=== PATIENT | male | born 1940 | race Caucasian/White ===

== ENCOUNTER 2017-06-08 11:00 | Outpatient (RCR) | payer MEDICARE, OTHER, SELFPAY ==
[2017-05-18 10:34] VITALS: BP 122/70; PULSE 74; RESP 18; TEMP 36.6; BMI 23.7
--- NOTE | 2017-05-18 13:22 | PCM.WC.HP ---
(1) Non-pressure chronic ulcer of right lower leg with fat layer exposed Status: Acute Current Visit: Yes Code(s): L97.912 - Non-pressure chronic ulcer of unspecified part of right lower leg with fat layer exposed (2) Neuropathy of right lower extremity Status: Acute Current Visit: Yes Code(s): G57.91 - Unspecified mononeuropathy of right lower limb (3) Right foot drop Status: Acute Current Visit: Yes Code(s): M21.371 - Foot drop, right foot (4) Malnutrition Status: Acute Current Visit: Yes Code(s): E46 - Unspecified protein-calorie malnutrition (5) Delayed wound healing Status: Acute Current Visit: Yes Code(s): T14.8XXD - Other injury of unspecified body region, subsequent encounter (6) PVD (peripheral vascular disease) Status: Suspected Current Visit: Yes Code(s): I73.9 - Peripheral vascular disease, unspecified History of Present Illness Date of Service: 05/18/17 Chief Complaint: Ulcer to distal medial right 1st metatarsophalangeal joint and dorsal 1st metatarsophalangeal joint/hallux History of Wound: This patient presents to the wound center with his with history of approximately 4 years of 2 ulcers surrounding the right first metatarsophalangeal joint, one being slightly more dorsal and distal, and one being more proximal and medial. Patient and patient's are not sure what started the ulcers 4 years ago. They both state that it could have started 4 years ago because the patient had undergone previous hip surgeries, and during a right hip surgery, his sciatic nerve was injured that caused the patient to develop neuropathy and drop foot on the right side. Since the onset, the ulcers have gone through waves of improving and getting worse again. They have not seen a school counsellor for this issue, only the primary care doctor. They state that the areas had been looking good until approximately 3-4 weeks ago when they noticed some clear drainage to the areas. Since they have been dressing the area with Neosporin and a bandage. They both feel like the area is slowly improving and looks better than it did 3 weeks ago. Patient is on chronic amoxicillin therapy for other comorbidities accoring to patient and his . Patient denies any nausea, vomiting, fever, chills, or shortness of breath. Patient and his deny any purulent drainage or malodor. Past Medical History Past Medical History: Chronic Problems History of DVT (deep vein thrombosis) (Chronic) With massive PE in 2005; since then Coumadin therapy Status post IVC filter 04/2013 History of prostate cancer (Chronic) Status post radiation therapy in 2005 complicated by avascular necrosis of the right hip Paroxysmal a-fib (Chronic) Post op, on satolol, following with Dr. 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) Prostate cancer (Chronic) Atrial fibrillation (Chronic) Chronic anemia (Chronic) Sleep apnea (Chronic) Pulmonary embolism (Chronic) Recurrent deep vein thrombosis (DVT) (Chronic) Right foot drop (Chronic) Surgical History: cataract, total hip arthroplasty - Bilateral., - - IVC filter Allergies/Adverse Reactions: Allergies No Known Allergies Allergy (Verified 05/04/13 17:29) Home Medications: Ambulatory Orders Medication Instructions Recorded Furosemide [Lasix] 40 mg PO BID 05/04/13 Amoxicillin [Amoxil] 500 mg PO BID@1000,2200 capsule 05/25/16 Bisacodyl [Dulcolax] 10 mg RECTAL DAILY PRN #30 suppos. 05/25/16 Calcium Carbonate [Tums] 500 mg PO BIDCM tablet 05/25/16 Ergocalciferol [Vitamin D] 50,000 unit PO Q7D capsule 05/25/16 Gabapentin [Neurontin] 300 mg PO BIDCM #60 capsule 05/25/16 Lisinopril [Zestril] 10 mg PO BID@0800,1700 #60 tablet 05/25/16 Menthol/Lanolin/Calamine/Znox 1 applic TOPICAL TID #1 tube 05/25/16 [Calmoseptine Ointment] Polyethylene Glycol 3350 [Miralax] 17 gm PO DAILY #30 packet 05/25/16 Senna/Docusate Sodium [Senokot-S] 1 tablet PO BID@0800,1700 #30 05/25/16 tablet Acetaminophen [Tylenol] 1,000 mg PO BID PRN PRN 05/18/17 Augmentin 875-125 Tablet 875 mg PO BID 05/18/17 Diltiazem HCl [Diltiazem 24Hr Cd] 180 mg PO DAILY 05/18/17 Duloxetine HCl 60 mg PO DAILY 05/18/17 Enalapril Maleate 10 mg PO BID 05/18/17 Ferrous Sulfate [Iron] 325 mg PO BID 05/18/17 Gabapentin [Neurontin] 300 mg PO BID 05/18/17 Iron Polysaccharide Complex 150 mg PO BIDAC 05/18/17 [Ferrex 150] Levothyroxine [Synthroid] 125 mcg PO DAILY@0600 05/18/17 Oxycodone HCl/Acetaminophen 1 tablet PO Q6H PRN PRN 05/18/17 [Percocet 5/325] Rosuvastatin Calcium [Crestor] 5 mg PO QHS 05/18/17 Warfarin [Coumadin ([facility])] 2.5 mg PO DAILY 05/18/17 - Family History Maternal No pertinent history Paternal No pertinent history Lives: Spouse/ Significant Other Smoking Status: Never smoker Tobacco Use: Non-smoker Review of Systems Constitutional: Denies: Chills, Fever Cardiovascular: Denies: Chest Pain, Claudication Respiratory: Denies: Cough, Shortness of Breath, Shortness of breath at rest Gastrointestinal: Denies: Diarrhea, Vomiting Musculoskeletal: Reports: - - weakness to right lower extremity Skin: Reports: Wounds - two ulcers to right first mpj Neurological: Reports: Incoordination - right foot drop, - - neuropathy and absent protective sensation to right foot to all 5 pedal sites tested at random using a 5.07 semmes-alex monofilament. Hematologic/ Lymphatic: Reports: Hx of blood clot Subjective: This patient presents to the wound center with his with history of approximately 4 years of 2 ulcers surrounding the right first metatarsophalangeal joint, one being slightly more dorsal and distal, and one being more proximal and medial. Patient and patient's are not sure what started the ulcers 4 years ago. They both state that it could have started 4 years ago because the patient had undergone previous hip surgeries, and during a right hip surgery, his sciatic nerve was injured that caused the patient to develop neuropathy and drop foot on the right side. Since the onset, the ulcers have gone through waves of improving and getting worse again. They have not seen a school counsellor for this issue, only the primary care doctor. They state that the areas had been looking good until approximately 3-4 weeks ago when they noticed some clear drainage to the areas. Since they have been dressing the area with Neosporin and a bandage. They both feel like the area is slowly improving and looks better than it did 3 weeks ago. Patient is on chronic amoxicillin therapy for other comorbidities according to patient and his . Patient denies any nausea, vomiting, fever, chills, or shortness of breath. Patient and his deny any purulent drainage or malodor. - Physical Exam Vital Signs Temp Pulse Resp BP 97.8 F 74 18 122/70 H 05/18/17 10:34 05/18/17 10:34 05/18/17 10:34 05/18/17 10:34 General: Alert, Oriented x3, Cooperative, No apparent distress Extremities: Capillary Refill Less than 3 Seconds, No Calf Tenderness - negative sahra and carlos signs bilateral, Edema - pitting edema noted to bilateral lower extremity, Peripheral Pulses Normal - DP pulses palpable bilateral, but PT pulses non palpable bilateral due toe edema. Skin: Ulcer/ Wound - Ulcer to proximal medial right 1st MPJ noted to have slight serous drainage with no purulence and no malodor. Base is composed of fibrous tissue and slough. No probing to bone, no undermining, no tracking. No extending cellulitis. No fluctuance. Ulcer to dorsal and slightly more distal aspect of right 1st MPJ noted to have slight serous drainage with no purulence and no malodor. Base is composed of fibrous tissue and slough. No probing to bone, no undermining, no tracking. No extending cellulitis. No fluctuance. Measurements of ulcers are noted in chart Wound Measurements and Assessment - Nurse 1 - General Ulcer Measurement Start: 05/18/17 10:08 Freq: Status: Active Protocol: Activity Type Activity Date Activity User E-Sign Co-Sign Detail Recorded Client Recorded Date Recorded By Document 05/18/17 10:34 [id number] 05/18/17 10:53 TM 05/18/17 10:34 Wound Center Nurse 1 [Ulcer Assessment Protocol: JOHN.WD.LOC] #2 Superior right medial 1st metatarsal head -Combined with other wound No -Current Size (cm) - Length 0.5 -Current Size (cm) - Width 1.0 -Current Size (cm) - Depth 0.2 -Total Square Cm 0.50 -Date of Last Picture (Recall this 05/18/17 field) -Photo Taken Yes -Epithelialization None Present -Tunneling No -Undermining/Tunneling No -Circular Undermining No -Classification - Thickness Full Thickness without Exposed Support Structure -Exudate Amt None Present (0 %) -Wound Margin Distinct, Outline Attached -Granulation Amt None Present (0 %) -Granulation Quality N/A -Slough/Fibrin Yes -Necrosis Amt Large (67-100%) -Necrotic Tissue Type Adherent Slough -Structure Exposed Fascia Fat Layer Exposed -Texture (Vidya-wound Skin Appearance) Scarring Rash -Moisture (Vidya-wound Skin Appearance Dry/Scaly ) -Color (Vidya-wound Skin Appearance) Erythema Hemosiderin Staining -Temperature (Vidya-wound Skin No Abnormality Appearance) (Pt Warm) -Tenderness on Palpation (Vidya-wound No Skin Appearance) -Ulcer Cleansing Rinsed/ Irrigated with Saline -Foul Odor after Cleansing No -Anesthetic Used 5% Lidocaine Gel #1 Inferior right medial 1st metatarsal head -Combined with other wound No -Current Size (cm) - Length 0.8 -Current Size (cm) - Width 0.6 -Current Size (cm) - Depth 0.2 -Total Square Cm 0.48 -Date of Last Picture (Recall this 05/18/17 field) -Photo Taken Yes -Epithelialization None Present -Tunneling No -Undermining/Tunneling No -Circular Undermining No -Classification - Thickness Full Thickness without Exposed Support Structure -Exudate Amt Small (1-33%) -Exudate Type Serosanguineous -Wound Margin Distinct, Outline Attached -Granulation Amt None Present (0 %) -Granulation Quality N/A -Slough/Fibrin Yes -Necrosis Amt Large (67-100%) -Necrotic Tissue Type Adherent Slough -Structure Exposed Fascia Fat Layer Exposed -Texture (Vidya-wound Skin Appearance) Localized Edema Scarring -Moisture (Vidya-wound Skin Appearance Dry/Scaly ) -Color (Vidya-wound Skin Appearance) Erythema Hemosiderin Staining -Temperature (Vidya-wound Skin No Abnormality Appearance) (Pt Warm) -Tenderness on Palpation (Vidya-wound No Skin Appearance) -Ulcer Cleansing Rinsed/ Irrigated with Saline -Foul Odor after Cleansing No -Anesthetic Used 5% Lidocaine Gel [Edema Assessment] -Lower Limb Edema Present Yes -Right Calf (cm) 37.0 -Right Ankle (cm) 22.5 -Left Calf (cm) 35.0 -Left Ankle (cm) 21.5 WC - Nurse 2 - General Ulcer CM Notes Start: 05/18/17 10:08 Freq: Status: Active Protocol: Activity Type Activity Date Activity User E-Sign Co-Sign Detail Recorded Client Recorded Date Recorded By Document 05/18/17 11:18 MW [id number] 05/18/17 11:31 MW 05/18/17 11:18 Wound Center Nurse 2 [Procedure/Treatment] #2 Superior right medial 1st metatarsal head -Time 11:19 -Correct Patient Yes -Correct Side, Site, Position Yes -Correct Procedure Yes -Procedure Performed Yes -Type of Procedure Debridement -Clinical Debridement Selective -Post Debridement Size (cm) - Length 0.7 -Post Debridement Size (cm) - Width 0.9 -Post Debridement Size (cm) - Depth 0.1 -Total Square Cm 0.63 -Wound/Ulcer Outcome Not Healed -Ulcer Cleansing Rinsed/ Irrigated with Saline -Foul Odor after Cleansing No -Bioengineered Tissue No -Cetacaine [place] No -Bleeding Controlled with Pressure -Treatment Response Procedure Tolerated Well #1 Inferior right medial 1st metatarsal head -Time 11:21 -Correct Patient Yes -Correct Side, Site, Position Yes -Correct Procedure Yes -Procedure Performed Yes -Type of Procedure Debridement -Clinical Debridement Selective -Post Debridement Size (cm) - Length 1.0 -Post Debridement Size (cm) - Width 0.9 -Post Debridement Size (cm) - Depth 0.1 -Total Square Cm 0.90 -Wound/Ulcer Outcome Not Healed -Ulcer Cleansing Rinsed/ Irrigated with Saline -Foul Odor after Cleansing No -Bioengineered Tissue No -Cetacaine [place] No -Bleeding Controlled with Pressure -Treatment Response Procedure Tolerated Well [See Physician Procedure note for Specifics] Pain Scale: 0-10 Numeric [Pain] -Is Patient Pain Free? Yes Musculoskeletal: - - no pain on palpation of ulcers due to neuropathy. decreased muscle strenght to right lower extremity. Neurological: - - Protective sensation absent to all 5 pedal sites tested at random using a 5.07 semmes-alex monofilament. Psych/Mental Status: Normal Affect, Appropriate Debridement Note Post-Debridement Measurements/Treatment WC - Nurse 2 - General Ulcer CM Notes Start: 05/18/17 10:08 Freq: Status: Active Protocol: Activity Type Activity Date Activity User E-Sign Co-Sign Detail Recorded Client Recorded Date Recorded By Document 05/18/17 11:18 MW [id number] 05/18/17 11:31 MW 05/18/17 11:18 Wound Center Nurse 2 #2 Superior right medial 1st metatarsal head -Time 11:19 -Correct Patient Yes -Correct Side, Site, Position Yes -Correct Procedure Yes -Procedure Performed Yes -Type of Procedure Debridement -Clinical Debridement Selective -Post Debridement Size (cm) - Length 0.7 -Post Debridement Size (cm) - Width 0.9 -Post Debridement Size (cm) - Depth 0.1 -Total Square Cm 0.63 -Wound/Ulcer Outcome Not Healed -Ulcer Cleansing Rinsed/ Irrigated with Saline -Foul Odor after Cleansing No -Bioengineered Tissue No -Cetacaine [place] No -Bleeding Controlled with Pressure -Treatment Response Procedure Tolerated Well #1 Inferior right medial 1st metatarsal head -Time 11:21 -Correct Patient Yes -Correct Side, Site, Position Yes -Correct Procedure Yes -Procedure Performed Yes -Type of Procedure Debridement -Clinical Debridement Selective -Post Debridement Size (cm) - Length 1.0 -Post Debridement Size (cm) - Width 0.9 -Post Debridement Size (cm) - Depth 0.1 -Total Square Cm 0.90 -Wound/Ulcer Outcome Not Healed -Ulcer Cleansing Rinsed/ Irrigated with Saline -Foul Odor after Cleansing No -Bioengineered Tissue No -Cetacaine [place] No -Bleeding Controlled with Pressure -Treatment Response Procedure Tolerated Well Pain Scale: 0-10 Numeric Is Patient Pain Free? Yes Wound debrided: superior medial right first metatarsal head Laterality: Right Type of Debridement: Selective debridement Anesthesia Used: 5% Lidocaine Gel Depth: in the subcutaneous layer, - Percentage of wound debrided: 100 Instrument Used: 3mm curette Tissue Removed: fibrotic tissue and adherent slough Severity: Fat Layer Exposed Amount of bleeding with debridement: Mild Bleeding Controlled with: Pressure Patient tolerated procedure well - Additional Wound Wound debrided: inferior medial right 1st metatarsal head Laterality: Right Type of Debridement: Selective debridement Anesthesia Used: 5% Lidocaine Gel Depth: in the subcutaneous layer Percentage of wound debrided: 100 Instrument Used: 3mm curette Tissue Removed: fibrotic tissue and adherent slough Severity: Fat Layer Exposed Amount of bleeding with debridement: Mild Bleeding Controlled with: Pressure Patient tolerated procedure: Patient tolerated procedure well Assessment/Plan Active Problems Non-pressure chronic ulcer of right lower leg with fat layer exposed (Acute) Neuropathy of right lower extremity (Acute) Right foot drop (Acute) Malnutrition (Acute) Delayed wound healing (Acute) Assessment: Two ulcers to the medial and dorsal aspect of the right first metatarsophalangeal joint with fat layer exposed. Foot drop. 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 Malnutrition. Plan: Patient was examined and evaluated in great detail and I discussed the patient's case and his care. Subcutaneous selective debridement of both ulcer sites noted above was performed. Once complete, harrison was applied to the sites followed by a dry sterile dressing and a light Tubigrip. Patient had been previously wearing TIMO hose and was instructed to continue this on his left side. Patient is to have dressing changed in this manner every other day and to keep the dressing clean, dry, and intact while on. Patient's shoes as well as AFO brace were inspected to see if there were any areas of pressure. Patient and his were also notified to keep an eye on the feet and to evaluate for any areas of suspected pressure. 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 Previous imaging studies were reviewed that patient had completed Viky back in February. Three-view x-ray of the right foot was read as the patient having degenerative changes at the first metatarsal phalangeal joint and within the midfoot. An addendum was also added to this stating that there is relative lucency in the first metatarsal head. A total body 3 phase bone scan was also completed, with the impressions stating that there was increased soft tissue phase activity and increased osseous phase activity at the head of the right first metatarsal, and that this could indicate osteomyelitis. For this reason, follow-up 3 view x-rays were ordered today. Clinically, the ulcer sites did not appear to be acutely infected today. Baseline lab work was also ordered today including CBC with differential, CMP, pre-albumin, ESR. LEAS with toe pressure as well as venous doppler bilateral studies were ordered. These results will be reviewed at follow-up appointment. The patient and his were educated on signs and symptoms of local and systemic infection and were notified to go to the ER immediately should they notice any. All other questions were answered to the patient and the patient's 's satisfaction. Patient will follow up in clinic in 1 week or sooner if any problems arise.
[2017-05-18 15:38] LABS: ALB/GLOB Ratio 0.6 RATIO (0.9-2.4); AST(SGOT) 27 U/L (15-37); Alanine Aminotransfer ALT/SGPT 22 U/L (12-78); Albumin, Serum 2.4 g/dL (3.4-5.0); Alkaline Phosphatase 101 U/L (45-117); Anion Gap 6 (5-15); BUN 13 mg/dL (7-18); BUN/Creat Ratio 21.1 RATIO (10-20); Calcium,Total 7.8 mg/dL (8.5-10.1); Chloride 104 mmol/L (98-107); Creatinine, Serum 0.62 mg/dL (0.70-1.30); EST Glomerular Filtration Rate 135 mL/min (>60); Est Glom Filt Rate - Afr Amer 163 mL/min (>60); Estimated Creatinine Clearance 65.89 ml/min; Globulin 3.9 g/dL (2.2-4.2); Glucose 77 mg/dL (70-110); Potassium 4.2 mmol/L (3.5-5.1); Prealbumin 15.7 mg/dL (20.0-40.0); Protein, Total 6.3 g/dL (6.4-8.2); Sodium Level 138 mmol/L (136-145)
[2017-05-18 16:06] LABS: Absolute Lymphocyte Count 0.45 X10^3/ul (0.83-4.51); Absolute Neutrophil Count 7.6 X10^3/uL (2.0-7.7); Basophil# 0.05 X10^3/uL; Basophil% 0.5 % (0-1); Eosinophils% 2.2 % (0-5); Hematocrit 37.5 % (40-54); Lymphocyte # 0.45 X10^3/ul (4.0); Lymphocyte % 4.9 % (19-41); Mean Corp Hgb Conc 29.3 g/gl (32-36); Mean Corpuscular Hgb 25.9 pg (27.0-32.0); Mean Corpuscular Volume 88.4 fL (80-94); Monocyte# 0.87 X10^3/uL; Monocyte% 9.4 % (0-10); Neutrophil # 7.55 X10^3/uL (2.7-7.7); Platelet Count 588 K/mm3 (150-450); RBC Distribution Width SD 54.9 fl (35.1-43.9); Red Blood Count 4.24 M/mm3 (4.6-6.2); White Blood Count 9.2 K/mm3 (4.4-11.0)
[2017-05-18 16:09] LABS: Differential Indicated SCAN CRITERIA MET; POSITIVE COUNT NO; POSITIVE DIFFERENTIAL YES; POSITIVE MORPHOLOGY NO
[2017-05-18 16:27] LABS: Differential Comment SCANNED; Erythrocyte Sedimentation Rate 32 mm/hr (0-20)
--- NOTE | 2017-05-22 07:38 | VDLE_ITS ---
Reason For Study: EDEMA RIGHT LEFT CFV is compressible, spontaneous, phasic, CFV is compressible, spontaneous, phasic, competent and demonstrates normal competent, and demonstrates normal augmentation. augmentation. Rt SFV is compressible, patent, phasic and FV is compressible, spontaneous, phasic, demonstrates INCOMPETENCY greater than .5 competent and demonstrates normal sec. augmentation. RT POP V is compressible, patent, phasic and POP V is compressible, spontaneous, phasic, demonstrates INCOMPETENCY greater than .5 competent and demonstrates normal sec. augmentation. RT GSV at SFJ is compressible and T/P Trunk is compressible. INCOMPETENT for greater than .5 sec. PTV is compressible. RT GSV above the knee is compressible and LT PerV is compressible. INCOMPETENT and measures .3 X .3 cm LEFT GSV is compressible and competent. RT GSV below the knee is compressible and LEFT SSV is compressible and INCOMPETENT for INCOMPETENT and measures .3 X .3 cm greater than .5 sec. and measures .32 X .4 RT SSV is compressible and INCOMPETENT for cm. greater than .5 sec. and measures .27 X .35 cm. T/P Trunk is compressible. PTV is compressible. RT PerV is compressible. Procedure Exam performed in department. A preliminary report was called and/or faxed to [facility]. Interpretation Summary Deep veins of the lower extremities are bilaterally patent and compressible segmentally. There is no evidence of deep vein thrombosis on either side. Valvular incompetence is noted in the right femoral vein and popliteal vein. Valvular competence appears intact within the proximal deep venous system on the left . The greater saphenous veins appear bilaterally patent and compressible segmentally. The right sapheno-femoral junction is incompetent . The right greater saphenous vein appears segmentally incompetent. The left greater saphenous vein appears segmentally competent. Small saphenous veins are patent and incompetent bilaterally. Ordering Physician: Hang Nelson Referring Physician: ELIDIA JESUS Performed By: Richa Jordan, NADIA, RVT
--- NOTE | 2017-05-22 07:42 | RAD_ITS ---
STUDY: X-RAY - RIGHT FOOT CLINICAL: Male, 76 years old. Also great toe. TECHNIQUE: 3 view(s) of the foot. COMPARISON: None. FINDINGS: There is mild generalized osteopenia. Normal talus, calcaneus, and tarsal bones. Normal visualized subtalar, talonavicular, calcaneocuboid, tarsal and tarsometatarsal articulations. Normal metatarsi. There is degenerative arthrosis of the metatarsophalangeal joint of the hallux . Normal tibial and fibular sesamoid bones. Normal interphalangeal joint of the great toe. Normal phalanges of the great toe. Normal second through fifth metatarsophalangeal joints. Normal interphalangeal joints and phalanges of the lesser toes. There is mild soft tissue prominence of the great toe. RAD/Foot min 3 Views IMPRESSION: 1. Soft tissue prominence of the great toe without underlying osseous abnormality. 2. Arthrosis of the first metatarsophalangeal joint. Electronically Signed: Lazaro Yi DO at 8:55 EST Tel [phone], Service support ,
--- NOTE | 2017-05-22 07:43 | RAD_ITS ---
STUDY: X-RAY RIGHT FOOT, FIRST TOE REASON FOR EXAM: Male, 76 years old. Ulceration. TECHNIQUE: 3 view(s) of the toe were obtained. COMPARISON: Right foot, May 22, 2017. FINDINGS: Normal visualized metatarsus. There is arthrosis of the metatarsophalangeal (M.T.P.) joint. Normal interphalangeal joint. Normal phalanges. There is no evidence of cortical disruption to suggest osteomyelitis. There is mild soft tissue prominence over the distal great toe. RAD/Toe(s) Min 2 Views IMPRESSION: No evidence of fracture or osteomyelitis. Electronically Signed: Lazaro Yi DO at 8:56 EST Tel [phone], Service support ,
--- NOTE | 2017-05-23 19:48 | LEAS ---
Arterial Study - Arterial Study Arterial Study: This is a 76-year-old male with suspected peripheral arterial occlusive disease. The patient is brought to the noninvasive vascular laboratory at this time for the purpose of bilateral noninvasive lower extremity arterial assessment. Doppler signal assessment was used to evaluate the pulses at ankle level bilaterally. The posterior tibial and dorsalis pedis pulses were triphasic bilaterally. Segmental limb pressures were obtained bilaterally. The right ankle pressure, as determined the posterior tibial pulse, was measured at 148 mmHg. The right ankle pressure, as determined by dorsalis pedis pulse, was measured at 145 mmHg. The right digital pressure was measured at 124 mmHg. The left ankle pressure, as determined the posterior tibial pulse, was measured at 150 mmHg. The left ankle pressure, as determined by dorsalis pedis pulse, was measured at 151 mmHg. The left digital pressure was measured at 118 mmHg. Pulse-volume recordings were obtained bilaterally and segmentally. Waveform amplitudes appeared to be satisfactory at all levels bilaterally, including low thigh, calf, ankle, and digital levels. The digital waveform on the left, however, was slightly diminished as compared to the right. Resting ankle-brachial indices were calculated bilaterally. The resting right ankle-brachial index was calculated to be 1.25. The resting left ankle-brachial index was calculated to be 1.28. Digital-brachial indices were calculated bilaterally. The right digital-brachial index was calculated to be 1.05. The left digital-brachial index was calculated to be 1.00. Impression: Based upon the findings of this resting noninvasive lower extremity arterial study, there is no evidence of significant atherosclerotic peripheral arterial occlusive disease in the lower extremities bilaterally. Triphasic waveforms are noted at ankle level bilaterally. Resting ankle-brachial indices were bilaterally normal. Digital-brachial indices were also normal bilaterally. In summary, this represents a normal resting noninvasive lower extremity arterial study bilaterally.
--- NOTE | 2017-05-23 19:51 | LEAS_ITS ---
Arterial Study - Arterial Study Arterial Study: This is a 76-year-old male with suspected peripheral arterial occlusive disease. The patient is brought to the noninvasive vascular laboratory at this time for the purpose of bilateral noninvasive lower extremity arterial assessment. Doppler signal assessment was used to evaluate the pulses at ankle level bilaterally. The posterior tibial and dorsalis pedis pulses were triphasic bilaterally. Segmental limb pressures were obtained bilaterally. The right ankle pressure, as determined the posterior tibial pulse, was measured at 148 mmHg. The right ankle pressure, as determined by dorsalis pedis pulse, was measured at 145 mmHg. The right digital pressure was measured at 124 mmHg. The left ankle pressure, as determined the posterior tibial pulse, was measured at 150 mmHg. The left ankle pressure, as determined by dorsalis pedis pulse, was measured at 151 mmHg. The left digital pressure was measured at 118 mmHg. Pulse-volume recordings were obtained bilaterally and segmentally. Waveform amplitudes appeared to be satisfactory at all levels bilaterally, including low thigh, calf, ankle, and digital levels. The digital waveform on the left, however, was slightly diminished as compared to the right. Resting ankle-brachial indices were calculated bilaterally. The resting right ankle-brachial index was calculated to be 1.25. The resting left ankle- brachial index was calculated to be 1.28. Digital-brachial indices were calculated bilaterally. The right digital- brachial index was calculated to be 1.05. The left digital-brachial index was calculated to be 1.00. Impression: Based upon the findings of this resting noninvasive lower extremity arterial study, there is no evidence of significant atherosclerotic peripheral arterial occlusive disease in the lower extremities bilaterally. Triphasic waveforms are noted at ankle level bilaterally. Resting ankle-brachial indices were bilaterally normal. Digital-brachial indices were also normal bilaterally. In summary, this represents a normal resting noninvasive lower extremity arterial study bilaterally.
[2017-05-25 10:06] VITALS: BP 118/73; PULSE 79; RESP 18; TEMP 37; BMI 23.7
--- NOTE | 2017-05-25 11:47 | WC ---
pt given surgical shoe for R fooot . pt uses own brace on RLE for drop foot . pt ambulated with new usage of surgical shoe pt tolerated well. dr Nelson aware
--- NOTE | 2017-05-25 12:15 | PCM.WC.PN ---
(1) Non-pressure chronic ulcer of right lower leg with fat layer exposed Status: Acute Current Visit: Yes Code(s): L97.912 - Non-pressure chronic ulcer of unspecified part of right lower leg with fat layer exposed (2) Neuropathy of right lower extremity Status: Acute Current Visit: Yes Code(s): G57.91 - Unspecified mononeuropathy of right lower limb (3) Right foot drop Status: Acute Current Visit: Yes Code(s): M21.371 - Foot drop, right foot (4) Malnutrition Status: Acute Current Visit: Yes Code(s): E46 - Unspecified protein-calorie malnutrition (5) Delayed wound healing Status: Acute Current Visit: Yes Code(s): T14.8XXD - Other injury of unspecified body region, subsequent encounter (6) Venous insufficiency Status: Acute Current Visit: Yes Code(s): I87.2 - Venous insufficiency (chronic) (peripheral) Type of Wound Date of Service: 05/25/17 Chief Complaint: Ulcer to dorsomedial aspect of the right hallux and dorsomedial 1st metatarsophalangeal joint History of Wound: This patient presents to the wound center with his for follow up today for long standing history of wound areas to the right hallux and 1st MPJ that have gotten better and then worse again over the course of 4 years. 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 Since the onset, the ulcers have gone through waves of improving and getting worse again. Patient is on chronic amoxicillin therapy for other comorbidities accoring to patient and his . They feel the ulcer sites have not changed much since last visit, and the areas may seem a little dry. Patient denies any nausea, vomiting, fever, chills, or shortness of breath today. Patient and his deny any purulent drainage or malodor. Progress of Wound: stable from last visit - Physical Exam Vital Signs Temp Pulse Resp BP 98.6 F 79 18 118/73 05/25/17 10:06 05/25/17 10:06 05/25/17 10:06 05/25/17 10:06 General: Alert, Oriented x3, Cooperative, No apparent distress Extremities: Capillary Refill Less than 3 Seconds, No Calf Tenderness - Negative Elaine and Dumont sign lateral, Edema - Bilateral pitting lower extremity edema appreciated with right side being slightly worse than left, Peripheral Pulses Normal - DP pulses palpable bilateral. PT pulses nonpalpable due to edema. Skin: Ulcer/ Wound - Ulcer to proximal medial right 1st MPJ noted to have slight serous drainage with no purulence and no malodor. Base is composed of fibrous tissue and adherent slough. No probing to bone, no undermining, no tracking. No extending cellulitis. No fluctuance. Ulcer to dorsomedial hallux noted to have slight serous drainage with no purulence and no malodor. Base is composed of fibrous tissue and adherent slough. No probing to bone, no undermining, no tracking. No extending cellulitis. No fluctuance. Measurements of ulcers are noted in chart Wound Measurements and Assessment - Nurse 1 - General Ulcer Measurement Start: 05/18/17 10:08 Freq: Status: Active Protocol: Activity Type Activity Date Activity User E-Sign Co-Sign Detail Recorded Client Recorded Date Recorded By Document 05/25/17 10:06 NURIA [id number] 05/25/17 10:23 NURIA 05/25/17 10:06 Wound Center Nurse 1 [Ulcer Assessment Protocol: JOHN.WD.LOC] #2 Superior right medial 1st metatarsal head -Combined with other wound No -Current Size (cm) - Length 0.5 -Current Size (cm) - Width 0.7 -Current Size (cm) - Depth 0.2 -Total Square Cm 0.35 -Photo Taken No -Tunneling No -Undermining/Tunneling No -Circular Undermining No -Classification - Thickness Full Thickness without Exposed Support Structure -Exudate Amt Small (1-33%) -Exudate Type Serosanguineous -Wound Margin Fibrotic Scar, Thickened Scar -Granulation Amt Small (1-33%) -Granulation Quality Canon -Slough/Fibrin Yes -Necrosis Amt Large (67-100%) -Necrotic Tissue Type Adherent Slough -Structure Exposed N/A -Texture (Vidya-wound Skin Appearance) Assessed -Moisture (Vidya-wound Skin Appearance Assessed ) -Color (Vidya-wound Skin Appearance) Assessed -Temperature (Vidya-wound Skin No Abnormality Appearance) (Pt Warm) -Tenderness on Palpation (Vidya-wound No Skin Appearance) -Ulcer Cleansing Rinsed/ Irrigated with Saline -Foul Odor after Cleansing No -Anesthetic Used 5% Lidocaine Gel #1 Inferior right medial 1st metatarsal head -Combined with other wound No -Current Size (cm) - Length 1.2 -Current Size (cm) - Width 1.2 -Current Size (cm) - Depth 0.2 -Total Square Cm 1.44 -Photo Taken No -Epithelialization None Present -Tunneling No -Undermining/Tunneling No -Circular Undermining No -Classification - Thickness Full Thickness without Exposed Support Structure -Exudate Amt Small (1-33%) -Exudate Type Serosanguineous -Wound Margin Fibrotic Scar, Thickened Scar -Granulation Amt Small (1-33%) -Granulation Quality Canon -Slough/Fibrin Yes -Necrosis Amt Medium (34-66%) -Necrotic Tissue Type Adherent Slough -Structure Exposed N/A -Texture (Vidya-wound Skin Appearance) Assessed Friable -Moisture (Vidya-wound Skin Appearance Assessed ) Maceration -Color (Vidya-wound Skin Appearance) Assessed -Temperature (Vidya-wound Skin No Abnormality Appearance) (Pt Warm) -Tenderness on Palpation (Vidya-wound No Skin Appearance) -Ulcer Cleansing Rinsed/ Irrigated with Saline -Foul Odor after Cleansing No -Anesthetic Used 5% Lidocaine Gel WC - Nurse 2 - General Ulcer CM Notes Start: 05/18/17 10:08 Freq: Status: Active Protocol: Activity Type Activity Date Activity User E-Sign Co-Sign Detail Recorded Client Recorded Date Recorded By Document 05/25/17 10:43 MW [id number] 05/25/17 11:09 MW 05/25/17 10:43 Wound Center Nurse 2 [Procedure/Treatment] #2 Superior right medial 1st metatarsal head -Time 10:44 -Correct Patient Yes -Correct Side, Site, Position Yes -Correct Procedure Yes -Procedure Performed Yes -Type of Procedure Debridement -Clinical Debridement Subcutaneous -Post Debridement Size (cm) - Length 0.9 -Post Debridement Size (cm) - Width 1.1 -Post Debridement Size (cm) - Depth 0.2 -Total Square Cm 0.99 -Wound/Ulcer Outcome Not Healed -Ulcer Cleansing Rinsed/ Irrigated with Saline -Foul Odor after Cleansing No -Bioengineered Tissue No -Cetacaine [place] No -Bleeding Controlled with Pressure -Treatment Response Procedure Tolerated Well #1 Inferior right medial 1st metatarsal head -Time 10:45 -Correct Patient Yes -Correct Side, Site, Position Yes -Correct Procedure Yes -Procedure Performed Yes -Type of Procedure Debridement -Clinical Debridement Subcutaneous -Post Debridement Size (cm) - Length 1.7 -Post Debridement Size (cm) - Width 1.4 -Post Debridement Size (cm) - Depth 0.2 -Total Square Cm 2.38 -Wound/Ulcer Outcome Not Healed -Ulcer Cleansing Rinsed/ Irrigated with Saline -Foul Odor after Cleansing No -Bioengineered Tissue No -Cetacaine [place] No -Bleeding Controlled with Pressure -Treatment Response Procedure Tolerated Well [See Physician Procedure note for Specifics] Pain Scale: 0-10 Numeric [Pain] -Is Patient Pain Free? Yes Musculoskeletal: - - Foot drop deformity to the right side Neurological: - - Protective sensation absent to the right lower extremity as tested with a 5.07 [place] Richard monofilament Psych/Mental Status: Normal Affect, Appropriate Debridement Note Post-Debridement Measurements/Treatment WC - Nurse 2 - General Ulcer CM Notes Start: 05/18/17 10:08 Freq: Status: Active Protocol: Activity Type Activity Date Activity User E-Sign Co-Sign Detail Recorded Client Recorded Date Recorded By Document 05/18/17 11:18 MW [id number] 05/18/17 11:31 MW Document 05/25/17 10:43 MW [id number] 05/25/17 11:09 MW 05/18/17 05/25/17 11:18 10:43 Wound Center Nurse 2 #2 Superior right medial 1st metatarsal head -Time 11:19 10:44 -Correct Patient Yes Yes -Correct Side, Site, Position Yes Yes -Correct Procedure Yes Yes -Procedure Performed Yes Yes -Type of Procedure Debridement Debridement -Clinical Debridement Selective Subcutaneous -Post Debridement Size (cm) - Length 0.7 0.9 -Post Debridement Size (cm) - Width 0.9 1.1 -Post Debridement Size (cm) - Depth 0.1 0.2 -Total Square Cm 0.63 0.99 -Wound/Ulcer Outcome Not Healed Not Healed -Ulcer Cleansing Rinsed/ Rinsed/ Irrigated with Irrigated with Saline Saline -Foul Odor after Cleansing No No -Bioengineered Tissue No No -Cetacaine [place] No No -Bleeding Controlled with Pressure Pressure -Treatment Response Procedure Procedure Tolerated Well Tolerated Well #1 Inferior right medial 1st metatarsal head -Time 11:21 10:45 -Correct Patient Yes Yes -Correct Side, Site, Position Yes Yes -Correct Procedure Yes Yes -Procedure Performed Yes Yes -Type of Procedure Debridement Debridement -Clinical Debridement Selective Subcutaneous -Post Debridement Size (cm) - Length 1.0 1.7 -Post Debridement Size (cm) - Width 0.9 1.4 -Post Debridement Size (cm) - Depth 0.1 0.2 -Total Square Cm 0.90 2.38 -Wound/Ulcer Outcome Not Healed Not Healed -Ulcer Cleansing Rinsed/ Rinsed/ Irrigated with Irrigated with Saline Saline -Foul Odor after Cleansing No No -Bioengineered Tissue No No -Cetacaine [place] No No -Bleeding Controlled with Pressure Pressure -Treatment Response Procedure Procedure Tolerated Well Tolerated Well Pain Scale: 0-10 Numeric Is Patient Pain Free? Yes Yes Wound debrided: Dorsomedial right hallux Laterality: Right Type of Debridement: Excisional debridement Anesthesia Used: 4% Lidocaine Solution Depth: in the subcutaneous layer Percentage of wound debrided: 100 Instrument Used: #15 blade Tissue Removed: adherent slough/fibrin Severity: Fat Layer Exposed Amount of bleeding with debridement: Mild Bleeding Controlled with: Pressure Patient tolerated procedure well - Additional Wound Wound debrided: medial 1st metatarsophalangeal joint Laterality: Right Type of Debridement: Excisional debridement Anesthesia Used: 4% Lidocaine Solution Depth: in the subcutaneous layer Percentage of wound debrided: 100 Instrument Used: #15 blade Tissue Removed: adherent slough/fibrin Severity: Fat Layer Exposed Amount of bleeding with debridement: Mild Bleeding Controlled with: Pressure Patient tolerated procedure: Patient tolerated procedure well Assessment/Plan Clinical Impression(s) from Imaging Studies Foot X-Ray 05/22/17 07:42 IMPRESSION: 1. Soft tissue prominence of the great toe without underlying osseous abnormality. 2. Arthrosis of the first metatarsophalangeal joint. Electronically Signed: Lazaro Yi DO at 8:55 EST Tel [phone], Service support , Toe X-Ray 05/22/17 07:43 IMPRESSION: No evidence of fracture or osteomyelitis. Electronically Signed: Lazaro Yi DO at 8:56 EST Tel [phone], Service support , Active Problems Non-pressure chronic ulcer of right lower leg with fat layer exposed (Acute) Neuropathy of right lower extremity (Acute) Right foot drop (Acute) Malnutrition (Acute) Delayed wound healing (Acute) Venous insufficiency (Acute) Assessment: Ulcers to the dorsal aspect of the right hallux and medial right first metatarsophalangeal joint with fat layer exposed. Foot drop. 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 Malnutrition. Plan: Patient was examined and evaluated in great detail and I discussed the patient's case and his care. Subcutaneous excisional debridement of both ulcer sites as noted above was performed. There was slight increase in size today. Since there area seemed dry today, the patient will be swithced for the next week to daily dressing changes of harrison to the sites followed hydrogel, then adaptic, then gauze dressing and a spandigrip. Patient had been previously wearing TIMO hose and was instructed to continue this on his left side. Patient is to have dressing changed in this manner every other day and to keep the dressing clean, dry, and intact while on. Since I am concerned of pressure over the ulcer sites in the patient's shoes, we decided of offload the areas with a surgical shoe to his right side. His afo was placed in the surgical shoe and the patient walked around to wound center to make sure there was no slipping or stability issues. Patient did well. He was instructed if he feels unsteady while walking when he gets home, to stop with the surgical shoe, and we can cut a hole in his regular shoes at his next visit to offload the areas. As noted previously, patient is on usp amoxicillin therapy per infectious disease for other issues, according to the patient and his . Results from 3 view x-rays ordered at last visit were reviewed with the patient and the impression of the xrays was read as soft tissue prominence of the great toe without underlying osseous abnormality and arthrosis of the first MPJ. Clinically, the ulcer sites did not appear to be acutely infected today. Other lab work results were also discussed with the patient. He had an ESR of 32. His prealbumin was also 15.7, and we discussed the importance of a high protein diet and discussed options of good food as well as different protein drinks to help with healing. Patients arterial studies came back with results of KIERSTEN of 1.23 on the right and 1.28 on the left as well as triphasic DP and PT doppler bilateral. 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 These results were discussed with the patient, and he will be referred to Dr. Kearns for further work up of this issue. The patient and his were educated on signs and symptoms of local and systemic infection and were notified to go to the ER immediately should they notice any. All other questions were answered to the patient and the patient's 's satisfaction. Patient will follow up in clinic in 1 week or sooner if any problems arise.
--- NOTE | 2017-05-25 12:30 | PN.PCM_ITS ---
(1) Non-pressure chronic ulcer of right lower leg with fat layer exposed Status: Acute Current Visit: Yes Code(s): L97.912 - Non-pressure chronic ulcer of unspecified part of right lower leg with fat layer exposed (2) Neuropathy of right lower extremity Status: Acute Current Visit: Yes Code(s): G57.91 - Unspecified mononeuropathy of right lower limb (3) Right foot drop Status: Acute Current Visit: Yes Code(s): M21.371 - Foot drop, right foot (4) Malnutrition Status: Acute Current Visit: Yes Code(s): E46 - Unspecified protein-calorie malnutrition (5) Delayed wound healing Status: Acute Current Visit: Yes Code(s): T14.8XXD - Other injury of unspecified body region, subsequent encounter (6) Venous insufficiency Status: Acute Current Visit: Yes Code(s): I87.2 - Venous insufficiency ( chronic) (peripheral) Type of Wound Date of Service: 05/25/17 Chief Complaint: Ulcer to dorsomedial aspect of the right hallux and dorsomedial 1st metatarsophalangeal joint History of Wound: This patient presents to the wound center with his for follow up today for long standing history of wound areas to the right hallux and 1st MPJ that have gotten better and then worse again over the course of 4 years. 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 Since the onset, the ulcers have gone through waves of improving and getting worse again. Patient is on chronic amoxicillin therapy for other comorbidities accoring to patient and his . They feel the ulcer sites have not changed much since last visit, and the areas may seem a little dry. Patient denies any nausea, vomiting, fever, chills, or shortness of breath today. Patient and his deny any purulent drainage or malodor. Progress of Wound: stable from last visit - Physical Exam Vital Signs Temp Pulse Resp BP 98.6 F 79 18 118/73 05/25/17 10:06 05/25/17 10:06 05/25/17 10:06 05/25/17 10:06 General: Alert, Oriented x3, Cooperative, No apparent distress Extremities: Capillary Refill Less than 3 Seconds, No Calf Tenderness - Negative Elaine and Dumont sign lateral, Edema - Bilateral pitting lower extremity edema appreciated with right side being slightly worse than left, Peripheral Pulses Normal - DP pulses palpable bilateral. PT pulses nonpalpable due to edema. Skin: Ulcer/ Wound - Ulcer to proximal medial right 1st MPJ noted to have slight serous drainage with no purulence and no malodor. Base is composed of fibrous tissue and adherent slough. No probing to bone, no undermining, no tracking. No extending cellulitis. No fluctuance. Ulcer to dorsomedial hallux noted to have slight serous drainage with no purulence and no malodor. Base is composed of fibrous tissue and adherent slough. No probing to bone, no undermining, no tracking. No extending cellulitis. No fluctuance. Measurements of ulcers are noted in chart Wound Measurements and Assessment - Nurse 1 - General Ulcer Measurement Start: 05/18/17 10:08 Freq: Status: Active Protocol: Activity Type Activity Date Activity User E-Sign Co-Sign Detail Recorded Client Recorded Date Recorded By Document 05/25/17 10:06 NURIA [id number] 05/25/17 10:23 NURIA 05/25/17 10:06 Wound Center Nurse 1 [Ulcer Assessment Protocol: JOHN.WD.LOC] #2 Superior right medial 1st metatarsal head -Combined with other wound No -Current Size (cm) - Length 0.5 -Current Size (cm) - Width 0.7 -Current Size (cm) - Depth 0.2 -Total Square Cm 0.35 -Photo Taken No -Tunneling No -Undermining/Tunneling No -Circular Undermining No -Classification - Thickness Full Thickness without Exposed Support Structure -Exudate Amt Small (1-33%) -Exudate Type Serosanguineous -Wound Margin Fibrotic Scar, Thickened Scar -Granulation Amt Small (1-33%) -Granulation Quality [place] -Slough/Fibrin Yes -Necrosis Amt Large (67-100%) -Necrotic Tissue Type Adherent Slough -Structure Exposed N/A -Texture (Vidya-wound Skin Appearance) Assessed -Moisture (Vidya-wound Skin Appearance Assessed ) -Color (Vidya-wound Skin Appearance) Assessed -Temperature (Vidya-wound Skin No Abnormality Appearance) (Pt Warm) -Tenderness on Palpation (Vidya-wound No Skin Appearance) -Ulcer Cleansing Rinsed/ Irrigated with Saline -Foul Odor after Cleansing No -Anesthetic Used 5% Lidocaine Gel #1 Inferior right medial 1st metatarsal head -Combined with other wound No -Current Size (cm) - Length 1.2 -Current Size (cm) - Width 1.2 -Current Size (cm) - Depth 0.2 -Total Square Cm 1.44 -Photo Taken No -Epithelialization None Present -Tunneling No -Undermining/Tunneling No -Circular Undermining No -Classification - Thickness Full Thickness without Exposed Support Structure -Exudate Amt Small (1-33%) -Exudate Type Serosanguineous -Wound Margin Fibrotic Scar, Thickened Scar -Granulation Amt Small (1-33%) -Granulation Quality [place] -Slough/Fibrin Yes -Necrosis Amt Medium (34-66%) -Necrotic Tissue Type Adherent Slough -Structure Exposed N/A -Texture (Vidya-wound Skin Appearance) Assessed Friable -Moisture (Vidya-wound Skin Appearance Assessed ) Maceration -Color (Vidya-wound Skin Appearance) Assessed -Temperature (Vidya-wound Skin No Abnormality Appearance) (Pt Warm) -Tenderness on Palpation (Vidya-wound No Skin Appearance) -Ulcer Cleansing Rinsed/ Irrigated with Saline -Foul Odor after Cleansing No -Anesthetic Used 5% Lidocaine Gel WC - Nurse 2 - General Ulcer CM Notes Start: 05/18/17 10:08 Freq: Status: Active Protocol: Activity Type Activity Date Activity User E-Sign Co-Sign Detail Recorded Client Recorded Date Recorded By Document 05/25/17 10:43 MW [id number] 05/25/17 11:09 MW 05/25/17 10:43 Wound Center Nurse 2 [Procedure/Treatment] #2 Superior right medial 1st metatarsal head -Time 10:44 -Correct Patient Yes -Correct Side, Site, Position Yes -Correct Procedure Yes -Procedure Performed Yes -Type of Procedure Debridement -Clinical Debridement Subcutaneous -Post Debridement Size (cm) - Length 0.9 -Post Debridement Size (cm) - Width 1.1 -Post Debridement Size (cm) - Depth 0.2 -Total Square Cm 0.99 -Wound/Ulcer Outcome Not Healed -Ulcer Cleansing Rinsed/ Irrigated with Saline -Foul Odor after Cleansing No -Bioengineered Tissue No -Cetacaine [place] No -Bleeding Controlled with Pressure -Treatment Response Procedure Tolerated Well #1 Inferior right medial 1st metatarsal head -Time 10:45 -Correct Patient Yes -Correct Side, Site, Position Yes -Correct Procedure Yes -Procedure Performed Yes -Type of Procedure Debridement -Clinical Debridement Subcutaneous -Post Debridement Size (cm) - Length 1.7 -Post Debridement Size (cm) - Width 1.4 -Post Debridement Size (cm) - Depth 0.2 -Total Square Cm 2.38 -Wound/Ulcer Outcome Not Healed -Ulcer Cleansing Rinsed/ Irrigated with Saline -Foul Odor after Cleansing No -Bioengineered Tissue No -Cetacaine [place] No -Bleeding Controlled with Pressure -Treatment Response Procedure Tolerated Well [See Physician Procedure note for Specifics] Pain Scale: 0-10 Numeric [Pain] -Is Patient Pain Free? Yes Musculoskeletal: - - Foot drop deformity to the right side Neurological: - - Protective sensation absent to the right lower extremity as tested with a 5.07 [place] monofilament Psych/Mental Status: Normal Affect, Appropriate Debridement Note Post-Debridement Measurements/Treatment WC - Nurse 2 - General Ulcer CM Notes Start: 05/18/17 10:08 Freq: Status: Active Protocol: Activity Type Activity Date Activity User E-Sign Co-Sign Detail Recorded Client Recorded Date Recorded By Document 05/18/17 11:18 MW [id number] 05/18/17 11:31 MW Document 05/25/17 10:43 MW [id number] 05/25/17 11:09 MW 05/18/17 05/25/17 11:18 10:43 Wound Center Nurse 2 #2 Superior right medial 1st metatarsal head -Time 11:19 10:44 -Correct Patient Yes Yes -Correct Side, Site, Position Yes Yes -Correct Procedure Yes Yes -Procedure Performed Yes Yes -Type of Procedure Debridement Debridement -Clinical Debridement Selective Subcutaneous -Post Debridement Size (cm) - Length 0.7 0.9 -Post Debridement Size (cm) - Width 0.9 1.1 -Post Debridement Size (cm) - Depth 0.1 0.2 -Total Square Cm 0.63 0.99 -Wound/Ulcer Outcome Not Healed Not Healed -Ulcer Cleansing Rinsed/ Rinsed/ Irrigated with Irrigated with Saline Saline -Foul Odor after Cleansing No No -Bioengineered Tissue No No -Cetacaine [place] No No -Bleeding Controlled with Pressure Pressure -Treatment Response Procedure Procedure Tolerated Well Tolerated Well #1 Inferior right medial 1st metatarsal head -Time 11:21 10:45 -Correct Patient Yes Yes -Correct Side, Site, Position Yes Yes -Correct Procedure Yes Yes -Procedure Performed Yes Yes -Type of Procedure Debridement Debridement -Clinical Debridement Selective Subcutaneous -Post Debridement Size (cm) - Length 1.0 1.7 -Post Debridement Size (cm) - Width 0.9 1.4 -Post Debridement Size (cm) - Depth 0.1 0.2 -Total Square Cm 0.90 2.38 -Wound/Ulcer Outcome Not Healed Not Healed -Ulcer Cleansing Rinsed/ Rinsed/ Irrigated with Irrigated with Saline Saline -Foul Odor after Cleansing No No -Bioengineered Tissue No No -Cetacaine [place] No No -Bleeding Controlled with Pressure Pressure -Treatment Response Procedure Procedure Tolerated Well Tolerated Well Pain Scale: 0-10 Numeric Is Patient Pain Free? Yes Yes Wound debrided: Dorsomedial right hallux Laterality: Right Type of Debridement: Excisional debridement Anesthesia Used: 4% Lidocaine Solution Depth: in the subcutaneous layer Percentage of wound debrided: 100 Instrument Used: #15 blade Tissue Removed: adherent slough/fibrin Severity: Fat Layer Exposed Amount of bleeding with debridement: Mild Bleeding Controlled with: Pressure Patient tolerated procedure well - Additional Wound Wound debrided: medial 1st metatarsophalangeal joint Laterality: Right Type of Debridement: Excisional debridement Anesthesia Used: 4% Lidocaine Solution Depth: in the subcutaneous layer Percentage of wound debrided: 100 Instrument Used: #15 blade Tissue Removed: adherent slough/fibrin Severity: Fat Layer Exposed Amount of bleeding with debridement: Mild Bleeding Controlled with: Pressure Patient tolerated procedure: Patient tolerated procedure well Assessment/Plan Clinical Impression(s) from Imaging Studies Foot X-Ray 05/22/17 07:42 IMPRESSION: 1. Soft tissue prominence of the great toe without underlying osseous abnormality. 2. Arthrosis of the first metatarsophalangeal joint. Electronically Signed: Lazaro Yi DO at 8:55 EST Tel [phone], Service support , Toe X-Ray 05/22/17 07:43 IMPRESSION: No evidence of fracture or osteomyelitis. Electronically Signed: Lazaro Yi DO at 8:56 EST Tel [phone], Service support , Active Problems Non-pressure chronic ulcer of right lower leg with fat layer exposed (Acute) Neuropathy of right lower extremity (Acute) Right foot drop (Acute) Malnutrition (Acute) Delayed wound healing (Acute) Venous insufficiency (Acute) Assessment: Ulcers to the dorsal aspect of the right hallux and medial right first metatarsophalangeal joint with fat layer exposed. Foot drop. 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 Malnutrition. Plan: Patient was examined and evaluated in great detail and I discussed the patient's case and his care. Subcutaneous excisional debridement of both ulcer sites as noted above was performed. There was slight increase in size today. Since there area seemed dry today, the patient will be swithced for the next week to daily dressing changes of harrison to the sites followed hydrogel, then adaptic, then gauze dressing and a spandigrip. Patient had been previously wearing TIMO hose and was instructed to continue this on his left side. Patient is to have dressing changed in this manner every other day and to keep the dressing clean, dry, and intact while on. Since I am concerned of pressure over the ulcer sites in the patient's shoes, we decided of offload the areas with a surgical shoe to his right side. His afo was placed in the surgical shoe and the patient walked around to wound center to make sure there was no slipping or stability issues. Patient did well. He was instructed if he feels unsteady while walking when he gets home, to stop with the surgical shoe, and we can cut a hole in his regular shoes at his next visit to offload the areas. 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 Results from 3 view x- rays ordered at last visit were reviewed with the patient and the impression of the xrays was read as soft tissue prominence of the great toe without underlying osseous abnormality and arthrosis of the first MPJ. Clinically, the ulcer sites did not appear to be acutely infected today. Other lab work results were also discussed with the patient. He had an ESR of 32. His prealbumin was also 15.7, and we discussed the importance of a high protein diet and discussed options of good food as well as different protein drinks to help with healing. Patients arterial studies came back with results of KIERSTEN of 1.23 on the right and 1.28 on the left as well as triphasic DP and PT doppler bilateral. 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 These results were discussed with the patient, and he will be referred to Dr. Kearns for further work up of this issue. The patient and his were educated on signs and symptoms of local and systemic infection and were notified to go to the ER immediately should they notice any. All other questions were answered to the patient and the patient's 's satisfaction. Patient will follow up in clinic in 1 week or sooner if any problems arise.
[2017-06-01 11:07] VITALS: BP 119/70; PULSE 81; RESP 16; TEMP 36.6; BMI 23.7
--- NOTE | 2017-06-01 20:38 | PCM.WC.PN ---
(1) Non-pressure chronic ulcer of right lower leg with fat layer exposed Status: Acute Current Visit: Yes Code(s): L97.912 - Non-pressure chronic ulcer of unspecified part of right lower leg with fat layer exposed (2) Neuropathy of right lower extremity Status: Acute Current Visit: Yes Code(s): G57.91 - Unspecified mononeuropathy of right lower limb (3) Right foot drop Status: Acute Current Visit: Yes Code(s): M21.371 - Foot drop, right foot (4) Malnutrition Status: Acute Current Visit: Yes Code(s): E46 - Unspecified protein-calorie malnutrition (5) Delayed wound healing Status: Acute Current Visit: Yes Code(s): T14.8XXD - Other injury of unspecified body region, subsequent encounter (6) Venous insufficiency Status: Acute Current Visit: Yes Code(s): I87.2 - Venous insufficiency (chronic) (peripheral) Type of Wound Date of Service: 06/01/17 Chief Complaint: Ulcer to dorsomedial aspect of the right hallux and dorsomedial 1st metatarsophalangeal joint History of Wound: This patient presents to the wound center with his for follow up today for ulcer areas to the right hallux and 1st MPJ. 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 Since the onset, the ulcers have gone through waves of improving and getting worse again. Patient is on chronic amoxicillin therapy for other comorbidities accoring to patient and his . Not much change in appearance to the ulcer over the last week. Patient states he is doing well with the surgical shoe and his AFO and feels that the shoe is helping to offload pressure to the areas. Patient denies any nausea, vomiting, fever, chills, or shortness of breath today. Patient and his deny any purulent drainage or malodor. Progress of Wound: stable from last visit - Physical Exam Vital Signs Temp Pulse Resp BP 98 F 81 16 119/70 06/01/17 11:07 06/01/17 11:07 06/01/17 11:07 06/01/17 11:07 General: Alert, Oriented x3, Cooperative, No apparent distress Extremities: Capillary Refill Less than 3 Seconds, No Calf Tenderness, Edema - Bilateral lower extremity edema appreciated with the right side being slightly worse than left and pitting., - - DP pulses are palpable bilateral. PT pulses are nonpalpable. Skin: Ulcer/ Wound - Ulcer to proximal medial right 1st MPJ noted to have slight serous drainage with no purulence and no malodor. Base is composed of fibrous tissue and adherent slough, no granular tissue. No probing to bone, no undermining, no tracking. No extending cellulitis. No fluctuance. Ulcer to dorsomedial hallux noted to have slight serous drainage with no purulence and no malodor. Base is composed of fibrous tissue and adherent slough, with no granular tissue. No probing to bone, no undermining, no tracking. No extending cellulitis. No fluctuance. Measurements of ulcers are noted in chart Wound Measurements and Assessment - Nurse 1 - General Ulcer Measurement Start: 05/18/17 10:08 Freq: Status: Active Protocol: Activity Type Activity Date Activity User E-Sign Co-Sign Detail Recorded Client Recorded Date Recorded By Document 06/01/17 11:07 [facility] [id number] 06/01/17 11:20 [facility] 06/01/17 11:07 Wound Center Nurse 1 [Ulcer Assessment Protocol: JOHN.WD.LOC] #2 Superior right medial 1st metatarsal head -Combined with other wound No -Current Size (cm) - Length 0.5 -Current Size (cm) - Width 0.7 -Current Size (cm) - Depth 0.1 -Total Square Cm 0.35 -Photo Taken No -Epithelialization None Present -Tunneling No -Undermining/Tunneling No -Exudate Amt Medium (34-66%) -Exudate Type Serosanguineous -Wound Margin Distinct, Outline Attached -Granulation Amt None Present (0 %) -Slough/Fibrin Yes -Necrosis Amt Large (67-100%) -Necrotic Tissue Type Adherent Slough -Structure Exposed N/A -Texture (Vidya-wound Skin Appearance) Localized Edema Scarring -Moisture (Vidya-wound Skin Appearance Dry/Scaly ) -Color (Vidya-wound Skin Appearance) Erythema -Temperature (Vidya-wound Skin No Abnormality Appearance) (Pt Warm) -Tenderness on Palpation (Vidya-wound Yes Skin Appearance) -Ulcer Cleansing Rinsed/ Irrigated with Saline -Foul Odor after Cleansing No -Anesthetic Used 5% Lidocaine Gel #1 Inferior right medial 1st metatarsal head -Combined with other wound No -Current Size (cm) - Length 1.2 -Current Size (cm) - Width 1.1 -Current Size (cm) - Depth 0.1 -Total Square Cm 1.32 -Photo Taken No -Epithelialization None Present -Tunneling No -Undermining/Tunneling No -Exudate Amt Small (1-33%) -Exudate Type Serosanguineous -Wound Margin Distinct, Outline Attached -Granulation Amt None Present (0 %) -Slough/Fibrin Yes -Necrosis Amt Large (67-100%) -Necrotic Tissue Type Adherent Slough -Structure Exposed N/A -Texture (Vidya-wound Skin Appearance) Localized Edema Scarring -Moisture (Vidya-wound Skin Appearance Dry/Scaly ) -Color (Vidya-wound Skin Appearance) Erythema -Temperature (Vidya-wound Skin No Abnormality Appearance) (Pt Warm) -Tenderness on Palpation (Vidya-wound No Skin Appearance) -Ulcer Cleansing Rinsed/ Irrigated with Saline -Foul Odor after Cleansing No -Anesthetic Used 5% Lidocaine Gel [Edema Assessment] -Lower Limb Edema Present No -Right Calf (cm) 36.8 -Right Ankle (cm) 22.7 WC - Nurse 2 - General Ulcer CM Notes Start: 05/18/17 10:08 Freq: Status: Active Protocol: Activity Type Activity Date Activity User E-Sign Co-Sign Detail Recorded Client Recorded Date Recorded By Document 06/01/17 12:07 MW [id number] 06/01/17 12:17 MW 06/01/17 12:07 Wound Center Nurse 2 [Procedure/Treatment] #2 Superior right medial 1st metatarsal head -Time 12:09 -Correct Patient Yes -Correct Side, Site, Position Yes -Correct Procedure Yes -Procedure Performed Yes -Type of Procedure Debridement -Clinical Debridement Subcutaneous -Post Debridement Size (cm) - Length 0.3 -Post Debridement Size (cm) - Width 0.8 -Post Debridement Size (cm) - Depth 0.2 -Total Square Cm 0.24 -Wound/Ulcer Outcome Not Healed -Ulcer Cleansing Rinsed/ Irrigated with Saline -Foul Odor after Cleansing No -Bioengineered Tissue No -Cetacaine [place] No -Bleeding Controlled with NA -Treatment Response Procedure Tolerated Well #1 Inferior right medial 1st metatarsal head -Time 12:09 -Correct Patient Yes -Correct Side, Site, Position Yes -Correct Procedure Yes -Procedure Performed Yes -Type of Procedure Debridement -Clinical Debridement Subcutaneous -Post Debridement Size (cm) - Length 1.3 -Post Debridement Size (cm) - Width 1.0 -Post Debridement Size (cm) - Depth 0.2 -Total Square Cm 1.30 -Wound/Ulcer Outcome Not Healed -Ulcer Cleansing Rinsed/ Irrigated with Saline -Foul Odor after Cleansing No -Bioengineered Tissue No -Cetacaine [place] No -Bleeding Controlled with Pressure -Treatment Response Procedure Tolerated Well [See Physician Procedure note for Specifics] Pain Scale: 0-10 Numeric [Pain] -Is Patient Pain Free? Yes Musculoskeletal: - - Foot drop deformity noted to the right Neurological: - - Protective sensation absent to all sites tested to the right foot as using a 5.07 Logan Richard monofilament. Psych/Mental Status: Normal Affect, Appropriate Debridement Note Post-Debridement Measurements/Treatment WC - Nurse 2 - General Ulcer CM Notes Start: 05/18/17 10:08 Freq: Status: Active Protocol: Activity Type Activity Date Activity User E-Sign Co-Sign Detail Recorded Client Recorded Date Recorded By Document 05/18/17 11:18 MW [id number] 05/18/17 11:31 MW Document 05/25/17 10:43 MW [id number] 05/25/17 11:09 MW Document 06/01/17 12:07 MW [id number] 06/01/17 12:17 MW 05/18/17 05/25/17 06/01/17 11:18 10:43 12:07 Wound Center Nurse 2 #2 Superior right medial 1st metatarsal head -Time 11:19 10:44 12:09 -Correct Patient Yes Yes Yes -Correct Side, Site, Position Yes Yes Yes -Correct Procedure Yes Yes Yes -Procedure Performed Yes Yes Yes -Type of Procedure Debridement Debridement Debridement -Clinical Debridement Selective Subcutaneous Subcutaneous -Post Debridement Size (cm) - Length 0.7 0.9 0.3 -Post Debridement Size (cm) - Width 0.9 1.1 0.8 -Post Debridement Size (cm) - Depth 0.1 0.2 0.2 -Total Square Cm 0.63 0.99 0.24 -Wound/Ulcer Outcome Not Healed Not Healed Not Healed -Ulcer Cleansing Rinsed/ Rinsed/ Rinsed/ Irrigated with Irrigated with Irrigated with Saline Saline Saline -Foul Odor after Cleansing No No No -Bioengineered Tissue No No No -Cetacaine [place] No No No -Bleeding Controlled with Pressure Pressure NA -Treatment Response Procedure Procedure Procedure Tolerated Well Tolerated Well Tolerated Well #1 Inferior right medial 1st metatarsal head -Time 11:21 10:45 12:09 -Correct Patient Yes Yes Yes -Correct Side, Site, Position Yes Yes Yes -Correct Procedure Yes Yes Yes -Procedure Performed Yes Yes Yes -Type of Procedure Debridement Debridement Debridement -Clinical Debridement Selective Subcutaneous Subcutaneous -Post Debridement Size (cm) - Length 1.0 1.7 1.3 -Post Debridement Size (cm) - Width 0.9 1.4 1.0 -Post Debridement Size (cm) - Depth 0.1 0.2 0.2 -Total Square Cm 0.90 2.38 1.30 -Wound/Ulcer Outcome Not Healed Not Healed Not Healed -Ulcer Cleansing Rinsed/ Rinsed/ Rinsed/ Irrigated with Irrigated with Irrigated with Saline Saline Saline -Foul Odor after Cleansing No No No -Bioengineered Tissue No No No -Cetacaine [place] No No No -Bleeding Controlled with Pressure Pressure Pressure -Treatment Response Procedure Procedure Procedure Tolerated Well Tolerated Well Tolerated Well Pain Scale: 0-10 Numeric Is Patient Pain Free? Yes Yes Yes Wound debrided: Dorsomedial right hallux Laterality: Right Type of Debridement: Excisional debridement Anesthesia Used: 4% Lidocaine Solution Depth: in the subcutaneous layer Percentage of wound debrided: 100 Instrument Used: 3mm curette Tissue Removed: Adherent slough/fibrin Severity: Fat Layer Exposed Amount of bleeding with debridement: Mild Bleeding Controlled with: Pressure Patient tolerated procedure well - Additional Wound Wound debrided: Medial first metatarsophalangeal joint Laterality: Right Type of Debridement: Excisional debridement Anesthesia Used: 4% Lidocaine Solution Depth: in the subcutaneous layer Percentage of wound debrided: 100 Instrument Used: 3mm curette Tissue Removed: Adherent slough/fibrin Severity: Fat Layer Exposed Amount of bleeding with debridement: Mild Bleeding Controlled with: Pressure Patient tolerated procedure: Patient tolerated procedure well Assessment/Plan Clinical Impression(s) from Imaging Studies Foot X-Ray 05/22/17 07:42 IMPRESSION: 1. Soft tissue prominence of the great toe without underlying osseous abnormality. 2. Arthrosis of the first metatarsophalangeal joint. Electronically Signed: Lazaro Yi DO at 8:55 EST Tel [phone], Service support , Toe X-Ray 05/22/17 07:43 IMPRESSION: No evidence of fracture or osteomyelitis. Electronically Signed: Lazaro Yi, at 8:56 EST Tel [phone], Service support , Active Problems Non-pressure chronic ulcer of right lower leg with fat layer exposed (Acute) Neuropathy of right lower extremity (Acute) Right foot drop (Acute) Malnutrition (Acute) Delayed wound healing (Acute) Venous insufficiency (Acute) Assessment: Ulcers to the dorsal aspect of the right hallux and medial right first metatarsophalangeal joint with fat layer exposed. Foot drop. 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 Malnutrition. Plan: Patient was examined and evaluated and I discussed the patient's case and his care. Subcutaneous excisional debridement of both ulcer sites as noted above was performed. There was again no improvement since last week in clinical appearance. A prescription was then given to the patient for santyl. Following debridement, the ulcer sites were dressed with santyl, slightly moistened gauze, dry gauze dressing, and a spandigrip. Patient is to continue dressing changes in this manner daily. If the patient's insurance will not cover santyl, he will be switched to dressing changes with [employer]. Patient to continue using surgical shoe to right foot with AFO as long as he is still doing well and feeling stable. As noted previously, patient is on buttermaker helper amoxicillin therapy per infectious disease for other comorbidities. patient. 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 These results were discussed with the patient, and he will be referred to Dr. Kearns for further work up of this issue. His appointment with Dr. Kearns is June 14. The patient and his were educated on signs and symptoms of local and systemic infection and were notified to go to the ER immediately should they notice any. All other questions were answered to the patient and the patient's 's satisfaction. Patient will follow up in clinic in 1 week or sooner if any problems arise.
--- NOTE | 2017-06-01 20:48 | PN.PCM_ITS ---
(1) Non-pressure chronic ulcer of right lower leg with fat layer exposed Status: Acute Current Visit: Yes Code(s): L97.912 - Non-pressure chronic ulcer of unspecified part of right lower leg with fat layer exposed (2) Neuropathy of right lower extremity Status: Acute Current Visit: Yes Code(s): G57.91 - Unspecified mononeuropathy of right lower limb (3) Right foot drop Status: Acute Current Visit: Yes Code(s): M21.371 - Foot drop, right foot (4) Malnutrition Status: Acute Current Visit: Yes Code(s): E46 - Unspecified protein-calorie malnutrition (5) Delayed wound healing Status: Acute Current Visit: Yes Code(s): T14.8XXD - Other injury of unspecified body region, subsequent encounter (6) Venous insufficiency Status: Acute Current Visit: Yes Code(s): I87.2 - Venous insufficiency ( chronic) (peripheral) Type of Wound Date of Service: 06/01/17 Chief Complaint: Ulcer to dorsomedial aspect of the right hallux and dorsomedial 1st metatarsophalangeal joint History of Wound: This patient presents to the wound center with his for follow up today for ulcer areas to the right hallux and 1st MPJ. 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 Since the onset, the ulcers have gone through waves of improving and getting worse again. Patient is on chronic amoxicillin therapy for other comorbidities accoring to patient and his . Not much change in appearance to the ulcer over the last week. Patient states he is doing well with the surgical shoe and his AFO and feels that the shoe is helping to offload pressure to the areas. Patient denies any nausea, vomiting, fever, chills, or shortness of breath today. Patient and his deny any purulent drainage or malodor. Progress of Wound: stable from last visit - Physical Exam Vital Signs Temp Pulse Resp BP 98 F 81 16 119/70 06/01/17 11:07 06/01/17 11:07 06/01/17 11:07 06/01/17 11:07 General: Alert, Oriented x3, Cooperative, No apparent distress Extremities: Capillary Refill Less than 3 Seconds, No Calf Tenderness, Edema - Bilateral lower extremity edema appreciated with the right side being slightly worse than left and pitting., - - DP pulses are palpable bilateral. PT pulses are nonpalpable. Skin: Ulcer/ Wound - Ulcer to proximal medial right 1st MPJ noted to have slight serous drainage with no purulence and no malodor. Base is composed of fibrous tissue and adherent slough, no granular tissue. No probing to bone, no undermining, no tracking. No extending cellulitis. No fluctuance. Ulcer to dorsomedial hallux noted to have slight serous drainage with no purulence and no malodor. Base is composed of fibrous tissue and adherent slough, with no granular tissue. No probing to bone, no undermining, no tracking. No extending cellulitis. No fluctuance. Measurements of ulcers are noted in chart Wound Measurements and Assessment - Nurse 1 - General Ulcer Measurement Start: 05/18/17 10:08 Freq: Status: Active Protocol: Activity Type Activity Date Activity User E-Sign Co-Sign Detail Recorded Client Recorded Date Recorded By Document 06/01/17 11:07 [facility] [id number] 06/01/17 11:20 [facility] 06/01/17 11:07 Wound Center Nurse 1 [Ulcer Assessment Protocol: JOHN.WD.LOC] #2 Superior right medial 1st metatarsal head -Combined with other wound No -Current Size (cm) - Length 0.5 -Current Size (cm) - Width 0.7 -Current Size (cm) - Depth 0.1 -Total Square Cm 0.35 -Photo Taken No -Epithelialization None Present -Tunneling No -Undermining/Tunneling No -Exudate Amt Medium (34-66%) -Exudate Type Serosanguineous -Wound Margin Distinct, Outline Attached -Granulation Amt None Present (0 %) -Slough/Fibrin Yes -Necrosis Amt Large (67-100%) -Necrotic Tissue Type Adherent Slough -Structure Exposed N/A -Texture (Vidya-wound Skin Appearance) Localized Edema Scarring -Moisture (Vidya-wound Skin Appearance Dry/Scaly ) -Color (Vidya-wound Skin Appearance) Erythema -Temperature (Vidya-wound Skin No Abnormality Appearance) (Pt Warm) -Tenderness on Palpation (Vidya-wound Yes Skin Appearance) -Ulcer Cleansing Rinsed/ Irrigated with Saline -Foul Odor after Cleansing No -Anesthetic Used 5% Lidocaine Gel #1 Inferior right medial 1st metatarsal head -Combined with other wound No -Current Size (cm) - Length 1.2 -Current Size (cm) - Width 1.1 -Current Size (cm) - Depth 0.1 -Total Square Cm 1.32 -Photo Taken No -Epithelialization None Present -Tunneling No -Undermining/Tunneling No -Exudate Amt Small (1-33%) -Exudate Type Serosanguineous -Wound Margin Distinct, Outline Attached -Granulation Amt None Present (0 %) -Slough/Fibrin Yes -Necrosis Amt Large (67-100%) -Necrotic Tissue Type Adherent Slough -Structure Exposed N/A -Texture (Vidya-wound Skin Appearance) Localized Edema Scarring -Moisture (Vidya-wound Skin Appearance Dry/Scaly ) -Color (Vidya-wound Skin Appearance) Erythema -Temperature (Vidya-wound Skin No Abnormality Appearance) (Pt Warm) -Tenderness on Palpation (Vidya-wound No Skin Appearance) -Ulcer Cleansing Rinsed/ Irrigated with Saline -Foul Odor after Cleansing No -Anesthetic Used 5% Lidocaine Gel [Edema Assessment] -Lower Limb Edema Present No -Right Calf (cm) 36.8 -Right Ankle (cm) 22.7 WC - Nurse 2 - General Ulcer CM Notes Start: 05/18/17 10:08 Freq: Status: Active Protocol: Activity Type Activity Date Activity User E-Sign Co-Sign Detail Recorded Client Recorded Date Recorded By Document 06/01/17 12:07 MW [id number] 06/01/17 12:17 MW 06/01/17 12:07 Wound Center Nurse 2 [Procedure/Treatment] #2 Superior right medial 1st metatarsal head -Time 12:09 -Correct Patient Yes -Correct Side, Site, Position Yes -Correct Procedure Yes -Procedure Performed Yes -Type of Procedure Debridement -Clinical Debridement Subcutaneous -Post Debridement Size (cm) - Length 0.3 -Post Debridement Size (cm) - Width 0.8 -Post Debridement Size (cm) - Depth 0.2 -Total Square Cm 0.24 -Wound/Ulcer Outcome Not Healed -Ulcer Cleansing Rinsed/ Irrigated with Saline -Foul Odor after Cleansing No -Bioengineered Tissue No -Cetacaine [place] No -Bleeding Controlled with NA -Treatment Response Procedure Tolerated Well #1 Inferior right medial 1st metatarsal head -Time 12:09 -Correct Patient Yes -Correct Side, Site, Position Yes -Correct Procedure Yes -Procedure Performed Yes -Type of Procedure Debridement -Clinical Debridement Subcutaneous -Post Debridement Size (cm) - Length 1.3 -Post Debridement Size (cm) - Width 1.0 -Post Debridement Size (cm) - Depth 0.2 -Total Square Cm 1.30 -Wound/Ulcer Outcome Not Healed -Ulcer Cleansing Rinsed/ Irrigated with Saline -Foul Odor after Cleansing No -Bioengineered Tissue No -Cetacaine [place] No -Bleeding Controlled with Pressure -Treatment Response Procedure Tolerated Well [See Physician Procedure note for Specifics] Pain Scale: 0-10 Numeric [Pain] -Is Patient Pain Free? Yes Musculoskeletal: - - Foot drop deformity noted to the right Neurological: - - Protective sensation absent to all sites tested to the right foot as using a 5.07 [employer] monofilament. Psych/Mental Status: Normal Affect, Appropriate Debridement Note Post-Debridement Measurements/Treatment WC - Nurse 2 - General Ulcer CM Notes Start: 05/18/17 10:08 Freq: Status: Active Protocol: Activity Type Activity Date Activity User E-Sign Co-Sign Detail Recorded Client Recorded Date Recorded By Document 05/18/17 11:18 MW [id number] 05/18/17 11:31 MW Document 05/25/17 10:43 MW [id number] 05/25/17 11:09 MW Document 06/01/17 12:07 MW [id number] 06/01/17 12:17 MW 05/18/17 05/25/17 06/01/17 11:18 10:43 12:07 Wound Center Nurse 2 #2 Superior right medial 1st metatarsal head -Time 11:19 10:44 12:09 -Correct Patient Yes Yes Yes -Correct Side, Site, Position Yes Yes Yes -Correct Procedure Yes Yes Yes -Procedure Performed Yes Yes Yes -Type of Procedure Debridement Debridement Debridement -Clinical Debridement Selective Subcutaneous Subcutaneous -Post Debridement Size (cm) - Length 0.7 0.9 0.3 -Post Debridement Size (cm) - Width 0.9 1.1 0.8 -Post Debridement Size (cm) - Depth 0.1 0.2 0.2 -Total Square Cm 0.63 0.99 0.24 -Wound/Ulcer Outcome Not Healed Not Healed Not Healed -Ulcer Cleansing Rinsed/ Rinsed/ Rinsed/ Irrigated with Irrigated with Irrigated with Saline Saline Saline -Foul Odor after Cleansing No No No -Bioengineered Tissue No No No -Cetacaine [place] No No No -Bleeding Controlled with Pressure Pressure NA -Treatment Response Procedure Procedure Procedure Tolerated Well Tolerated Well Tolerated Well #1 Inferior right medial 1st metatarsal head -Time 11:21 10:45 12:09 -Correct Patient Yes Yes Yes -Correct Side, Site, Position Yes Yes Yes -Correct Procedure Yes Yes Yes -Procedure Performed Yes Yes Yes -Type of Procedure Debridement Debridement Debridement -Clinical Debridement Selective Subcutaneous Subcutaneous -Post Debridement Size (cm) - Length 1.0 1.7 1.3 -Post Debridement Size (cm) - Width 0.9 1.4 1.0 -Post Debridement Size (cm) - Depth 0.1 0.2 0.2 -Total Square Cm 0.90 2.38 1.30 -Wound/Ulcer Outcome Not Healed Not Healed Not Healed -Ulcer Cleansing Rinsed/ Rinsed/ Rinsed/ Irrigated with Irrigated with Irrigated with Saline Saline Saline -Foul Odor after Cleansing No No No -Bioengineered Tissue No No No -Cetacaine [place] No No No -Bleeding Controlled with Pressure Pressure Pressure -Treatment Response Procedure Procedure Procedure Tolerated Well Tolerated Well Tolerated Well Pain Scale: 0-10 Numeric Is Patient Pain Free? Yes Yes Yes Wound debrided: Dorsomedial right hallux Laterality: Right Type of Debridement: Excisional debridement Anesthesia Used: 4% Lidocaine Solution Depth: in the subcutaneous layer Percentage of wound debrided: 100 Instrument Used: 3mm curette Tissue Removed: Adherent slough/fibrin Severity: Fat Layer Exposed Amount of bleeding with debridement: Mild Bleeding Controlled with: Pressure Patient tolerated procedure well - Additional Wound Wound debrided: Medial first metatarsophalangeal joint Laterality: Right Type of Debridement: Excisional debridement Anesthesia Used: 4% Lidocaine Solution Depth: in the subcutaneous layer Percentage of wound debrided: 100 Instrument Used: 3mm curette Tissue Removed: Adherent slough/fibrin Severity: Fat Layer Exposed Amount of bleeding with debridement: Mild Bleeding Controlled with: Pressure Patient tolerated procedure: Patient tolerated procedure well Assessment/Plan Clinical Impression(s) from Imaging Studies Foot X-Ray 05/22/17 07:42 IMPRESSION: 1. Soft tissue prominence of the great toe without underlying osseous abnormality. 2. Arthrosis of the first metatarsophalangeal joint. Electronically Signed: Lazaro Yi DO at 8:55 EST Tel [phone], Service support , Toe X-Ray 05/22/17 07:43 IMPRESSION: No evidence of fracture or osteomyelitis. Electronically Signed: Lazaro Yi, at 8:56 EST Tel [phone], Service support , Active Problems Non-pressure chronic ulcer of right lower leg with fat layer exposed (Acute) Neuropathy of right lower extremity (Acute) Right foot drop (Acute) Malnutrition (Acute) Delayed wound healing (Acute) Venous insufficiency (Acute) Assessment: Ulcers to the dorsal aspect of the right hallux and medial right first metatarsophalangeal joint with fat layer exposed. Foot drop. 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 Malnutrition. Plan: Patient was examined and evaluated and I discussed the patient's case and his care. Subcutaneous excisional debridement of both ulcer sites as noted above was performed. There was again no improvement since last week in clinical appearance. A prescription was then given to the patient for santyl. Following debridement, the ulcer sites were dressed with santyl, slightly moistened gauze , dry gauze dressing, and a spandigrip. Patient is to continue dressing changes in this manner daily. If the patient's insurance will not cover santyl, he will be switched to dressing changes with [employer]. Patient to continue using surgical shoe to right foot with AFO as long as he is still doing well and feeling stable. As noted previously, patient is on vermin exterminator amoxicillin therapy per infectious disease for other comorbidities. patient. 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 These results were discussed with the patient, and he will be referred to Dr. Kearns for further work up of this issue. His appointment with Dr. Kearns is June 14. The patient and his were educated on signs and symptoms of local and systemic infection and were notified to go to the ER immediately should they notice any. All other questions were answered to the patient and the patient's 's satisfaction. Patient will follow up in clinic in 1 week or sooner if any problems arise.
[2017-06-08 11:04] VITALS: BP 114/53; PULSE 82; RESP 18; TEMP 36.3; BMI 23.7
--- NOTE | 2017-06-08 12:35 | PCM.WC.PN ---
(1) Non-pressure chronic ulcer of right lower leg with fat layer exposed Status: Chronic Current Visit: Yes Code(s): L97.912 - Non-pressure chronic ulcer of unspecified part of right lower leg with fat layer exposed (2) 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 Current Visit: Yes Code(s): G57.91 - Unspecified mononeuropathy of right lower limb (3) Right foot drop Status: Chronic Current Visit: Yes Code(s): M21.371 - Foot drop, right foot (4) Malnutrition Status: Acute Current Visit: Yes Code(s): E46 - Unspecified protein-calorie malnutrition (5) Delayed wound healing Status: Acute Current Visit: Yes Code(s): T14.8XXD - Other injury of unspecified body region, subsequent encounter (6) Venous insufficiency Status: Acute Current Visit: Yes Code(s): I87.2 - Venous insufficiency (chronic) (peripheral) Type of Wound Date of Service: 06/08/17 Chief Complaint: Ulcer to dorsomedial aspect of the right hallux and dorsomedial 1st metatarsophalangeal joint History of Wound: This patient presents to the wound center with his for follow up today for ulcer areas to the right hallux and 1st MPJ. 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 Since the onset, the ulcers have gone through waves of improving and getting worse again. Patient is on chronic amoxicillin therapy for other comorbidities accoring to patient and his . Patient was able to get santyl last week and has been having daily dressing changes of santyl and sterile dressing. Slight improvement to bases appreciated. Patient states he is still doing well with the surgical shoe and his AFO and feels that the shoe is helping to offload pressure to the areas. Patient denies any nausea, vomiting, fever, chills, or shortness of breath today. Patient and his deny any purulent drainage or malodor. They will see Dr. Kearns on the . Progress of Wound: very slight improvement since last visit - Physical Exam Vital Signs Temp Pulse Resp BP 97.3 F L 82 18 114/53 L 06/08/17 11:04 06/08/17 11:04 06/08/17 11:04 06/08/17 11:04 General: Alert, Oriented x3, Cooperative, No apparent distress Extremities: Capillary Refill Less than 3 Seconds, No Calf Tenderness, Edema - Bilateral lower extremity pitting edema appreciated with the right side being slightly worse than left, Peripheral Pulses Normal - DP pulses palpable bilatera. PT pulses non palpable bilateral Skin: Ulcer/ Wound - Ulcer to proximal medial right 1st MPJ noted to have slight serous drainage with no purulence and no malodor. Base is composed of fibrous tissue and adherent slough, and a small amount of bleeding granular tissue. No probing to bone, no undermining, no tracking. No extending cellulitis. No fluctuance. Ulcer to dorsomedial hallux noted to have slight serous drainage with no purulence and no malodor. Base is composed of fibrous tissue and adherent slough, with no granular tissue. No probing to bone, no undermining, no tracking. No extending cellulitis. No fluctuance. Measurements of ulcers are noted in chart Wound Measurements and Assessment - Nurse 1 - General Ulcer Measurement Start: 05/18/17 10:08 Freq: Status: Active Protocol: Activity Type Activity Date Activity User E-Sign Co-Sign Detail Recorded Client Recorded Date Recorded By Document 06/08/17 11:04 [id number] 06/08/17 11:14 06/08/17 11:04 Wound Center Nurse 1 [Ulcer Assessment Protocol: JOHN.WD.LOC] #2 Right dorsal Great Toe -Combined with other wound No -Current Size (cm) - Length 0.8 -Current Size (cm) - Width 0.8 -Current Size (cm) - Depth 0.3 -Total Square Cm 0.64 -Photo Taken No -Epithelialization Small 1-33% -Tunneling No -Undermining/Tunneling No -Circular Undermining No -Classification - Thickness Full Thickness without Exposed Support Structure -Exudate Amt Small (1-33%) -Exudate Type Serosanguineous -Wound Margin Distinct, Outline Attached -Granulation Amt None Present (0 %) -Granulation Quality N/A -Slough/Fibrin Yes -Necrosis Amt Large (67-100%) -Necrotic Tissue Type Adherent Slough -Structure Exposed Fascia Fat Layer Exposed -Texture (Vidya-wound Skin Appearance) No Abnormality -Moisture (Vidya-wound Skin Appearance No Abnormality ) Maceration -Color (Vidya-wound Skin Appearance) Erythema -Temperature (Vidya-wound Skin No Abnormality Appearance) (Pt Warm) -Tenderness on Palpation (Vidya-wound No Skin Appearance) -Ulcer Cleansing Rinsed/ Irrigated with Saline -Foul Odor after Cleansing No -Anesthetic Used 5% Lidocaine Gel #1 Right dorsal medial 1st Metatarsophalangeal Joint -Combined with other wound No -Current Size (cm) - Length 1.3 -Current Size (cm) - Width 1.0 -Current Size (cm) - Depth 0.3 -Total Square Cm 1.30 -Photo Taken No -Epithelialization Small 1-33% -Tunneling No -Undermining/Tunneling No -Circular Undermining No -Classification - Thickness Full Thickness without Exposed Support Structure -Exudate Amt Small (1-33%) -Exudate Type Serosanguineous -Wound Margin Distinct, Outline Attached -Granulation Amt None Present (0 %) -Granulation Quality N/A -Slough/Fibrin Yes -Necrosis Amt Large (67-100%) -Necrotic Tissue Type Adherent Slough -Structure Exposed Fascia Fat Layer Exposed -Texture (Vidya-wound Skin Appearance) No Abnormality -Moisture (Vidya-wound Skin Appearance Maceration ) -Color (Vidya-wound Skin Appearance) Erythema -Temperature (Vidya-wound Skin No Abnormality Appearance) (Pt Warm) -Tenderness on Palpation (Vidya-wound No Skin Appearance) -Ulcer Cleansing Rinsed/ Irrigated with Saline -Foul Odor after Cleansing No -Anesthetic Used 5% Lidocaine Gel [Edema Assessment] -Lower Limb Edema Present Yes -Right Calf (cm) 35.5 -Right Ankle (cm) 22.5 WC - Nurse 2 - General Ulcer CM Notes Start: 05/18/17 10:08 Freq: Status: Active Protocol: Activity Type Activity Date Activity User E-Sign Co-Sign Detail Recorded Client Recorded Date Recorded By Document 06/08/17 12:08 MW [id number] 06/08/17 12:24 MW 06/08/17 12:08 Wound Center Nurse 2 [Procedure/Treatment] #2 Right dorsal Great Toe -Time 12:11 -Correct Patient Yes -Correct Side, Site, Position Yes -Correct Procedure Yes -Procedure Performed Yes -Type of Procedure Debridement -Clinical Debridement Selective -Post Debridement Size (cm) - Length 0.6 -Post Debridement Size (cm) - Width 1.0 -Post Debridement Size (cm) - Depth 0.3 -Total Square Cm 0.60 -Wound/Ulcer Outcome Not Healed -Ulcer Cleansing Rinsed/ Irrigated with Saline -Foul Odor after Cleansing No -Bioengineered Tissue No -Cetacaine Lookout No -Bleeding Controlled with Pressure -Treatment Response Procedure Tolerated Well #1 Right dorsal medial 1st Metatarsophalangeal Joint -Time 12:11 -Correct Patient Yes -Correct Side, Site, Position Yes -Correct Procedure Yes -Procedure Performed Yes -Type of Procedure Debridement -Clinical Debridement Selective -Post Debridement Size (cm) - Length 1.2 -Post Debridement Size (cm) - Width 1.1 -Post Debridement Size (cm) - Depth 0.2 -Total Square Cm 1.32 -Wound/Ulcer Outcome Not Healed -Ulcer Cleansing Rinsed/ Irrigated with Saline -Foul Odor after Cleansing No -Bioengineered Tissue No -Cetacaine Lookout No -Bleeding Controlled with Pressure -Treatment Response Procedure Tolerated Well [See Physician Procedure note for Specifics] Pain Scale: 0-10 Numeric [Pain] -Is Patient Pain Free? Yes Musculoskeletal: - - foot drop deformity appreciated to the left Neurological: - - Protective sensation absent to greater than 2 of 5 pedal sites tested at random using a 5.07 semmes alex monofilament. Psych/Mental Status: Normal Affect, Appropriate Debridement Note Post-Debridement Measurements/Treatment WC - Nurse 2 - General Ulcer CM Notes Start: 05/18/17 10:08 Freq: Status: Active Protocol: Activity Type Activity Date Activity User E-Sign Co-Sign Detail Recorded Client Recorded Date Recorded By Document 05/18/17 11:18 MW [id number] 05/18/17 11:31 MW Document 05/25/17 10:43 MW [id number] 05/25/17 11:09 MW Document 06/01/17 12:07 MW [id number] 06/01/17 12:17 MW Document 06/08/17 12:08 MW [id number] 06/08/17 12:24 MW 05/18/17 05/25/17 06/01/17 11:18 10:43 12:07 Wound Center Nurse 2 #2 Right dorsal Great Toe -Time 11:19 10:44 12:09 -Correct Patient Yes Yes Yes -Correct Side, Site, Position Yes Yes Yes -Correct Procedure Yes Yes Yes -Procedure Performed Yes Yes Yes -Type of Procedure Debridement Debridement Debridement -Clinical Debridement Selective Subcutaneous Subcutaneous -Post Debridement Size (cm) - Length 0.7 0.9 0.3 -Post Debridement Size (cm) - Width 0.9 1.1 0.8 -Post Debridement Size (cm) - Depth 0.1 0.2 0.2 -Total Square Cm 0.63 0.99 0.24 -Wound/Ulcer Outcome Not Healed Not Healed Not Healed -Ulcer Cleansing Rinsed/ Rinsed/ Rinsed/ Irrigated with Irrigated with Irrigated with Saline Saline Saline -Foul Odor after Cleansing No No No -Bioengineered Tissue No No No -Cetacaine Lookout No No No -Bleeding Controlled with Pressure Pressure NA -Treatment Response Procedure Procedure Procedure Tolerated Well Tolerated Well Tolerated Well #1 Right dorsal medial 1st Metatarsophalangeal Joint -Time 11:21 10:45 12:09 -Correct Patient Yes Yes Yes -Correct Side, Site, Position Yes Yes Yes -Correct Procedure Yes Yes Yes -Procedure Performed Yes Yes Yes -Type of Procedure Debridement Debridement Debridement -Clinical Debridement Selective Subcutaneous Subcutaneous -Post Debridement Size (cm) - Length 1.0 1.7 1.3 -Post Debridement Size (cm) - Width 0.9 1.4 1.0 -Post Debridement Size (cm) - Depth 0.1 0.2 0.2 -Total Square Cm 0.90 2.38 1.30 -Wound/Ulcer Outcome Not Healed Not Healed Not Healed -Ulcer Cleansing Rinsed/ Rinsed/ Rinsed/ Irrigated with Irrigated with Irrigated with Saline Saline Saline -Foul Odor after Cleansing No No No -Bioengineered Tissue No No No -Cetacaine Lookout No No No -Bleeding Controlled with Pressure Pressure Pressure -Treatment Response Procedure Procedure Procedure Tolerated Well Tolerated Well Tolerated Well Pain Scale: 0-10 Numeric Is Patient Pain Free? Yes Yes Yes 06/08/17 12:08 Wound Center Nurse 2 #2 Right dorsal Great Toe -Time 12:11 -Correct Patient Yes -Correct Side, Site, Position Yes -Correct Procedure Yes -Procedure Performed Yes -Type of Procedure Debridement -Clinical Debridement Selective -Post Debridement Size (cm) - Length 0.6 -Post Debridement Size (cm) - Width 1.0 -Post Debridement Size (cm) - Depth 0.3 -Total Square Cm 0.60 -Wound/Ulcer Outcome Not Healed -Ulcer Cleansing Rinsed/ Irrigated with Saline -Foul Odor after Cleansing No -Bioengineered Tissue No -Cetacaine Lookout No -Bleeding Controlled with Pressure -Treatment Response Procedure Tolerated Well #1 Right dorsal medial 1st Metatarsophalangeal Joint -Time 12:11 -Correct Patient Yes -Correct Side, Site, Position Yes -Correct Procedure Yes -Procedure Performed Yes -Type of Procedure Debridement -Clinical Debridement Selective -Post Debridement Size (cm) - Length 1.2 -Post Debridement Size (cm) - Width 1.1 -Post Debridement Size (cm) - Depth 0.2 -Total Square Cm 1.32 -Wound/Ulcer Outcome Not Healed -Ulcer Cleansing Rinsed/ Irrigated with Saline -Foul Odor after Cleansing No -Bioengineered Tissue No -Cetacaine Lookout No -Bleeding Controlled with Pressure -Treatment Response Procedure Tolerated Well Pain Scale: 0-10 Numeric Is Patient Pain Free? Yes Wound debrided: Dorsomedial right 1st MPJ Laterality: Right Type of Debridement: Selective debridement Anesthesia Used: 4% Lidocaine Solution Depth: in the subcutaneous layer Percentage of wound debrided: 100 Instrument Used: 3mm curette Tissue Removed: Adherent slough and fibrin Severity: Fat Layer Exposed Amount of bleeding with debridement: Mild Bleeding Controlled with: Pressure Patient tolerated procedure well - Additional Wound Wound debrided: Dorsomedial right hallux Laterality: Right Type of Debridement: Selective debridement Anesthesia Used: 4% Lidocaine Solution Depth: in the subcutaneous layer Percentage of wound debrided: 100 Instrument Used: 3mm curette Tissue Removed: Adherent slough, fibrin Severity: Fat Layer Exposed Amount of bleeding with debridement: Mild Bleeding Controlled with: Pressure Patient tolerated procedure: Patient tolerated procedure well Assessment/Plan Clinical Impression(s) from Imaging Studies Foot X-Ray 05/22/17 07:42 IMPRESSION: 1. Soft tissue prominence of the great toe without underlying osseous abnormality. 2. Arthrosis of the first metatarsophalangeal joint. Electronically Signed: Lazaro Yi DO at 8:55 EST Tel [phone], Service support , Toe X-Ray 05/22/17 07:43 IMPRESSION: No evidence of fracture or osteomyelitis. Electronically Signed: Lazaro Yi DO at 8:56 EST Tel [phone], Service support , Active Problems Non-pressure chronic ulcer of right lower leg with fat layer exposed (Chronic) Neuropathy of right lower extremity (Chronic) Right foot drop (Chronic) Malnutrition (Acute) Delayed wound healing (Acute) Venous insufficiency (Acute) Assessment: Ulcers to the dorsal aspect of the right hallux and medial right first metatarsophalangeal joint with fat layer exposed. Foot drop. 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 Malnutrition. Plan: Patient was examined and evaluated again today. I discussed the patient's case and his care. Selective debridement of both ulcer sites as noted above was performed. There was very slight improvement in appearance of the ulcer sites since last week when santyl started being applied. Following debridement, the ulcer sites were dressed with santyl, slightly moistened gauze, dry gauze dressing, and a spandigrip. Patient is to continue dressing changes in this manner daily for the next week. At that time, depending on appearance of ulcers, we may switch to an advanced product that would work best for current ulcer state. Patient to continue using surgical shoe to right foot with AFO as long as he is still doing well and feeling stable. As noted previously, patient is on systems analysis manager amoxicillin therapy per infectious disease for other comorbidities. 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 He will follow up with Dr. Kearns for this June 14. The patient and his were educated on signs and symptoms of local and systemic infection and were notified to go to the ER immediately should they notice any. All other questions were answered to the patient and the patient's 's satisfaction. Patient will follow up in clinic in 1 week or sooner if any problems arise.
--- NOTE | 2017-06-08 12:46 | PN.PCM_ITS ---
(1) Non-pressure chronic ulcer of right lower leg with fat layer exposed Status: Chronic Current Visit: Yes Code(s): L97.912 - Non-pressure chronic ulcer of unspecified part of right lower leg with fat layer exposed (2) 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 Current Visit: Yes Code(s): G57.91 - Unspecified mononeuropathy of right lower limb (3) Right foot drop Status: Chronic Current Visit: Yes Code(s): M21.371 - Foot drop, right foot (4) Malnutrition Status: Acute Current Visit: Yes Code(s): E46 - Unspecified protein-calorie malnutrition (5) Delayed wound healing Status: Acute Current Visit: Yes Code(s): T14.8XXD - Other injury of unspecified body region, subsequent encounter (6) Venous insufficiency Status: Acute Current Visit: Yes Code(s): I87.2 - Venous insufficiency ( chronic) (peripheral) Type of Wound Date of Service: 06/08/17 Chief Complaint: Ulcer to dorsomedial aspect of the right hallux and dorsomedial 1st metatarsophalangeal joint History of Wound: This patient presents to the wound center with his for follow up today for ulcer areas to the right hallux and 1st MPJ. 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 Since the onset, the ulcers have gone through waves of improving and getting worse again. Patient is on chronic amoxicillin therapy for other comorbidities accoring to patient and his . Patient was able to get santyl last week and has been having daily dressing changes of santyl and sterile dressing. Slight improvement to bases appreciated. Patient states he is still doing well with the surgical shoe and his AFO and feels that the shoe is helping to offload pressure to the areas. Patient denies any nausea, vomiting, fever, chills, or shortness of breath today. Patient and his deny any purulent drainage or malodor. They will see Dr. Kearns on the . Progress of Wound: very slight improvement since last visit - Physical Exam Vital Signs Temp Pulse Resp BP 97.3 F L 82 18 114/53 L 06/08/17 11:04 06/08/17 11:04 06/08/17 11:04 06/08/17 11:04 General: Alert, Oriented x3, Cooperative, No apparent distress Extremities: Capillary Refill Less than 3 Seconds, No Calf Tenderness, Edema - Bilateral lower extremity pitting edema appreciated with the right side being slightly worse than left, Peripheral Pulses Normal - DP pulses palpable bilatera. PT pulses non palpable bilateral Skin: Ulcer/ Wound - Ulcer to proximal medial right 1st MPJ noted to have slight serous drainage with no purulence and no malodor. Base is composed of fibrous tissue and adherent slough, and a small amount of bleeding granular tissue. No probing to bone, no undermining, no tracking. No extending cellulitis. No fluctuance. Ulcer to dorsomedial hallux noted to have slight serous drainage with no purulence and no malodor. Base is composed of fibrous tissue and adherent slough, with no granular tissue. No probing to bone, no undermining, no tracking. No extending cellulitis. No fluctuance. Measurements of ulcers are noted in chart Wound Measurements and Assessment - Nurse 1 - General Ulcer Measurement Start: 05/18/17 10:08 Freq: Status: Active Protocol: Activity Type Activity Date Activity User E-Sign Co-Sign Detail Recorded Client Recorded Date Recorded By Document 06/08/17 11:04 [id number] 06/08/17 11:14 06/08/17 11:04 Wound Center Nurse 1 [Ulcer Assessment Protocol: JOHN.WD.LOC] #2 Right dorsal Great Toe -Combined with other wound No -Current Size (cm) - Length 0.8 -Current Size (cm) - Width 0.8 -Current Size (cm) - Depth 0.3 -Total Square Cm 0.64 -Photo Taken No -Epithelialization Small 1-33% -Tunneling No -Undermining/Tunneling No -Circular Undermining No -Classification - Thickness Full Thickness without Exposed Support Structure -Exudate Amt Small (1-33%) -Exudate Type Serosanguineous -Wound Margin Distinct, Outline Attached -Granulation Amt None Present (0 %) -Granulation Quality N/A -Slough/Fibrin Yes -Necrosis Amt Large (67-100%) -Necrotic Tissue Type Adherent Slough -Structure Exposed Fascia Fat Layer Exposed -Texture (Vidya-wound Skin Appearance) No Abnormality -Moisture (Vidya-wound Skin Appearance No Abnormality ) Maceration -Color (Vidya-wound Skin Appearance) Erythema -Temperature (Vidya-wound Skin No Abnormality Appearance) (Pt Warm) -Tenderness on Palpation (Vidya-wound No Skin Appearance) -Ulcer Cleansing Rinsed/ Irrigated with Saline -Foul Odor after Cleansing No -Anesthetic Used 5% Lidocaine Gel #1 Right dorsal medial 1st Metatarsophalangeal Joint -Combined with other wound No -Current Size (cm) - Length 1.3 -Current Size (cm) - Width 1.0 -Current Size (cm) - Depth 0.3 -Total Square Cm 1.30 -Photo Taken No -Epithelialization Small 1-33% -Tunneling No -Undermining/Tunneling No -Circular Undermining No -Classification - Thickness Full Thickness without Exposed Support Structure -Exudate Amt Small (1-33%) -Exudate Type Serosanguineous -Wound Margin Distinct, Outline Attached -Granulation Amt None Present (0 %) -Granulation Quality N/A -Slough/Fibrin Yes -Necrosis Amt Large (67-100%) -Necrotic Tissue Type Adherent Slough -Structure Exposed Fascia Fat Layer Exposed -Texture (Vidya-wound Skin Appearance) No Abnormality -Moisture (Vidya-wound Skin Appearance Maceration ) -Color (Vidya-wound Skin Appearance) Erythema -Temperature (Vidya-wound Skin No Abnormality Appearance) (Pt Warm) -Tenderness on Palpation (Vidya-wound No Skin Appearance) -Ulcer Cleansing Rinsed/ Irrigated with Saline -Foul Odor after Cleansing No -Anesthetic Used 5% Lidocaine Gel [Edema Assessment] -Lower Limb Edema Present Yes -Right Calf (cm) 35.5 -Right Ankle (cm) 22.5 WC - Nurse 2 - General Ulcer CM Notes Start: 05/18/17 10:08 Freq: Status: Active Protocol: Activity Type Activity Date Activity User E-Sign Co-Sign Detail Recorded Client Recorded Date Recorded By Document 06/08/17 12:08 MW [id number] 06/08/17 12:24 MW 06/08/17 12:08 Wound Center Nurse 2 [Procedure/Treatment] #2 Right dorsal Great Toe -Time 12:11 -Correct Patient Yes -Correct Side, Site, Position Yes -Correct Procedure Yes -Procedure Performed Yes -Type of Procedure Debridement -Clinical Debridement Selective -Post Debridement Size (cm) - Length 0.6 -Post Debridement Size (cm) - Width 1.0 -Post Debridement Size (cm) - Depth 0.3 -Total Square Cm 0.60 -Wound/Ulcer Outcome Not Healed -Ulcer Cleansing Rinsed/ Irrigated with Saline -Foul Odor after Cleansing No -Bioengineered Tissue No -Cetacaine Star No -Bleeding Controlled with Pressure -Treatment Response Procedure Tolerated Well #1 Right dorsal medial 1st Metatarsophalangeal Joint -Time 12:11 -Correct Patient Yes -Correct Side, Site, Position Yes -Correct Procedure Yes -Procedure Performed Yes -Type of Procedure Debridement -Clinical Debridement Selective -Post Debridement Size (cm) - Length 1.2 -Post Debridement Size (cm) - Width 1.1 -Post Debridement Size (cm) - Depth 0.2 -Total Square Cm 1.32 -Wound/Ulcer Outcome Not Healed -Ulcer Cleansing Rinsed/ Irrigated with Saline -Foul Odor after Cleansing No -Bioengineered Tissue No -Cetacaine Star No -Bleeding Controlled with Pressure -Treatment Response Procedure Tolerated Well [See Physician Procedure note for Specifics] Pain Scale: 0-10 Numeric [Pain] -Is Patient Pain Free? Yes Musculoskeletal: - - foot drop deformity appreciated to the left Neurological: - - Protective sensation absent to greater than 2 of 5 pedal sites tested at random using a 5.07 semmes alex monofilament. Psych/Mental Status: Normal Affect, Appropriate Debridement Note Post-Debridement Measurements/Treatment WC - Nurse 2 - General Ulcer CM Notes Start: 05/18/17 10:08 Freq: Status: Active Protocol: Activity Type Activity Date Activity User E-Sign Co-Sign Detail Recorded Client Recorded Date Recorded By Document 05/18/17 11:18 MW [id number] 05/18/17 11:31 MW Document 05/25/17 10:43 MW [id number] 05/25/17 11:09 MW Document 06/01/17 12:07 MW [id number] 06/01/17 12:17 MW Document 06/08/17 12:08 MW [id number] 06/08/17 12:24 MW 05/18/17 05/25/17 06/01/17 11:18 10:43 12:07 Wound Center Nurse 2 #2 Right dorsal Great Toe -Time 11:19 10:44 12:09 -Correct Patient Yes Yes Yes -Correct Side, Site, Position Yes Yes Yes -Correct Procedure Yes Yes Yes -Procedure Performed Yes Yes Yes -Type of Procedure Debridement Debridement Debridement -Clinical Debridement Selective Subcutaneous Subcutaneous -Post Debridement Size (cm) - Length 0.7 0.9 0.3 -Post Debridement Size (cm) - Width 0.9 1.1 0.8 -Post Debridement Size (cm) - Depth 0.1 0.2 0.2 -Total Square Cm 0.63 0.99 0.24 -Wound/Ulcer Outcome Not Healed Not Healed Not Healed -Ulcer Cleansing Rinsed/ Rinsed/ Rinsed/ Irrigated with Irrigated with Irrigated with Saline Saline Saline -Foul Odor after Cleansing No No No -Bioengineered Tissue No No No -Cetacaine Star No No No -Bleeding Controlled with Pressure Pressure NA -Treatment Response Procedure Procedure Procedure Tolerated Well Tolerated Well Tolerated Well #1 Right dorsal medial 1st Metatarsophalangeal Joint -Time 11:21 10:45 12:09 -Correct Patient Yes Yes Yes -Correct Side, Site, Position Yes Yes Yes -Correct Procedure Yes Yes Yes -Procedure Performed Yes Yes Yes -Type of Procedure Debridement Debridement Debridement -Clinical Debridement Selective Subcutaneous Subcutaneous -Post Debridement Size (cm) - Length 1.0 1.7 1.3 -Post Debridement Size (cm) - Width 0.9 1.4 1.0 -Post Debridement Size (cm) - Depth 0.1 0.2 0.2 -Total Square Cm 0.90 2.38 1.30 -Wound/Ulcer Outcome Not Healed Not Healed Not Healed -Ulcer Cleansing Rinsed/ Rinsed/ Rinsed/ Irrigated with Irrigated with Irrigated with Saline Saline Saline -Foul Odor after Cleansing No No No -Bioengineered Tissue No No No -Cetacaine Star No No No -Bleeding Controlled with Pressure Pressure Pressure -Treatment Response Procedure Procedure Procedure Tolerated Well Tolerated Well Tolerated Well Pain Scale: 0-10 Numeric Is Patient Pain Free? Yes Yes Yes 06/08/17 12:08 Wound Center Nurse 2 #2 Right dorsal Great Toe -Time 12:11 -Correct Patient Yes -Correct Side, Site, Position Yes -Correct Procedure Yes -Procedure Performed Yes -Type of Procedure Debridement -Clinical Debridement Selective -Post Debridement Size (cm) - Length 0.6 -Post Debridement Size (cm) - Width 1.0 -Post Debridement Size (cm) - Depth 0.3 -Total Square Cm 0.60 -Wound/Ulcer Outcome Not Healed -Ulcer Cleansing Rinsed/ Irrigated with Saline -Foul Odor after Cleansing No -Bioengineered Tissue No -Cetacaine Star No -Bleeding Controlled with Pressure -Treatment Response Procedure Tolerated Well #1 Right dorsal medial 1st Metatarsophalangeal Joint -Time 12:11 -Correct Patient Yes -Correct Side, Site, Position Yes -Correct Procedure Yes -Procedure Performed Yes -Type of Procedure Debridement -Clinical Debridement Selective -Post Debridement Size (cm) - Length 1.2 -Post Debridement Size (cm) - Width 1.1 -Post Debridement Size (cm) - Depth 0.2 -Total Square Cm 1.32 -Wound/Ulcer Outcome Not Healed -Ulcer Cleansing Rinsed/ Irrigated with Saline -Foul Odor after Cleansing No -Bioengineered Tissue No -Cetacaine Star No -Bleeding Controlled with Pressure -Treatment Response Procedure Tolerated Well Pain Scale: 0-10 Numeric Is Patient Pain Free? Yes Wound debrided: Dorsomedial right 1st MPJ Laterality: Right Type of Debridement: Selective debridement Anesthesia Used: 4% Lidocaine Solution Depth: in the subcutaneous layer Percentage of wound debrided: 100 Instrument Used: 3mm curette Tissue Removed: Adherent slough and fibrin Severity: Fat Layer Exposed Amount of bleeding with debridement: Mild Bleeding Controlled with: Pressure Patient tolerated procedure well - Additional Wound Wound debrided: Dorsomedial right hallux Laterality: Right Type of Debridement: Selective debridement Anesthesia Used: 4% Lidocaine Solution Depth: in the subcutaneous layer Percentage of wound debrided: 100 Instrument Used: 3mm curette Tissue Removed: Adherent slough, fibrin Severity: Fat Layer Exposed Amount of bleeding with debridement: Mild Bleeding Controlled with: Pressure Patient tolerated procedure: Patient tolerated procedure well Assessment/Plan Clinical Impression(s) from Imaging Studies Foot X-Ray 05/22/17 07:42 IMPRESSION: 1. Soft tissue prominence of the great toe without underlying osseous abnormality. 2. Arthrosis of the first metatarsophalangeal joint. Electronically Signed: Lazaro Yi DO at 8:55 EST Tel [phone], Service support , Toe X-Ray 05/22/17 07:43 IMPRESSION: No evidence of fracture or osteomyelitis. Electronically Signed: Lazaro Yi DO at 8:56 EST Tel [phone], Service support , Active Problems Non-pressure chronic ulcer of right lower leg with fat layer exposed (Chronic) Neuropathy of right lower extremity (Chronic) Right foot drop (Chronic) Malnutrition (Acute) Delayed wound healing (Acute) Venous insufficiency (Acute) Assessment: Ulcers to the dorsal aspect of the right hallux and medial right first metatarsophalangeal joint with fat layer exposed. Foot drop. 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 Malnutrition. Plan: Patient was examined and evaluated again today. I discussed the patient's case and his care. Selective debridement of both ulcer sites as noted above was performed. There was very slight improvement in appearance of the ulcer sites since last week when santyl started being applied. Following debridement, the ulcer sites were dressed with santyl, slightly moistened gauze, dry gauze dressing, and a spandigrip. Patient is to continue dressing changes in this manner daily for the next week. At that time, depending on appearance of ulcers , we may switch to an advanced product that would work best for current ulcer state. Patient to continue using surgical shoe to right foot with AFO as long as he is still doing well and feeling stable. As noted previously, patient is on [facility] amoxicillin therapy per infectious disease for other comorbidities. 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 He will follow up with Dr. Kearns for this June 14. The patient and his were educated on signs and symptoms of local and systemic infection and were notified to go to the ER immediately should they notice any. All other questions were answered to the patient and the patient's 's satisfaction. Patient will follow up in clinic in 1 week or sooner if any problems arise.
== END 2017-06-14 23:59 ==
LOC: WC 11:00
PROVIDERS: Family Provider Family Medicine; PCP Family Medicine; Visit Provider Podiatrist
DX: I87.2 Venous insufficiency (chronic) (peripheral) (principal); L97.812 Non-pressure chronic ulcer of other part of right lower leg with fat layer exposed; G57.91 Unspecified mononeuropathy of right lower limb; M21.371 Foot drop, right foot; G62.9 Polyneuropathy, unspecified; R60.0 Localized edema; I73.9 Peripheral vascular disease, unspecified; Z92.3 Personal history of irradiation; E78.5 Hyperlipidemia, unspecified; Z86.718 Personal history of other venous thrombosis and embolism; Z86.711 Personal history of pulmonary embolism; I48.2 Chronic atrial fibrillation; G47.30 Sleep apnea, unspecified; Z85.46 Personal history of malignant neoplasm of prostate; I48.0 Paroxysmal atrial fibrillation; I11.0 Hypertensive heart disease with heart failure; Z79.899 Other long term (current) drug therapy; Z79.01 Long term (current) use of anticoagulants
CPT/HCPCS: 11042; 73630; 73660; 80053; 84134; 85025; 85652; 93923; 93970; 97597; 97602; 99203; G0463

== ENCOUNTER 2017-07-06 11:00 | Outpatient (RCR) | payer MEDICARE, OTHER, SELFPAY ==
[2017-06-08 11:04] VITALS: BP 114/53
[2017-06-15 01:02] VITALS: PULSE 82; RESP 18; TEMP 36.3
[2017-06-15 10:25] VITALS: BP 116/63; PULSE 83; RESP 18; TEMP 36.9; BMI 23.7
--- NOTE | 2017-06-15 17:13 | PCM.WC.PN ---
(1) Chronic ulcer of right great toe Status: Acute Code(s): L97.519 - Non-pressure chronic ulcer of other part of right foot with unspecified severity (2) Delayed wound healing Status: Acute Code(s): T14.8XXD - Other injury of unspecified body region, subsequent encounter (3) Venous insufficiency Status: Acute Code(s): I87.2 - Venous insufficiency (chronic) (peripheral) (4) 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 Code(s): G57.91 - Unspecified mononeuropathy of right lower limb Type of Wound Date of Service: 06/15/17 Chief Complaint: Ulcer to dorsomedial aspect of the right hallux and dorsomedial 1st metatarsophalangeal joint History of Wound: This patient presents to the wound center with his for follow up today for ulcer areas to the right hallux and 1st MPJ. 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 Since the onset, the ulcers have gone through waves of improving and getting worse again. Patient is on chronic amoxicillin therapy for other comorbidities accoring to patient and his . Patient was able to get santyl last week and has been having daily dressing changes of santyl and sterile dressing. Slight improvement to bases appreciated. Patient states he is still doing well with the surgical shoe and his AFO and feels that the shoe is helping to offload pressure to the areas. Patient denies any nausea, vomiting, fever, chills, or shortness of breath today. Patient and his deny any purulent drainage or malodor. They will see Dr. Kearns on the . Progress of Wound: Slow improvement. No new complaints. - Physical Exam Vital Signs Temp Pulse Resp BP 98.4 F 83 18 116/63 06/15/17 10:25 06/15/17 10:25 06/15/17 10:25 06/15/17 10:25 General: Alert, Oriented x3, Cooperative, No apparent distress HEENT: Atraumatic, Normocephalic Oral: Moist Mucosa Neck: Supple Lungs: Normal air movement Cardiovascular: Regular rate Extremities: No cyanosis Skin: Ulcer/ Wound Wound Measurements and Assessment WC - Nurse 1 - General Ulcer Measurement Start: 06/15/17 10:24 Freq: Status: Active Protocol: Activity Type Activity Date Activity User E-Sign Co-Sign Detail Recorded Client Recorded Date Recorded By Document 06/15/17 10:25 [id number] 06/15/17 10:33 06/15/17 10:25 Wound Center Nurse 1 [Ulcer Assessment Protocol: WC.WD.LOC] #2 Right dorsal Great Toe -Combined with other wound No -Current Size (cm) - Length 0.5 -Current Size (cm) - Width 0.8 -Current Size (cm) - Depth 0.2 -Total Square Cm 0.40 -Photo Taken No -Epithelialization None Present -Tunneling No -Undermining/Tunneling No -Circular Undermining No -Classification - Thickness Full Thickness without Exposed Support Structure -Exudate Amt Small (1-33%) -Exudate Type Yellow/Green -Wound Margin Distinct, Outline Attached -Granulation Amt None Present (0 %) -Granulation Quality N/A -Slough/Fibrin Yes -Necrosis Amt Large (67-100%) -Necrotic Tissue Type Adherent Slough -Structure Exposed Fascia Fat Layer Exposed -Texture (Vidya-wound Skin Appearance) No Abnormality -Moisture (Vidya-wound Skin Appearance No Abnormality ) -Color (Vidya-wound Skin Appearance) Erythema -Temperature (Vidya-wound Skin No Abnormality Appearance) (Pt Warm) -Tenderness on Palpation (Vidya-wound No Skin Appearance) -Ulcer Cleansing Rinsed/ Irrigated with Saline -Foul Odor after Cleansing No -Anesthetic Used 5% Lidocaine Gel #1 Right dorsal medial 1st Metatarsophalangeal Joint -Combined with other wound No -Current Size (cm) - Length 1.3 -Current Size (cm) - Width 0.9 -Current Size (cm) - Depth 0.2 -Total Square Cm 1.17 -Photo Taken No -Epithelialization None Present -Tunneling No -Undermining/Tunneling No -Circular Undermining No -Classification - Thickness Full Thickness without Exposed Support Structure -Exudate Amt Small (1-33%) -Exudate Type Yellow/Green -Wound Margin Distinct, Outline Attached -Granulation Amt None Present (0 %) -Granulation Quality N/A -Slough/Fibrin Yes -Necrosis Amt Large (67-100%) -Necrotic Tissue Type Adherent Slough -Structure Exposed Fascia Fat Layer Exposed -Texture (Vidya-wound Skin Appearance) No Abnormality -Moisture (Vidya-wound Skin Appearance No Abnormality ) -Color (Vidya-wound Skin Appearance) No Abnormality -Temperature (Vidya-wound Skin No Abnormality Appearance) (Pt Warm) -Tenderness on Palpation (Vidya-wound No Skin Appearance) -Ulcer Cleansing Rinsed/ Irrigated with Saline -Foul Odor after Cleansing No -Anesthetic Used 5% Lidocaine Gel [Edema Assessment] -Lower Limb Edema Present No -Right Calf (cm) 34.5 -Right Ankle (cm) 23.5 WC - Nurse 2 - General Ulcer CM Notes Start: 06/15/17 10:24 Freq: Status: Active Protocol: Activity Type Activity Date Activity User E-Sign Co-Sign Detail Recorded Client Recorded Date Recorded By Document 06/15/17 11:43 DV [id number] 06/15/17 11:49 DV 06/15/17 11:43 Wound Center Nurse 2 [Procedure/Treatment] #2 Right dorsal Great Toe -Time 11:44 -Correct Patient Yes -Correct Side, Site, Position Yes -Correct Procedure Yes -Procedure Performed Yes -Type of Procedure Debridement -Clinical Debridement Subcutaneous -Post Debridement Size (cm) - Length 0.6 -Post Debridement Size (cm) - Width 0.8 -Post Debridement Size (cm) - Depth 0.2 -Total Square Cm 0.48 -Wound/Ulcer Outcome Not Healed -Ulcer Cleansing Rinsed/ Irrigated with Saline -Foul Odor after Cleansing No -Bioengineered Tissue No -Cetacaine [place] No -Bleeding Controlled with Pressure -Treatment Response Procedure Tolerated Well #1 Right dorsal medial 1st Metatarsophalangeal Joint -Time 11:45 -Correct Patient Yes -Correct Side, Site, Position Yes -Correct Procedure Yes -Procedure Performed Yes -Type of Procedure Debridement -Clinical Debridement Subcutaneous -Post Debridement Size (cm) - Length 1.0 -Post Debridement Size (cm) - Width 0.8 -Post Debridement Size (cm) - Depth 0.2 -Total Square Cm 0.80 -Wound/Ulcer Outcome Not Healed -Ulcer Cleansing Rinsed/ Irrigated with Saline -Foul Odor after Cleansing No -Bioengineered Tissue No -Cetacaine [place] No -Bleeding Controlled with Pressure Silver Nitrate -Treatment Response Procedure Tolerated Well [See Physician Procedure note for Specifics] Pain Scale: 0-10 Numeric [Pain] -Is Patient Pain Free? Yes Musculoskeletal: No Muscle Wasting Neurological: Cranial nerves II-XII grossly intact Psych/Mental Status: Normal Affect Debridement Note Post-Debridement Measurements/Treatment WC - Nurse 2 - General Ulcer CM Notes Start: 06/15/17 10:24 Freq: Status: Active Protocol: Activity Type Activity Date Activity User E-Sign Co-Sign Detail Recorded Client Recorded Date Recorded By Document 06/15/17 11:43 DV [id number] 06/15/17 11:49 DV 06/15/17 11:43 Wound Center Nurse 2 #2 Right dorsal Great Toe -Time 11:44 -Correct Patient Yes -Correct Side, Site, Position Yes -Correct Procedure Yes -Procedure Performed Yes -Type of Procedure Debridement -Clinical Debridement Subcutaneous -Post Debridement Size (cm) - Length 0.6 -Post Debridement Size (cm) - Width 0.8 -Post Debridement Size (cm) - Depth 0.2 -Total Square Cm 0.48 -Wound/Ulcer Outcome Not Healed -Ulcer Cleansing Rinsed/ Irrigated with Saline -Foul Odor after Cleansing No -Bioengineered Tissue No -Cetacaine [place] No -Bleeding Controlled with Pressure -Treatment Response Procedure Tolerated Well #1 Right dorsal medial 1st Metatarsophalangeal Joint -Time 11:45 -Correct Patient Yes -Correct Side, Site, Position Yes -Correct Procedure Yes -Procedure Performed Yes -Type of Procedure Debridement -Clinical Debridement Subcutaneous -Post Debridement Size (cm) - Length 1.0 -Post Debridement Size (cm) - Width 0.8 -Post Debridement Size (cm) - Depth 0.2 -Total Square Cm 0.80 -Wound/Ulcer Outcome Not Healed -Ulcer Cleansing Rinsed/ Irrigated with Saline -Foul Odor after Cleansing No -Bioengineered Tissue No -Cetacaine [place] No -Bleeding Controlled with Pressure Silver Nitrate -Treatment Response Procedure Tolerated Well Pain Scale: 0-10 Numeric Is Patient Pain Free? Yes Wound debrided: Right dorsalmedial hallux Wound Grade/Stage: Stage II Anesthesia Used: 5% Lidocaine Gel Depth: Down to and including healthy tissue, in the subcutaneous layer Percentage of wound debrided: 100 Instrument Used: 3mm curette Tissue Removed: Slough and devitalized tissue Severity: Fat Layer Exposed Amount of bleeding with debridement: Mild Bleeding Controlled with: Pressure Patient tolerated procedure well - Additional Wound Wound debrided: Dorsomedial right first MPJ Wound Grade/Stage: Stage II Type of Debridement: Excisional debridement Anesthesia Used: 4% Lidocaine Solution Depth: Down to and including healthy tissue, in the subcutaneous layer Percentage of wound debrided: 100 Instrument Used: 3mm curette Tissue Removed: Slough and devitalized tissue Severity: Fat Layer Exposed Amount of bleeding with debridement: Mild Bleeding Controlled with: Pressure Patient tolerated procedure: Patient tolerated procedure well Assessment/Plan Assessment: Ulcers to the dorsal aspect of the right hallux and medial right first metatarsophalangeal joint with fat layer exposed. Foot drop. 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 Malnutrition. Plan: No new complaints today. Still slow improvement of the wounds. Applying Santyl daily as instructed. Wound debridement done as documented above. Continue Santyl to both wounds. Continue increased protein in diet/supplements. Offloading recommended. Follow-up in 1 week. This note was generated with [employer] dictation software. It may contain incorrect words, spelling, and punctuation that were not noted in checking the note before signing.
[2017-06-22 11:57] VITALS: BP 116/70; PULSE 82; RESP 20; BMI 23.7
[2017-06-29 11:05] VITALS: BP 117/72; PULSE 83; RESP 18; TEMP 36.6; BMI 23.7
--- NOTE | 2017-06-29 12:51 | PCM.WC.PN ---
(1) Non-pressure chronic ulcer of right lower leg with fat layer exposed Status: Chronic Current Visit: No Code(s): L97.912 - Non-pressure chronic ulcer of unspecified part of right lower leg with fat layer exposed (2) Venous insufficiency Status: Acute Current Visit: No Code(s): I87.2 - Venous insufficiency (chronic) (peripheral) (3) Delayed wound healing Status: Acute Current Visit: No Code(s): T14.8XXD - Other injury of unspecified body region, subsequent encounter (4) Malnutrition Status: Acute Current Visit: No Code(s): E46 - Unspecified protein-calorie malnutrition (5) 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 Current Visit: No Code(s): G57.91 - Unspecified mononeuropathy of right lower limb (6) Right foot drop Status: Chronic Current Visit: No Code(s): M21.371 - Foot drop, right foot Type of Wound Date of Service: 06/29/17 Chief Complaint: Ulcer to dorsomedial aspect of the right hallux and dorsomedial 1st metatarsophalangeal joint History of Wound: This patient presents to the wound center with his for follow up today for ulcer areas to the right hallux and 1st MPJ. 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 Since the onset, the ulcers have gone through waves of improving and getting worse again. Patient is on chronic amoxicillin therapy for other comorbidities accoring to patient and his . Patient states he is still doing well with the surgical shoe and his AFO and feels that the shoe is helping to offload pressure to the areas. Patient denies any nausea, vomiting, fever, chills, or shortness of breath today. Patient and his deny any purulent drainage or malodor. Progress of Wound: Slow improvement. Slightly more granular tissue appreciated today. No new complaints. - Physical Exam Vital Signs Temp Pulse Resp BP 97.8 F 83 18 117/72 06/29/17 11:05 06/29/17 11:05 06/29/17 11:05 06/29/17 11:05 General: Alert, Oriented x3, Cooperative, No apparent distress Extremities: Capillary Refill Less than 3 Seconds, No Calf Tenderness - Negative Elaine and Dumont sign, Edema - Bilateral pitting lower extremity edema with right being slightly worse than left., Peripheral Pulses Normal - DP pulses palpable bilateral and PT pulses nonpalpable bilateral Skin: Ulcer/ Wound - Ulcer to proximal medial right first metatarsophalangeal joint noted to have slight serous drainage with no purulence and no malodor. Patient is composed of adherent slough, fibrin and a small amount of bleeding granular tissue. There is slightly more granular tissue appreciated this week. There is no probing to bone, no undermining, no tracking, no extending cellulitis, no fluctuance. The ulcer to the dorsal medial hallux noted to have slight serous drainage with no purulence and no malodor. Base is composed of adherent slough and fibrin. No granular tissue appreciated prior to debridement. No probing to bone, no undermining, no tracking, no extending cellulitis, no fluctuance. Both ulcer measurements are noted below. Wound Measurements and Assessment - Nurse 1 - General Ulcer Measurement Start: 06/15/17 10:24 Freq: Status: Active Protocol: Activity Type Activity Date Activity User E-Sign Co-Sign Detail Recorded Client Recorded Date Recorded By Document 06/29/17 11:05 [id number] 06/29/17 11:08 06/29/17 11:05 Wound Center Nurse 1 [Ulcer Assessment Protocol: WC.WD.LOC] #2 Right dorsal Great Toe -Combined with other wound No -Current Size (cm) - Length 0.5 -Current Size (cm) - Width 0.8 -Current Size (cm) - Depth 0.2 -Total Square Cm 0.40 -Photo Taken No -Epithelialization None Present -Tunneling No -Undermining/Tunneling No -Circular Undermining No -Classification - Thickness Full Thickness without Exposed Support Structure -Exudate Amt Small (1-33%) -Exudate Type Serosanguineous -Wound Margin Distinct, Outline Attached -Granulation Amt None Present (0 %) -Slough/Fibrin Yes -Necrosis Amt Large (67-100%) -Necrotic Tissue Type Adherent Slough -Structure Exposed Fascia Fat Layer Exposed -Texture (Vidya-wound Skin Appearance) Localized Edema Scarring -Moisture (Vidya-wound Skin Appearance No Abnormality ) -Color (Vidya-wound Skin Appearance) Erythema -Temperature (Vidya-wound Skin No Abnormality Appearance) (Pt Warm) -Tenderness on Palpation (Vidya-wound No Skin Appearance) -Ulcer Cleansing Rinsed/ Irrigated with Saline -Foul Odor after Cleansing No -Anesthetic Used 4% Lidocaine Solution #1 Right dorsal medial 1st Metatarsophalangeal Joint -Combined with other wound No -Current Size (cm) - Length 1.0 -Current Size (cm) - Width 0.7 -Current Size (cm) - Depth 0.2 -Total Square Cm 0.70 -Photo Taken No -Epithelialization Small 1-33% -Tunneling No -Undermining/Tunneling No -Circular Undermining No -Classification - Thickness Full Thickness without Exposed Support Structure -Exudate Amt Small (1-33%) -Exudate Type Serosanguineous -Wound Margin Distinct, Outline Attached -Granulation Amt Small (1-33%) -Granulation Quality [place] -Slough/Fibrin Yes -Necrosis Amt Large (67-100%) -Necrotic Tissue Type Adherent Slough -Structure Exposed Fascia Fat Layer Exposed -Texture (Vidya-wound Skin Appearance) Localized Edema Scarring -Moisture (Vidya-wound Skin Appearance No Abnormality ) -Color (Vidya-wound Skin Appearance) Erythema -Temperature (Vidya-wound Skin No Abnormality Appearance) (Pt Warm) -Tenderness on Palpation (Vidya-wound No Skin Appearance) -Ulcer Cleansing Rinsed/ Irrigated with Saline -Foul Odor after Cleansing No -Anesthetic Used 4% Lidocaine Solution [Edema Assessment] -Lower Limb Edema Present Yes -Right Calf (cm) 34.5 -Right Ankle (cm) 22.0 WC - Nurse 2 - General Ulcer CM Notes Start: 06/15/17 10:24 Freq: Status: Active Protocol: Activity Type Activity Date Activity User E-Sign Co-Sign Detail Recorded Client Recorded Date Recorded By Document 06/29/17 11:31 MW [id number] 06/29/17 11:40 MW 06/29/17 11:31 Wound Center Nurse 2 [Procedure/Treatment] #2 Right dorsal Great Toe -Time 11:32 -Correct Patient Yes -Correct Side, Site, Position Yes -Correct Procedure Yes -Procedure Performed Yes -Type of Procedure Debridement -Clinical Debridement Subcutaneous -Post Debridement Size (cm) - Length 0.5 -Post Debridement Size (cm) - Width 0.8 -Post Debridement Size (cm) - Depth 0.2 -Total Square Cm 0.40 -Wound/Ulcer Outcome Not Healed -Ulcer Cleansing Rinsed/ Irrigated with Saline -Foul Odor after Cleansing No -Bioengineered Tissue No -Bleeding Controlled with Pressure -Treatment Response Procedure Tolerated Well #1 Right dorsal medial 1st Metatarsophalangeal Joint -Time 11:32 -Correct Patient Yes -Correct Side, Site, Position Yes -Correct Procedure Yes -Procedure Performed Yes -Type of Procedure Debridement -Clinical Debridement Subcutaneous -Post Debridement Size (cm) - Length 1.1 -Post Debridement Size (cm) - Width 1.0 -Post Debridement Size (cm) - Depth 0.2 -Total Square Cm 1.10 -Wound/Ulcer Outcome Not Healed -Ulcer Cleansing Rinsed/ Irrigated with Saline -Foul Odor after Cleansing No -Bioengineered Tissue No -Bleeding Controlled with Pressure -Treatment Response Procedure Tolerated Well [See Physician Procedure note for Specifics] Pain Scale: 0-10 Numeric [Pain] -Is Patient Pain Free? Yes Musculoskeletal: - - Right foot drop deformity appreciated Neurological: - - Protective sensation absent to greater than 2 of 5 pedal sites tested at random using a 5.07 [place] Richard monofilament to the right. Psych/Mental Status: Normal Affect, Appropriate Debridement Note Post-Debridement Measurements/Treatment WC - Nurse 2 - General Ulcer CM Notes Start: 06/15/17 10:24 Freq: Status: Active Protocol: Activity Type Activity Date Activity User E-Sign Co-Sign Detail Recorded Client Recorded Date Recorded By Document 06/15/17 11:43 DV [id number] 06/15/17 11:49 DV Document 06/29/17 11:31 MW [id number] 06/29/17 11:40 MW 06/15/17 06/29/17 11:43 11:31 Wound Center Nurse 2 #2 Right dorsal Great Toe -Time 11:44 11:32 -Correct Patient Yes Yes -Correct Side, Site, Position Yes Yes -Correct Procedure Yes Yes -Procedure Performed Yes Yes -Type of Procedure Debridement Debridement -Clinical Debridement Subcutaneous Subcutaneous -Post Debridement Size (cm) - Length 0.6 0.5 -Post Debridement Size (cm) - Width 0.8 0.8 -Post Debridement Size (cm) - Depth 0.2 0.2 -Total Square Cm 0.48 0.40 -Wound/Ulcer Outcome Not Healed Not Healed -Ulcer Cleansing Rinsed/ Rinsed/ Irrigated with Irrigated with Saline Saline -Foul Odor after Cleansing No No -Bioengineered Tissue No No -Cetacaine [place] No -Bleeding Controlled with Pressure Pressure -Treatment Response Procedure Procedure Tolerated Well Tolerated Well #1 Right dorsal medial 1st Metatarsophalangeal Joint -Time 11:45 11:32 -Correct Patient Yes Yes -Correct Side, Site, Position Yes Yes -Correct Procedure Yes Yes -Procedure Performed Yes Yes -Type of Procedure Debridement Debridement -Clinical Debridement Subcutaneous Subcutaneous -Post Debridement Size (cm) - Length 1.0 1.1 -Post Debridement Size (cm) - Width 0.8 1.0 -Post Debridement Size (cm) - Depth 0.2 0.2 -Total Square Cm 0.80 1.10 -Wound/Ulcer Outcome Not Healed Not Healed -Ulcer Cleansing Rinsed/ Rinsed/ Irrigated with Irrigated with Saline Saline -Foul Odor after Cleansing No No -Bioengineered Tissue No No -Cetacaine [place] No -Bleeding Controlled with Pressure Pressure Silver Nitrate -Treatment Response Procedure Procedure Tolerated Well Tolerated Well Pain Scale: 0-10 Numeric Is Patient Pain Free? Yes Yes Wound debrided: Dorsomedial right first metatarsophalangeal joint Laterality: Right Type of Debridement: Excisional debridement Anesthesia Used: 4% Lidocaine Solution Depth: in the subcutaneous layer Percentage of wound debrided: 100 Instrument Used: 3mm curette Tissue Removed: Adherent slough and fibrin Severity: Fat Layer Exposed Amount of bleeding with debridement: Mild Bleeding Controlled with: Pressure Patient tolerated procedure well - Additional Wound Wound debrided: Dorsomedial right hallux Laterality: Right Type of Debridement: Excisional debridement Anesthesia Used: 4% Lidocaine Solution Depth: in the subcutaneous layer Percentage of wound debrided: 100 Instrument Used: 3mm curette Tissue Removed: Adherent slough and fibrin Severity: Fat Layer Exposed Amount of bleeding with debridement: Mild Bleeding Controlled with: Pressure Patient tolerated procedure: Patient tolerated procedure well Assessment/Plan Assessment: Ulcers to the dorsal aspect of the right hallux and medial right first metatarsophalangeal joint with fat layer exposed. Foot drop. 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 Malnutrition. Plan: Patient was examined and evaluated again today. Patient is almost out of santyl. Slightly improved ulcer bases appreciated today, especially the more proximal ulcer. Debridement of each ulcer was completed today as described in the clinical panel. At this time, we will apply to see if epicord will be approved for next weeks visit. Since the santyl is gone, for the next week, the patient will undergo every other day dressing changes consisting of saline moistened harrison to the base, followed by a dry sterile dressing. Patient to continue with compression to lower extremity as well as his offloading surgical shoe. Patient to continue with high protein diet. Patient and his were again educated on all signs and symptoms of local and systemic infection, and were instructed to go to the ER immediately should they notice any. All questions were answered to their satisfaction. They will follow up in one week for further evaluation, or sooner if needed. This note was generated with [employer] dictation software. It may contain incorrect words, spelling, and punctuation that were not noted in checking the note before signing.
--- NOTE | 2017-06-29 13:06 | PN.PCM_ITS ---
(1) Non-pressure chronic ulcer of right lower leg with fat layer exposed Status: Chronic Current Visit: No Code(s): L97.912 - Non-pressure chronic ulcer of unspecified part of right lower leg with fat layer exposed (2) Venous insufficiency Status: Acute Current Visit: No Code(s): I87.2 - Venous insufficiency ( chronic) (peripheral) (3) Delayed wound healing Status: Acute Current Visit: No Code(s): T14.8XXD - Other injury of unspecified body region, subsequent encounter (4) Malnutrition Status: Acute Current Visit: No Code(s): E46 - Unspecified protein-calorie malnutrition (5) 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 Current Visit: No Code(s): G57.91 - Unspecified mononeuropathy of right lower limb (6) Right foot drop Status: Chronic Current Visit: No Code(s): M21.371 - Foot drop, right foot Type of Wound Date of Service: 06/29/17 Chief Complaint: Ulcer to dorsomedial aspect of the right hallux and dorsomedial 1st metatarsophalangeal joint History of Wound: This patient presents to the wound center with his for follow up today for ulcer areas to the right hallux and 1st MPJ. 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 Since the onset, the ulcers have gone through waves of improving and getting worse again. Patient is on chronic amoxicillin therapy for other comorbidities accoring to patient and his . Patient states he is still doing well with the surgical shoe and his AFO and feels that the shoe is helping to offload pressure to the areas. Patient denies any nausea, vomiting, fever, chills, or shortness of breath today. Patient and his deny any purulent drainage or malodor. Progress of Wound: Slow improvement. Slightly more granular tissue appreciated today. No new complaints. - Physical Exam Vital Signs Temp Pulse Resp BP 97.8 F 83 18 117/72 06/29/17 11:05 06/29/17 11:05 06/29/17 11:05 06/29/17 11:05 General: Alert, Oriented x3, Cooperative, No apparent distress Extremities: Capillary Refill Less than 3 Seconds, No Calf Tenderness - Negative Elaine and Dumont sign, Edema - Bilateral pitting lower extremity edema with right being slightly worse than left., Peripheral Pulses Normal - DP pulses palpable bilateral and PT pulses nonpalpable bilateral Skin: Ulcer/ Wound - Ulcer to proximal medial right first metatarsophalangeal joint noted to have slight serous drainage with no purulence and no malodor. Patient is composed of adherent slough, fibrin and a small amount of bleeding granular tissue. There is slightly more granular tissue appreciated this week. There is no probing to bone, no undermining, no tracking, no extending cellulitis, no fluctuance. The ulcer to the dorsal medial hallux noted to have slight serous drainage with no purulence and no malodor. Base is composed of adherent slough and fibrin. No granular tissue appreciated prior to debridement. No probing to bone, no undermining, no tracking, no extending cellulitis, no fluctuance. Both ulcer measurements are noted below. Wound Measurements and Assessment - Nurse 1 - General Ulcer Measurement Start: 06/15/17 10:24 Freq: Status: Active Protocol: Activity Type Activity Date Activity User E-Sign Co-Sign Detail Recorded Client Recorded Date Recorded By Document 06/29/17 11:05 [id number] 06/29/17 11:08 06/29/17 11:05 Wound Center Nurse 1 [Ulcer Assessment Protocol: WC.WD.LOC] #2 Right dorsal Great Toe -Combined with other wound No -Current Size (cm) - Length 0.5 -Current Size (cm) - Width 0.8 -Current Size (cm) - Depth 0.2 -Total Square Cm 0.40 -Photo Taken No -Epithelialization None Present -Tunneling No -Undermining/Tunneling No -Circular Undermining No -Classification - Thickness Full Thickness without Exposed Support Structure -Exudate Amt Small (1-33%) -Exudate Type Serosanguineous -Wound Margin Distinct, Outline Attached -Granulation Amt None Present (0 %) -Slough/Fibrin Yes -Necrosis Amt Large (67-100%) -Necrotic Tissue Type Adherent Slough -Structure Exposed Fascia Fat Layer Exposed -Texture (Vidya-wound Skin Appearance) Localized Edema Scarring -Moisture (Vidya-wound Skin Appearance No Abnormality ) -Color (Vidya-wound Skin Appearance) Erythema -Temperature (Vidya-wound Skin No Abnormality Appearance) (Pt Warm) -Tenderness on Palpation (Vidya-wound No Skin Appearance) -Ulcer Cleansing Rinsed/ Irrigated with Saline -Foul Odor after Cleansing No -Anesthetic Used 4% Lidocaine Solution #1 Right dorsal medial 1st Metatarsophalangeal Joint -Combined with other wound No -Current Size (cm) - Length 1.0 -Current Size (cm) - Width 0.7 -Current Size (cm) - Depth 0.2 -Total Square Cm 0.70 -Photo Taken No -Epithelialization Small 1-33% -Tunneling No -Undermining/Tunneling No -Circular Undermining No -Classification - Thickness Full Thickness without Exposed Support Structure -Exudate Amt Small (1-33%) -Exudate Type Serosanguineous -Wound Margin Distinct, Outline Attached -Granulation Amt Small (1-33%) -Granulation Quality [place] -Slough/Fibrin Yes -Necrosis Amt Large (67-100%) -Necrotic Tissue Type Adherent Slough -Structure Exposed Fascia Fat Layer Exposed -Texture (Vidya-wound Skin Appearance) Localized Edema Scarring -Moisture (Vidya-wound Skin Appearance No Abnormality ) -Color (Vidya-wound Skin Appearance) Erythema -Temperature (Vidya-wound Skin No Abnormality Appearance) (Pt Warm) -Tenderness on Palpation (Vidya-wound No Skin Appearance) -Ulcer Cleansing Rinsed/ Irrigated with Saline -Foul Odor after Cleansing No -Anesthetic Used 4% Lidocaine Solution [Edema Assessment] -Lower Limb Edema Present Yes -Right Calf (cm) 34.5 -Right Ankle (cm) 22.0 WC - Nurse 2 - General Ulcer CM Notes Start: 06/15/17 10:24 Freq: Status: Active Protocol: Activity Type Activity Date Activity User E-Sign Co-Sign Detail Recorded Client Recorded Date Recorded By Document 06/29/17 11:31 MW [id number] 06/29/17 11:40 MW 06/29/17 11:31 Wound Center Nurse 2 [Procedure/Treatment] #2 Right dorsal Great Toe -Time 11:32 -Correct Patient Yes -Correct Side, Site, Position Yes -Correct Procedure Yes -Procedure Performed Yes -Type of Procedure Debridement -Clinical Debridement Subcutaneous -Post Debridement Size (cm) - Length 0.5 -Post Debridement Size (cm) - Width 0.8 -Post Debridement Size (cm) - Depth 0.2 -Total Square Cm 0.40 -Wound/Ulcer Outcome Not Healed -Ulcer Cleansing Rinsed/ Irrigated with Saline -Foul Odor after Cleansing No -Bioengineered Tissue No -Bleeding Controlled with Pressure -Treatment Response Procedure Tolerated Well #1 Right dorsal medial 1st Metatarsophalangeal Joint -Time 11:32 -Correct Patient Yes -Correct Side, Site, Position Yes -Correct Procedure Yes -Procedure Performed Yes -Type of Procedure Debridement -Clinical Debridement Subcutaneous -Post Debridement Size (cm) - Length 1.1 -Post Debridement Size (cm) - Width 1.0 -Post Debridement Size (cm) - Depth 0.2 -Total Square Cm 1.10 -Wound/Ulcer Outcome Not Healed -Ulcer Cleansing Rinsed/ Irrigated with Saline -Foul Odor after Cleansing No -Bioengineered Tissue No -Bleeding Controlled with Pressure -Treatment Response Procedure Tolerated Well [See Physician Procedure note for Specifics] Pain Scale: 0-10 Numeric [Pain] -Is Patient Pain Free? Yes Musculoskeletal: - - Right foot drop deformity appreciated Neurological: - - Protective sensation absent to greater than 2 of 5 pedal sites tested at random using a 5.07 [place] monofilament to the right. Psych/Mental Status: Normal Affect, Appropriate Debridement Note Post-Debridement Measurements/Treatment WC - Nurse 2 - General Ulcer CM Notes Start: 06/15/17 10:24 Freq: Status: Active Protocol: Activity Type Activity Date Activity User E-Sign Co-Sign Detail Recorded Client Recorded Date Recorded By Document 06/15/17 11:43 DV [id number] 06/15/17 11:49 DV Document 06/29/17 11:31 MW [id number] 06/29/17 11:40 MW 06/15/17 06/29/17 11:43 11:31 Wound Center Nurse 2 #2 Right dorsal Great Toe -Time 11:44 11:32 -Correct Patient Yes Yes -Correct Side, Site, Position Yes Yes -Correct Procedure Yes Yes -Procedure Performed Yes Yes -Type of Procedure Debridement Debridement -Clinical Debridement Subcutaneous Subcutaneous -Post Debridement Size (cm) - Length 0.6 0.5 -Post Debridement Size (cm) - Width 0.8 0.8 -Post Debridement Size (cm) - Depth 0.2 0.2 -Total Square Cm 0.48 0.40 -Wound/Ulcer Outcome Not Healed Not Healed -Ulcer Cleansing Rinsed/ Rinsed/ Irrigated with Irrigated with Saline Saline -Foul Odor after Cleansing No No -Bioengineered Tissue No No -Cetacaine [place] No -Bleeding Controlled with Pressure Pressure -Treatment Response Procedure Procedure Tolerated Well Tolerated Well #1 Right dorsal medial 1st Metatarsophalangeal Joint -Time 11:45 11:32 -Correct Patient Yes Yes -Correct Side, Site, Position Yes Yes -Correct Procedure Yes Yes -Procedure Performed Yes Yes -Type of Procedure Debridement Debridement -Clinical Debridement Subcutaneous Subcutaneous -Post Debridement Size (cm) - Length 1.0 1.1 -Post Debridement Size (cm) - Width 0.8 1.0 -Post Debridement Size (cm) - Depth 0.2 0.2 -Total Square Cm 0.80 1.10 -Wound/Ulcer Outcome Not Healed Not Healed -Ulcer Cleansing Rinsed/ Rinsed/ Irrigated with Irrigated with Saline Saline -Foul Odor after Cleansing No No -Bioengineered Tissue No No -Cetacaine [place] No -Bleeding Controlled with Pressure Pressure Silver Nitrate -Treatment Response Procedure Procedure Tolerated Well Tolerated Well Pain Scale: 0-10 Numeric Is Patient Pain Free? Yes Yes Wound debrided: Dorsomedial right first metatarsophalangeal joint Laterality: Right Type of Debridement: Excisional debridement Anesthesia Used: 4% Lidocaine Solution Depth: in the subcutaneous layer Percentage of wound debrided: 100 Instrument Used: 3mm curette Tissue Removed: Adherent slough and fibrin Severity: Fat Layer Exposed Amount of bleeding with debridement: Mild Bleeding Controlled with: Pressure Patient tolerated procedure well - Additional Wound Wound debrided: Dorsomedial right hallux Laterality: Right Type of Debridement: Excisional debridement Anesthesia Used: 4% Lidocaine Solution Depth: in the subcutaneous layer Percentage of wound debrided: 100 Instrument Used: 3mm curette Tissue Removed: Adherent slough and fibrin Severity: Fat Layer Exposed Amount of bleeding with debridement: Mild Bleeding Controlled with: Pressure Patient tolerated procedure: Patient tolerated procedure well Assessment/Plan Assessment: Ulcers to the dorsal aspect of the right hallux and medial right first metatarsophalangeal joint with fat layer exposed. Foot drop. 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 Malnutrition. Plan: Patient was examined and evaluated again today. Patient is almost out of santyl. Slightly improved ulcer bases appreciated today, especially the more proximal ulcer. Debridement of each ulcer was completed today as described in the clinical panel. At this time, we will apply to see if epicord will be approved for next weeks visit. Since the santyl is gone, for the next week, the patient will undergo every other day dressing changes consisting of saline moistened [place]arrison to the base, followed by a dry sterile dressing. Patient to continue with compression to lower extremity as well as his offloading surgical shoe. Patient to continue with high protein diet. Patient and his were again educated on all signs and symptoms of local and systemic infection, and were instructed to go to the ER immediately should they notice any. All questions were answered to their satisfaction. They will follow up in one week for further evaluation, or sooner if needed. This note was generated with [employer] dictation software. It may contain incorrect words, spelling, and punctuation that were not noted in checking the note before signing.
[2017-07-06 11:03] VITALS: BP 100/63; PULSE 85; RESP 16; TEMP 36.9; BMI 23.7
--- NOTE | 2017-07-06 13:29 | PCM.WC.PN ---
(1) Non-pressure chronic ulcer of right lower leg with fat layer exposed Status: Chronic Current Visit: No Code(s): L97.912 - Non-pressure chronic ulcer of unspecified part of right lower leg with fat layer exposed (2) Venous insufficiency Status: Acute Current Visit: No Code(s): I87.2 - Venous insufficiency (chronic) (peripheral) (3) Delayed wound healing Status: Acute Current Visit: No Code(s): T14.8XXD - Other injury of unspecified body region, subsequent encounter (4) Malnutrition Status: Acute Current Visit: No Code(s): E46 - Unspecified protein-calorie malnutrition (5) 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 Current Visit: No Code(s): G57.91 - Unspecified mononeuropathy of right lower limb (6) Right foot drop Status: Chronic Current Visit: No Code(s): M21.371 - Foot drop, right foot Type of Wound Date of Service: 07/06/17 Chief Complaint: Ulcer to dorsomedial aspect of the right hallux and dorsomedial 1st metatarsophalangeal joint History of Wound: This patient presents to the wound center with his for follow up today for ulcer areas to the right hallux and 1st MPJ. 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 Since the onset, the ulcers have gone through waves of improving and getting worse again. Patient is on chronic amoxicillin therapy for other comorbidities accoring to patient and his . Patient states he is still doing well with the surgical shoe and his AFO and feels that the shoe is helping to offload pressure to the areas. Patient denies any nausea, vomiting, fever, chills, or shortness of breath today. Patient and his deny any purulent drainage or malodor. Progress of Wound: Slow improvement. Even more granular tissue appreciated today especially to the more proximal ulcer. - Physical Exam Vital Signs Temp Pulse Resp BP 98.4 F 85 16 100/63 07/06/17 11:03 07/06/17 11:03 07/06/17 11:03 07/06/17 11:03 General: Alert, Oriented x3, Cooperative, No apparent distress Extremities: Capillary Refill Less than 3 Seconds, No Calf Tenderness - Negative Elaine and Dumont sign, Edema - Bilateral pitting lower extremity edema with right being slightly worse than left, Peripheral Pulses Normal - DP pulses palpable bilateral and PT pulses nonpalpable due to edema Skin: Ulcer/ Wound - Ulcer to proximal medial right first metatarsophalangeal joint noted to have slight serous drainage with no purulence and no malodor. Patient is composed of adherent slough, fibrin and granular tissue. There is majority granular tissue appreciated this week. There is no probing to bone, no undermining, no tracking, no extending cellulitis, no fluctuance. The ulcer to the dorsal medial hallux noted to have slight serous drainage with no purulence and no malodor. Base is composed of adherent slough and fibrin. No granular tissue appreciated prior to debridement. No probing to bone, no undermining, no tracking, no extending cellulitis, no fluctuance. Both ulcer measurements are noted below. Wound Measurements and Assessment WC - Nurse 1 - General Ulcer Measurement Start: 06/15/17 10:24 Freq: Status: Active Protocol: Activity Type Activity Date Activity User E-Sign Co-Sign Detail Recorded Client Recorded Date Recorded By Document 07/06/17 11:03 [facility] [id number] 07/06/17 11:16 [facility] 07/06/17 11:03 Wound Center Nurse 1 [Ulcer Assessment] #2 Right dorsal Great Toe -Combined with other wound No -Current Size (cm) - Length 0.5 -Current Size (cm) - Width 0.6 -Current Size (cm) - Depth 0.2 -Total Square Cm 0.30 -Photo Taken No -Epithelialization None Present -Tunneling No -Undermining/Tunneling No -Exudate Amt Small (1-33%) -Exudate Type Serous -Wound Margin Distinct, Outline Attached -Granulation Amt None Present (0 %) -Slough/Fibrin Yes -Necrosis Amt Large (67-100%) -Necrotic Tissue Type Adherent Slough -Structure Exposed N/A -Texture (Vidya-wound Skin Appearance) Scarring -Moisture (Vidya-wound Skin Appearance Dry/Scaly ) -Color (Vidya-wound Skin Appearance) Erythema -Temperature (Vidya-wound Skin No Abnormality Appearance) (Pt Warm) -Tenderness on Palpation (Vidya-wound No Skin Appearance) -Ulcer Cleansing Rinsed/ Irrigated with Saline -Foul Odor after Cleansing No -Anesthetic Used 5% Lidocaine Gel #1 Right dorsal medial 1st Metatarsophalangeal Joint -Combined with other wound No -Current Size (cm) - Length 0.9 -Current Size (cm) - Width 0.7 -Current Size (cm) - Depth 0.2 -Total Square Cm 0.63 -Photo Taken No -Epithelialization None Present -Tunneling No -Undermining/Tunneling No -Exudate Amt Small (1-33%) -Exudate Type Serous -Wound Margin Distinct, Outline Attached -Granulation Amt None Present (0 %) -Slough/Fibrin Yes -Necrosis Amt Large (67-100%) -Necrotic Tissue Type Adherent Slough -Structure Exposed N/A -Texture (Vidya-wound Skin Appearance) Scarring -Moisture (Vidya-wound Skin Appearance Dry/Scaly ) -Color (Vidya-wound Skin Appearance) Erythema -Temperature (Vidya-wound Skin No Abnormality Appearance) (Pt Warm) -Tenderness on Palpation (Vidya-wound No Skin Appearance) -Ulcer Cleansing Rinsed/ Irrigated with Saline -Foul Odor after Cleansing No -Anesthetic Used 5% Lidocaine Gel [Edema Assessment] -Right Calf (cm) 36.5 -Right Ankle (cm) 22.6 WC - Nurse 2 - General Ulcer CM Notes Start: 06/15/17 10:24 Freq: Status: Active Protocol: Activity Type Activity Date Activity User E-Sign Co-Sign Detail Recorded Client Recorded Date Recorded By Document 07/06/17 11:48 MW [id number] 07/06/17 11:57 MW 07/06/17 11:48 Wound Center Nurse 2 [Procedure/Treatment] #2 Right dorsal Great Toe -Time 11:49 -Correct Patient Yes -Correct Side, Site, Position Yes -Correct Procedure Yes -Procedure Performed Yes -Type of Procedure Debridement -Clinical Debridement Subcutaneous -Post Debridement Size (cm) - Length 0.6 -Post Debridement Size (cm) - Width 0.8 -Post Debridement Size (cm) - Depth 0.2 -Total Square Cm 0.48 -Wound/Ulcer Outcome Not Healed -Ulcer Cleansing Rinsed/ Irrigated with Saline -Foul Odor after Cleansing No -Type of bioengineered Tissue EPICORD -Expiration Date 03/15/22 -Product Lot Number [id number] -Saline Lot Number [id number] -Bleeding Controlled with Pressure -Treatment Response Procedure Tolerated Well #1 Right dorsal medial 1st Metatarsophalangeal Joint -Time 11:52 -Correct Patient Yes -Correct Side, Site, Position Yes -Correct Procedure Yes -Procedure Performed Yes -Type of Procedure Debridement -Clinical Debridement Subcutaneous -Post Debridement Size (cm) - Length 1.2 -Post Debridement Size (cm) - Width 0.9 -Post Debridement Size (cm) - Depth 0.2 -Total Square Cm 1.08 -Wound/Ulcer Outcome Not Healed -Ulcer Cleansing Rinsed/ Irrigated with Saline -Foul Odor after Cleansing No -Type of bioengineered Tissue EPICORD -Expiration Date 03/15/22 -Product Lot Number [id number] -Bleeding Controlled with Pressure -Treatment Response Procedure Tolerated Well [See Physician Procedure note for Specifics] Pain Scale: 0-10 Numeric [Pain] -Is Patient Pain Free? Yes Musculoskeletal: - - right drop foot deformity Neurological: - - Protective sensation absent to greater than 2 of 5 pedal sites tested at random using a 5.07 [place] Richard monofilament to the right Psych/Mental Status: Normal Affect, Appropriate Debridement Note Post-Debridement Measurements/Treatment WC - Nurse 2 - General Ulcer CM Notes Start: 06/15/17 10:24 Freq: Status: Active Protocol: Activity Type Activity Date Activity User E-Sign Co-Sign Detail Recorded Client Recorded Date Recorded By Document 06/15/17 11:43 DV [id number] 06/15/17 11:49 DV Document 06/29/17 11:31 MW [id number] 06/29/17 11:40 MW Document 07/06/17 11:48 MW [id number] 07/06/17 11:57 MW 06/15/17 06/29/17 07/06/17 11:43 11:31 11:48 Wound Center Nurse 2 #2 Right dorsal Great Toe -Time 11:44 11:32 11:49 -Correct Patient Yes Yes Yes -Correct Side, Site, Position Yes Yes Yes -Correct Procedure Yes Yes Yes -Procedure Performed Yes Yes Yes -Type of Procedure Debridement Debridement Debridement -Clinical Debridement Subcutaneous Subcutaneous Subcutaneous -Post Debridement Size (cm) - Length 0.6 0.5 0.6 -Post Debridement Size (cm) - Width 0.8 0.8 0.8 -Post Debridement Size (cm) - Depth 0.2 0.2 0.2 -Total Square Cm 0.48 0.40 0.48 -Wound/Ulcer Outcome Not Healed Not Healed Not Healed -Ulcer Cleansing Rinsed/ Rinsed/ Rinsed/ Irrigated with Irrigated with Irrigated with Saline Saline Saline -Foul Odor after Cleansing No No No -Bioengineered Tissue No No -Type of bioengineered Tissue EPICORD -Expiration Date 03/15/22 -Product Lot Number [id number] -Saline Lot Number [id number] -Cetacaine [place] No -Bleeding Controlled with Pressure Pressure Pressure -Treatment Response Procedure Procedure Procedure Tolerated Well Tolerated Well Tolerated Well #1 Right dorsal medial 1st Metatarsophalangeal Joint -Time 11:45 11:32 11:52 -Correct Patient Yes Yes Yes -Correct Side, Site, Position Yes Yes Yes -Correct Procedure Yes Yes Yes -Procedure Performed Yes Yes Yes -Type of Procedure Debridement Debridement Debridement -Clinical Debridement Subcutaneous Subcutaneous Subcutaneous -Post Debridement Size (cm) - Length 1.0 1.1 1.2 -Post Debridement Size (cm) - Width 0.8 1.0 0.9 -Post Debridement Size (cm) - Depth 0.2 0.2 0.2 -Total Square Cm 0.80 1.10 1.08 -Wound/Ulcer Outcome Not Healed Not Healed Not Healed -Ulcer Cleansing Rinsed/ Rinsed/ Rinsed/ Irrigated with Irrigated with Irrigated with Saline Saline Saline -Foul Odor after Cleansing No No No -Bioengineered Tissue No No -Type of bioengineered Tissue EPICORD -Expiration Date 03/15/22 -Product Lot Number [id number] -Cetacaine [place] No -Bleeding Controlled with Pressure Pressure Pressure Silver Nitrate -Treatment Response Procedure Procedure Procedure Tolerated Well Tolerated Well Tolerated Well Pain Scale: 0-10 Numeric Is Patient Pain Free? Yes Yes Yes Wound debrided: Dorsomedial right first metatarsophalangeal joint Laterality: Right Type of Debridement: Excisional debridement Anesthesia Used: 4% Lidocaine Solution Depth: in the subcutaneous layer Percentage of wound debrided: 100 Instrument Used: 3mm curette Tissue Removed: adherent slough, fibrin Severity: Fat Layer Exposed Amount of bleeding with debridement: Mild Bleeding Controlled with: Pressure Patient tolerated procedure well - Additional Wound Wound debrided: Dorsomedial right hallux Laterality: Right Type of Debridement: Excisional debridement Anesthesia Used: 4% Lidocaine Solution Depth: in the subcutaneous layer Percentage of wound debrided: 100 Instrument Used: 3mm curette Tissue Removed: adherent slough, fibrin Severity: Fat Layer Exposed Amount of bleeding with debridement: Mild Bleeding Controlled with: Pressure Patient tolerated procedure: Patient tolerated procedure well Assessment/Plan Assessment: Ulcers to the dorsal aspect of the right hallux and medial right first metatarsophalangeal joint with fat layer exposed. Foot drop. 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 Malnutrition. Plan: Patient was examined and evaluated again today. Patient has been applying dressings of harrison for the last week. Slightly improved ulcer bases appreciated today, especially the more proximal ulcer. Debridement of each ulcer was completed today as described in the clinical panel. Following debridment, epicord was applied to both ulcer bases per company protocol. This was epicord application #1. This was followed by wound veil, steristrips, and a dry sterile dressing. Patient is to leave the wound veil and everything under, clean dry and intact for the next week. Patient to continue with compression to lower extremity as well as his offloading surgical shoe. Patient to continue with high protein diet. Patient and his were again educated on all signs and symptoms of local and systemic infection, and were instructed to go to the ER immediately should they notice any. All questions were answered to their satisfaction. They will follow up in one week for further evaluation, or sooner if needed. This note was generated with [employer] software. It may contain incorrect words, spelling, and punctuation that were not noted in checking the note before signing.
--- NOTE | 2017-07-06 13:40 | PN.PCM_ITS ---
(1) Non-pressure chronic ulcer of right lower leg with fat layer exposed Status: Chronic Current Visit: No Code(s): L97.912 - Non-pressure chronic ulcer of unspecified part of right lower leg with fat layer exposed (2) Venous insufficiency Status: Acute Current Visit: No Code(s): I87.2 - Venous insufficiency ( chronic) (peripheral) (3) Delayed wound healing Status: Acute Current Visit: No Code(s): T14.8XXD - Other injury of unspecified body region, subsequent encounter (4) Malnutrition Status: Acute Current Visit: No Code(s): E46 - Unspecified protein-calorie malnutrition (5) 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 Current Visit: No Code(s): G57.91 - Unspecified mononeuropathy of right lower limb (6) Right foot drop Status: Chronic Current Visit: No Code(s): M21.371 - Foot drop, right foot Type of Wound Date of Service: 07/06/17 Chief Complaint: Ulcer to dorsomedial aspect of the right hallux and dorsomedial 1st metatarsophalangeal joint History of Wound: This patient presents to the wound center with his for follow up today for ulcer areas to the right hallux and 1st MPJ. 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 Since the onset, the ulcers have gone through waves of improving and getting worse again. Patient is on chronic amoxicillin therapy for other comorbidities accoring to patient and his . Patient states he is still doing well with the surgical shoe and his AFO and feels that the shoe is helping to offload pressure to the areas. Patient denies any nausea, vomiting, fever, chills, or shortness of breath today. Patient and his deny any purulent drainage or malodor. Progress of Wound: Slow improvement. Even more granular tissue appreciated today especially to the more proximal ulcer. - Physical Exam Vital Signs Temp Pulse Resp BP 98.4 F 85 16 100/63 07/06/17 11:03 07/06/17 11:03 07/06/17 11:03 07/06/17 11:03 General: Alert, Oriented x3, Cooperative, No apparent distress Extremities: Capillary Refill Less than 3 Seconds, No Calf Tenderness - Negative Elaine and Dumont sign, Edema - Bilateral pitting lower extremity edema with right being slightly worse than left, Peripheral Pulses Normal - DP pulses palpable bilateral and PT pulses nonpalpable due to edema Skin: Ulcer/ Wound - Ulcer to proximal medial right first metatarsophalangeal joint noted to have slight serous drainage with no purulence and no malodor. Patient is composed of adherent slough, fibrin and granular tissue. There is majority granular tissue appreciated this week. There is no probing to bone, no undermining, no tracking, no extending cellulitis, no fluctuance. The ulcer to the dorsal medial hallux noted to have slight serous drainage with no purulence and no malodor. Base is composed of adherent slough and fibrin. No granular tissue appreciated prior to debridement. No probing to bone, no undermining, no tracking, no extending cellulitis, no fluctuance. Both ulcer measurements are noted below. Wound Measurements and Assessment WC - Nurse 1 - General Ulcer Measurement Start: 06/15/17 10:24 Freq: Status: Active Protocol: Activity Type Activity Date Activity User E-Sign Co-Sign Detail Recorded Client Recorded Date Recorded By Document 07/06/17 11:03 [facility] [id number] 07/06/17 11:16 [facility] 07/06/17 11:03 Wound Center Nurse 1 [Ulcer Assessment] #2 Right dorsal Great Toe -Combined with other wound No -Current Size (cm) - Length 0.5 -Current Size (cm) - Width 0.6 -Current Size (cm) - Depth 0.2 -Total Square Cm 0.30 -Photo Taken No -Epithelialization None Present -Tunneling No -Undermining/Tunneling No -Exudate Amt Small (1-33%) -Exudate Type Serous -Wound Margin Distinct, Outline Attached -Granulation Amt None Present (0 %) -Slough/Fibrin Yes -Necrosis Amt Large (67-100%) -Necrotic Tissue Type Adherent Slough -Structure Exposed N/A -Texture (Vidya-wound Skin Appearance) Scarring -Moisture (Vidya-wound Skin Appearance Dry/Scaly ) -Color (Vidya-wound Skin Appearance) Erythema -Temperature (Vidya-wound Skin No Abnormality Appearance) (Pt Warm) -Tenderness on Palpation (Vidya-wound No Skin Appearance) -Ulcer Cleansing Rinsed/ Irrigated with Saline -Foul Odor after Cleansing No -Anesthetic Used 5% Lidocaine Gel #1 Right dorsal medial 1st Metatarsophalangeal Joint -Combined with other wound No -Current Size (cm) - Length 0.9 -Current Size (cm) - Width 0.7 -Current Size (cm) - Depth 0.2 -Total Square Cm 0.63 -Photo Taken No -Epithelialization None Present -Tunneling No -Undermining/Tunneling No -Exudate Amt Small (1-33%) -Exudate Type Serous -Wound Margin Distinct, Outline Attached -Granulation Amt None Present (0 %) -Slough/Fibrin Yes -Necrosis Amt Large (67-100%) -Necrotic Tissue Type Adherent Slough -Structure Exposed N/A -Texture (Vidya-wound Skin Appearance) Scarring -Moisture (Vidya-wound Skin Appearance Dry/Scaly ) -Color (Vidya-wound Skin Appearance) Erythema -Temperature (Vidya-wound Skin No Abnormality Appearance) (Pt Warm) -Tenderness on Palpation (Vidya-wound No Skin Appearance) -Ulcer Cleansing Rinsed/ Irrigated with Saline -Foul Odor after Cleansing No -Anesthetic Used 5% Lidocaine Gel [Edema Assessment] -Right Calf (cm) 36.5 -Right Ankle (cm) 22.6 WC - Nurse 2 - General Ulcer CM Notes Start: 06/15/17 10:24 Freq: Status: Active Protocol: Activity Type Activity Date Activity User E-Sign Co-Sign Detail Recorded Client Recorded Date Recorded By Document 07/06/17 11:48 MW [id number] 07/06/17 11:57 MW 07/06/17 11:48 Wound Center Nurse 2 [Procedure/Treatment] #2 Right dorsal Great Toe -Time 11:49 -Correct Patient Yes -Correct Side, Site, Position Yes -Correct Procedure Yes -Procedure Performed Yes -Type of Procedure Debridement -Clinical Debridement Subcutaneous -Post Debridement Size (cm) - Length 0.6 -Post Debridement Size (cm) - Width 0.8 -Post Debridement Size (cm) - Depth 0.2 -Total Square Cm 0.48 -Wound/Ulcer Outcome Not Healed -Ulcer Cleansing Rinsed/ Irrigated with Saline -Foul Odor after Cleansing No -Type of bioengineered Tissue EPICORD -Expiration Date 03/15/22 -Product Lot Number [id number] -Saline Lot Number [id number] -Bleeding Controlled with Pressure -Treatment Response Procedure Tolerated Well #1 Right dorsal medial 1st Metatarsophalangeal Joint -Time 11:52 -Correct Patient Yes -Correct Side, Site, Position Yes -Correct Procedure Yes -Procedure Performed Yes -Type of Procedure Debridement -Clinical Debridement Subcutaneous -Post Debridement Size (cm) - Length 1.2 -Post Debridement Size (cm) - Width 0.9 -Post Debridement Size (cm) - Depth 0.2 -Total Square Cm 1.08 -Wound/Ulcer Outcome Not Healed -Ulcer Cleansing Rinsed/ Irrigated with Saline -Foul Odor after Cleansing No -Type of bioengineered Tissue EPICORD -Expiration Date 03/15/22 -Product Lot Number [id number] -Bleeding Controlled with Pressure -Treatment Response Procedure Tolerated Well [See Physician Procedure note for Specifics] Pain Scale: 0-10 Numeric [Pain] -Is Patient Pain Free? Yes Musculoskeletal: - - right drop foot deformity Neurological: - - Protective sensation absent to greater than 2 of 5 pedal sites tested at random using a 5.07 [place] monofilament to the right Psych/Mental Status: Normal Affect, Appropriate Debridement Note Post-Debridement Measurements/Treatment WC - Nurse 2 - General Ulcer CM Notes Start: 06/15/17 10:24 Freq: Status: Active Protocol: Activity Type Activity Date Activity User E-Sign Co-Sign Detail Recorded Client Recorded Date Recorded By Document 06/15/17 11:43 DV [id number] 06/15/17 11:49 DV Document 06/29/17 11:31 MW [id number] 06/29/17 11:40 MW Document 07/06/17 11:48 MW [id number] 07/06/17 11:57 MW 06/15/17 06/29/17 07/06/17 11:43 11:31 11:48 Wound Center Nurse 2 #2 Right dorsal Great Toe -Time 11:44 11:32 11:49 -Correct Patient Yes Yes Yes -Correct Side, Site, Position Yes Yes Yes -Correct Procedure Yes Yes Yes -Procedure Performed Yes Yes Yes -Type of Procedure Debridement Debridement Debridement -Clinical Debridement Subcutaneous Subcutaneous Subcutaneous -Post Debridement Size (cm) - Length 0.6 0.5 0.6 -Post Debridement Size (cm) - Width 0.8 0.8 0.8 -Post Debridement Size (cm) - Depth 0.2 0.2 0.2 -Total Square Cm 0.48 0.40 0.48 -Wound/Ulcer Outcome Not Healed Not Healed Not Healed -Ulcer Cleansing Rinsed/ Rinsed/ Rinsed/ Irrigated with Irrigated with Irrigated with Saline Saline Saline -Foul Odor after Cleansing No No No -Bioengineered Tissue No No -Type of bioengineered Tissue EPICORD -Expiration Date 03/15/22 -Product Lot Number [id number] -Saline Lot Number [id number] -Cetacaine [place] No -Bleeding Controlled with Pressure Pressure Pressure -Treatment Response Procedure Procedure Procedure Tolerated Well Tolerated Well Tolerated Well #1 Right dorsal medial 1st Metatarsophalangeal Joint -Time 11:45 11:32 11:52 -Correct Patient Yes Yes Yes -Correct Side, Site, Position Yes Yes Yes -Correct Procedure Yes Yes Yes -Procedure Performed Yes Yes Yes -Type of Procedure Debridement Debridement Debridement -Clinical Debridement Subcutaneous Subcutaneous Subcutaneous -Post Debridement Size (cm) - Length 1.0 1.1 1.2 -Post Debridement Size (cm) - Width 0.8 1.0 0.9 -Post Debridement Size (cm) - Depth 0.2 0.2 0.2 -Total Square Cm 0.80 1.10 1.08 -Wound/Ulcer Outcome Not Healed Not Healed Not Healed -Ulcer Cleansing Rinsed/ Rinsed/ Rinsed/ Irrigated with Irrigated with Irrigated with Saline Saline Saline -Foul Odor after Cleansing No No No -Bioengineered Tissue No No -Type of bioengineered Tissue EPICORD -Expiration Date 03/15/22 -Product Lot Number [id number] -Cetacaine [place] No -Bleeding Controlled with Pressure Pressure Pressure Silver Nitrate -Treatment Response Procedure Procedure Procedure Tolerated Well Tolerated Well Tolerated Well Pain Scale: 0-10 Numeric Is Patient Pain Free? Yes Yes Yes Wound debrided: Dorsomedial right first metatarsophalangeal joint Laterality: Right Type of Debridement: Excisional debridement Anesthesia Used: 4% Lidocaine Solution Depth: in the subcutaneous layer Percentage of wound debrided: 100 Instrument Used: 3mm curette Tissue Removed: adherent slough, fibrin Severity: Fat Layer Exposed Amount of bleeding with debridement: Mild Bleeding Controlled with: Pressure Patient tolerated procedure well - Additional Wound Wound debrided: Dorsomedial right hallux Laterality: Right Type of Debridement: Excisional debridement Anesthesia Used: 4% Lidocaine Solution Depth: in the subcutaneous layer Percentage of wound debrided: 100 Instrument Used: 3mm curette Tissue Removed: adherent slough, fibrin Severity: Fat Layer Exposed Amount of bleeding with debridement: Mild Bleeding Controlled with: Pressure Patient tolerated procedure: Patient tolerated procedure well Assessment/Plan Assessment: Ulcers to the dorsal aspect of the right hallux and medial right first metatarsophalangeal joint with fat layer exposed. Foot drop. 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 Malnutrition. Plan: Patient was examined and evaluated again today. Patient has been applying dressings of harrison for the last week. Slightly improved ulcer bases appreciated today, especially the more proximal ulcer. Debridement of each ulcer was completed today as described in the clinical panel. Following debridment, epicord was applied to both ulcer bases per company protocol. This was epicord application #1. This was followed by wound veil, steristrips, and a dry sterile dressing. Patient is to leave the wound veil and everything under, clean dry and intact for the next week. Patient to continue with compression to lower extremity as well as his offloading surgical shoe. Patient to continue with high protein diet. Patient and his were again educated on all signs and symptoms of local and systemic infection, and were instructed to go to the ER immediately should they notice any. All questions were answered to their satisfaction. They will follow up in one week for further evaluation, or sooner if needed. This note was generated with [employer] software. It may contain incorrect words, spelling, and punctuation that were not noted in checking the note before signing.
== END 2017-07-12 23:59 ==
LOC: WC 11:00
PROVIDERS: Family Provider Family Medicine; PCP Family Medicine; Visit Provider Podiatrist
DX: I87.2 Venous insufficiency (chronic) (peripheral) (principal); G57.91 Unspecified mononeuropathy of right lower limb; L97.512 Non-pressure chronic ulcer of other part of right foot with fat layer exposed; M21.371 Foot drop, right foot; R60.0 Localized edema
CPT/HCPCS: 11042; 15275; 99211; Q4131; G0463

== ENCOUNTER 2017-08-11 11:00 | Outpatient (RCR) | payer MEDICARE, OTHER, SELFPAY ==
[2017-07-13 00:48] VITALS: BP 116/70; PULSE 85; RESP 16; TEMP 36.9; BMI 23.7
[2017-07-13 11:36] VITALS: BP 102/57; PULSE 73; RESP 20; TEMP 36; BMI 23.7
--- NOTE | 2017-07-13 14:31 | PCM.WC.PN ---
(1) Non-pressure chronic ulcer of right lower leg with fat layer exposed Status: Chronic Current Visit: No Code(s): L97.912 - Non-pressure chronic ulcer of unspecified part of right lower leg with fat layer exposed (2) Delayed wound healing Status: Acute Current Visit: No Code(s): T14.8XXD - Other injury of unspecified body region, subsequent encounter (3) Right foot drop Status: Chronic Current Visit: No Code(s): M21.371 - Foot drop, right foot (4) 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 Current Visit: No Code(s): G57.91 - Unspecified mononeuropathy of right lower limb (5) Venous insufficiency Status: Acute Current Visit: No Code(s): I87.2 - Venous insufficiency (chronic) (peripheral) (6) Malnutrition Status: Acute Current Visit: No Code(s): E46 - Unspecified protein-calorie malnutrition Type of Wound Date of Service: 07/13/17 Chief Complaint: Ulcer to dorsomedial aspect of the right hallux and dorsomedial 1st metatarsophalangeal joint History of Wound: This patient presents to the wound center with his for follow up today for ulcer areas to the right hallux and 1st MPJ. 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 Since the onset, the ulcers have gone through waves of improving and getting worse again. Patient is on chronic amoxicillin therapy for other comorbidities accoring to patient and his . Patient states he is still doing well with the surgical shoe and his AFO and feels that the shoe is helping to offload pressure to the areas. Patient denies any nausea, vomiting, fever, chills, or shortness of breath today. Patient and his deny any purulent drainage or malodor. Progress of Wound: Slow improvement. Even more granular tissue appreciated today especially to the more proximal ulcer. Some undermining also appreciated to each ulcer site today. - Physical Exam Vital Signs Temp Pulse Resp BP 96.8 F L 73 20 H 102/57 L 07/13/17 11:36 07/13/17 11:36 07/13/17 11:36 07/13/17 11:36 General: Alert, Oriented x3, Cooperative, No apparent distress Extremities: Capillary Refill Less than 3 Seconds, No Calf Tenderness - Negative Elaine and Dumont sign, Edema - Bilateral pitting lower extremity edema with the right being worse than the left, Peripheral Pulses Normal - DP pulses palpable bilateral and PT pulses nonpalpable due to aforementioned edema Skin: Ulcer/ Wound - Ulcer to proximal medial right first metatarsophalangeal joint noted to have slight serous drainage with no purulence and no malodor. The ulcer base is composed of adherent slough, fibrin, and granular tissue with some undermining appreciated. The majority of the ulcer base is granular tissue. There is no probing to bone, no tracking, no cellulitis, no fluctuance, no increase in warmth. The ulcer to the dorsal medial hallux is noted to have slight serous drainage as well. There is no purulence or malodor appreciated. Bases composed of adherent slough and fibrin and almost no granular base. There is undermining appreciated here as well. There is no probing to bone, no tracking, no extending cellulitis, no fluctuance, no increase in warmth. Wound Measurements and Assessment WC - Nurse 1 - General Ulcer Measurement Start: 07/13/17 11:36 Freq: Status: Active Protocol: Activity Type Activity Date Activity User E-Sign Co-Sign Detail Recorded Client Recorded Date Recorded By Document 07/13/17 11:36 ROMMEL [id number] 07/13/17 11:54 ROMMEL 07/13/17 11:36 Wound Center Nurse 1 [Ulcer Assessment] #2 Right dorsal Great Toe -Combined with other wound No -Current Size (cm) - Length 0.4 -Current Size (cm) - Width 0.7 -Current Size (cm) - Depth 0.1 -Total Square Cm 0.28 -Date of Last Picture (Recall this 06/22/17 field) -Photo Taken No -Tunneling No -Undermining/Tunneling No -Circular Undermining No -Classification - Thickness Full Thickness without Exposed Support Structure -Classification - Toscano Grading ( Grade 1 Diabetic Ulcer) -Change in Wound Grade/Stage No Query Text:If change please identify the Stage/Grade in the comment (ie. S2 G3) -Exudate Amt None Present (0 %) -Wound Margin Distinct, Outline Attached -Granulation Amt None Present (0 %) -Granulation Quality N/A -Slough/Fibrin Yes -Necrosis Amt None Present (0 %) -Structure Exposed N/A -Texture (Vidya-wound Skin Appearance) No Abnormality -Moisture (Vidya-wound Skin Appearance No Abnormality ) -Color (Vidya-wound Skin Appearance) No Abnormality -Temperature (Vidya-wound Skin No Abnormality Appearance) (Pt Warm) -Tenderness on Palpation (Vidya-wound Yes Skin Appearance) -Ulcer Cleansing Rinsed/ Irrigated with Saline -Foul Odor after Cleansing No -Anesthetic Used 4% Lidocaine Solution #1 Right dorsal medial 1st Metatarsophalangeal Joint -Combined with other wound No -Current Size (cm) - Length 1.1 -Current Size (cm) - Width 0.7 -Current Size (cm) - Depth 0.1 -Total Square Cm 0.77 -Date of Last Picture (Recall this 06/22/17 field) -Photo Taken No -Epithelialization None Present -Tunneling No -Undermining/Tunneling No -Circular Undermining No -Classification - Thickness Full Thickness without Exposed Support Structure -Classification - Toscano Grading ( Grade 1 Diabetic Ulcer) -Change in Wound Grade/Stage No Query Text:If change please identify the Stage/Grade in the comment (ie. S2 G3) -Exudate Amt Small (1-33%) -Exudate Type Serous -Wound Margin Distinct, Outline Attached -Granulation Amt None Present (0 %) -Granulation Quality N/A -Slough/Fibrin Yes -Necrosis Amt None Present (0 %) -Necrotic Tissue Type Eschar -Structure Exposed N/A -Texture (Vidya-wound Skin Appearance) No Abnormality -Moisture (Vidya-wound Skin Appearance No Abnormality ) -Color (Vidya-wound Skin Appearance) No Abnormality -Temperature (Vidya-wound Skin No Abnormality Appearance) (Pt Warm) -Tenderness on Palpation (Vidya-wound No Skin Appearance) -Ulcer Cleansing Rinsed/ Irrigated with Saline -Foul Odor after Cleansing No -Anesthetic Used 4% Lidocaine Solution [Edema Assessment] -Lower Limb Edema Present Yes -Right Calf (cm) 34.2 -Right Ankle (cm) 22.0 WC - Nurse 2 - General Ulcer CM Notes Start: 07/13/17 11:36 Freq: Status: Active Protocol: Activity Type Activity Date Activity User E-Sign Co-Sign Detail Recorded Client Recorded Date Recorded By Document 07/13/17 12:42 MW [id number] 07/13/17 12:53 MW 07/13/17 12:42 Wound Center Nurse 2 [Procedure/Treatment] #2 Right dorsal Great Toe -Time 12:44 -Correct Patient Yes -Correct Side, Site, Position Yes -Correct Procedure Yes -Procedure Performed Yes -Type of Procedure Debridement -Clinical Debridement Subcutaneous -Post Debridement Size (cm) - Length 0.9 -Post Debridement Size (cm) - Width 1.0 -Post Debridement Size (cm) - Depth 0.3 -Total Square Cm 0.90 -Wound/Ulcer Outcome Not Healed -Ulcer Cleansing Rinsed/ Irrigated with Saline -Foul Odor after Cleansing No -Type of bioengineered Tissue EPICORD -Expiration Date 03/15/22 -Product Lot Number [id number] -Percent Used 100 -Saline Lot Number [id number] -Bleeding Controlled with Pressure -Treatment Response Procedure Tolerated Well #1 Right dorsal medial 1st Metatarsophalangeal Joint -Time 12:45 -Correct Patient Yes -Correct Side, Site, Position Yes -Correct Procedure Yes -Procedure Performed Yes -Type of Procedure Debridement -Clinical Debridement Subcutaneous -Post Debridement Size (cm) - Length 1.2 -Post Debridement Size (cm) - Width 1.0 -Post Debridement Size (cm) - Depth 0.3 -Total Square Cm 1.20 -Wound/Ulcer Outcome Not Healed -Ulcer Cleansing Rinsed/ Irrigated with Saline -Foul Odor after Cleansing No -Type of bioengineered Tissue EPICORD -Expiration Date 03/15/22 -Product Lot Number [id number] -Percent Used 100 -Saline Lot Number [id number] -Bleeding Controlled with Pressure -Treatment Response Procedure Tolerated Well [See Physician Procedure note for Specifics] Pain Scale: 0-10 Numeric [Pain] -Is Patient Pain Free? Yes Musculoskeletal: - - Right dropfoot deformity appreciated Neurological: - - Protective sensation absent to greater than 2 of 5 pedal sites tested at random using a 5.07 [place] Richard monofilament to the right foot Psych/Mental Status: Normal Affect, Appropriate Debridement Note Post-Debridement Measurements/Treatment WC - Nurse 2 - General Ulcer CM Notes Start: 07/13/17 11:36 Freq: Status: Active Protocol: Activity Type Activity Date Activity User E-Sign Co-Sign Detail Recorded Client Recorded Date Recorded By Document 07/13/17 12:42 MW [id number] 07/13/17 12:53 MW 07/13/17 12:42 Wound Center Nurse 2 #2 Right dorsal Great Toe -Time 12:44 -Correct Patient Yes -Correct Side, Site, Position Yes -Correct Procedure Yes -Procedure Performed Yes -Type of Procedure Debridement -Clinical Debridement Subcutaneous -Post Debridement Size (cm) - Length 0.9 -Post Debridement Size (cm) - Width 1.0 -Post Debridement Size (cm) - Depth 0.3 -Total Square Cm 0.90 -Wound/Ulcer Outcome Not Healed -Ulcer Cleansing Rinsed/ Irrigated with Saline -Foul Odor after Cleansing No -Type of bioengineered Tissue EPICORD -Expiration Date 03/15/22 -Product Lot Number [id number] -Percent Used 100 -Saline Lot Number [id number] -Bleeding Controlled with Pressure -Treatment Response Procedure Tolerated Well #1 Right dorsal medial 1st Metatarsophalangeal Joint -Time 12:45 -Correct Patient Yes -Correct Side, Site, Position Yes -Correct Procedure Yes -Procedure Performed Yes -Type of Procedure Debridement -Clinical Debridement Subcutaneous -Post Debridement Size (cm) - Length 1.2 -Post Debridement Size (cm) - Width 1.0 -Post Debridement Size (cm) - Depth 0.3 -Total Square Cm 1.20 -Wound/Ulcer Outcome Not Healed -Ulcer Cleansing Rinsed/ Irrigated with Saline -Foul Odor after Cleansing No -Type of bioengineered Tissue EPICORD -Expiration Date 03/15/22 -Product Lot Number [id number] -Percent Used 100 -Saline Lot Number [id number] -Bleeding Controlled with Pressure -Treatment Response Procedure Tolerated Well Pain Scale: 0-10 Numeric Is Patient Pain Free? Yes Wound debrided: Dorsomedial right first metatarsophalangeal joint Laterality: Right Type of Debridement: Excisional debridement Anesthesia Used: 4% Lidocaine Solution Depth: in the subcutaneous layer Percentage of wound debrided: 100 Instrument Used: 3mm curette Tissue Removed: Adherent slough and fibrin and undermining tissue Severity: Fat Layer Exposed Amount of bleeding with debridement: Mild Bleeding Controlled with: Pressure Patient tolerated procedure well - Additional Wound Wound debrided: Dorsomedial right hallux Laterality: Right Type of Debridement: Excisional debridement Anesthesia Used: 4% Lidocaine Solution Depth: in the subcutaneous layer Percentage of wound debrided: 100 Instrument Used: 3mm curette Tissue Removed: Adherent slough and fibrin and undermining tissue Severity: Fat Layer Exposed Amount of bleeding with debridement: Mild Bleeding Controlled with: Pressure Patient tolerated procedure: Patient tolerated procedure well Assessment/Plan Assessment: Ulcers to the dorsal aspect of the right hallux and medial right first metatarsophalangeal joint with fat layer exposed. Foot drop. 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 Malnutrition. Plan: Patient was examined and evaluated again today. Slightly improved ulcer bases appreciated today. Debridement of each ulcer was completed today as described in the clinical panel. Undermining tissue was removed so ulcers measure slightly larger this week. Following debridment, epicord was applied to both ulcer bases per company protocol. This was epicord application #2. This was followed by wound veil, steristrips, and a dry sterile dressing. Patient is to leave the wound veil and everything under, clean dry and intact for the next week. Patient to continue with compression to lower extremity as well as his offloading surgical shoe. Patient to continue with high protein diet. Patient and his were again educated on all signs and symptoms of local and systemic infection, and were instructed to go to the ER immediately should they notice any. All questions were answered to their satisfaction. They will follow up in one week for further evaluation, or sooner if needed. This note was generated with [employer] dictation software. It may contain incorrect words, spelling, and punctuation that were not noted in checking the note before signing.
--- NOTE | 2017-07-13 14:40 | PN.PCM_ITS ---
(1) Non-pressure chronic ulcer of right lower leg with fat layer exposed Status: Chronic Current Visit: No Code(s): L97.912 - Non-pressure chronic ulcer of unspecified part of right lower leg with fat layer exposed (2) Delayed wound healing Status: Acute Current Visit: No Code(s): T14.8XXD - Other injury of unspecified body region, subsequent encounter (3) Right foot drop Status: Chronic Current Visit: No Code(s): M21.371 - Foot drop, right foot (4) 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 Current Visit: No Code(s): G57.91 - Unspecified mononeuropathy of right lower limb (5) Venous insufficiency Status: Acute Current Visit: No Code(s): I87.2 - Venous insufficiency ( chronic) (peripheral) (6) Malnutrition Status: Acute Current Visit: No Code(s): E46 - Unspecified protein-calorie malnutrition Type of Wound Date of Service: 07/13/17 Chief Complaint: Ulcer to dorsomedial aspect of the right hallux and dorsomedial 1st metatarsophalangeal joint History of Wound: This patient presents to the wound center with his for follow up today for ulcer areas to the right hallux and 1st MPJ. 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 Since the onset, the ulcers have gone through waves of improving and getting worse again. Patient is on chronic amoxicillin therapy for other comorbidities accoring to patient and his . Patient states he is still doing well with the surgical shoe and his AFO and feels that the shoe is helping to offload pressure to the areas. Patient denies any nausea, vomiting, fever, chills, or shortness of breath today. Patient and his deny any purulent drainage or malodor. Progress of Wound: Slow improvement. Even more granular tissue appreciated today especially to the more proximal ulcer. Some undermining also appreciated to each ulcer site today. - Physical Exam Vital Signs Temp Pulse Resp BP 96.8 F L 73 20 H 102/57 L 07/13/17 11:36 07/13/17 11:36 07/13/17 11:36 07/13/17 11:36 General: Alert, Oriented x3, Cooperative, No apparent distress Extremities: Capillary Refill Less than 3 Seconds, No Calf Tenderness - Negative Elaine and Dumont sign, Edema - Bilateral pitting lower extremity edema with the right being worse than the left, Peripheral Pulses Normal - DP pulses palpable bilateral and PT pulses nonpalpable due to aforementioned edema Skin: Ulcer/ Wound - Ulcer to proximal medial right first metatarsophalangeal joint noted to have slight serous drainage with no purulence and no malodor. The ulcer base is composed of adherent slough, fibrin, and granular tissue with some undermining appreciated. The majority of the ulcer base is granular tissue. There is no probing to bone, no tracking, no cellulitis, no fluctuance , no increase in warmth. The ulcer to the dorsal medial hallux is noted to have slight serous drainage as well. There is no purulence or malodor appreciated. Bases composed of adherent slough and fibrin and almost no granular base. There is undermining appreciated here as well. There is no probing to bone, no tracking, no extending cellulitis, no fluctuance, no increase in warmth. Wound Measurements and Assessment WC - Nurse 1 - General Ulcer Measurement Start: 07/13/17 11:36 Freq: Status: Active Protocol: Activity Type Activity Date Activity User E-Sign Co-Sign Detail Recorded Client Recorded Date Recorded By Document 07/13/17 11:36 ROMMEL [id number] 07/13/17 11:54 ROMMEL 07/13/17 11:36 Wound Center Nurse 1 [Ulcer Assessment] #2 Right dorsal Great Toe -Combined with other wound No -Current Size (cm) - Length 0.4 -Current Size (cm) - Width 0.7 -Current Size (cm) - Depth 0.1 -Total Square Cm 0.28 -Date of Last Picture (Recall this 06/22/17 field) -Photo Taken No -Tunneling No -Undermining/Tunneling No -Circular Undermining No -Classification - Thickness Full Thickness without Exposed Support Structure -Classification - Toscano Grading ( Grade 1 Diabetic Ulcer) -Change in Wound Grade/Stage No Query Text:If change please identify the Stage/Grade in the comment (ie. S2 G3) -Exudate Amt None Present (0 %) -Wound Margin Distinct, Outline Attached -Granulation Amt None Present (0 %) -Granulation Quality N/A -Slough/Fibrin Yes -Necrosis Amt None Present (0 %) -Structure Exposed N/A -Texture (Vidya-wound Skin Appearance) No Abnormality -Moisture (Vidya-wound Skin Appearance No Abnormality ) -Color (Vidya-wound Skin Appearance) No Abnormality -Temperature (Vidya-wound Skin No Abnormality Appearance) (Pt Warm) -Tenderness on Palpation (Vidya-wound Yes Skin Appearance) -Ulcer Cleansing Rinsed/ Irrigated with Saline -Foul Odor after Cleansing No -Anesthetic Used 4% Lidocaine Solution #1 Right dorsal medial 1st Metatarsophalangeal Joint -Combined with other wound No -Current Size (cm) - Length 1.1 -Current Size (cm) - Width 0.7 -Current Size (cm) - Depth 0.1 -Total Square Cm 0.77 -Date of Last Picture (Recall this 06/22/17 field) -Photo Taken No -Epithelialization None Present -Tunneling No -Undermining/Tunneling No -Circular Undermining No -Classification - Thickness Full Thickness without Exposed Support Structure -Classification - Toscano Grading ( Grade 1 Diabetic Ulcer) -Change in Wound Grade/Stage No Query Text:If change please identify the Stage/Grade in the comment (ie. S2 G3) -Exudate Amt Small (1-33%) -Exudate Type Serous -Wound Margin Distinct, Outline Attached -Granulation Amt None Present (0 %) -Granulation Quality N/A -Slough/Fibrin Yes -Necrosis Amt None Present (0 %) -Necrotic Tissue Type Eschar -Structure Exposed N/A -Texture (Vidya-wound Skin Appearance) No Abnormality -Moisture (Vidya-wound Skin Appearance No Abnormality ) -Color (Vidya-wound Skin Appearance) No Abnormality -Temperature (Vidya-wound Skin No Abnormality Appearance) (Pt Warm) -Tenderness on Palpation (Vidya-wound No Skin Appearance) -Ulcer Cleansing Rinsed/ Irrigated with Saline -Foul Odor after Cleansing No -Anesthetic Used 4% Lidocaine Solution [Edema Assessment] -Lower Limb Edema Present Yes -Right Calf (cm) 34.2 -Right Ankle (cm) 22.0 WC - Nurse 2 - General Ulcer CM Notes Start: 07/13/17 11:36 Freq: Status: Active Protocol: Activity Type Activity Date Activity User E-Sign Co-Sign Detail Recorded Client Recorded Date Recorded By Document 07/13/17 12:42 MW [id number] 07/13/17 12:53 MW 07/13/17 12:42 Wound Center Nurse 2 [Procedure/Treatment] #2 Right dorsal Great Toe -Time 12:44 -Correct Patient Yes -Correct Side, Site, Position Yes -Correct Procedure Yes -Procedure Performed Yes -Type of Procedure Debridement -Clinical Debridement Subcutaneous -Post Debridement Size (cm) - Length 0.9 -Post Debridement Size (cm) - Width 1.0 -Post Debridement Size (cm) - Depth 0.3 -Total Square Cm 0.90 -Wound/Ulcer Outcome Not Healed -Ulcer Cleansing Rinsed/ Irrigated with Saline -Foul Odor after Cleansing No -Type of bioengineered Tissue EPICORD -Expiration Date 03/15/22 -Product Lot Number [id number] -Percent Used 100 -Saline Lot Number [id number] -Bleeding Controlled with Pressure -Treatment Response Procedure Tolerated Well #1 Right dorsal medial 1st Metatarsophalangeal Joint -Time 12:45 -Correct Patient Yes -Correct Side, Site, Position Yes -Correct Procedure Yes -Procedure Performed Yes -Type of Procedure Debridement -Clinical Debridement Subcutaneous -Post Debridement Size (cm) - Length 1.2 -Post Debridement Size (cm) - Width 1.0 -Post Debridement Size (cm) - Depth 0.3 -Total Square Cm 1.20 -Wound/Ulcer Outcome Not Healed -Ulcer Cleansing Rinsed/ Irrigated with Saline -Foul Odor after Cleansing No -Type of bioengineered Tissue EPICORD -Expiration Date 03/15/22 -Product Lot Number [id number] -Percent Used 100 -Saline Lot Number [id number] -Bleeding Controlled with Pressure -Treatment Response Procedure Tolerated Well [See Physician Procedure note for Specifics] Pain Scale: 0-10 Numeric [Pain] -Is Patient Pain Free? Yes Musculoskeletal: - - Right dropfoot deformity appreciated Neurological: - - Protective sensation absent to greater than 2 of 5 pedal sites tested at random using a 5.07 [place] Richard monofilament to the right foot Psych/Mental Status: Normal Affect, Appropriate Debridement Note Post-Debridement Measurements/Treatment WC - Nurse 2 - General Ulcer CM Notes Start: 07/13/17 11:36 Freq: Status: Active Protocol: Activity Type Activity Date Activity User E-Sign Co-Sign Detail Recorded Client Recorded Date Recorded By Document 07/13/17 12:42 MW [id number] 07/13/17 12:53 MW 07/13/17 12:42 Wound Center Nurse 2 #2 Right dorsal Great Toe -Time 12:44 -Correct Patient Yes -Correct Side, Site, Position Yes -Correct Procedure Yes -Procedure Performed Yes -Type of Procedure Debridement -Clinical Debridement Subcutaneous -Post Debridement Size (cm) - Length 0.9 -Post Debridement Size (cm) - Width 1.0 -Post Debridement Size (cm) - Depth 0.3 -Total Square Cm 0.90 -Wound/Ulcer Outcome Not Healed -Ulcer Cleansing Rinsed/ Irrigated with Saline -Foul Odor after Cleansing No -Type of bioengineered Tissue EPICORD -Expiration Date 03/15/22 -Product Lot Number [id number] -Percent Used 100 -Saline Lot Number [id number] -Bleeding Controlled with Pressure -Treatment Response Procedure Tolerated Well #1 Right dorsal medial 1st Metatarsophalangeal Joint -Time 12:45 -Correct Patient Yes -Correct Side, Site, Position Yes -Correct Procedure Yes -Procedure Performed Yes -Type of Procedure Debridement -Clinical Debridement Subcutaneous -Post Debridement Size (cm) - Length 1.2 -Post Debridement Size (cm) - Width 1.0 -Post Debridement Size (cm) - Depth 0.3 -Total Square Cm 1.20 -Wound/Ulcer Outcome Not Healed -Ulcer Cleansing Rinsed/ Irrigated with Saline -Foul Odor after Cleansing No -Type of bioengineered Tissue EPICORD -Expiration Date 03/15/22 -Product Lot Number [id number] -Percent Used 100 -Saline Lot Number [id number] -Bleeding Controlled with Pressure -Treatment Response Procedure Tolerated Well Pain Scale: 0-10 Numeric Is Patient Pain Free? Yes Wound debrided: Dorsomedial right first metatarsophalangeal joint Laterality: Right Type of Debridement: Excisional debridement Anesthesia Used: 4% Lidocaine Solution Depth: in the subcutaneous layer Percentage of wound debrided: 100 Instrument Used: 3mm curette Tissue Removed: Adherent slough and fibrin and undermining tissue Severity: Fat Layer Exposed Amount of bleeding with debridement: Mild Bleeding Controlled with: Pressure Patient tolerated procedure well - Additional Wound Wound debrided: Dorsomedial right hallux Laterality: Right Type of Debridement: Excisional debridement Anesthesia Used: 4% Lidocaine Solution Depth: in the subcutaneous layer Percentage of wound debrided: 100 Instrument Used: 3mm curette Tissue Removed: Adherent slough and fibrin and undermining tissue Severity: Fat Layer Exposed Amount of bleeding with debridement: Mild Bleeding Controlled with: Pressure Patient tolerated procedure: Patient tolerated procedure well Assessment/Plan Assessment: Ulcers to the dorsal aspect of the right hallux and medial right first metatarsophalangeal joint with fat layer exposed. Foot drop. 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 Malnutrition. Plan: Patient was examined and evaluated again today. Slightly improved ulcer bases appreciated today. Debridement of each ulcer was completed today as described in the clinical panel. Undermining tissue was removed so ulcers measure slightly larger this week. Following debridment, epicord was applied to both ulcer bases per company protocol. This was epicord application #2. This was followed by wound veil, steristrips, and a dry sterile dressing. Patient is to leave the wound veil and everything under, clean dry and intact for the next week. Patient to continue with compression to lower extremity as well as his offloading surgical shoe. Patient to continue with high protein diet. Patient and his were again educated on all signs and symptoms of local and systemic infection, and were instructed to go to the ER immediately should they notice any. All questions were answered to their satisfaction. They will follow up in one week for further evaluation, or sooner if needed. This note was generated with [employer] dictation software. It may contain incorrect words, spelling, and punctuation that were not noted in checking the note before signing.
[2017-07-20 12:04] VITALS: BP 123/86; PULSE 78; RESP 18; TEMP 36.6; BMI 23.7
--- NOTE | 2017-07-20 14:58 | PCM.WC.PN ---
(1) Non-pressure chronic ulcer of right lower leg with fat layer exposed Status: Chronic Current Visit: No Code(s): L97.912 - Non-pressure chronic ulcer of unspecified part of right lower leg with fat layer exposed (2) Delayed wound healing Status: Acute Current Visit: No Code(s): T14.8XXD - Other injury of unspecified body region, subsequent encounter (3) Right foot drop Status: Chronic Current Visit: No Code(s): M21.371 - Foot drop, right foot (4) 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 Current Visit: No Code(s): G57.91 - Unspecified mononeuropathy of right lower limb (5) Venous insufficiency Status: Acute Current Visit: No Code(s): I87.2 - Venous insufficiency (chronic) (peripheral) (6) Malnutrition Status: Acute Current Visit: No Code(s): E46 - Unspecified protein-calorie malnutrition Type of Wound Date of Service: 07/20/17 Chief Complaint: Ulcer to dorsomedial aspect of the right hallux and dorsomedial 1st metatarsophalangeal joint History of Wound: This patient presents to the wound center with his for follow up today for ulcer areas to the right hallux and 1st MPJ. 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 Since the onset, the ulcers have gone through waves of improving and getting worse again. Patient is on chronic amoxicillin therapy for other comorbidities accoring to patient and his . Patient states he is still doing well with the surgical shoe and his AFO and feels that the shoe is helping to offload pressure to the areas. Patient denies any nausea, vomiting, fever, chills, or shortness of breath today. Patient and his deny any purulent drainage or malodor. Progress of Wound: Ulcer appears stable since last week. Slightly more undermining was appreciated today. - Physical Exam Vital Signs Temp Pulse Resp BP 97.8 F 78 18 123/86 H 07/20/17 12:04 07/20/17 12:04 07/20/17 12:04 07/20/17 12:04 General: Alert, Oriented x3, Cooperative, No apparent distress Extremities: Capillary Refill Less than 3 Seconds, No Calf Tenderness - Negative Elaine and Dumont sign, Edema - Bilateral pitting lower extremity edema with right being worse than left, Peripheral Pulses Normal - DP pulses palpable bilateral and PT pulses nonpalpable due to aforementioned edema Skin: Ulcer/ Wound - Ulcer to proximal medial right first metatarsophalangeal joint noted to have slight serous drainage with no purulence and no malodor. The ulcer base is composed of adherent slough, fibrin, and granular tissue with some undermining appreciated again today. The majority of the ulcer base is granular tissue. There is no probing to bone, no tracking, no cellulitis, no fluctuance, no increase in warmth. The ulcer to the dorsal medial hallux is noted to have slight serous drainage as well. There is no purulence or malodor appreciated. Bases composed of adherent slough and fibrin and almost no granular base. There is undermining appreciated here as well again today. There is no probing to bone, no tracking, no extending cellulitis, no fluctuance, no increase in warmth. Wound Measurements and Assessment WC - Nurse 1 - General Ulcer Measurement Start: 07/13/17 11:36 Freq: Status: Active Protocol: Activity Type Activity Date Activity User E-Sign Co-Sign Detail Recorded Client Recorded Date Recorded By Document 07/20/17 12:04 DL [id number] 07/20/17 12:14 DL 07/20/17 12:04 Wound Center Nurse 1 [Ulcer Assessment] #2 Right dorsal Great Toe -Current Size (cm) - Length 0.8 -Current Size (cm) - Width 0.9 -Current Size (cm) - Depth 0.1 -Total Square Cm 0.72 -Photo Taken Yes -Exudate Amt Small (1-33%) -Exudate Type Yellow/Green -Wound Margin Distinct, Outline Attached -Granulation Amt None Present (0 %) -Necrosis Amt Large (67-100%) -Necrotic Tissue Type Adherent Slough -Structure Exposed N/A -Texture (Vidya-wound Skin Appearance) No Abnormality -Moisture (Vidya-wound Skin Appearance Dry/Scaly ) -Color (Vidya-wound Skin Appearance) No Abnormality -Temperature (Vidya-wound Skin No Abnormality Appearance) (Pt Warm) -Ulcer Cleansing Rinsed/ Irrigated with Saline -Foul Odor after Cleansing No -Anesthetic Used 4% Lidocaine Solution #1 Right dorsal medial 1st Metatarsophalangeal Joint -Current Size (cm) - Length 1 -Current Size (cm) - Width 0.7 -Current Size (cm) - Depth 0.3 -Total Square Cm 0.7 -Photo Taken Yes -Exudate Amt Small (1-33%) -Exudate Type Yellow/Green -Wound Margin Distinct, Outline Attached -Granulation Amt Small (1-33%) -Granulation Quality Red -Necrosis Amt Small (1-33%) -Necrotic Tissue Type Adherent Slough -Structure Exposed N/A -Texture (Vidya-wound Skin Appearance) No Abnormality -Moisture (Vidya-wound Skin Appearance Dry/Scaly ) -Color (Vidya-wound Skin Appearance) No Abnormality -Ulcer Cleansing Wound Cleanser -Foul Odor after Cleansing No -Anesthetic Used 4% Lidocaine Solution [Edema Assessment] -Right Calf (cm) 33 -Right Ankle (cm) 21.7 WC - Nurse 2 - General Ulcer CM Notes Start: 07/13/17 11:36 Freq: Status: Active Protocol: Activity Type Activity Date Activity User E-Sign Co-Sign Detail Recorded Client Recorded Date Recorded By Document 07/20/17 12:38 MW [id number] 07/20/17 12:49 MW 07/20/17 12:38 Wound Center Nurse 2 [Procedure/Treatment] #2 Right dorsal Great Toe -Time 12:38 -Correct Patient Yes -Correct Side, Site, Position Yes -Correct Procedure Yes -Procedure Performed Yes -Type of Procedure Debridement -Clinical Debridement Subcutaneous -Post Debridement Size (cm) - Length 1.0 -Post Debridement Size (cm) - Width 1.0 -Post Debridement Size (cm) - Depth 0.3 -Total Square Cm 1.00 -Wound/Ulcer Outcome Not Healed -Ulcer Cleansing Rinsed/ Irrigated with Saline -Foul Odor after Cleansing No -Bioengineered Tissue Yes -Type of bioengineered Tissue EPIFIX -Expiration Date 04/14/22 -Product Lot Number [id number] -Percent Used 90 -Saline Lot Number [id number] -Bleeding Controlled with Pressure -Treatment Response Procedure Tolerated Well #1 Right dorsal medial 1st Metatarsophalangeal Joint -Time 12:39 -Correct Patient Yes -Correct Side, Site, Position Yes -Correct Procedure Yes -Procedure Performed Yes -Type of Procedure Debridement -Clinical Debridement Subcutaneous -Post Debridement Size (cm) - Length 1.2 -Post Debridement Size (cm) - Width 1.0 -Post Debridement Size (cm) - Depth 0.3 -Total Square Cm 1.20 -Wound/Ulcer Outcome Not Healed -Ulcer Cleansing Rinsed/ Irrigated with Saline -Foul Odor after Cleansing No -Bioengineered Tissue Yes -Type of bioengineered Tissue EPIFIX -Expiration Date 04/14/22 -Product Lot Number [id number] -Percent Used 90 -Bleeding Controlled with Pressure -Treatment Response Procedure Tolerated Well [See Physician Procedure note for Specifics] Pain Scale: 0-10 Numeric [Pain] -Is Patient Pain Free? Yes Musculoskeletal: - - Right foot drop Neurological: - - Protective sensation absent to all pedal sites tested at random using a 5.07 [place] Richard monofilament Psych/Mental Status: Normal Affect, Appropriate Debridement Note Post-Debridement Measurements/Treatment WC - Nurse 2 - General Ulcer CM Notes Start: 07/13/17 11:36 Freq: Status: Active Protocol: Activity Type Activity Date Activity User E-Sign Co-Sign Detail Recorded Client Recorded Date Recorded By Document 07/13/17 12:42 MW [id number] 07/13/17 12:53 MW Document 07/20/17 12:38 MW [id number] 07/20/17 12:49 MW 07/13/17 07/20/17 12:42 12:38 Wound Center Nurse 2 #2 Right dorsal Great Toe -Time 12:44 12:38 -Correct Patient Yes Yes -Correct Side, Site, Position Yes Yes -Correct Procedure Yes Yes -Procedure Performed Yes Yes -Type of Procedure Debridement Debridement -Clinical Debridement Subcutaneous Subcutaneous -Post Debridement Size (cm) - Length 0.9 1.0 -Post Debridement Size (cm) - Width 1.0 1.0 -Post Debridement Size (cm) - Depth 0.3 0.3 -Total Square Cm 0.90 1.00 -Wound/Ulcer Outcome Not Healed Not Healed -Ulcer Cleansing Rinsed/ Rinsed/ Irrigated with Irrigated with Saline Saline -Foul Odor after Cleansing No No -Bioengineered Tissue Yes -Type of bioengineered Tissue EPICORD EPIFIX -Expiration Date 03/15/22 04/14/22 -Product Lot Number [id number] -Percent Used 100 90 -Saline Lot Number [id number] -Bleeding Controlled with Pressure Pressure -Treatment Response Procedure Procedure Tolerated Well Tolerated Well #1 Right dorsal medial 1st Metatarsophalangeal Joint -Time 12:45 12:39 -Correct Patient Yes Yes -Correct Side, Site, Position Yes Yes -Correct Procedure Yes Yes -Procedure Performed Yes Yes -Type of Procedure Debridement Debridement -Clinical Debridement Subcutaneous Subcutaneous -Post Debridement Size (cm) - Length 1.2 1.2 -Post Debridement Size (cm) - Width 1.0 1.0 -Post Debridement Size (cm) - Depth 0.3 0.3 -Total Square Cm 1.20 1.20 -Wound/Ulcer Outcome Not Healed Not Healed -Ulcer Cleansing Rinsed/ Rinsed/ Irrigated with Irrigated with Saline Saline -Foul Odor after Cleansing No No -Bioengineered Tissue Yes -Type of bioengineered Tissue EPICORD EPIFIX -Expiration Date 03/15/22 04/14/22 -Product Lot Number [id number] -Percent Used 100 90 -Saline Lot Number [id number] -Bleeding Controlled with Pressure Pressure -Treatment Response Procedure Procedure Tolerated Well Tolerated Well Pain Scale: 0-10 Numeric Is Patient Pain Free? Yes Yes Wound debrided: Dorsomedial right first metatarsophalangeal joint Laterality: Right Type of Debridement: Excisional debridement Anesthesia Used: 4% Lidocaine Solution Depth: in the subcutaneous layer Percentage of wound debrided: 100 Instrument Used: 3mm curette, - - Tissue number Tissue Removed: Adherent slough, fibrin, undermining tissue, hyperkeratotic tissue Severity: Fat Layer Exposed Amount of bleeding with debridement: Mild Bleeding Controlled with: Pressure Patient tolerated procedure well - Additional Wound Wound debrided: Dorsomedial right hallux Laterality: Right Type of Debridement: Excisional debridement Anesthesia Used: 4% Lidocaine Solution Depth: in the subcutaneous layer Percentage of wound debrided: 100 Instrument Used: 3mm curette, - - Tissue nipper Tissue Removed: Adherent slough, fibrin, undermining tissue, hyperkeratotic tissue Severity: Fat Layer Exposed Amount of bleeding with debridement: Mild Bleeding Controlled with: Pressure Patient tolerated procedure: Patient tolerated procedure well - Additional Wound Wound debrided: Dorsomedial right hallux Laterality: Right Assessment/Plan Assessment: Ulcers to the dorsal aspect of the right hallux and medial right first metatarsophalangeal joint with fat layer exposed. Foot drop. 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 Malnutrition. Plan: Patient was examined and evaluated again today. Stable ulcer bases appreciated today. Debridement of each ulcer was completed today as described in the clinical panel. Undermining tissue was again removed so ulcers measure slightly larger this week. Following debridment, epifix #1 was applied to both ulcer bases per company protocol. This was after two epicord applications in the two prior weeks. This was followed by wound veil, steristrips, hydrogel, and a dry sterile dressing. Patient is to leave the wound veil and everything under, clean dry and intact for the next week. Patient to continue with compression to lower extremity as well as his offloading surgical shoe. Patient to continue with high protein diet. Patient and his sister in law were again educated on all signs and symptoms of local and systemic infection, and were instructed to go to the ER immediately should they notice any. All questions were answered to their satisfaction. They will follow up in one week for further evaluation, or sooner if needed. This note was generated with [employer] dictation software. It may contain incorrect words, spelling, and punctuation that were not noted in checking the note before signing.
--- NOTE | 2017-07-20 15:08 | PN.PCM_ITS ---
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 Since the onset, the ulcers have gone through waves of improving and getting worse again. Patient is on chronic amoxicillin therapy for other comorbidities accoring to patient and his . Patient states he is still doing well with the surgical shoe and his AFO and feels that the shoe is helping to offload pressure to the areas. Patient denies any nausea, vomiting, fever, chills, or shortness of breath today. Patient and his deny any purulent drainage or malodor. Progress of Wound: Ulcer appears stable since last week. Slightly more undermining was appreciated today. - Physical Exam Vital Signs Temp Pulse Resp BP 97.8 F 78 18 123/86 H 07/20/17 12:04 07/20/17 12:04 07/20/17 12:04 07/20/17 12:04 General: Alert, Oriented x3, Cooperative, No apparent distress Extremities: Capillary Refill Less than 3 Seconds, No Calf Tenderness - Negative Elaine and Dumont sign, Edema - Bilateral pitting lower extremity edema with right being worse than left, Peripheral Pulses Normal - DP pulses palpable bilateral and PT pulses nonpalpable due to aforementioned edema Skin: Ulcer/ Wound - Ulcer to proximal medial right first metatarsophalangeal joint noted to have slight serous drainage with no purulence and no malodor. The ulcer base is composed of adherent slough, fibrin, and granular tissue with some undermining appreciated again today. The majority of the ulcer base is granular tissue. There is no probing to bone, no tracking, no cellulitis, no fluctuance, no increase in warmth. The ulcer to the dorsal medial hallux is noted to have slight serous drainage as well. There is no purulence or malodor appreciated. Bases composed of adherent slough and fibrin and almost no granular base. There is undermining appreciated here as well again today. There is no probing to bone, no tracking, no extending cellulitis, no fluctuance , no increase in warmth. Wound Measurements and Assessment WC - Nurse 1 - General Ulcer Measurement Start: 07/13/17 11:36 Freq: Status: Active Protocol: Activity Type Activity Date Activity User E-Sign Co-Sign Detail Recorded Client Recorded Date Recorded By Document 07/20/17 12:04 DL [id number] 07/20/17 12:14 DL 07/20/17 12:04 Wound Center Nurse 1 [Ulcer Assessment] #2 Right dorsal Great Toe -Current Size (cm) - Length 0.8 -Current Size (cm) - Width 0.9 -Current Size (cm) - Depth 0.1 -Total Square Cm 0.72 -Photo Taken Yes -Exudate Amt Small (1-33%) -Exudate Type Yellow/Green -Wound Margin Distinct, Outline Attached -Granulation Amt None Present (0 %) -Necrosis Amt Large (67-100%) -Necrotic Tissue Type Adherent Slough -Structure Exposed N/A -Texture (Vidya-wound Skin Appearance) No Abnormality -Moisture (Vidya-wound Skin Appearance Dry/Scaly ) -Color (Vidya-wound Skin Appearance) No Abnormality -Temperature (Vidya-wound Skin No Abnormality Appearance) (Pt Warm) -Ulcer Cleansing Rinsed/ Irrigated with Saline -Foul Odor after Cleansing No -Anesthetic Used 4% Lidocaine Solution #1 Right dorsal medial 1st Metatarsophalangeal Joint -Current Size (cm) - Length 1 -Current Size (cm) - Width 0.7 -Current Size (cm) - Depth 0.3 -Total Square Cm 0.7 -Photo Taken Yes -Exudate Amt Small (1-33%) -Exudate Type Yellow/Green -Wound Margin Distinct, Outline Attached -Granulation Amt Small (1-33%) -Granulation Quality Red -Necrosis Amt Small (1-33%) -Necrotic Tissue Type Adherent Slough -Structure Exposed N/A -Texture (Vidya-wound Skin Appearance) No Abnormality -Moisture (Vidya-wound Skin Appearance Dry/Scaly ) -Color (Vidya-wound Skin Appearance) No Abnormality -Ulcer Cleansing Wound Cleanser -Foul Odor after Cleansing No -Anesthetic Used 4% Lidocaine Solution [Edema Assessment] -Right Calf (cm) 33 -Right Ankle (cm) 21.7 WC - Nurse 2 - General Ulcer CM Notes Start: 07/13/17 11:36 Freq: Status: Active Protocol: Activity Type Activity Date Activity User E-Sign Co-Sign Detail Recorded Client Recorded Date Recorded By Document 07/20/17 12:38 MW [id number] 07/20/17 12:49 MW 07/20/17 12:38 Wound Center Nurse 2 [Procedure/Treatment] #2 Right dorsal Great Toe -Time 12:38 -Correct Patient Yes -Correct Side, Site, Position Yes -Correct Procedure Yes -Procedure Performed Yes -Type of Procedure Debridement -Clinical Debridement Subcutaneous -Post Debridement Size (cm) - Length 1.0 -Post Debridement Size (cm) - Width 1.0 -Post Debridement Size (cm) - Depth 0.3 -Total Square Cm 1.00 -Wound/Ulcer Outcome Not Healed -Ulcer Cleansing Rinsed/ Irrigated with Saline -Foul Odor after Cleansing No -Bioengineered Tissue Yes -Type of bioengineered Tissue EPIFIX -Expiration Date 04/14/22 -Product Lot Number [id number] -Percent Used 90 -Saline Lot Number [id number] -Bleeding Controlled with Pressure -Treatment Response Procedure Tolerated Well #1 Right dorsal medial 1st Metatarsophalangeal Joint -Time 12:39 -Correct Patient Yes -Correct Side, Site, Position Yes -Correct Procedure Yes -Procedure Performed Yes -Type of Procedure Debridement -Clinical Debridement Subcutaneous -Post Debridement Size (cm) - Length 1.2 -Post Debridement Size (cm) - Width 1.0 -Post Debridement Size (cm) - Depth 0.3 -Total Square Cm 1.20 -Wound/Ulcer Outcome Not Healed -Ulcer Cleansing Rinsed/ Irrigated with Saline -Foul Odor after Cleansing No -Bioengineered Tissue Yes -Type of bioengineered Tissue EPIFIX -Expiration Date 04/14/22 -Product Lot Number [id number] -Percent Used 90 -Bleeding Controlled with Pressure -Treatment Response Procedure Tolerated Well [See Physician Procedure note for Specifics] Pain Scale: 0-10 Numeric [Pain] -Is Patient Pain Free? Yes Musculoskeletal: - - Right foot drop Neurological: - - Protective sensation absent to all pedal sites tested at random using a 5.07 [place] Richard monofilament Psych/Mental Status: Normal Affect, Appropriate Debridement Note Post-Debridement Measurements/Treatment WC - Nurse 2 - General Ulcer CM Notes Start: 07/13/17 11:36 Freq: Status: Active Protocol: Activity Type Activity Date Activity User E-Sign Co-Sign Detail Recorded Client Recorded Date Recorded By Document 07/13/17 12:42 MW [id number] 07/13/17 12:53 MW Document 07/20/17 12:38 MW [id number] 07/20/17 12:49 MW 07/13/17 07/20/17 12:42 12:38 Wound Center Nurse 2 #2 Right dorsal Great Toe -Time 12:44 12:38 -Correct Patient Yes Yes -Correct Side, Site, Position Yes Yes -Correct Procedure Yes Yes -Procedure Performed Yes Yes -Type of Procedure Debridement Debridement -Clinical Debridement Subcutaneous Subcutaneous -Post Debridement Size (cm) - Length 0.9 1.0 -Post Debridement Size (cm) - Width 1.0 1.0 -Post Debridement Size (cm) - Depth 0.3 0.3 -Total Square Cm 0.90 1.00 -Wound/Ulcer Outcome Not Healed Not Healed -Ulcer Cleansing Rinsed/ Rinsed/ Irrigated with Irrigated with Saline Saline -Foul Odor after Cleansing No No -Bioengineered Tissue Yes -Type of bioengineered Tissue EPICORD EPIFIX -Expiration Date 03/15/22 04/14/22 -Product Lot Number [id number] -Percent Used 100 90 -Saline Lot Number [id number] -Bleeding Controlled with Pressure Pressure -Treatment Response Procedure Procedure Tolerated Well Tolerated Well #1 Right dorsal medial 1st Metatarsophalangeal Joint -Time 12:45 12:39 -Correct Patient Yes Yes -Correct Side, Site, Position Yes Yes -Correct Procedure Yes Yes -Procedure Performed Yes Yes -Type of Procedure Debridement Debridement -Clinical Debridement Subcutaneous Subcutaneous -Post Debridement Size (cm) - Length 1.2 1.2 -Post Debridement Size (cm) - Width 1.0 1.0 -Post Debridement Size (cm) - Depth 0.3 0.3 -Total Square Cm 1.20 1.20 -Wound/Ulcer Outcome Not Healed Not Healed -Ulcer Cleansing Rinsed/ Rinsed/ Irrigated with Irrigated with Saline Saline -Foul Odor after Cleansing No No -Bioengineered Tissue Yes -Type of bioengineered Tissue EPICORD EPIFIX -Expiration Date 03/15/22 04/14/22 -Product Lot Number [id number] -Percent Used 100 90 -Saline Lot Number [id number] -Bleeding Controlled with Pressure Pressure -Treatment Response Procedure Procedure Tolerated Well Tolerated Well Pain Scale: 0-10 Numeric Is Patient Pain Free? Yes Yes Wound debrided: Dorsomedial right first metatarsophalangeal joint Laterality: Right Type of Debridement: Excisional debridement Anesthesia Used: 4% Lidocaine Solution Depth: in the subcutaneous layer Percentage of wound debrided: 100 Instrument Used: 3mm curette, - - Tissue number Tissue Removed: Adherent slough, fibrin, undermining tissue, hyperkeratotic tissue Severity: Fat Layer Exposed Amount of bleeding with debridement: Mild Bleeding Controlled with: Pressure Patient tolerated procedure well - Additional Wound Wound debrided: Dorsomedial right hallux Laterality: Right Type of Debridement: Excisional debridement Anesthesia Used: 4% Lidocaine Solution Depth: in the subcutaneous layer Percentage of wound debrided: 100 Instrument Used: 3mm curette, - - Tissue nipper Tissue Removed: Adherent slough, fibrin, undermining tissue, hyperkeratotic tissue Severity: Fat Layer Exposed Amount of bleeding with debridement: Mild Bleeding Controlled with: Pressure Patient tolerated procedure: Patient tolerated procedure well - Additional Wound Wound debrided: Dorsomedial right hallux Laterality: Right Assessment/Plan Assessment: Ulcers to the dorsal aspect of the right hallux and medial right first metatarsophalangeal joint with fat layer exposed. Foot drop. 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 Malnutrition. Plan: Patient was examined and evaluated again today. Stable ulcer bases appreciated today. Debridement of each ulcer was completed today as described in the clinical panel. Undermining tissue was again removed so ulcers measure slightly larger this week. Following debridment, epifix #1 was applied to both ulcer bases per company protocol. This was after two epicord applications in the two prior weeks. This was followed by wound veil, steristrips, hydrogel, and a dry sterile dressing. Patient is to leave the wound veil and everything under, clean dry and intact for the next week. Patient to continue with compression to lower extremity as well as his offloading surgical shoe. Patient to continue with high protein diet. Patient and his sister in law were again educated on all signs and symptoms of local and systemic infection, and were instructed to go to the ER immediately should they notice any. All questions were answered to their satisfaction. They will follow up in one week for further evaluation, or sooner if needed. This note was generated with [employer] dictation software. It may contain incorrect words, spelling, and punctuation that were not noted in checking the note before signing.
[2017-07-27 11:35] VITALS: BP 112/75; PULSE 86; RESP 16; TEMP 36.4; BMI 23.7
--- NOTE | 2017-07-27 13:13 | PCM.WC.PN ---
(1) Non-pressure chronic ulcer of right lower leg with fat layer exposed Status: Chronic Current Visit: No Code(s): L97.912 - Non-pressure chronic ulcer of unspecified part of right lower leg with fat layer exposed (2) Delayed wound healing Status: Acute Current Visit: No Code(s): T14.8XXD - Other injury of unspecified body region, subsequent encounter (3) Right foot drop Status: Chronic Current Visit: No Code(s): M21.371 - Foot drop, right foot (4) 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 Current Visit: No Code(s): G57.91 - Unspecified mononeuropathy of right lower limb (5) Venous insufficiency Status: Acute Current Visit: No Code(s): I87.2 - Venous insufficiency (chronic) (peripheral) (6) Malnutrition Status: Acute Current Visit: No Code(s): E46 - Unspecified protein-calorie malnutrition Type of Wound Date of Service: 07/27/17 Chief Complaint: Ulcer to dorsomedial aspect of the right hallux and dorsomedial 1st metatarsophalangeal joint History of Wound: This patient presents to the wound center with his for follow up today for ulcer areas to the right hallux and 1st MPJ. 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 Since the onset, the ulcers have gone through waves of improving and getting worse again. Patient is on chronic amoxicillin therapy for other comorbidities accoring to patient and his . Patient states he is still doing well with the surgical shoe and his AFO and feels that the shoe is helping to offload pressure to the areas. Patient denies any nausea, vomiting, fever, chills, or shortness of breath today. Patient and his deny any purulent drainage or malodor. Progress of Wound: Ulcers appear stable since last week. There appears to be a slight improvement. Has been having weekly dressing changes of epifix. Patient denies any feelings of nausea, vomiting, fever, chills, or shortness of breath today. - Physical Exam Vital Signs Temp Pulse Resp BP 97.5 F L 86 16 112/75 07/27/17 11:35 07/27/17 11:35 07/27/17 11:35 07/27/17 11:35 General: Alert, Oriented x3, Cooperative, No apparent distress Extremities: Capillary Refill Less than 3 Seconds, No Calf Tenderness - negative sahra and carlos sign, Edema - bilateral lower extremity rhiannon malleolar pitting edema with right being worse than left., Peripheral Pulses Normal - DP pulses palpable and PT pulses non palpable due to aforementioned lower extremity pitting edema. Skin: Ulcer/ Wound - Ulcer to proximal medial right first metatarsophalangeal joint noted to have slight serous drainage with no purulence and no malodor. The ulcer base is composed of adherent slough, fibrin, and granular tissue with no undermining appreciated today. The majority of the ulcer base is granular tissue. There is no probing to bone, no tracking, no cellulitis, no fluctuance, no increase in warmth. The ulcer to the dorsal medial hallux is noted to have slight serous drainage as well. There is no purulence or malodor appreciated. Bases composed of adherent slough and fibrin and almost no granular base. There is no undermining appreciated here today. There is no probing to bone, no tracking, no extending cellulitis, no fluctuance, no increase in warmth. Wound Measurements and Assessment WC - Nurse 1 - General Ulcer Measurement Start: 07/13/17 11:36 Freq: Status: Active Protocol: Activity Type Activity Date Activity User E-Sign Co-Sign Detail Recorded Client Recorded Date Recorded By Document 07/27/17 11:35 [facility] [id number] 07/27/17 11:46 [facility] 07/27/17 11:35 Wound Center Nurse 1 [Ulcer Assessment] #2 Right dorsal Great Toe -Combined with other wound No -Current Size (cm) - Length 0.8 -Current Size (cm) - Width 1.1 -Current Size (cm) - Depth 0.1 -Total Square Cm 0.88 -Photo Taken No -Epithelialization None Present -Tunneling No -Undermining/Tunneling No -Exudate Amt Small (1-33%) -Exudate Type Serous -Wound Margin Distinct, Outline Attached -Granulation Amt None Present (0 %) -Slough/Fibrin Yes -Necrosis Amt Large (67-100%) -Necrotic Tissue Type Adherent Slough -Structure Exposed N/A -Texture (Rhiannon-wound Skin Appearance) Scarring -Moisture (Rhiannon-wound Skin Appearance Dry/Scaly ) -Color (Rhiannon-wound Skin Appearance) Assessed -Temperature (Rhiannon-wound Skin No Abnormality Appearance) (Pt Warm) -Tenderness on Palpation (Rhiannon-wound No Skin Appearance) -Ulcer Cleansing Rinsed/ Irrigated with Saline -Foul Odor after Cleansing No -Anesthetic Used 4% Lidocaine Solution #1 Right dorsal medial 1st Metatarsophalangeal Joint -Combined with other wound No -Current Size (cm) - Length 1.2 -Current Size (cm) - Width 1 -Current Size (cm) - Depth 0.1 -Total Square Cm 1.2 -Photo Taken No -Epithelialization None Present -Tunneling No -Undermining/Tunneling No -Exudate Amt Small (1-33%) -Exudate Type Serous -Wound Margin Distinct, Outline Attached -Granulation Amt None Present (0 %) -Slough/Fibrin Yes -Necrosis Amt Large (67-100%) -Necrotic Tissue Type Adherent Slough -Structure Exposed N/A -Texture (Rhiannon-wound Skin Appearance) Scarring -Moisture (Rhiannon-wound Skin Appearance Dry/Scaly ) -Color (Rhiannon-wound Skin Appearance) Assessed -Temperature (Rhiannon-wound Skin No Abnormality Appearance) (Pt Warm) -Tenderness on Palpation (Rhiannon-wound No Skin Appearance) -Ulcer Cleansing Rinsed/ Irrigated with Saline -Foul Odor after Cleansing No -Anesthetic Used 4% Lidocaine Solution [Edema Assessment] -Lower Limb Edema Present No -Right Calf (cm) 32.4 -Right Ankle (cm) 21.6 WC - Nurse 2 - General Ulcer CM Notes Start: 07/13/17 11:36 Freq: Status: Active Protocol: Activity Type Activity Date Activity User E-Sign Co-Sign Detail Recorded Client Recorded Date Recorded By Document 07/27/17 12:19 MW [id number] 07/27/17 12:24 MW 07/27/17 12:19 Wound Center Nurse 2 [Procedure/Treatment] #2 Right dorsal Great Toe -Time 12:20 -Correct Patient Yes -Correct Side, Site, Position Yes -Correct Procedure Yes -Procedure Performed Yes -Type of Procedure Debridement -Clinical Debridement Subcutaneous -Post Debridement Size (cm) - Length 0.9 -Post Debridement Size (cm) - Width 0.9 -Post Debridement Size (cm) - Depth 0.3 -Total Square Cm 0.81 -Wound/Ulcer Outcome Not Healed -Ulcer Cleansing Rinsed/ Irrigated with Saline -Foul Odor after Cleansing No -Bioengineered Tissue No -Type of bioengineered Tissue EPIFIX -Expiration Date 05/15/22 -Product Lot Number [id number] -Percent Used 100 -Saline Lot Number [id number] -Bleeding Controlled with Pressure -Treatment Response Procedure Tolerated Well #1 Right dorsal medial 1st Metatarsophalangeal Joint -Time 12:21 -Correct Patient Yes -Correct Side, Site, Position Yes -Correct Procedure Yes -Procedure Performed Yes -Type of Procedure Debridement -Clinical Debridement Subcutaneous -Post Debridement Size (cm) - Length 1.2 -Post Debridement Size (cm) - Width 0.9 -Post Debridement Size (cm) - Depth 0.3 -Total Square Cm 1.08 -Wound/Ulcer Outcome Not Healed -Ulcer Cleansing Rinsed/ Irrigated with Saline -Foul Odor after Cleansing No -Bioengineered Tissue No -Expiration Date 05/15/22 -Product Lot Number [id number] -Percent Used 100 -Saline Lot Number [id number] -Bleeding Controlled with Pressure -Treatment Response Procedure Tolerated Well [See Physician Procedure note for Specifics] Pain Scale: 0-10 Numeric [Pain] -Is Patient Pain Free? Yes Musculoskeletal: - - right foot drop Neurological: - - Protective sensation absent to all pedal sites tested at random using a 5.07 Jerome Richard monofilament Psych/Mental Status: Normal Affect, Appropriate Debridement Note Post-Debridement Measurements/Treatment WC - Nurse 2 - General Ulcer CM Notes Start: 07/13/17 11:36 Freq: Status: Active Protocol: Activity Type Activity Date Activity User E-Sign Co-Sign Detail Recorded Client Recorded Date Recorded By Document 07/13/17 12:42 MW [id number] 07/13/17 12:53 MW Document 07/20/17 12:38 MW [id number] 07/20/17 12:49 MW Document 07/27/17 12:19 MW [id number] 07/27/17 12:24 MW 07/13/17 07/20/17 07/27/17 12:42 12:38 12:19 Wound Center Nurse 2 #2 Right dorsal Great Toe -Time 12:44 12:38 12:20 -Correct Patient Yes Yes Yes -Correct Side, Site, Position Yes Yes Yes -Correct Procedure Yes Yes Yes -Procedure Performed Yes Yes Yes -Type of Procedure Debridement Debridement Debridement -Clinical Debridement Subcutaneous Subcutaneous Subcutaneous -Post Debridement Size (cm) - Length 0.9 1.0 0.9 -Post Debridement Size (cm) - Width 1.0 1.0 0.9 -Post Debridement Size (cm) - Depth 0.3 0.3 0.3 -Total Square Cm 0.90 1.00 0.81 -Wound/Ulcer Outcome Not Healed Not Healed Not Healed -Ulcer Cleansing Rinsed/ Rinsed/ Rinsed/ Irrigated with Irrigated with Irrigated with Saline Saline Saline -Foul Odor after Cleansing No No No -Bioengineered Tissue Yes No -Type of bioengineered Tissue EPICORD EPIFIX EPIFIX -Expiration Date 03/15/22 04/14/22 05/15/22 -Product Lot Number [id number] -Percent Used 100 90 100 -Saline Lot Number [id number] -Bleeding Controlled with Pressure Pressure Pressure -Treatment Response Procedure Procedure Procedure Tolerated Well Tolerated Well Tolerated Well #1 Right dorsal medial 1st Metatarsophalangeal Joint -Time 12:45 12:39 12:21 -Correct Patient Yes Yes Yes -Correct Side, Site, Position Yes Yes Yes -Correct Procedure Yes Yes Yes -Procedure Performed Yes Yes Yes -Type of Procedure Debridement Debridement Debridement -Clinical Debridement Subcutaneous Subcutaneous Subcutaneous -Post Debridement Size (cm) - Length 1.2 1.2 1.2 -Post Debridement Size (cm) - Width 1.0 1.0 0.9 -Post Debridement Size (cm) - Depth 0.3 0.3 0.3 -Total Square Cm 1.20 1.20 1.08 -Wound/Ulcer Outcome Not Healed Not Healed Not Healed -Ulcer Cleansing Rinsed/ Rinsed/ Rinsed/ Irrigated with Irrigated with Irrigated with Saline Saline Saline -Foul Odor after Cleansing No No No -Bioengineered Tissue Yes No -Type of bioengineered Tissue EPICORD EPIFIX -Expiration Date 03/15/22 04/14/22 05/15/22 -Product Lot Number [id number] -Percent Used 100 90 100 -Saline Lot Number [id number] -Bleeding Controlled with Pressure Pressure Pressure -Treatment Response Procedure Procedure Procedure Tolerated Well Tolerated Well Tolerated Well Pain Scale: 0-10 Numeric Is Patient Pain Free? Yes Yes Yes Wound debrided: Dorsomedial right first metatarsophalangeal joint Laterality: Right Type of Debridement: Excisional debridement Anesthesia Used: 4% Lidocaine Solution Depth: in the subcutaneous layer Percentage of wound debrided: 100 Instrument Used: 5mm curette Tissue Removed: adherent slough, fibrin, hyperkeratotic tissue Severity: Fat Layer Exposed Amount of bleeding with debridement: Mild Bleeding Controlled with: Pressure - Additional Wound Wound debrided: Dorsomedial right hallux Laterality: Right Type of Debridement: Excisional debridement Anesthesia Used: 4% Lidocaine Solution Depth: in the subcutaneous layer Percentage of wound debrided: 100 Instrument Used: 5mm curette Tissue Removed: adherent slough, fibrin, hyperkeratotic tissue Severity: Fat Layer Exposed Amount of bleeding with debridement: Mild Bleeding Controlled with: Pressure Patient tolerated procedure: Patient tolerated procedure well Assessment/Plan Assessment: Ulcers to the dorsal aspect of the right hallux and medial right first metatarsophalangeal joint with fat layer exposed. Foot drop. 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 Malnutrition. Plan: Patient was examined and evaluated again today. Ulcers a very slightly improved since last week. Debridement of each ulcer was completed today as described in the clinical panel. Following debridment, epifix #2 was applied to both ulcer bases per company protocol. This was after two epicord applications in the two prior weeks. This was followed by wound veil, steristrips, hydrogel, and a dry sterile dressing. Patient is to leave the wound veil and everything under, clean dry and intact for the next week. Patient to continue with compression to lower extremity as well as his offloading surgical shoe. Patient to continue with high protein diet. Patient and his sister in law were again educated on all signs and symptoms of local and systemic infection, and were instructed to go to the ER immediately should they notice any. All questions were answered to their satisfaction. They will follow up in one week for further evaluation, or sooner if needed. This note was generated with [employer] software. It may contain incorrect words, spelling, and punctuation that were not noted in checking the note before signing.
--- NOTE | 2017-07-27 13:21 | PN.PCM_ITS ---
(1) Non-pressure chronic ulcer of right lower leg with fat layer exposed Status: Chronic Current Visit: No Code(s): L97.912 - Non-pressure chronic ulcer of unspecified part of right lower leg with fat layer exposed (2) Delayed wound healing Status: Acute Current Visit: No Code(s): T14.8XXD - Other injury of unspecified body region, subsequent encounter (3) Right foot drop Status: Chronic Current Visit: No Code(s): M21.371 - Foot drop, right foot (4) 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 Current Visit: No Code(s): G57.91 - Unspecified mononeuropathy of right lower limb (5) Venous insufficiency Status: Acute Current Visit: No Code(s): I87.2 - Venous insufficiency ( chronic) (peripheral) (6) Malnutrition Status: Acute Current Visit: No Code(s): E46 - Unspecified protein-calorie malnutrition Type of Wound Date of Service: 07/27/17 Chief Complaint: Ulcer to dorsomedial aspect of the right hallux and dorsomedial 1st metatarsophalangeal joint History of Wound: This patient presents to the wound center with his for follow up today for ulcer areas to the right hallux and 1st MPJ. 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 Since the onset, the ulcers have gone through waves of improving and getting worse again. Patient is on chronic amoxicillin therapy for other comorbidities accoring to patient and his . Patient states he is still doing well with the surgical shoe and his AFO and feels that the shoe is helping to offload pressure to the areas. Patient denies any nausea, vomiting, fever, chills, or shortness of breath today. Patient and his deny any purulent drainage or malodor. Progress of Wound: Ulcers appear stable since last week. There appears to be a slight improvement. Has been having weekly dressing changes of epifix. Patient denies any feelings of nausea, vomiting, fever, chills, or shortness of breath today. - Physical Exam Vital Signs Temp Pulse Resp BP 97.5 F L 86 16 112/75 07/27/17 11:35 07/27/17 11:35 07/27/17 11:35 07/27/17 11:35 General: Alert, Oriented x3, Cooperative, No apparent distress Extremities: Capillary Refill Less than 3 Seconds, No Calf Tenderness - negative sahra and carlos sign, Edema - bilateral lower extremity rhiannon malleolar pitting edema with right being worse than left., Peripheral Pulses Normal - DP pulses palpable and PT pulses non palpable due to aforementioned lower extremity pitting edema. Skin: Ulcer/ Wound - Ulcer to proximal medial right first metatarsophalangeal joint noted to have slight serous drainage with no purulence and no malodor. The ulcer base is composed of adherent slough, fibrin, and granular tissue with no undermining appreciated today. The majority of the ulcer base is granular tissue. There is no probing to bone, no tracking, no cellulitis, no fluctuance , no increase in warmth. The ulcer to the dorsal medial hallux is noted to have slight serous drainage as well. There is no purulence or malodor appreciated. Bases composed of adherent slough and fibrin and almost no granular base. There is no undermining appreciated here today. There is no probing to bone, no tracking, no extending cellulitis, no fluctuance, no increase in warmth. Wound Measurements and Assessment WC - Nurse 1 - General Ulcer Measurement Start: 07/13/17 11:36 Freq: Status: Active Protocol: Activity Type Activity Date Activity User E-Sign Co-Sign Detail Recorded Client Recorded Date Recorded By Document 07/27/17 11:35 [facility] [id number] 07/27/17 11:46 [facility] 07/27/17 11:35 Wound Center Nurse 1 [Ulcer Assessment] #2 Right dorsal Great Toe -Combined with other wound No -Current Size (cm) - Length 0.8 -Current Size (cm) - Width 1.1 -Current Size (cm) - Depth 0.1 -Total Square Cm 0.88 -Photo Taken No -Epithelialization None Present -Tunneling No -Undermining/Tunneling No -Exudate Amt Small (1-33%) -Exudate Type Serous -Wound Margin Distinct, Outline Attached -Granulation Amt None Present (0 %) -Slough/Fibrin Yes -Necrosis Amt Large (67-100%) -Necrotic Tissue Type Adherent Slough -Structure Exposed N/A -Texture (Rhiannon-wound Skin Appearance) Scarring -Moisture (Rhiannon-wound Skin Appearance Dry/Scaly ) -Color (Rhiannon-wound Skin Appearance) Assessed -Temperature (Rhiannon-wound Skin No Abnormality Appearance) (Pt Warm) -Tenderness on Palpation (Rhiannon-wound No Skin Appearance) -Ulcer Cleansing Rinsed/ Irrigated with Saline -Foul Odor after Cleansing No -Anesthetic Used 4% Lidocaine Solution #1 Right dorsal medial 1st Metatarsophalangeal Joint -Combined with other wound No -Current Size (cm) - Length 1.2 -Current Size (cm) - Width 1 -Current Size (cm) - Depth 0.1 -Total Square Cm 1.2 -Photo Taken No -Epithelialization None Present -Tunneling No -Undermining/Tunneling No -Exudate Amt Small (1-33%) -Exudate Type Serous -Wound Margin Distinct, Outline Attached -Granulation Amt None Present (0 %) -Slough/Fibrin Yes -Necrosis Amt Large (67-100%) -Necrotic Tissue Type Adherent Slough -Structure Exposed N/A -Texture (Rhiannon-wound Skin Appearance) Scarring -Moisture (Rhiannon-wound Skin Appearance Dry/Scaly ) -Color (Rhiannon-wound Skin Appearance) Assessed -Temperature (Rhiannon-wound Skin No Abnormality Appearance) (Pt Warm) -Tenderness on Palpation (Rhiannon-wound No Skin Appearance) -Ulcer Cleansing Rinsed/ Irrigated with Saline -Foul Odor after Cleansing No -Anesthetic Used 4% Lidocaine Solution [Edema Assessment] -Lower Limb Edema Present No -Right Calf (cm) 32.4 -Right Ankle (cm) 21.6 WC - Nurse 2 - General Ulcer CM Notes Start: 07/13/17 11:36 Freq: Status: Active Protocol: Activity Type Activity Date Activity User E-Sign Co-Sign Detail Recorded Client Recorded Date Recorded By Document 07/27/17 12:19 MW [id number] 07/27/17 12:24 MW 07/27/17 12:19 Wound Center Nurse 2 [Procedure/Treatment] #2 Right dorsal Great Toe -Time 12:20 -Correct Patient Yes -Correct Side, Site, Position Yes -Correct Procedure Yes -Procedure Performed Yes -Type of Procedure Debridement -Clinical Debridement Subcutaneous -Post Debridement Size (cm) - Length 0.9 -Post Debridement Size (cm) - Width 0.9 -Post Debridement Size (cm) - Depth 0.3 -Total Square Cm 0.81 -Wound/Ulcer Outcome Not Healed -Ulcer Cleansing Rinsed/ Irrigated with Saline -Foul Odor after Cleansing No -Bioengineered Tissue No -Type of bioengineered Tissue EPIFIX -Expiration Date 05/15/22 -Product Lot Number [id number] -Percent Used 100 -Saline Lot Number [id number] -Bleeding Controlled with Pressure -Treatment Response Procedure Tolerated Well #1 Right dorsal medial 1st Metatarsophalangeal Joint -Time 12:21 -Correct Patient Yes -Correct Side, Site, Position Yes -Correct Procedure Yes -Procedure Performed Yes -Type of Procedure Debridement -Clinical Debridement Subcutaneous -Post Debridement Size (cm) - Length 1.2 -Post Debridement Size (cm) - Width 0.9 -Post Debridement Size (cm) - Depth 0.3 -Total Square Cm 1.08 -Wound/Ulcer Outcome Not Healed -Ulcer Cleansing Rinsed/ Irrigated with Saline -Foul Odor after Cleansing No -Bioengineered Tissue No -Expiration Date 05/15/22 -Product Lot Number [id number] -Percent Used 100 -Saline Lot Number [id number] -Bleeding Controlled with Pressure -Treatment Response Procedure Tolerated Well [See Physician Procedure note for Specifics] Pain Scale: 0-10 Numeric [Pain] -Is Patient Pain Free? Yes Musculoskeletal: - - right foot drop Neurological: - - Protective sensation absent to all pedal sites tested at random using a 5.07 [place] monofilament Psych/Mental Status: Normal Affect, Appropriate Debridement Note Post-Debridement Measurements/Treatment WC - Nurse 2 - General Ulcer CM Notes Start: 07/13/17 11:36 Freq: Status: Active Protocol: Activity Type Activity Date Activity User E-Sign Co-Sign Detail Recorded Client Recorded Date Recorded By Document 07/13/17 12:42 MW [id number] 07/13/17 12:53 MW Document 07/20/17 12:38 MW [id number] 07/20/17 12:49 MW Document 07/27/17 12:19 MW [id number] 07/27/17 12:24 MW 07/13/17 07/20/17 07/27/17 12:42 12:38 12:19 Wound Center Nurse 2 #2 Right dorsal Great Toe -Time 12:44 12:38 12:20 -Correct Patient Yes Yes Yes -Correct Side, Site, Position Yes Yes Yes -Correct Procedure Yes Yes Yes -Procedure Performed Yes Yes Yes -Type of Procedure Debridement Debridement Debridement -Clinical Debridement Subcutaneous Subcutaneous Subcutaneous -Post Debridement Size (cm) - Length 0.9 1.0 0.9 -Post Debridement Size (cm) - Width 1.0 1.0 0.9 -Post Debridement Size (cm) - Depth 0.3 0.3 0.3 -Total Square Cm 0.90 1.00 0.81 -Wound/Ulcer Outcome Not Healed Not Healed Not Healed -Ulcer Cleansing Rinsed/ Rinsed/ Rinsed/ Irrigated with Irrigated with Irrigated with Saline Saline Saline -Foul Odor after Cleansing No No No -Bioengineered Tissue Yes No -Type of bioengineered Tissue EPICORD EPIFIX EPIFIX -Expiration Date 03/15/22 04/14/22 05/15/22 -Product Lot Number [id number] -Percent Used 100 90 100 -Saline Lot Number [id number] -Bleeding Controlled with Pressure Pressure Pressure -Treatment Response Procedure Procedure Procedure Tolerated Well Tolerated Well Tolerated Well #1 Right dorsal medial 1st Metatarsophalangeal Joint -Time 12:45 12:39 12:21 -Correct Patient Yes Yes Yes -Correct Side, Site, Position Yes Yes Yes -Correct Procedure Yes Yes Yes -Procedure Performed Yes Yes Yes -Type of Procedure Debridement Debridement Debridement -Clinical Debridement Subcutaneous Subcutaneous Subcutaneous -Post Debridement Size (cm) - Length 1.2 1.2 1.2 -Post Debridement Size (cm) - Width 1.0 1.0 0.9 -Post Debridement Size (cm) - Depth 0.3 0.3 0.3 -Total Square Cm 1.20 1.20 1.08 -Wound/Ulcer Outcome Not Healed Not Healed Not Healed -Ulcer Cleansing Rinsed/ Rinsed/ Rinsed/ Irrigated with Irrigated with Irrigated with Saline Saline Saline -Foul Odor after Cleansing No No No -Bioengineered Tissue Yes No -Type of bioengineered Tissue EPICORD EPIFIX -Expiration Date 03/15/22 04/14/22 05/15/22 -Product Lot Number [id number] -Percent Used 100 90 100 -Saline Lot Number [id number] -Bleeding Controlled with Pressure Pressure Pressure -Treatment Response Procedure Procedure Procedure Tolerated Well Tolerated Well Tolerated Well Pain Scale: 0-10 Numeric Is Patient Pain Free? Yes Yes Yes Wound debrided: Dorsomedial right first metatarsophalangeal joint Laterality: Right Type of Debridement: Excisional debridement Anesthesia Used: 4% Lidocaine Solution Depth: in the subcutaneous layer Percentage of wound debrided: 100 Instrument Used: 5mm curette Tissue Removed: adherent slough, fibrin, hyperkeratotic tissue Severity: Fat Layer Exposed Amount of bleeding with debridement: Mild Bleeding Controlled with: Pressure - Additional Wound Wound debrided: Dorsomedial right hallux Laterality: Right Type of Debridement: Excisional debridement Anesthesia Used: 4% Lidocaine Solution Depth: in the subcutaneous layer Percentage of wound debrided: 100 Instrument Used: 5mm curette Tissue Removed: adherent slough, fibrin, hyperkeratotic tissue Severity: Fat Layer Exposed Amount of bleeding with debridement: Mild Bleeding Controlled with: Pressure Patient tolerated procedure: Patient tolerated procedure well Assessment/Plan Assessment: Ulcers to the dorsal aspect of the right hallux and medial right first metatarsophalangeal joint with fat layer exposed. Foot drop. 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 Malnutrition. Plan: Patient was examined and evaluated again today. Ulcers a very slightly improved since last week. Debridement of each ulcer was completed today as described in the clinical panel. Following debridment, epifix #2 was applied to both ulcer bases per company protocol. This was after two epicord applications in the two prior weeks. This was followed by wound veil, steristrips, hydrogel, and a dry sterile dressing. Patient is to leave the wound veil and everything under, clean dry and intact for the next week. Patient to continue with compression to lower extremity as well as his offloading surgical shoe. Patient to continue with high protein diet. Patient and his sister in law were again educated on all signs and symptoms of local and systemic infection, and were instructed to go to the ER immediately should they notice any. All questions were answered to their satisfaction. They will follow up in one week for further evaluation, or sooner if needed. This note was generated with [email or web address] software. It may contain incorrect words, spelling, and punctuation that were not noted in checking the note before signing.
[2017-08-03 11:34] VITALS: BP 128/64; PULSE 90; RESP 18; TEMP 36.7; BMI 23.7
--- NOTE | 2017-08-03 14:19 | PCM.WC.PN ---
(1) Non-pressure chronic ulcer of right lower leg with fat layer exposed Status: Chronic Current Visit: No Code(s): L97.912 - Non-pressure chronic ulcer of unspecified part of right lower leg with fat layer exposed (2) Delayed wound healing Status: Acute Current Visit: No Code(s): T14.8XXD - Other injury of unspecified body region, subsequent encounter (3) Right foot drop Status: Chronic Current Visit: No Code(s): M21.371 - Foot drop, right foot (4) 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 Current Visit: No Code(s): G57.91 - Unspecified mononeuropathy of right lower limb (5) Venous insufficiency Status: Acute Current Visit: No Code(s): I87.2 - Venous insufficiency (chronic) (peripheral) (6) Malnutrition Status: Acute Current Visit: No Code(s): E46 - Unspecified protein-calorie malnutrition Type of Wound Date of Service: 08/03/17 Chief Complaint: Ulcer to dorsomedial aspect of the right hallux and dorsomedial 1st metatarsophalangeal joint History of Wound: This patient presents to the wound center with his for follow up today for ulcer areas to the right hallux and 1st MPJ. 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 Since the onset, the ulcers have gone through waves of improving and getting worse again. Patient is on chronic amoxicillin therapy for other comorbidities accoring to patient and his . Patient states he is still doing well with the surgical shoe and his AFO and feels that the shoe is helping to offload pressure to the areas. Patient denies any nausea, vomiting, fever, chills, or shortness of breath today. Patient and his deny any purulent drainage or malodor. Progress of Wound: There appears to be a slight improvement from last week. Patient has been having weekly dressing changes of epifix. Patient denies any feelings of nausea, vomiting, fever, chills, or shortness of breath today. - Physical Exam Vital Signs Temp Pulse Resp BP 98.0 F 90 18 128/64 H 08/03/17 11:34 08/03/17 11:34 08/03/17 11:34 08/03/17 11:34 General: Alert, Oriented x3, Cooperative, No apparent distress Extremities: Capillary Refill Less than 3 Seconds, No Calf Tenderness - negative sahra and carlos sign, Diminished Peripheral Pulses - DP pulses palpable and PT pulses non palpable due to the aforementioned lower extremity pitting edema, Edema - bilateral lower extremity rhiannon malleolar pitting edema with right being worse than left Skin: Ulcer/ Wound - Ulcer to proximal medial right first metatarsophalangeal joint noted to have slight serous drainage with no purulence and no malodor. The ulcer base is composed of adherent slough, fibrin, and granular tissue with no undermining appreciated today. The majority of the ulcer base is granular tissue. There is no probing to bone, no tracking, no cellulitis, no fluctuance, no increase in warmth. The ulcer to the dorsal medial hallux is noted to have slight serous drainage as well again today. There is no purulence or malodor appreciated. Bases composed of adherent slough and fibrin and almost no granular base. There is no undermining appreciated here today. There is no probing to bone, no tracking, no extending cellulitis, no fluctuance, no increase in warmth. Wound Measurements and Assessment WC - Nurse 1 - General Ulcer Measurement Start: 07/13/17 11:36 Freq: Status: Active Protocol: Activity Type Activity Date Activity User E-Sign Co-Sign Detail Recorded Client Recorded Date Recorded By Document 08/03/17 11:34 [id number] 08/03/17 11:38 08/03/17 11:34 Wound Center Nurse 1 [Ulcer Assessment] #2 Right dorsal Great Toe -Combined with other wound No -Current Size (cm) - Length 0.7 -Current Size (cm) - Width 0.7 -Current Size (cm) - Depth 0.1 -Total Square Cm 0.49 -Photo Taken No -Epithelialization None Present -Tunneling No -Undermining/Tunneling No -Circular Undermining No -Classification - Thickness Full Thickness without Exposed Support Structure -Exudate Amt Small (1-33%) -Exudate Type Serosanguineous -Wound Margin Distinct, Outline Attached -Granulation Amt None Present (0 %) -Granulation Quality N/A -Slough/Fibrin Yes -Necrosis Amt Large (67-100%) -Necrotic Tissue Type Adherent Slough -Structure Exposed Fascia Fat Layer Exposed -Texture (Rhiannon-wound Skin Appearance) Callus Scarring -Moisture (Rhiannon-wound Skin Appearance Dry/Scaly ) -Color (Rhiannon-wound Skin Appearance) Erythema -Temperature (Rhiannon-wound Skin No Abnormality Appearance) (Pt Warm) -Tenderness on Palpation (Rhiannon-wound No Skin Appearance) -Ulcer Cleansing Rinsed/ Irrigated with Saline -Foul Odor after Cleansing No -Anesthetic Used 5% Lidocaine Gel #1 Right dorsal medial 1st Metatarsophalangeal Joint -Combined with other wound No -Current Size (cm) - Length 1.0 -Current Size (cm) - Width 0.6 -Current Size (cm) - Depth 0.1 -Total Square Cm 0.60 -Photo Taken No -Epithelialization None Present -Tunneling No -Undermining/Tunneling No -Circular Undermining No -Classification - Thickness Full Thickness without Exposed Support Structure -Exudate Amt Small (1-33%) -Exudate Type Serosanguineous -Wound Margin Distinct, Outline Attached -Granulation Amt None Present (0 %) -Granulation Quality N/A -Slough/Fibrin Yes -Necrosis Amt Large (67-100%) -Necrotic Tissue Type Adherent Slough -Structure Exposed Fascia Fat Layer Exposed -Texture (Rhiannon-wound Skin Appearance) Callus Scarring -Moisture (Rhiannon-wound Skin Appearance Dry/Scaly ) -Color (Rhiannon-wound Skin Appearance) No Abnormality -Temperature (Rhiannon-wound Skin No Abnormality Appearance) (Pt Warm) -Tenderness on Palpation (Rhiannon-wound No Skin Appearance) -Ulcer Cleansing Rinsed/ Irrigated with Saline -Foul Odor after Cleansing No -Anesthetic Used 5% Lidocaine Gel [Edema Assessment] -Lower Limb Edema Present Yes -Right Calf (cm) 31.5 -Right Ankle (cm) 21.5 WC - Nurse 2 - General Ulcer CM Notes Start: 07/13/17 11:36 Freq: Status: Active Protocol: Activity Type Activity Date Activity User E-Sign Co-Sign Detail Recorded Client Recorded Date Recorded By Document 08/03/17 12:05 MW [id number] 08/03/17 12:19 MW 08/03/17 12:05 Wound Center Nurse 2 [Procedure/Treatment] #2 Right dorsal Great Toe -Time 12:07 -Correct Patient Yes -Correct Side, Site, Position Yes -Correct Procedure Yes -Procedure Performed Yes -Type of Procedure Debridement -Clinical Debridement Subcutaneous -Post Debridement Size (cm) - Length 0.7 -Post Debridement Size (cm) - Width 1.0 -Post Debridement Size (cm) - Depth 0.3 -Total Square Cm 0.70 -Wound/Ulcer Outcome Not Healed -Ulcer Cleansing Rinsed/ Irrigated with Saline -Foul Odor after Cleansing No -Bioengineered Tissue Yes -Type of bioengineered Tissue EPIFIX -Expiration Date 05/15/22 -Product Lot Number [id number] -Percent Used 80 -Saline Lot Number [id number] -Bleeding Controlled with Pressure -Treatment Response Procedure Tolerated Well #1 Right dorsal medial 1st Metatarsophalangeal Joint -Time 12:07 -Correct Patient Yes -Correct Side, Site, Position Yes -Correct Procedure Yes -Procedure Performed Yes -Type of Procedure Debridement -Clinical Debridement Subcutaneous -Post Debridement Size (cm) - Length 1.0 -Post Debridement Size (cm) - Width 0.8 -Post Debridement Size (cm) - Depth 0.3 -Total Square Cm 0.80 -Wound/Ulcer Outcome Not Healed -Ulcer Cleansing Rinsed/ Irrigated with Saline -Foul Odor after Cleansing No -Bioengineered Tissue Yes -Type of bioengineered Tissue EPIFIX -Expiration Date 05/15/22 -Product Lot Number [id number] -Percent Used 80 -Saline Lot Number [id number] -Bleeding Controlled with Pressure -Treatment Response Procedure Tolerated Well [See Physician Procedure note for Specifics] Pain Scale: 0-10 Numeric [Pain] -Is Patient Pain Free? Yes Musculoskeletal: - - right foot drop deformity Neurological: - - Protective sensation absent to all pedal sites tested at random using a 5.07 [place] Richard monofilament Psych/Mental Status: Normal Affect, Appropriate Debridement Note Post-Debridement Measurements/Treatment WC - Nurse 2 - General Ulcer CM Notes Start: 07/13/17 11:36 Freq: Status: Active Protocol: Activity Type Activity Date Activity User E-Sign Co-Sign Detail Recorded Client Recorded Date Recorded By Document 07/13/17 12:42 MW [id number] 07/13/17 12:53 MW Document 07/20/17 12:38 MW [id number] 07/20/17 12:49 MW Document 07/27/17 12:19 MW [id number] 07/27/17 12:24 MW Document 08/03/17 12:05 MW [id number] 08/03/17 12:19 MW 07/13/17 07/20/17 07/27/17 12:42 12:38 12:19 Wound Center Nurse 2 #2 Right dorsal Great Toe -Time 12:44 12:38 12:20 -Correct Patient Yes Yes Yes -Correct Side, Site, Position Yes Yes Yes -Correct Procedure Yes Yes Yes -Procedure Performed Yes Yes Yes -Type of Procedure Debridement Debridement Debridement -Clinical Debridement Subcutaneous Subcutaneous Subcutaneous -Post Debridement Size (cm) - Length 0.9 1.0 0.9 -Post Debridement Size (cm) - Width 1.0 1.0 0.9 -Post Debridement Size (cm) - Depth 0.3 0.3 0.3 -Total Square Cm 0.90 1.00 0.81 -Wound/Ulcer Outcome Not Healed Not Healed Not Healed -Ulcer Cleansing Rinsed/ Rinsed/ Rinsed/ Irrigated with Irrigated with Irrigated with Saline Saline Saline -Foul Odor after Cleansing No No No -Bioengineered Tissue Yes No -Type of bioengineered Tissue EPICORD EPIFIX EPIFIX -Expiration Date 03/15/22 04/14/22 05/15/22 -Product Lot Number [id number] -Percent Used 100 90 100 -Saline Lot Number [id number] -Bleeding Controlled with Pressure Pressure Pressure -Treatment Response Procedure Procedure Procedure Tolerated Well Tolerated Well Tolerated Well #1 Right dorsal medial 1st Metatarsophalangeal Joint -Time 12:45 12:39 12:21 -Correct Patient Yes Yes Yes -Correct Side, Site, Position Yes Yes Yes -Correct Procedure Yes Yes Yes -Procedure Performed Yes Yes Yes -Type of Procedure Debridement Debridement Debridement -Clinical Debridement Subcutaneous Subcutaneous Subcutaneous -Post Debridement Size (cm) - Length 1.2 1.2 1.2 -Post Debridement Size (cm) - Width 1.0 1.0 0.9 -Post Debridement Size (cm) - Depth 0.3 0.3 0.3 -Total Square Cm 1.20 1.20 1.08 -Wound/Ulcer Outcome Not Healed Not Healed Not Healed -Ulcer Cleansing Rinsed/ Rinsed/ Rinsed/ Irrigated with Irrigated with Irrigated with Saline Saline Saline -Foul Odor after Cleansing No No No -Bioengineered Tissue Yes No -Type of bioengineered Tissue EPICORD EPIFIX -Expiration Date 03/15/22 04/14/22 05/15/22 -Product Lot Number [id number] -Percent Used 100 90 100 -Saline Lot Number [id number] -Bleeding Controlled with Pressure Pressure Pressure -Treatment Response Procedure Procedure Procedure Tolerated Well Tolerated Well Tolerated Well Pain Scale: 0-10 Numeric Is Patient Pain Free? Yes Yes Yes 08/03/17 12:05 Wound Center Nurse 2 #2 Right dorsal Great Toe -Time 12:07 -Correct Patient Yes -Correct Side, Site, Position Yes -Correct Procedure Yes -Procedure Performed Yes -Type of Procedure Debridement -Clinical Debridement Subcutaneous -Post Debridement Size (cm) - Length 0.7 -Post Debridement Size (cm) - Width 1.0 -Post Debridement Size (cm) - Depth 0.3 -Total Square Cm 0.70 -Wound/Ulcer Outcome Not Healed -Ulcer Cleansing Rinsed/ Irrigated with Saline -Foul Odor after Cleansing No -Bioengineered Tissue Yes -Type of bioengineered Tissue EPIFIX -Expiration Date 05/15/22 -Product Lot Number [id number] -Percent Used 80 -Saline Lot Number [id number] -Bleeding Controlled with Pressure -Treatment Response Procedure Tolerated Well #1 Right dorsal medial 1st Metatarsophalangeal Joint -Time 12:07 -Correct Patient Yes -Correct Side, Site, Position Yes -Correct Procedure Yes -Procedure Performed Yes -Type of Procedure Debridement -Clinical Debridement Subcutaneous -Post Debridement Size (cm) - Length 1.0 -Post Debridement Size (cm) - Width 0.8 -Post Debridement Size (cm) - Depth 0.3 -Total Square Cm 0.80 -Wound/Ulcer Outcome Not Healed -Ulcer Cleansing Rinsed/ Irrigated with Saline -Foul Odor after Cleansing No -Bioengineered Tissue Yes -Type of bioengineered Tissue EPIFIX -Expiration Date 05/15/22 -Product Lot Number [id number] -Percent Used 80 -Saline Lot Number [id number] -Bleeding Controlled with Pressure -Treatment Response Procedure Tolerated Well Pain Scale: 0-10 Numeric Is Patient Pain Free? Yes Wound debrided: Dorsomedial right first metatarsophalangeal joint Laterality: Right Type of Debridement: Excisional debridement Anesthesia Used: 4% Lidocaine Solution Depth: in the subcutaneous layer Percentage of wound debrided: 100 Instrument Used: 5mm curette Tissue Removed: adherent slough, fibrin, hyperkeratotic tissue Severity: Fat Layer Exposed Amount of bleeding with debridement: Mild Bleeding Controlled with: Pressure Patient tolerated procedure well - Additional Wound Wound debrided: Right dorsomedial hallux Laterality: Right Type of Debridement: Excisional debridement Anesthesia Used: 4% Lidocaine Solution Depth: in the subcutaneous layer Percentage of wound debrided: 100 Instrument Used: 5mm curette Tissue Removed: adherent slough, fibrin, hyperkeratotic tissue Severity: Fat Layer Exposed Amount of bleeding with debridement: Mild Bleeding Controlled with: Pressure Patient tolerated procedure: Patient tolerated procedure well Assessment/Plan Assessment: Ulcers to the dorsal aspect of the right hallux and medial right first metatarsophalangeal joint with fat layer exposed. Foot drop. 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 Malnutrition. Plan: Patient was examined and evaluated again today. Ulcers a very slightly improved since last week in appearance of base. Debridement of each ulcer was completed today as described in the clinical panel. Following debridment, epifix #3 was applied to both ulcer bases per company protocol. This was after two epicord applications in the two prior weeks to the start of epifix. This was followed by wound veil, steristrips, hydrogel, and a dry sterile dressing. Patient is to leave the wound veil and everything under, clean dry and intact for the next week. Patient to continue with compression to lower extremity as well as his offloading surgical shoe. Patient to continue with high protein diet. Patient, his , and his sister in law were again educated on all signs and symptoms of local and systemic infection, and were instructed to go to the ER immediately should they notice any. All questions were answered to their satisfaction. 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 He will be transferred to the care of another child specialist in the facility to take over all of his ulcers starting next week. They will follow up in one week for further evaluation, or sooner if needed. This note was generated with [employer] software. It may contain incorrect words, spelling, and punctuation that were not noted in checking the note before signing.
--- NOTE | 2017-08-03 14:28 | PN.PCM_ITS ---
(1) Non-pressure chronic ulcer of right lower leg with fat layer exposed Status: Chronic Current Visit: No Code(s): L97.912 - Non-pressure chronic ulcer of unspecified part of right lower leg with fat layer exposed (2) Delayed wound healing Status: Acute Current Visit: No Code(s): T14.8XXD - Other injury of unspecified body region, subsequent encounter (3) Right foot drop Status: Chronic Current Visit: No Code(s): M21.371 - Foot drop, right foot (4) 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 Current Visit: No Code(s): G57.91 - Unspecified mononeuropathy of right lower limb (5) Venous insufficiency Status: Acute Current Visit: No Code(s): I87.2 - Venous insufficiency ( chronic) (peripheral) (6) Malnutrition Status: Acute Current Visit: No Code(s): E46 - Unspecified protein-calorie malnutrition Type of Wound Date of Service: 08/03/17 Chief Complaint: Ulcer to dorsomedial aspect of the right hallux and dorsomedial 1st metatarsophalangeal joint History of Wound: This patient presents to the wound center with his for follow up today for ulcer areas to the right hallux and 1st MPJ. 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 Since the onset, the ulcers have gone through waves of improving and getting worse again. Patient is on chronic amoxicillin therapy for other comorbidities accoring to patient and his . Patient states he is still doing well with the surgical shoe and his AFO and feels that the shoe is helping to offload pressure to the areas. Patient denies any nausea, vomiting, fever, chills, or shortness of breath today. Patient and his deny any purulent drainage or malodor. Progress of Wound: There appears to be a slight improvement from last week. Patient has been having weekly dressing changes of epifix. Patient denies any feelings of nausea, vomiting, fever, chills, or shortness of breath today. - Physical Exam Vital Signs Temp Pulse Resp BP 98.0 F 90 18 128/64 H 08/03/17 11:34 08/03/17 11:34 08/03/17 11:34 08/03/17 11:34 General: Alert, Oriented x3, Cooperative, No apparent distress Extremities: Capillary Refill Less than 3 Seconds, No Calf Tenderness - negative sahra and carlos sign, Diminished Peripheral Pulses - DP pulses palpable and PT pulses non palpable due to the aforementioned lower extremity pitting edema, Edema - bilateral lower extremity rhiannon malleolar pitting edema with right being worse than left Skin: Ulcer/ Wound - Ulcer to proximal medial right first metatarsophalangeal joint noted to have slight serous drainage with no purulence and no malodor. The ulcer base is composed of adherent slough, fibrin, and granular tissue with no undermining appreciated today. The majority of the ulcer base is granular tissue. There is no probing to bone, no tracking, no cellulitis, no fluctuance , no increase in warmth. The ulcer to the dorsal medial hallux is noted to have slight serous drainage as well again today. There is no purulence or malodor appreciated. Bases composed of adherent slough and fibrin and almost no granular base. There is no undermining appreciated here today. There is no probing to bone, no tracking, no extending cellulitis, no fluctuance, no increase in warmth. Wound Measurements and Assessment WC - Nurse 1 - General Ulcer Measurement Start: 07/13/17 11:36 Freq: Status: Active Protocol: Activity Type Activity Date Activity User E-Sign Co-Sign Detail Recorded Client Recorded Date Recorded By Document 08/03/17 11:34 [id number] 08/03/17 11:38 08/03/17 11:34 Wound Center Nurse 1 [Ulcer Assessment] #2 Right dorsal Great Toe -Combined with other wound No -Current Size (cm) - Length 0.7 -Current Size (cm) - Width 0.7 -Current Size (cm) - Depth 0.1 -Total Square Cm 0.49 -Photo Taken No -Epithelialization None Present -Tunneling No -Undermining/Tunneling No -Circular Undermining No -Classification - Thickness Full Thickness without Exposed Support Structure -Exudate Amt Small (1-33%) -Exudate Type Serosanguineous -Wound Margin Distinct, Outline Attached -Granulation Amt None Present (0 %) -Granulation Quality N/A -Slough/Fibrin Yes -Necrosis Amt Large (67-100%) -Necrotic Tissue Type Adherent Slough -Structure Exposed Fascia Fat Layer Exposed -Texture (Rhiannon-wound Skin Appearance) Callus Scarring -Moisture (Rhiannon-wound Skin Appearance Dry/Scaly ) -Color (Rhiannon-wound Skin Appearance) Erythema -Temperature (Rhiannon-wound Skin No Abnormality Appearance) (Pt Warm) -Tenderness on Palpation (Rhiannon-wound No Skin Appearance) -Ulcer Cleansing Rinsed/ Irrigated with Saline -Foul Odor after Cleansing No -Anesthetic Used 5% Lidocaine Gel #1 Right dorsal medial 1st Metatarsophalangeal Joint -Combined with other wound No -Current Size (cm) - Length 1.0 -Current Size (cm) - Width 0.6 -Current Size (cm) - Depth 0.1 -Total Square Cm 0.60 -Photo Taken No -Epithelialization None Present -Tunneling No -Undermining/Tunneling No -Circular Undermining No -Classification - Thickness Full Thickness without Exposed Support Structure -Exudate Amt Small (1-33%) -Exudate Type Serosanguineous -Wound Margin Distinct, Outline Attached -Granulation Amt None Present (0 %) -Granulation Quality N/A -Slough/Fibrin Yes -Necrosis Amt Large (67-100%) -Necrotic Tissue Type Adherent Slough -Structure Exposed Fascia Fat Layer Exposed -Texture (Rhiannon-wound Skin Appearance) Callus Scarring -Moisture (Rhiannon-wound Skin Appearance Dry/Scaly ) -Color (Rhiannon-wound Skin Appearance) No Abnormality -Temperature (Rhiannon-wound Skin No Abnormality Appearance) (Pt Warm) -Tenderness on Palpation (Rhiannon-wound No Skin Appearance) -Ulcer Cleansing Rinsed/ Irrigated with Saline -Foul Odor after Cleansing No -Anesthetic Used 5% Lidocaine Gel [Edema Assessment] -Lower Limb Edema Present Yes -Right Calf (cm) 31.5 -Right Ankle (cm) 21.5 WC - Nurse 2 - General Ulcer CM Notes Start: 07/13/17 11:36 Freq: Status: Active Protocol: Activity Type Activity Date Activity User E-Sign Co-Sign Detail Recorded Client Recorded Date Recorded By Document 08/03/17 12:05 MW [id number] 08/03/17 12:19 MW 08/03/17 12:05 Wound Center Nurse 2 [Procedure/Treatment] #2 Right dorsal Great Toe -Time 12:07 -Correct Patient Yes -Correct Side, Site, Position Yes -Correct Procedure Yes -Procedure Performed Yes -Type of Procedure Debridement -Clinical Debridement Subcutaneous -Post Debridement Size (cm) - Length 0.7 -Post Debridement Size (cm) - Width 1.0 -Post Debridement Size (cm) - Depth 0.3 -Total Square Cm 0.70 -Wound/Ulcer Outcome Not Healed -Ulcer Cleansing Rinsed/ Irrigated with Saline -Foul Odor after Cleansing No -Bioengineered Tissue Yes -Type of bioengineered Tissue EPIFIX -Expiration Date 05/15/22 -Product Lot Number [id number] -Percent Used 80 -Saline Lot Number [id number] -Bleeding Controlled with Pressure -Treatment Response Procedure Tolerated Well #1 Right dorsal medial 1st Metatarsophalangeal Joint -Time 12:07 -Correct Patient Yes -Correct Side, Site, Position Yes -Correct Procedure Yes -Procedure Performed Yes -Type of Procedure Debridement -Clinical Debridement Subcutaneous -Post Debridement Size (cm) - Length 1.0 -Post Debridement Size (cm) - Width 0.8 -Post Debridement Size (cm) - Depth 0.3 -Total Square Cm 0.80 -Wound/Ulcer Outcome Not Healed -Ulcer Cleansing Rinsed/ Irrigated with Saline -Foul Odor after Cleansing No -Bioengineered Tissue Yes -Type of bioengineered Tissue EPIFIX -Expiration Date 05/15/22 -Product Lot Number [id number] -Percent Used 80 -Saline Lot Number [id number] -Bleeding Controlled with Pressure -Treatment Response Procedure Tolerated Well [See Physician Procedure note for Specifics] Pain Scale: 0-10 Numeric [Pain] -Is Patient Pain Free? Yes Musculoskeletal: - - right foot drop deformity Neurological: - - Protective sensation absent to all pedal sites tested at random using a 5.07 [place] monofilament Psych/Mental Status: Normal Affect, Appropriate Debridement Note Post-Debridement Measurements/Treatment WC - Nurse 2 - General Ulcer CM Notes Start: 07/13/17 11:36 Freq: Status: Active Protocol: Activity Type Activity Date Activity User E-Sign Co-Sign Detail Recorded Client Recorded Date Recorded By Document 07/13/17 12:42 MW [id number] 07/13/17 12:53 MW Document 07/20/17 12:38 MW [id number] 07/20/17 12:49 MW Document 07/27/17 12:19 MW [id number] 07/27/17 12:24 MW Document 08/03/17 12:05 MW [id number] 08/03/17 12:19 MW 07/13/17 07/20/17 07/27/17 12:42 12:38 12:19 Wound Center Nurse 2 #2 Right dorsal Great Toe -Time 12:44 12:38 12:20 -Correct Patient Yes Yes Yes -Correct Side, Site, Position Yes Yes Yes -Correct Procedure Yes Yes Yes -Procedure Performed Yes Yes Yes -Type of Procedure Debridement Debridement Debridement -Clinical Debridement Subcutaneous Subcutaneous Subcutaneous -Post Debridement Size (cm) - Length 0.9 1.0 0.9 -Post Debridement Size (cm) - Width 1.0 1.0 0.9 -Post Debridement Size (cm) - Depth 0.3 0.3 0.3 -Total Square Cm 0.90 1.00 0.81 -Wound/Ulcer Outcome Not Healed Not Healed Not Healed -Ulcer Cleansing Rinsed/ Rinsed/ Rinsed/ Irrigated with Irrigated with Irrigated with Saline Saline Saline -Foul Odor after Cleansing No No No -Bioengineered Tissue Yes No -Type of bioengineered Tissue EPICORD EPIFIX EPIFIX -Expiration Date 03/15/22 04/14/22 05/15/22 -Product Lot Number [id number] -Percent Used 100 90 100 -Saline Lot Number [id number] -Bleeding Controlled with Pressure Pressure Pressure -Treatment Response Procedure Procedure Procedure Tolerated Well Tolerated Well Tolerated Well #1 Right dorsal medial 1st Metatarsophalangeal Joint -Time 12:45 12:39 12:21 -Correct Patient Yes Yes Yes -Correct Side, Site, Position Yes Yes Yes -Correct Procedure Yes Yes Yes -Procedure Performed Yes Yes Yes -Type of Procedure Debridement Debridement Debridement -Clinical Debridement Subcutaneous Subcutaneous Subcutaneous -Post Debridement Size (cm) - Length 1.2 1.2 1.2 -Post Debridement Size (cm) - Width 1.0 1.0 0.9 -Post Debridement Size (cm) - Depth 0.3 0.3 0.3 -Total Square Cm 1.20 1.20 1.08 -Wound/Ulcer Outcome Not Healed Not Healed Not Healed -Ulcer Cleansing Rinsed/ Rinsed/ Rinsed/ Irrigated with Irrigated with Irrigated with Saline Saline Saline -Foul Odor after Cleansing No No No -Bioengineered Tissue Yes No -Type of bioengineered Tissue EPICORD EPIFIX -Expiration Date 03/15/22 04/14/22 05/15/22 -Product Lot Number [id number] -Percent Used 100 90 100 -Saline Lot Number [id number] -Bleeding Controlled with Pressure Pressure Pressure -Treatment Response Procedure Procedure Procedure Tolerated Well Tolerated Well Tolerated Well Pain Scale: 0-10 Numeric Is Patient Pain Free? Yes Yes Yes 08/03/17 12:05 Wound Center Nurse 2 #2 Right dorsal Great Toe -Time 12:07 -Correct Patient Yes -Correct Side, Site, Position Yes -Correct Procedure Yes -Procedure Performed Yes -Type of Procedure Debridement -Clinical Debridement Subcutaneous -Post Debridement Size (cm) - Length 0.7 -Post Debridement Size (cm) - Width 1.0 -Post Debridement Size (cm) - Depth 0.3 -Total Square Cm 0.70 -Wound/Ulcer Outcome Not Healed -Ulcer Cleansing Rinsed/ Irrigated with Saline -Foul Odor after Cleansing No -Bioengineered Tissue Yes -Type of bioengineered Tissue EPIFIX -Expiration Date 05/15/22 -Product Lot Number [id number] -Percent Used 80 -Saline Lot Number [id number] -Bleeding Controlled with Pressure -Treatment Response Procedure Tolerated Well #1 Right dorsal medial 1st Metatarsophalangeal Joint -Time 12:07 -Correct Patient Yes -Correct Side, Site, Position Yes -Correct Procedure Yes -Procedure Performed Yes -Type of Procedure Debridement -Clinical Debridement Subcutaneous -Post Debridement Size (cm) - Length 1.0 -Post Debridement Size (cm) - Width 0.8 -Post Debridement Size (cm) - Depth 0.3 -Total Square Cm 0.80 -Wound/Ulcer Outcome Not Healed -Ulcer Cleansing Rinsed/ Irrigated with Saline -Foul Odor after Cleansing No -Bioengineered Tissue Yes -Type of bioengineered Tissue EPIFIX -Expiration Date 05/15/22 -Product Lot Number [id number] -Percent Used 80 -Saline Lot Number [id number] -Bleeding Controlled with Pressure -Treatment Response Procedure Tolerated Well Pain Scale: 0-10 Numeric Is Patient Pain Free? Yes Wound debrided: Dorsomedial right first metatarsophalangeal joint Laterality: Right Type of Debridement: Excisional debridement Anesthesia Used: 4% Lidocaine Solution Depth: in the subcutaneous layer Percentage of wound debrided: 100 Instrument Used: 5mm curette Tissue Removed: adherent slough, fibrin, hyperkeratotic tissue Severity: Fat Layer Exposed Amount of bleeding with debridement: Mild Bleeding Controlled with: Pressure Patient tolerated procedure well - Additional Wound Wound debrided: Right dorsomedial hallux Laterality: Right Type of Debridement: Excisional debridement Anesthesia Used: 4% Lidocaine Solution Depth: in the subcutaneous layer Percentage of wound debrided: 100 Instrument Used: 5mm curette Tissue Removed: adherent slough, fibrin, hyperkeratotic tissue Severity: Fat Layer Exposed Amount of bleeding with debridement: Mild Bleeding Controlled with: Pressure Patient tolerated procedure: Patient tolerated procedure well Assessment/Plan Assessment: Ulcers to the dorsal aspect of the right hallux and medial right first metatarsophalangeal joint with fat layer exposed. Foot drop. 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 Malnutrition. Plan: Patient was examined and evaluated again today. Ulcers a very slightly improved since last week in appearance of base. Debridement of each ulcer was completed today as described in the clinical panel. Following debridment, epifix #3 was applied to both ulcer bases per company protocol. This was after two epicord applications in the two prior weeks to the start of epifix. This was followed by wound veil, steristrips, hydrogel, and a dry sterile dressing. Patient is to leave the wound veil and everything under, clean dry and intact for the next week. Patient to continue with compression to lower extremity as well as his offloading surgical shoe. Patient to continue with high protein diet. Patient, his , and his sister in law were again educated on all signs and symptoms of local and systemic infection, and were instructed to go to the ER immediately should they notice any. All questions were answered to their satisfaction. 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 He will be transferred to the care of another trading specialist in the facility to take over all of his ulcers starting next week. They will follow up in one week for further evaluation, or sooner if needed. This note was generated with [employer] software. It may contain incorrect words, spelling, and punctuation that were not noted in checking the note before signing.
[2017-08-03 19:21] LABS: M R Staph aureus DNA By PCR Negative (Negative); Probe Check PASS; Specimen Processing Control PASS; Staph aureus DNA By PCR NEGATIVE (Negative)
[2017-08-11 11:02] VITALS: BP 121/70; PULSE 98; RESP 16; TEMP 36.2; BMI 23.7
--- NOTE | 2017-08-11 13:16 | PCM.WC.HP ---
(1) Open wound of left hip and thigh with complication Status: Acute Current Visit: Yes Code(s): S71.002A - Unspecified open wound, left hip, initial encounter; S71.102A - Unspecified open wound, left thigh, initial encounter (2) Chronic ulcer of right great toe Status: Acute Current Visit: No Code(s): L97.519 - Non-pressure chronic ulcer of other part of right foot with unspecified severity (3) Delayed wound healing Status: Acute Current Visit: No Code(s): T14.8XXD - Other injury of unspecified body region, subsequent encounter (4) Malnutrition Status: Acute Current Visit: No Code(s): E46 - Unspecified protein-calorie malnutrition (5) Atrial fibrillation Status: Chronic Current Visit: No Code(s): I48.91 - Unspecified atrial fibrillation (6) History of prostate cancer Status: Chronic Current Visit: No Comment: Status post radiation therapy in 2005 complicated by avascular necrosis of the right hip (7) History of total hip replacement Status: Chronic Current Visit: No Code(s): Z96.649 - Presence of unspecified artificial hip joint (8) 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 Current Visit: No Code(s): G57.91 - Unspecified mononeuropathy of right lower limb (9) Open wound of right hip Status: Chronic Current Visit: No Code(s): S71.001A - Unspecified open wound, right hip, initial encounter (10) Right foot drop Status: Chronic Current Visit: No Code(s): M21.371 - Foot drop, right foot (11) Chronic ulcer of right foot Status: Acute Current Visit: Yes Code(s): L97.519 - Non-pressure chronic ulcer of other part of right foot with unspecified severity (12) Radiation necrosis of skin and subcutaneous Status: Acute Current Visit: Yes Code(s): L59.8 - Other specified disorders of the skin and subcutaneous tissue related to radiation; Y84.2 - Radiological procedure and radiotherapy as the cause of abnormal reaction of the patient, or of later complication, without mention of misadventure at the time of the procedure History of Present Illness Date of Service: 08/11/17 Chief Complaint: Ulcer to dorsomedial aspect of the right hallux and dorsomedial 1st metatarsophalangeal joint. Right and left hips ulcers. To be cleared for HBO therapy History of Wound: 76-year-old white male had previously in 1999 for about had prostate cancer and was given radiation over and beyond what was therapeutic. After that he had both hips replacements ?2 to each one done with poor outcomes. He now has ulcers in both hips that tunnel into the bone on either side. He has had wound vacs and a currently he is just packing with gauze dressings. She has been on continuous Augmentin since April. Because of his poor outcomes for healing they have opted for HBO therapy here at the wound center. In the meantime I am to care for all of his other wounds also. 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 Patient still has drainage from bilateral hips that look yellowish some odor. We will obtain cultures from both hips and toes we will x-ray foot and hips bilaterally. We will also get chest x-ray for HBO and a complete blood count and a pre-albumin. Past Medical History Past Medical History: Chronic Problems Open wound of right hip (Chronic) History of total hip replacement (Chronic) Chronic congestive heart failure (Chronic) Depression (Chronic) Hyperlipidemia (Chronic) Hypertension (Chronic) Paroxysmal a-fib (Chronic) Post op, on satolol, following with Dr. 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 Toe ulcer dorsal right great toe and right hallux area Surgical History: cataract, total hip arthroplasty - Bilateral., - - IVC filter Allergies/Adverse Reactions: Allergies No Known Allergies Allergy (Verified 05/04/13 17:29) Home Medications: Ambulatory Orders Medication Instructions Recorded Furosemide [Lasix] 40 mg PO BID 05/04/13 Amoxicillin [Amoxil] 500 mg PO BID@1000,2200 capsule 05/25/16 Bisacodyl [Dulcolax] 10 mg RECTAL DAILY PRN #30 suppos. 05/25/16 Calcium Carbonate [Tums] 500 mg PO BIDCM tablet 05/25/16 Ergocalciferol [Vitamin D] 50,000 unit PO Q7D capsule 05/25/16 Gabapentin [Neurontin] 300 mg PO BIDCM #60 capsule 05/25/16 Lisinopril [Zestril] 10 mg PO BID@0800,1700 #60 tablet 05/25/16 Menthol/Lanolin/Calamine/Znox 1 applic TOPICAL TID #1 tube 05/25/16 [Calmoseptine Ointment] Polyethylene Glycol 3350 [Miralax] 17 gm PO DAILY #30 packet 05/25/16 Senna/Docusate Sodium [Senokot-S] 1 tablet PO BID@0800,1700 #30 05/25/16 tablet Acetaminophen [Tylenol] 1,000 mg PO BID PRN PRN 05/18/17 Augmentin 875-125 Tablet 875 mg PO BID 05/18/17 Diltiazem HCl [Diltiazem 24Hr Cd] 180 mg PO DAILY 05/18/17 Duloxetine HCl 60 mg PO DAILY 05/18/17 Enalapril Maleate 10 mg PO BID 05/18/17 Ferrous Sulfate [Iron] 325 mg PO BID 05/18/17 Gabapentin [Neurontin] 300 mg PO BID 05/18/17 Iron Polysaccharide Complex 150 mg PO BIDAC 05/18/17 [Ferrex 150] Levothyroxine [Synthroid] 125 mcg PO DAILY@0600 05/18/17 Oxycodone HCl/Acetaminophen 1 tablet PO Q6H PRN PRN 05/18/17 [Percocet 5/325] Rosuvastatin Calcium [Crestor] 5 mg PO QHS 05/18/17 Warfarin [Coumadin ([facility])] 2.5 mg PO DAILY 05/18/17 - Family History Maternal No pertinent history Paternal No pertinent history Lives: Spouse/ Significant Other Smoking Status: Never smoker Tobacco Use: Non-smoker Alcohol: None Drugs: None Review of Systems Constitutional: Denies: Chills, Fever Eyes: Denies: Blurred vision, Drainage, Pain HEENT: Denies: Difficulty Hearing, Difficulty Swallowing, Sore Throat, Visual Changes Cardiovascular: Denies: Chest Pain, Palpitations, Syncope Respiratory: Denies: Cough, Shortness of Breath Gastrointestinal: Denies: Abdominal Pain, Nausea, Vomiting Genitourinary: Denies: Dysuria, Frequency Musculoskeletal: Denies: Joint Pain, Muscle pain Skin: Reports: - - Open ulcers right great toe right hallux Right hip left hip. Denies: Jaundice, Rash Neurological: Denies: Balance problems, Change in Speech, Difficulty swallowing, Focal weakness Psychiatric: Denies: Anxiety, Depression Endocrine: Denies: Change in Body Habitus Hematologic/ Lymphatic: Denies: Adenopathy - Physical Exam Vital Signs Temp Pulse Resp BP 97.1 F L 98 16 121/70 H 08/11/17 11:02 08/11/17 11:02 08/11/17 11:02 08/11/17 11:02 General: Oriented x3, Cooperative, Well developed HEENT: Atraumatic, PERRLA Oral: Moist Mucosa Neck: Supple, No JVD Lungs: Clear to auscultation, Normal air movement Cardiovascular: Regular rate, Regular Rhythm Abdomen: Bowel Sounds Present, Soft, Non Tender, No Hepato-splenomegaly Extremities: No clubbing, No edema Wound Measurements and Assessment WC - Nurse 1 - General Ulcer Measurement Start: 07/13/17 11:36 Freq: Status: Active Protocol: Activity Type Activity Date Activity User E-Sign Co-Sign Detail Recorded Client Recorded Date Recorded By Document 08/11/17 11:02 ROMMEL [id number] 08/11/17 11:43 ROMMEL 08/11/17 11:02 Wound Center Nurse 1 [Ulcer Assessment] #4 LEFT HIP -Combined with other wound No -Current Size (cm) - Length 2.6 -Current Size (cm) - Width 1.3 -Current Size (cm) - Depth 10 -Total Square Cm 3.38 -Date of Last Picture (Recall this 08/11/17 field) -Photo Taken Yes -Epithelialization None Present -Tunneling No -Undermining/Tunneling No -Circular Undermining No -Classification - Thickness Full Thickness without Exposed Support Structure -Exudate Amt Large (67-100%) -Exudate Type Serous -Wound Margin Distinct, Outline Attached -Granulation Amt None Present (0 %) -Granulation Quality N/A -Slough/Fibrin Yes -Necrosis Amt None Present (0 %) -Necrotic Tissue Type Adherent Slough -Structure Exposed Fascia Joint -Texture (Vidya-wound Skin Appearance) No Abnormality -Moisture (Vidya-wound Skin Appearance No Abnormality ) -Color (Vidya-wound Skin Appearance) No Abnormality -Temperature (Vidya-wound Skin No Abnormality Appearance) (Pt Warm) -Tenderness on Palpation (Vidya-wound No Skin Appearance) -Ulcer Cleansing Rinsed/ Irrigated with Saline -Foul Odor after Cleansing No #3 RIGHT HIP -Combined with other wound No -Current Size (cm) - Length 1.0 -Current Size (cm) - Width 0.5 -Current Size (cm) - Depth 2.8 -Total Square Cm 0.50 -Date of Last Picture (Recall this 08/11/17 field) -Photo Taken Yes -Epithelialization None Present -Tunneling No -Undermining/Tunneling No -Circular Undermining No -Classification - Thickness Full Thickness with Exposed Support Structure -Exudate Amt Large (67-100%) -Exudate Type Serosanguineous -Wound Margin Fibrotic Scar, Thickened Scar -Granulation Amt None Present (0 %) -Granulation Quality N/A -Slough/Fibrin Yes -Necrosis Amt None Present (0 %) -Necrotic Tissue Type Adherent Slough -Structure Exposed Joint -Texture (Vidya-wound Skin Appearance) No Abnormality -Moisture (Vidya-wound Skin Appearance No Abnormality ) -Color (Vidya-wound Skin Appearance) No Abnormality -Temperature (Vidya-wound Skin No Abnormality Appearance) (Pt Warm) -Tenderness on Palpation (Vidya-wound No Skin Appearance) -Ulcer Cleansing Rinsed/ Irrigated with Saline -Foul Odor after Cleansing No #2 Right dorsal Great Toe -Combined with other wound No -Current Size (cm) - Length 0.5 -Current Size (cm) - Width 0.9 -Current Size (cm) - Depth 0 -Total Square Cm 0.45 -Date of Last Picture (Recall this 07/20/17 field) -Photo Taken No -Epithelialization None Present -Tunneling No -Undermining/Tunneling No -Circular Undermining No -Classification - Thickness Full Thickness without Exposed Support Structure -Classification - Toscano Grading ( Grade 1 Diabetic Ulcer) -Exudate Amt Small (1-33%) -Exudate Type Serosanguineous -Wound Margin Distinct, Outline Attached -Granulation Amt None Present (0 %) -Granulation Quality N/A -Slough/Fibrin Yes -Necrosis Amt None Present (0 %) -Necrotic Tissue Type Adherent Slough -Structure Exposed Fascia Fat Layer Exposed -Texture (Vidya-wound Skin Appearance) No Abnormality -Moisture (Vidya-wound Skin Appearance No Abnormality ) -Color (Vidya-wound Skin Appearance) No Abnormality -Temperature (Vidya-wound Skin Cool/Cold Appearance) -Tenderness on Palpation (Vidya-wound No Skin Appearance) -Ulcer Cleansing Rinsed/ Irrigated with Saline -Foul Odor after Cleansing No -Anesthetic Used 5% Lidocaine Gel #1 Right dorsal medial 1st Metatarsophalangeal Joint -Combined with other wound No -Current Size (cm) - Length 0.9 -Current Size (cm) - Width 0.7 -Current Size (cm) - Depth 0 -Total Square Cm 0.63 -Date of Last Picture (Recall this 07/20/17 field) -Photo Taken No -Epithelialization None Present -Tunneling No -Undermining/Tunneling No -Circular Undermining No -Classification - Thickness Full Thickness without Exposed Support Structure -Classification - Toscano Grading ( Grade 1 Diabetic Ulcer) -Change in Wound Grade/Stage No Query Text:If change please identify the Stage/Grade in the comment (ie. S2 G3) -Exudate Amt Small (1-33%) -Exudate Type Serosanguineous -Wound Margin Distinct, Outline Attached -Granulation Amt None Present (0 %) -Granulation Quality N/A -Slough/Fibrin Yes -Necrosis Amt None Present (0 %) -Necrotic Tissue Type Adherent Slough -Structure Exposed Fascia Fat Layer Exposed -Texture (Vidya-wound Skin Appearance) No Abnormality -Moisture (Vidya-wound Skin Appearance No Abnormality ) -Color (Vidya-wound Skin Appearance) No Abnormality -Temperature (Vidya-wound Skin Cool/Cold Appearance) -Tenderness on Palpation (Vidya-wound No Skin Appearance) -Ulcer Cleansing Rinsed/ Irrigated with Saline -Foul Odor after Cleansing No -Anesthetic Used 5% Lidocaine Gel WC - Nurse 2 - General Ulcer CM Notes Start: 07/13/17 11:36 Freq: Status: Active Protocol: Activity Type Activity Date Activity User E-Sign Co-Sign Detail Recorded Client Recorded Date Recorded By Document 08/11/17 12:10 MW [id number] 08/11/17 12:39 MW 08/11/17 12:10 Wound Center Nurse 2 [Procedure/Treatment] #4 LEFT HIP -Time 12:37 -Correct Patient Yes -Correct Side, Site, Position Yes -Correct Procedure Yes -Procedure Performed Yes -Type of Procedure Debridement -Clinical Debridement Bone -Post Debridement Size (cm) - Length 2.5 -Post Debridement Size (cm) - Width 1.0 -Post Debridement Size (cm) - Depth 11.0 -Total Square Cm 2.50 -Ulcer Cleansing Rinsed/ Irrigated with Saline -Foul Odor after Cleansing No -Bioengineered Tissue No -Bleeding Controlled with Pressure -Treatment Response Procedure Tolerated Well #3 RIGHT HIP -Time 12:37 -Correct Patient Yes -Correct Side, Site, Position Yes -Correct Procedure Yes -Procedure Performed Yes -Type of Procedure Debridement -Clinical Debridement Bone -Post Debridement Size (cm) - Length 0.9 -Post Debridement Size (cm) - Width 1.0 -Post Debridement Size (cm) - Depth 2.5 -Total Square Cm 0.90 -Wound/Ulcer Outcome Not Healed -Ulcer Cleansing Rinsed/ Irrigated with Saline -Foul Odor after Cleansing No -Bioengineered Tissue No -Bleeding Controlled with Pressure -Treatment Response Procedure Tolerated Well #2 Right dorsal Great Toe -Time 12:11 -Correct Patient Yes -Correct Side, Site, Position Yes -Correct Procedure Yes -Procedure Performed Yes -Type of Procedure Debridement -Clinical Debridement Bone -Post Debridement Size (cm) - Length 0.6 -Post Debridement Size (cm) - Width 0.9 -Post Debridement Size (cm) - Depth 0.2 -Total Square Cm 0.54 -Wound/Ulcer Outcome Not Healed -Ulcer Cleansing Rinsed/ Irrigated with Saline -Foul Odor after Cleansing No -Bioengineered Tissue No -Bleeding Controlled with Pressure -Treatment Response Procedure Tolerated Well #1 Right dorsal medial 1st Metatarsophalangeal Joint -Time 12:11 -Correct Patient Yes -Correct Side, Site, Position Yes -Correct Procedure Yes -Procedure Performed Yes -Type of Procedure Debridement -Clinical Debridement Subcutaneous -Post Debridement Size (cm) - Length 0.9 -Post Debridement Size (cm) - Width 0.5 -Post Debridement Size (cm) - Depth 0.3 -Total Square Cm 0.45 -Wound/Ulcer Outcome Not Healed -Ulcer Cleansing Rinsed/ Irrigated with Saline -Foul Odor after Cleansing No -Bioengineered Tissue No -Bleeding Controlled with Pressure -Treatment Response Procedure Tolerated Well [See Physician Procedure note for Specifics] Pain Scale: 0-10 Numeric [Pain] -Is Patient Pain Free? Yes Musculoskeletal: No Tenderness to Palpation of Joints or Extremities Lymphatic: No Cervical, Supraclavicular, or Inguinal Adenopathy Neurological: Cranial nerves II-XII grossly intact, Neuro grossly intact Psych/Mental Status: Normal Affect, Appropriate, Alert and oriented to time, place, person, mood and affect Debridement Note Post-Debridement Measurements/Treatment WC - Nurse 2 - General Ulcer CM Notes Start: 07/13/17 11:36 Freq: Status: Active Protocol: Activity Type Activity Date Activity User E-Sign Co-Sign Detail Recorded Client Recorded Date Recorded By Document 07/13/17 12:42 MW [id number] 07/13/17 12:53 MW Document 07/20/17 12:38 MW [id number] 07/20/17 12:49 MW Document 07/27/17 12:19 MW [id number] 07/27/17 12:24 MW Document 08/03/17 12:05 MW [id number] 08/03/17 12:19 MW Document 08/11/17 12:10 MW [id number] 08/11/17 12:39 MW 07/13/17 07/20/17 07/27/17 12:42 12:38 12:19 Wound Center Nurse 2 #4 LEFT HIP -Time -Correct Patient -Correct Side, Site, Position -Correct Procedure -Procedure Performed -Type of Procedure -Clinical Debridement -Post Debridement Size (cm) - Length -Post Debridement Size (cm) - Width -Post Debridement Size (cm) - Depth -Total Square Cm -Ulcer Cleansing -Foul Odor after Cleansing -Bioengineered Tissue -Bleeding Controlled with -Treatment Response #3 RIGHT HIP -Time -Correct Patient -Correct Side, Site, Position -Correct Procedure -Procedure Performed -Type of Procedure -Clinical Debridement -Post Debridement Size (cm) - Length -Post Debridement Size (cm) - Width -Post Debridement Size (cm) - Depth -Total Square Cm -Wound/Ulcer Outcome -Ulcer Cleansing -Foul Odor after Cleansing -Bioengineered Tissue -Bleeding Controlled with -Treatment Response #2 Right dorsal Great Toe -Time 12:44 12:38 12:20 -Correct Patient Yes Yes Yes -Correct Side, Site, Position Yes Yes Yes -Correct Procedure Yes Yes Yes -Procedure Performed Yes Yes Yes -Type of Procedure Debridement Debridement Debridement -Clinical Debridement Subcutaneous Subcutaneous Subcutaneous -Post Debridement Size (cm) - Length 0.9 1.0 0.9 -Post Debridement Size (cm) - Width 1.0 1.0 0.9 -Post Debridement Size (cm) - Depth 0.3 0.3 0.3 -Total Square Cm 0.90 1.00 0.81 -Wound/Ulcer Outcome Not Healed Not Healed Not Healed -Ulcer Cleansing Rinsed/ Rinsed/ Rinsed/ Irrigated with Irrigated with Irrigated with Saline Saline Saline -Foul Odor after Cleansing No No No -Bioengineered Tissue Yes No -Type of bioengineered Tissue EPICORD EPIFIX EPIFIX -Expiration Date 03/15/22 04/14/22 05/15/22 -Product Lot Number [id number] -Percent Used 100 90 100 -Saline Lot Number [id number] -Bleeding Controlled with Pressure Pressure Pressure -Treatment Response Procedure Procedure Procedure Tolerated Well Tolerated Well Tolerated Well #1 Right dorsal medial 1st Metatarsophalangeal Joint -Time 12:45 12:39 12:21 -Correct Patient Yes Yes Yes -Correct Side, Site, Position Yes Yes Yes -Correct Procedure Yes Yes Yes -Procedure Performed Yes Yes Yes -Type of Procedure Debridement Debridement Debridement -Clinical Debridement Subcutaneous Subcutaneous Subcutaneous -Post Debridement Size (cm) - Length 1.2 1.2 1.2 -Post Debridement Size (cm) - Width 1.0 1.0 0.9 -Post Debridement Size (cm) - Depth 0.3 0.3 0.3 -Total Square Cm 1.20 1.20 1.08 -Wound/Ulcer Outcome Not Healed Not Healed Not Healed -Ulcer Cleansing Rinsed/ Rinsed/ Rinsed/ Irrigated with Irrigated with Irrigated with Saline Saline Saline -Foul Odor after Cleansing No No No -Bioengineered Tissue Yes No -Type of bioengineered Tissue EPICORD EPIFIX -Expiration Date 03/15/22 04/14/22 05/15/22 -Product Lot Number [id number] -Percent Used 100 90 100 -Saline Lot Number [id number] -Bleeding Controlled with Pressure Pressure Pressure -Treatment Response Procedure Procedure Procedure Tolerated Well Tolerated Well Tolerated Well Pain Scale: 0-10 Numeric Is Patient Pain Free? Yes Yes Yes 08/03/17 08/11/17 12:05 12:10 Wound Center Nurse 2 #4 LEFT HIP -Time 12:37 -Correct Patient Yes -Correct Side, Site, Position Yes -Correct Procedure Yes -Procedure Performed Yes -Type of Procedure Debridement -Clinical Debridement Bone -Post Debridement Size (cm) - Length 2.5 -Post Debridement Size (cm) - Width 1.0 -Post Debridement Size (cm) - Depth 11.0 -Total Square Cm 2.50 -Ulcer Cleansing Rinsed/ Irrigated with Saline -Foul Odor after Cleansing No -Bioengineered Tissue No -Bleeding Controlled with Pressure -Treatment Response Procedure Tolerated Well #3 RIGHT HIP -Time 12:37 -Correct Patient Yes -Correct Side, Site, Position Yes -Correct Procedure Yes -Procedure Performed Yes -Type of Procedure Debridement -Clinical Debridement Bone -Post Debridement Size (cm) - Length 0.9 -Post Debridement Size (cm) - Width 1.0 -Post Debridement Size (cm) - Depth 2.5 -Total Square Cm 0.90 -Wound/Ulcer Outcome Not Healed -Ulcer Cleansing Rinsed/ Irrigated with Saline -Foul Odor after Cleansing No -Bioengineered Tissue No -Bleeding Controlled with Pressure -Treatment Response Procedure Tolerated Well #2 Right dorsal Great Toe -Time 12:07 12:11 -Correct Patient Yes Yes -Correct Side, Site, Position Yes Yes -Correct Procedure Yes Yes -Procedure Performed Yes Yes -Type of Procedure Debridement Debridement -Clinical Debridement Subcutaneous Bone -Post Debridement Size (cm) - Length 0.7 0.6 -Post Debridement Size (cm) - Width 1.0 0.9 -Post Debridement Size (cm) - Depth 0.3 0.2 -Total Square Cm 0.70 0.54 -Wound/Ulcer Outcome Not Healed Not Healed -Ulcer Cleansing Rinsed/ Rinsed/ Irrigated with Irrigated with Saline Saline -Foul Odor after Cleansing No No -Bioengineered Tissue Yes No -Type of bioengineered Tissue EPIFIX -Expiration Date 05/15/22 -Product Lot Number [id number] -Percent Used 80 -Saline Lot Number [id number] -Bleeding Controlled with Pressure Pressure -Treatment Response Procedure Procedure Tolerated Well Tolerated Well #1 Right dorsal medial 1st Metatarsophalangeal Joint -Time 12:07 12:11 -Correct Patient Yes Yes -Correct Side, Site, Position Yes Yes -Correct Procedure Yes Yes -Procedure Performed Yes Yes -Type of Procedure Debridement Debridement -Clinical Debridement Subcutaneous Subcutaneous -Post Debridement Size (cm) - Length 1.0 0.9 -Post Debridement Size (cm) - Width 0.8 0.5 -Post Debridement Size (cm) - Depth 0.3 0.3 -Total Square Cm 0.80 0.45 -Wound/Ulcer Outcome Not Healed Not Healed -Ulcer Cleansing Rinsed/ Rinsed/ Irrigated with Irrigated with Saline Saline -Foul Odor after Cleansing No No -Bioengineered Tissue Yes No -Type of bioengineered Tissue EPIFIX -Expiration Date 05/15/22 -Product Lot Number [id number] -Percent Used 80 -Saline Lot Number [id number] -Bleeding Controlled with Pressure Pressure -Treatment Response Procedure Procedure Tolerated Well Tolerated Well Pain Scale: 0-10 Numeric Is Patient Pain Free? Yes Yes Wound debrided: Right hip ulcer Type of Debridement: Excisional debridement Anesthesia Used: 5% Lidocaine Gel Depth: Down to and including healthy tissue, in the subcutaneous layer, to bone Percentage of wound debrided: 100 Instrument Used: 7mm curette Tissue Removed: Fibrin and some slough Severity: Necrosis of Bone Amount of bleeding with debridement: Mild Bleeding Controlled with: Compression and gauze Patient tolerated procedure well - Additional Wound Wound debrided: Left hip ulcer Type of Debridement: Excisional debridement Anesthesia Used: 5% Lidocaine Gel Depth: Down to and including healthy tissue, in the subcutaneous layer, to bone Percentage of wound debrided: 100 Instrument Used: 7mm curette Tissue Removed: Slough and fibrin Severity: Necrosis of Bone Amount of bleeding with debridement: Mild Bleeding Controlled with: Compression and gauze Patient tolerated procedure: Patient tolerated procedure well - Additional Wound Wound debrided: Right great toe Type of Debridement: Excisional debridement Anesthesia Used: 5% Lidocaine Gel Depth: Down to and including healthy tissue, in the subcutaneous layer Percentage of wound debrided: 100 Instrument Used: 5mm curette Tissue Removed: fibrin and devitalized tissue Severity: Necrosis of Bone Amount of bleeding with debridement: Mild Bleeding Controlled with: Compression and gauze Patient tolerated procedure: Patient tolerated procedure well - Additional Wound Wound debrided: Right hallux Type of Debridement: Excisional debridement Anesthesia Used: 5% Lidocaine Gel Depth: Down to and including healthy tissue, in the subcutaneous layer, to bone Percentage of wound debrided: 100 Instrument Used: 5mm curette Tissue Removed: Fibrin and devitalized tissue Severity: Necrosis of Muscle Amount of bleeding with debridement: Mild Bleeding Controlled with: Compression and gauze Patient tolerated procedure: Patient tolerated procedure well Assessment/Plan Cultures of all areas for bacteria and anaerobes chest x-ray right foot x-ray bilateral hip x-rays BC and pre-albumin EKG ordered Active Problems Open wound of left hip and thigh with complication (Acute) Decubitus ulcer of right foot (Acute) Chronic ulcer of right foot (Acute) Radiation necrosis of skin and subcutaneous (Acute) Assessment: Ulcers to the dorsal aspect of the right hallux and medial right first metatarsophalangeal joint with fat layer exposed. Foot drop. 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 Malnutrition. Right and left hip ulcers. 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 Obtain lab work CBC with differential and pre-albumin. Obtain cultures for aerobic and anaerobic growth in ulcers. Wash all areas with Hibiclens pack bilateral right hips with Aquacel silver roping applied gauze and tape. Right great toe and hallux apply Promogran with Adaptic and gauze and tape. Patient will be assessed for HBO treatments recommended 5 days per week at 2-1/2 srinivas with 2 air breaks of 5 minutes. [place] with family issues risk and benefits of hyperbaric therapy and patient verbalized understanding. Follow-up in 1 week. This note was generated with [employer] software. It may contain incorrect words, spelling, and punctuation that were not noted in checking the note before signing.
--- NOTE | 2017-08-11 13:26 | HP.PCM_ITS ---
(1) Open wound of left hip and thigh with complication Status: Acute Current Visit: Yes Code(s): S71.002A - Unspecified open wound , left hip, initial encounter; S71.102A - Unspecified open wound, left thigh, initial encounter (2) Chronic ulcer of right great toe Status: Acute Current Visit: No Code(s): L97.519 - Non-pressure chronic ulcer of other part of right foot with unspecified severity (3) Delayed wound healing Status: Acute Current Visit: No Code(s): T14.8XXD - Other injury of unspecified body region, subsequent encounter (4) Malnutrition Status: Acute Current Visit: No Code(s): E46 - Unspecified protein-calorie malnutrition (5) Atrial fibrillation Status: Chronic Current Visit: No Code(s): I48.91 - Unspecified atrial fibrillation (6) History of prostate cancer Status: Chronic Current Visit: No Comment: Status post radiation therapy in 2005 complicated by avascular necrosis of the right hip (7) History of total hip replacement Status: Chronic Current Visit: No Code(s): Z96.649 - Presence of unspecified artificial hip joint (8) 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 Current Visit: No Code(s): G57.91 - Unspecified mononeuropathy of right lower limb (9) Open wound of right hip Status: Chronic Current Visit: No Code(s): S71.001A - Unspecified open wound , right hip, initial encounter (10) Right foot drop Status: Chronic Current Visit: No Code(s): M21.371 - Foot drop, right foot (11) Chronic ulcer of right foot Status: Acute Current Visit: Yes Code(s): L97.519 - Non-pressure chronic ulcer of other part of right foot with unspecified severity (12) Radiation necrosis of skin and subcutaneous Status: Acute Current Visit: Yes Code(s): L59.8 - Other specified disorders of the skin and subcutaneous tissue related to radiation; Y84.2 - Radiological procedure and radiotherapy as the cause of abnormal reaction of the patient, or of later complication, without mention of misadventure at the time of the procedure History of Present Illness Date of Service: 08/11/17 Chief Complaint: Ulcer to dorsomedial aspect of the right hallux and dorsomedial 1st metatarsophalangeal joint. Right and left hips ulcers. To be cleared for HBO therapy History of Wound: 76-year-old white male had previously in 1999 for about had prostate cancer and was given radiation over and beyond what was therapeutic. After that he had both hips replacements ?2 to each one done with poor outcomes. He now has ulcers in both hips that tunnel into the bone on either side. He has had wound vacs and a currently he is just packing with gauze dressings. She has been on continuous Augmentin since April. Because of his poor outcomes for healing they have opted for HBO therapy here at the wound center. In the meantime I am to care for all of his other wounds also. 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 Patient still has drainage from bilateral hips that look yellowish some odor. We will obtain cultures from both hips and toes we will x- ray foot and hips bilaterally. We will also get chest x-ray for HBO and a complete blood count and a pre-albumin. Past Medical History Past Medical History: Chronic Problems Open wound of right hip (Chronic) History of total hip replacement (Chronic) Chronic congestive heart failure (Chronic) Depression (Chronic) Hyperlipidemia (Chronic) Hypertension (Chronic) Paroxysmal a-fib (Chronic) Post op, on satolol, following with Dr. 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 Toe ulcer dorsal right great toe and right hallux area Surgical History: cataract, total hip arthroplasty - Bilateral., - - IVC filter Allergies/Adverse Reactions: Allergies No Known Allergies Allergy (Verified 05/04/13 17:29) Home Medications: Ambulatory Orders Medication Instructions Recorded Furosemide [Lasix] 40 mg PO BID 05/04/13 Amoxicillin [Amoxil] 500 mg PO BID@1000,2200 capsule 05/25/16 Bisacodyl [Dulcolax] 10 mg RECTAL DAILY PRN #30 suppos. 05/25/16 Calcium Carbonate [Tums] 500 mg PO BIDCM tablet 05/25/16 Ergocalciferol [Vitamin D] 50,000 unit PO Q7D capsule 05/25/16 Gabapentin [Neurontin] 300 mg PO BIDCM #60 capsule 05/25/16 Lisinopril [Zestril] 10 mg PO BID@0800,1700 #60 tablet 05/25/16 Menthol/Lanolin/Calamine/Znox 1 applic TOPICAL TID #1 tube 05/25/16 [Calmoseptine Ointment] Polyethylene Glycol 3350 [Miralax] 17 gm PO DAILY #30 packet 05/25/16 Senna/Docusate Sodium [Senokot-S] 1 tablet PO BID@0800,1700 #30 05/25/16 tablet Acetaminophen [Tylenol] 1,000 mg PO BID PRN PRN 05/18/17 Augmentin 875-125 Tablet 875 mg PO BID 05/18/17 Diltiazem HCl [Diltiazem 24Hr Cd] 180 mg PO DAILY 05/18/17 Duloxetine HCl 60 mg PO DAILY 05/18/17 Enalapril Maleate 10 mg PO BID 05/18/17 Ferrous Sulfate [Iron] 325 mg PO BID 05/18/17 Gabapentin [Neurontin] 300 mg PO BID 05/18/17 Iron Polysaccharide Complex 150 mg PO BIDAC 05/18/17 [Ferrex 150] Levothyroxine [Synthroid] 125 mcg PO DAILY@0600 05/18/17 Oxycodone HCl/Acetaminophen 1 tablet PO Q6H PRN PRN 05/18/17 [Percocet 5/325] Rosuvastatin Calcium [Crestor] 5 mg PO QHS 05/18/17 Warfarin [Coumadin ([facility])] 2.5 mg PO DAILY 05/18/17 - Family History Maternal No pertinent history Paternal No pertinent history Lives: Spouse/ Significant Other Smoking Status: Never smoker Tobacco Use: Non-smoker Alcohol: None Drugs: None Review of Systems Constitutional: Denies: Chills, Fever Eyes: Denies: Blurred vision, Drainage, Pain HEENT: Denies: Difficulty Hearing, Difficulty Swallowing, Sore Throat, Visual Changes Cardiovascular: Denies: Chest Pain, Palpitations, Syncope Respiratory: Denies: Cough, Shortness of Breath Gastrointestinal: Denies: Abdominal Pain, Nausea, Vomiting Genitourinary: Denies: Dysuria, Frequency Musculoskeletal: Denies: Joint Pain, Muscle pain Skin: Reports: - - Open ulcers right great toe right hallux Right hip left hip. Denies: Jaundice, Rash Neurological: Denies: Balance problems, Change in Speech, Difficulty swallowing , Focal weakness Psychiatric: Denies: Anxiety, Depression Endocrine: Denies: Change in Body Habitus Hematologic/ Lymphatic: Denies: Adenopathy - Physical Exam Vital Signs Temp Pulse Resp BP 97.1 F L 98 16 121/70 H 08/11/17 11:02 08/11/17 11:02 08/11/17 11:02 08/11/17 11:02 General: Oriented x3, Cooperative, Well developed HEENT: Atraumatic, PERRLA Oral: Moist Mucosa Neck: Supple, No JVD Lungs: Clear to auscultation, Normal air movement Cardiovascular: Regular rate, Regular Rhythm Abdomen: Bowel Sounds Present, Soft, Non Tender, No Hepato-splenomegaly Extremities: No clubbing, No edema Wound Measurements and Assessment WC - Nurse 1 - General Ulcer Measurement Start: 07/13/17 11:36 Freq: Status: Active Protocol: Activity Type Activity Date Activity User E-Sign Co-Sign Detail Recorded Client Recorded Date Recorded By Document 08/11/17 11:02 ROMMEL [id number] 08/11/17 11:43 ROMMEL 08/11/17 11:02 Wound Center Nurse 1 [Ulcer Assessment] #4 LEFT HIP -Combined with other wound No -Current Size (cm) - Length 2.6 -Current Size (cm) - Width 1.3 -Current Size (cm) - Depth 10 -Total Square Cm 3.38 -Date of Last Picture (Recall this 08/11/17 field) -Photo Taken Yes -Epithelialization None Present -Tunneling No -Undermining/Tunneling No -Circular Undermining No -Classification - Thickness Full Thickness without Exposed Support Structure -Exudate Amt Large (67-100%) -Exudate Type Serous -Wound Margin Distinct, Outline Attached -Granulation Amt None Present (0 %) -Granulation Quality N/A -Slough/Fibrin Yes -Necrosis Amt None Present (0 %) -Necrotic Tissue Type Adherent Slough -Structure Exposed Fascia Joint -Texture (Vidya-wound Skin Appearance) No Abnormality -Moisture (Vidya-wound Skin Appearance No Abnormality ) -Color (Vidya-wound Skin Appearance) No Abnormality -Temperature (Vidya-wound Skin No Abnormality Appearance) (Pt Warm) -Tenderness on Palpation (Vidya-wound No Skin Appearance) -Ulcer Cleansing Rinsed/ Irrigated with Saline -Foul Odor after Cleansing No #3 RIGHT HIP -Combined with other wound No -Current Size (cm) - Length 1.0 -Current Size (cm) - Width 0.5 -Current Size (cm) - Depth 2.8 -Total Square Cm 0.50 -Date of Last Picture (Recall this 08/11/17 field) -Photo Taken Yes -Epithelialization None Present -Tunneling No -Undermining/Tunneling No -Circular Undermining No -Classification - Thickness Full Thickness with Exposed Support Structure -Exudate Amt Large (67-100%) -Exudate Type Serosanguineous -Wound Margin Fibrotic Scar, Thickened Scar -Granulation Amt None Present (0 %) -Granulation Quality N/A -Slough/Fibrin Yes -Necrosis Amt None Present (0 %) -Necrotic Tissue Type Adherent Slough -Structure Exposed Joint -Texture (Vidya-wound Skin Appearance) No Abnormality -Moisture (Vidya-wound Skin Appearance No Abnormality ) -Color (Vidya-wound Skin Appearance) No Abnormality -Temperature (Vidya-wound Skin No Abnormality Appearance) (Pt Warm) -Tenderness on Palpation (Vidya-wound No Skin Appearance) -Ulcer Cleansing Rinsed/ Irrigated with Saline -Foul Odor after Cleansing No #2 Right dorsal Great Toe -Combined with other wound No -Current Size (cm) - Length 0.5 -Current Size (cm) - Width 0.9 -Current Size (cm) - Depth 0 -Total Square Cm 0.45 -Date of Last Picture (Recall this 07/20/17 field) -Photo Taken No -Epithelialization None Present -Tunneling No -Undermining/Tunneling No -Circular Undermining No -Classification - Thickness Full Thickness without Exposed Support Structure -Classification - Toscano Grading ( Grade 1 Diabetic Ulcer) -Exudate Amt Small (1-33%) -Exudate Type Serosanguineous -Wound Margin Distinct, Outline Attached -Granulation Amt None Present (0 %) -Granulation Quality N/A -Slough/Fibrin Yes -Necrosis Amt None Present (0 %) -Necrotic Tissue Type Adherent Slough -Structure Exposed Fascia Fat Layer Exposed -Texture (Vidya-wound Skin Appearance) No Abnormality -Moisture (Vidya-wound Skin Appearance No Abnormality ) -Color (Vidya-wound Skin Appearance) No Abnormality -Temperature (Vidya-wound Skin Cool/Cold Appearance) -Tenderness on Palpation (Vidya-wound No Skin Appearance) -Ulcer Cleansing Rinsed/ Irrigated with Saline -Foul Odor after Cleansing No -Anesthetic Used 5% Lidocaine Gel #1 Right dorsal medial 1st Metatarsophalangeal Joint -Combined with other wound No -Current Size (cm) - Length 0.9 -Current Size (cm) - Width 0.7 -Current Size (cm) - Depth 0 -Total Square Cm 0.63 -Date of Last Picture (Recall this 07/20/17 field) -Photo Taken No -Epithelialization None Present -Tunneling No -Undermining/Tunneling No -Circular Undermining No -Classification - Thickness Full Thickness without Exposed Support Structure -Classification - Toscano Grading ( Grade 1 Diabetic Ulcer) -Change in Wound Grade/Stage No Query Text:If change please identify the Stage/Grade in the comment (ie. S2 G3) -Exudate Amt Small (1-33%) -Exudate Type Serosanguineous -Wound Margin Distinct, Outline Attached -Granulation Amt None Present (0 %) -Granulation Quality N/A -Slough/Fibrin Yes -Necrosis Amt None Present (0 %) -Necrotic Tissue Type Adherent Slough -Structure Exposed Fascia Fat Layer Exposed -Texture (Vidya-wound Skin Appearance) No Abnormality -Moisture (Vidya-wound Skin Appearance No Abnormality ) -Color (Vidya-wound Skin Appearance) No Abnormality -Temperature (Vidya-wound Skin Cool/Cold Appearance) -Tenderness on Palpation (Vidya-wound No Skin Appearance) -Ulcer Cleansing Rinsed/ Irrigated with Saline -Foul Odor after Cleansing No -Anesthetic Used 5% Lidocaine Gel WC - Nurse 2 - General Ulcer CM Notes Start: 07/13/17 11:36 Freq: Status: Active Protocol: Activity Type Activity Date Activity User E-Sign Co-Sign Detail Recorded Client Recorded Date Recorded By Document 08/11/17 12:10 MW [id number] 08/11/17 12:39 MW 08/11/17 12:10 Wound Center Nurse 2 [Procedure/Treatment] #4 LEFT HIP -Time 12:37 -Correct Patient Yes -Correct Side, Site, Position Yes -Correct Procedure Yes -Procedure Performed Yes -Type of Procedure Debridement -Clinical Debridement Bone -Post Debridement Size (cm) - Length 2.5 -Post Debridement Size (cm) - Width 1.0 -Post Debridement Size (cm) - Depth 11.0 -Total Square Cm 2.50 -Ulcer Cleansing Rinsed/ Irrigated with Saline -Foul Odor after Cleansing No -Bioengineered Tissue No -Bleeding Controlled with Pressure -Treatment Response Procedure Tolerated Well #3 RIGHT HIP -Time 12:37 -Correct Patient Yes -Correct Side, Site, Position Yes -Correct Procedure Yes -Procedure Performed Yes -Type of Procedure Debridement -Clinical Debridement Bone -Post Debridement Size (cm) - Length 0.9 -Post Debridement Size (cm) - Width 1.0 -Post Debridement Size (cm) - Depth 2.5 -Total Square Cm 0.90 -Wound/Ulcer Outcome Not Healed -Ulcer Cleansing Rinsed/ Irrigated with Saline -Foul Odor after Cleansing No -Bioengineered Tissue No -Bleeding Controlled with Pressure -Treatment Response Procedure Tolerated Well #2 Right dorsal Great Toe -Time 12:11 -Correct Patient Yes -Correct Side, Site, Position Yes -Correct Procedure Yes -Procedure Performed Yes -Type of Procedure Debridement -Clinical Debridement Bone -Post Debridement Size (cm) - Length 0.6 -Post Debridement Size (cm) - Width 0.9 -Post Debridement Size (cm) - Depth 0.2 -Total Square Cm 0.54 -Wound/Ulcer Outcome Not Healed -Ulcer Cleansing Rinsed/ Irrigated with Saline -Foul Odor after Cleansing No -Bioengineered Tissue No -Bleeding Controlled with Pressure -Treatment Response Procedure Tolerated Well #1 Right dorsal medial 1st Metatarsophalangeal Joint -Time 12:11 -Correct Patient Yes -Correct Side, Site, Position Yes -Correct Procedure Yes -Procedure Performed Yes -Type of Procedure Debridement -Clinical Debridement Subcutaneous -Post Debridement Size (cm) - Length 0.9 -Post Debridement Size (cm) - Width 0.5 -Post Debridement Size (cm) - Depth 0.3 -Total Square Cm 0.45 -Wound/Ulcer Outcome Not Healed -Ulcer Cleansing Rinsed/ Irrigated with Saline -Foul Odor after Cleansing No -Bioengineered Tissue No -Bleeding Controlled with Pressure -Treatment Response Procedure Tolerated Well [See Physician Procedure note for Specifics] Pain Scale: 0-10 Numeric [Pain] -Is Patient Pain Free? Yes Musculoskeletal: No Tenderness to Palpation of Joints or Extremities Lymphatic: No Cervical, Supraclavicular, or Inguinal Adenopathy Neurological: Cranial nerves II-XII grossly intact, Neuro grossly intact Psych/Mental Status: Normal Affect, Appropriate, Alert and oriented to time, place, person, mood and affect Debridement Note Post-Debridement Measurements/Treatment WC - Nurse 2 - General Ulcer CM Notes Start: 07/13/17 11:36 Freq: Status: Active Protocol: Activity Type Activity Date Activity User E-Sign Co-Sign Detail Recorded Client Recorded Date Recorded By Document 07/13/17 12:42 MW [id number] 07/13/17 12:53 MW Document 07/20/17 12:38 MW [id number] 07/20/17 12:49 MW Document 07/27/17 12:19 MW [id number] 07/27/17 12:24 MW Document 08/03/17 12:05 MW [id number] 08/03/17 12:19 MW Document 08/11/17 12:10 MW [id number] 08/11/17 12:39 MW 07/13/17 07/20/17 07/27/17 12:42 12:38 12:19 Wound Center Nurse 2 #4 LEFT HIP -Time -Correct Patient -Correct Side, Site, Position -Correct Procedure -Procedure Performed -Type of Procedure -Clinical Debridement -Post Debridement Size (cm) - Length -Post Debridement Size (cm) - Width -Post Debridement Size (cm) - Depth -Total Square Cm -Ulcer Cleansing -Foul Odor after Cleansing -Bioengineered Tissue -Bleeding Controlled with -Treatment Response #3 RIGHT HIP -Time -Correct Patient -Correct Side, Site, Position -Correct Procedure -Procedure Performed -Type of Procedure -Clinical Debridement -Post Debridement Size (cm) - Length -Post Debridement Size (cm) - Width -Post Debridement Size (cm) - Depth -Total Square Cm -Wound/Ulcer Outcome -Ulcer Cleansing -Foul Odor after Cleansing -Bioengineered Tissue -Bleeding Controlled with -Treatment Response #2 Right dorsal Great Toe -Time 12:44 12:38 12:20 -Correct Patient Yes Yes Yes -Correct Side, Site, Position Yes Yes Yes -Correct Procedure Yes Yes Yes -Procedure Performed Yes Yes Yes -Type of Procedure Debridement Debridement Debridement -Clinical Debridement Subcutaneous Subcutaneous Subcutaneous -Post Debridement Size (cm) - Length 0.9 1.0 0.9 -Post Debridement Size (cm) - Width 1.0 1.0 0.9 -Post Debridement Size (cm) - Depth 0.3 0.3 0.3 -Total Square Cm 0.90 1.00 0.81 -Wound/Ulcer Outcome Not Healed Not Healed Not Healed -Ulcer Cleansing Rinsed/ Rinsed/ Rinsed/ Irrigated with Irrigated with Irrigated with Saline Saline Saline -Foul Odor after Cleansing No No No -Bioengineered Tissue Yes No -Type of bioengineered Tissue EPICORD EPIFIX EPIFIX -Expiration Date 03/15/22 04/14/22 05/15/22 -Product Lot Number [id number] -Percent Used 100 90 100 -Saline Lot Number [id number] -Bleeding Controlled with Pressure Pressure Pressure -Treatment Response Procedure Procedure Procedure Tolerated Well Tolerated Well Tolerated Well #1 Right dorsal medial 1st Metatarsophalangeal Joint -Time 12:45 12:39 12:21 -Correct Patient Yes Yes Yes -Correct Side, Site, Position Yes Yes Yes -Correct Procedure Yes Yes Yes -Procedure Performed Yes Yes Yes -Type of Procedure Debridement Debridement Debridement -Clinical Debridement Subcutaneous Subcutaneous Subcutaneous -Post Debridement Size (cm) - Length 1.2 1.2 1.2 -Post Debridement Size (cm) - Width 1.0 1.0 0.9 -Post Debridement Size (cm) - Depth 0.3 0.3 0.3 -Total Square Cm 1.20 1.20 1.08 -Wound/Ulcer Outcome Not Healed Not Healed Not Healed -Ulcer Cleansing Rinsed/ Rinsed/ Rinsed/ Irrigated with Irrigated with Irrigated with Saline Saline Saline -Foul Odor after Cleansing No No No -Bioengineered Tissue Yes No -Type of bioengineered Tissue EPICORD EPIFIX -Expiration Date 03/15/22 04/14/22 05/15/22 -Product Lot Number [id number] -Percent Used 100 90 100 -Saline Lot Number [id number] -Bleeding Controlled with Pressure Pressure Pressure -Treatment Response Procedure Procedure Procedure Tolerated Well Tolerated Well Tolerated Well Pain Scale: 0-10 Numeric Is Patient Pain Free? Yes Yes Yes 08/03/17 08/11/17 12:05 12:10 Wound Center Nurse 2 #4 LEFT HIP -Time 12:37 -Correct Patient Yes -Correct Side, Site, Position Yes -Correct Procedure Yes -Procedure Performed Yes -Type of Procedure Debridement -Clinical Debridement Bone -Post Debridement Size (cm) - Length 2.5 -Post Debridement Size (cm) - Width 1.0 -Post Debridement Size (cm) - Depth 11.0 -Total Square Cm 2.50 -Ulcer Cleansing Rinsed/ Irrigated with Saline -Foul Odor after Cleansing No -Bioengineered Tissue No -Bleeding Controlled with Pressure -Treatment Response Procedure Tolerated Well #3 RIGHT HIP -Time 12:37 -Correct Patient Yes -Correct Side, Site, Position Yes -Correct Procedure Yes -Procedure Performed Yes -Type of Procedure Debridement -Clinical Debridement Bone -Post Debridement Size (cm) - Length 0.9 -Post Debridement Size (cm) - Width 1.0 -Post Debridement Size (cm) - Depth 2.5 -Total Square Cm 0.90 -Wound/Ulcer Outcome Not Healed -Ulcer Cleansing Rinsed/ Irrigated with Saline -Foul Odor after Cleansing No -Bioengineered Tissue No -Bleeding Controlled with Pressure -Treatment Response Procedure Tolerated Well #2 Right dorsal Great Toe -Time 12:07 12:11 -Correct Patient Yes Yes -Correct Side, Site, Position Yes Yes -Correct Procedure Yes Yes -Procedure Performed Yes Yes -Type of Procedure Debridement Debridement -Clinical Debridement Subcutaneous Bone -Post Debridement Size (cm) - Length 0.7 0.6 -Post Debridement Size (cm) - Width 1.0 0.9 -Post Debridement Size (cm) - Depth 0.3 0.2 -Total Square Cm 0.70 0.54 -Wound/Ulcer Outcome Not Healed Not Healed -Ulcer Cleansing Rinsed/ Rinsed/ Irrigated with Irrigated with Saline Saline -Foul Odor after Cleansing No No -Bioengineered Tissue Yes No -Type of bioengineered Tissue EPIFIX -Expiration Date 05/15/22 -Product Lot Number [id number] -Percent Used 80 -Saline Lot Number [id number] -Bleeding Controlled with Pressure Pressure -Treatment Response Procedure Procedure Tolerated Well Tolerated Well #1 Right dorsal medial 1st Metatarsophalangeal Joint -Time 12:07 12:11 -Correct Patient Yes Yes -Correct Side, Site, Position Yes Yes -Correct Procedure Yes Yes -Procedure Performed Yes Yes -Type of Procedure Debridement Debridement -Clinical Debridement Subcutaneous Subcutaneous -Post Debridement Size (cm) - Length 1.0 0.9 -Post Debridement Size (cm) - Width 0.8 0.5 -Post Debridement Size (cm) - Depth 0.3 0.3 -Total Square Cm 0.80 0.45 -Wound/Ulcer Outcome Not Healed Not Healed -Ulcer Cleansing Rinsed/ Rinsed/ Irrigated with Irrigated with Saline Saline -Foul Odor after Cleansing No No -Bioengineered Tissue Yes No -Type of bioengineered Tissue EPIFIX -Expiration Date 05/15/22 -Product Lot Number [id number] -Percent Used 80 -Saline Lot Number [id number] -Bleeding Controlled with Pressure Pressure -Treatment Response Procedure Procedure Tolerated Well Tolerated Well Pain Scale: 0-10 Numeric Is Patient Pain Free? Yes Yes Wound debrided: Right hip ulcer Type of Debridement: Excisional debridement Anesthesia Used: 5% Lidocaine Gel Depth: Down to and including healthy tissue, in the subcutaneous layer, to bone Percentage of wound debrided: 100 Instrument Used: 7mm curette Tissue Removed: Fibrin and some slough Severity: Necrosis of Bone Amount of bleeding with debridement: Mild Bleeding Controlled with: Compression and gauze Patient tolerated procedure well - Additional Wound Wound debrided: Left hip ulcer Type of Debridement: Excisional debridement Anesthesia Used: 5% Lidocaine Gel Depth: Down to and including healthy tissue, in the subcutaneous layer, to bone Percentage of wound debrided: 100 Instrument Used: 7mm curette Tissue Removed: Slough and fibrin Severity: Necrosis of Bone Amount of bleeding with debridement: Mild Bleeding Controlled with: Compression and gauze Patient tolerated procedure: Patient tolerated procedure well - Additional Wound Wound debrided: Right great toe Type of Debridement: Excisional debridement Anesthesia Used: 5% Lidocaine Gel Depth: Down to and including healthy tissue, in the subcutaneous layer Percentage of wound debrided: 100 Instrument Used: 5mm curette Tissue Removed: fibrin and devitalized tissue Severity: Necrosis of Bone Amount of bleeding with debridement: Mild Bleeding Controlled with: Compression and gauze Patient tolerated procedure: Patient tolerated procedure well - Additional Wound Wound debrided: Right hallux Type of Debridement: Excisional debridement Anesthesia Used: 5% Lidocaine Gel Depth: Down to and including healthy tissue, in the subcutaneous layer, to bone Percentage of wound debrided: 100 Instrument Used: 5mm curette Tissue Removed: Fibrin and devitalized tissue Severity: Necrosis of Muscle Amount of bleeding with debridement: Mild Bleeding Controlled with: Compression and gauze Patient tolerated procedure: Patient tolerated procedure well Assessment/Plan Cultures of all areas for bacteria and anaerobes chest x-ray right foot x-ray bilateral hip x-rays BC and pre-albumin EKG ordered Active Problems Open wound of left hip and thigh with complication (Acute) Decubitus ulcer of right foot (Acute) Chronic ulcer of right foot (Acute) Radiation necrosis of skin and subcutaneous (Acute) Assessment: Ulcers to the dorsal aspect of the right hallux and medial right first metatarsophalangeal joint with fat layer exposed. Foot drop. 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 Malnutrition. Right and left hip ulcers. 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 Obtain lab work CBC with differential and pre-albumin. Obtain cultures for aerobic and anaerobic growth in ulcers. Wash all areas with Hibiclens pack bilateral right hips with Aquacel silver roping applied gauze and tape. Right great toe and hallux apply Promogran with Adaptic and gauze and tape. Patient will be assessed for HBO treatments recommended 5 days per week at 2-1/2 srinivas with 2 air breaks of 5 minutes. [place] with family issues risk and benefits of hyperbaric therapy and patient verbalized understanding. Follow-up in 1 week. This note was generated with [employer] software. It may contain incorrect words, spelling, and punctuation that were not noted in checking the note before signing.
[2017-08-11 16:41] LABS: Prealbumin 13.8 mg/dL (20.0-40.0)
[2017-08-11 16:48] LABS: Absolute Lymphocyte Count 0.52 X10^3/ul (0.83-4.51); Absolute Neutrophil Count 5.6 X10^3/uL (2.0-7.7); Basophil# 0.03 X10^3/uL; Basophil% 0.4 % (0-1); Eosinophils% 2.8 % (0-5); Hematocrit 39.5 % (40-54); Hemoglobin 11.3 g/dl (13.0-16.5); Lymphocyte # 0.52 X10^3/ul (4.0); Lymphocyte % 7.3 % (19-41); Mean Corp Hgb Conc 28.6 g/gl (32-36); Mean Corpuscular Hgb 24.1 pg (27.0-32.0); Mean Corpuscular Volume 84.2 fL (80-94); Mean Platelet Vol. 9.2 fl (6.2-12.0); Monocyte# 0.76 X10^3/uL; Monocyte% 10.6 % (0-10); Neutrophil % 78.3 % (47-70); Platelet Count 463 K/mm3 (150-450); RBC Distribution Width SD 55.9 fl (35.1-43.9); Red Blood Count 4.69 M/mm3 (4.6-6.2); White Blood Count 7.2 K/mm3 (4.4-11.0)
[2017-08-11 16:49] LABS: Differential Indicated SCAN CRITERIA MET; POSITIVE COUNT NO; POSITIVE DIFFERENTIAL YES; POSITIVE MORPHOLOGY NO
== END 2017-08-12 23:59 ==
LOC: WC 11:00
PROVIDERS: Podiatrist; Family Provider Family Medicine; PCP Family Medicine; Visit Provider Nurse Practitioner
DX: I87.2 Venous insufficiency (chronic) (peripheral) (principal); L97.812 Non-pressure chronic ulcer of other part of right lower leg with fat layer exposed; G57.91 Unspecified mononeuropathy of right lower limb; M21.371 Foot drop, right foot; R60.0 Localized edema; L97.512 Non-pressure chronic ulcer of other part of right foot with fat layer exposed; R09.89 Other specified symptoms and signs involving the circulatory and respiratory systems
CPT/HCPCS: 11044; 15275; 84134; 85025; 87070; 87075; 87077; 87186; 87205; 87640; Q4131

== ENCOUNTER → 2017-08-14 10:37 | Outpatient (CLI) | payer MEDICARE, OTHER, SELFPAY ==
--- NOTE | 2017-08-14 10:39 | EKG12_ITS ---
Test Reason : HYPERBARIC Blood Pressure : / mmHG Vent. Rate : 092 BPM Atrial Rate : 077 BPM P-R Int : 000 ms QRS Dur : 136 ms QT Int : 398 ms P-R-T Axes : 000 -39 114 degrees QTc Int : 492 ms Atrial fibrillation with premature ventricular or aberrantly conducted complexes Left axis deviation Non-specific intra-ventricular conduction block T wave abnormality, consider lateral ischemia or digitalis effect Abnormal ECG Confirmed by DALLAS PIKE, DANIEL ([id number]), editor & co founder [address] ([id number]) on 08/15/2017 1:31:45 PM Referred By: FELY Confirmed By:DANIEL HAYNES MD
--- NOTE | 2017-08-14 10:40 | RAD_ITS ---
STUDY: X-RAY - PELVIS AND BILATERAL HIPS REASON FOR EXAM: Male, 76 years old. Bilateral hips with incision on each hip, nonhealing incision right hip, history of osteomyelitis. TECHNIQUE: Radiological exam, hip, bilateral, with pelvis when performed; minimum of 5 views COMPARISON: Right hip 12/24/2012 FINDINGS: Interval exchange of total hip arthroplasty with acetabular plating of the right hip, bone transplant with significant osseous changes involving the proximal femoral shaft, pubis, acetabulum and iliac bilaterally. There is total hip arthroplasty bilaterally which appears in anatomic alignment. Soft tissue lucency noted along the proximal femoral shaft prostheses. Normal visualized soft tissue structures. There is diffuse demineralization of the osseous structures. There are degenerative changes of the visualized lumbar spine. There is narrowing with cortical sclerosis and osteophyte formation of the sacroiliac joint consistent with degenerative osteoarthritic changes. Deformity of the right greater than left pubis. There is ossification of the inferior left ramus pubis towards the proximal femoral shaft. There is no overt osseous destructive change, osteomyelitis on plain films however is very difficult to assess or exclude 4. Remote deformities of the rami pubis without acute displaced fracture noted. Normal bilateral ischial tuberosities. Bilateral total hip arthroplasties anatomic alignment. There is plating along the left superior ramus pubis and iliac, one of the screws appears to be . RAD/Hips B/L min 2 views w/ Pelvis IMPRESSION: Severe post surgical and traumatic changes with significant bone implants, ossification, remote appearing deformities, osteoporosis with anatomic alignment of bilateral total hip arthroplasties. No destructive osseous lesion noted to suggest osteomyelitis, plain films however are extremely limited. There are soft tissue lucencies along the proximal femoral shafts and hip joints which may be due to recent surgical intervention, gas forming inflammation or decubitus ulceration cannot be . MRI or bone scan may provide additional detail. Electronically Signed: Bhavya Hammonds MD at 4:20 EDT , Service support ,
--- NOTE | 2017-08-14 10:41 | RAD_ITS ---
STUDY: X-RAY CHEST REASON FOR EXAM: Male, 76 years old. History of osteomyelitis. Patient is scheduled for hyperbaric treatment next week. TECHNIQUE: Frontal and lateral views of the chest. COMPARISON: None. FINDINGS: There is platelike atelectasis or fibrosis in the left lung base. There is no demonstrated focal pulmonary infiltrate. There is no demonstrated pleural abnormality. Normal size heart. Normal mediastinum and olivia. Normal visualized pulmonary arteries. Normal visualized aortic arch and descending thoracic aorta. There is a compression fracture of a lower thoracic or upper lumbar vertebral body, which is probably chronic. There are several old right rib fractures. There is no demonstrated abnormality of the visualized soft tissue structures of the upper abdomen. RAD/Chest PA and Lateral IMPRESSION: Mild fibrosis or atelectasis left lung base. No evidence for acute cardiopulmonary pathology. Electronically Signed: Domo Perry MD at 3:35 EDT , Service support ,
--- NOTE | 2017-08-14 10:42 | RAD_ITS ---
STUDY: X-RAY RIGHT FOOT, TOEs REASON FOR EXAM: Male, 76 years old. Osteomyelitis TECHNIQUE: 3 view(s) of the toe were obtained. COMPARISON: None. FINDINGS: There is generalized osteoporosis. Normal visualized metatarsus. There is arthrosis of the metatarsophalangeal (M.T.P.) joint. Normal interphalangeal joints. Normal phalanges and interphalangeal joints. The soft tissue structures are unremarkable. RAD/Toe(s) Min 2 Views IMPRESSION: No destructive osseous lesions to suggest osteomyelitis. Degenerative changes. Osteoporosis. Electronically Signed: Bhavya Hammonds MD at 3:54 EDT , Service support ,
== END ==
PROVIDERS: Family Provider Family Medicine; PCP Family Medicine; Visit Provider Nurse Practitioner
DX: M86.9 Osteomyelitis, unspecified (principal)
CPT/HCPCS: 71046; 73521; 73660; 93005

== ENCOUNTER → 2017-08-28 07:43 | Outpatient (CLI) | payer MEDICARE, OTHER, SELFPAY ==
--- NOTE | 2017-08-28 07:49 | CT_ITS ---
STUDY: CT ABDOMEN AND PELVIS WITH CONTRAST REASON FOR EXAM: Male, 77 years old. Infection involving the bilateral hips. Decubitus ulcers. History of a gastric cancer with radiation treatment. RADIATION DOSAGE (If Supplied By Facility): CTDIvol = ( 20.14 ) mGy, DLP = ( 1257.83 ) mGycm TECHNIQUE: Transaxial images were obtained from the dome of the diaphragm to the symphysis pubis without oral contrast. 100 ml of Isovue 300 contrast was administered. Sagittal and coronal images were reconstructed. Individualized dose optimization techniques were used for this CT. COMPARISON: None. FINDINGS: Mild degree of increased markings at the lung bases with areas of confluence suggestive of mild bibasilar scarring. Coronary artery calcification. Calcification of the mitral valve annulus. Mild degree of central intrahepatic biliary ductal dilatation. There is a 2.8 cm x 1.6 cm indentation along the posterior aspect of the right lobe of the liver superiorly. This may be secondary to indentation of the diaphragmatic crux. Normal gallbladder and extrahepatic biliary system. Normal spleen. Normal pancreas. Normal bilateral adrenal glands. Normal right kidney. Normal left kidney. Normal visualized stomach. Normal small intestine. Moderate amount of fecal material is seen in the colon. The appendix is visualized and appears normal. There is diffuse atherosclerotic calcification of the abdominal aorta, without a demonstrated aneurysm. There is an IVC filter in place. Normal retroperitoneum. Normal urinary bladder. There is a small umbilical hernia containing fat. The patient is status post bilateral total hip replacement. There is evidence of a lytic destruction along the medial aspect of the supra-acetabular region of the right iliac bone. This may be inflammatory in nature although an neoplastic process cannot be ruled out. There is also evidence of a lytic changes of the inferior pubic rami bilaterally. Soft tissue ulceration is seen overlying the right hip joint. Gauze is seen within the open wound. There is also evidence of open wound overlying the lateral aspect of the left hip joint. There is osteopenia of the lumbar vertebrae with loss of height of the T12-L1 and L2 vertebrae. CT/Abdomen/Pelvis WITH Contrast IMPRESSION: Status post bilateral hip replacement with findings suggestive of early lytic destruction of the medial aspect of the right supra-acetabular region of the right iliac bone. Irregular appearance of the inferior pubic rami bilaterally. Soft tissue ulcerations overlying both hip joints. Osteomyelitis should be ruled out. Electronically Signed: Shaun Tam MD at 13:41 EDT Tel [phone], Service support ,
== END ==
PROVIDERS: Family Provider Family Medicine; PCP Family Medicine; Visit Provider Nurse Practitioner
DX: M86.9 Osteomyelitis, unspecified (principal); L89.229 Pressure ulcer of left hip, unspecified stage; L89.219 Pressure ulcer of right hip, unspecified stage
CPT/HCPCS: 74177; Q9967

== ENCOUNTER → 2017-08-29 11:55 | Outpatient (CLI) | payer MEDICARE, OTHER, SELFPAY ==
[2017-08-29 12:50] LABS: PSA,Total- Diagnostic 0.31 ng/mL (0.0-4.0)
== END ==
PROVIDERS: Family Provider Family Medicine; PCP Family Medicine; Visit Provider Urology
DX: C61 Malignant neoplasm of prostate (principal)
CPT/HCPCS: 36415; 84153

== ENCOUNTER 2017-09-01 11:15 | Outpatient (RCR) | payer MEDICARE, OTHER, SELFPAY ==
[2017-08-13 00:41] VITALS: BP 116/70; PULSE 98; RESP 16; TEMP 36.2; BMI 23.7
[2017-08-18 10:53] VITALS: BP 110/59; PULSE 82; RESP 16; TEMP 36.6; BMI 23.7
--- NOTE | 2017-08-18 12:52 | PCM.WC.PN ---
(1) Chronic ulcer of right foot Status: Acute Current Visit: No Qualifiers: Non-pressure ulcer stage: with necrosis of bone Qualified Code(s): L97.514 - Non-pressure chronic ulcer of other part of right foot with necrosis of bone Code(s): L97.519 - Non-pressure chronic ulcer of other part of right foot with unspecified severity (2) Chronic ulcer of right great toe Status: Acute Current Visit: Yes Qualifiers: Non-pressure ulcer stage: unspecified non-pressure ulcer stage Qualified Code(s): L97.519 - Non-pressure chronic ulcer of other part of right foot with unspecified severity Code(s): L97.519 - Non-pressure chronic ulcer of other part of right foot with unspecified severity (3) Delayed wound healing Status: Chronic Current Visit: Yes Code(s): T14.8XXD - Other injury of unspecified body region, subsequent encounter (4) Malnutrition Status: Chronic Current Visit: Yes Qualifiers: Malnutrition type: protein-calorie malnutrition Protein-calorie malnutrition severity: moderate Qualified Code(s): E44.0 - Moderate protein-calorie malnutrition Code(s): E46 - Unspecified protein-calorie malnutrition (5) Open wound of left hip and thigh with complication Status: Chronic Current Visit: Yes Qualifiers: Encounter type: subsequent encounter Qualified Code(s): S71.002D - Unspecified open wound, left hip, subsequent encounter; S71.102D - Unspecified open wound, left thigh, subsequent encounter Code(s): S71.002A - Unspecified open wound, left hip, initial encounter; S71.102A - Unspecified open wound, left thigh, initial encounter (6) 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 Current Visit: No Code(s): L59.8 - Other specified disorders of the skin and subcutaneous tissue related to radiation; Y84.2 - Radiological procedure and radiotherapy as the cause of abnormal reaction of the patient, or of later complication, without mention of misadventure at the time of the procedure (7) Status post total hip replacement, left Status: Chronic Current Visit: Yes Code(s): Z96.642 - Presence of left artificial hip joint (8) Open wound of right hip Status: Chronic Current Visit: Yes Qualifiers: Encounter type: subsequent encounter Qualified Code(s): S71.001D - Unspecified open wound, right hip, subsequent encounter Code(s): S71.001A - Unspecified open wound, right hip, initial encounter (9) Right foot drop Status: Chronic Current Visit: Yes Code(s): M21.371 - Foot drop, right foot Type of Wound Date of Service: 08/18/17 Chief Complaint: Ulcer to dorsomedial aspect of the right hallux and dorsomedial 1st metatarsophalangeal joint. Right and left hips ulcers. To be cleared for HBO therapy History of Wound: 76-year-old white male had previously in 1999 for about had prostate cancer and was given radiation over and beyond what was therapeutic. After that he had both hips replacements ?2 to each one done with poor outcomes. He now has ulcers in both hips that tunnel into the bone on either side. He has had wound vacs and a currently he is just packing with gauze dressings. She has been on continuous Augmentin since April. Because of his poor outcomes for healing they have opted for HBO therapy here at the wound center. In the meantime I am to care for all of his other wounds also. 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 Patient still has drainage from bilateral hips that look yellowish some odor. We will obtain cultures from both hips and toes we will x-ray foot and hips bilaterally. We will also get chest x-ray for HBO and a complete blood count and a pre-albumin. Progress of Wound: There appears to be a slight improvement from last week bilateral hips. Great toe and right helix debrided and we applied #6 epi fix to the toe and hallux . Ulcers came back positive from the left hip of E. coli patient started on Levaquin 750 mg daily for 14 days. X-rays of the pelvis and hips show questionable osteomyelitis bone scan will be ordered. 2 new packing of the left and right hip with the Aquacel roping. chest x-ray was negative for HBO evaluation. Lab work shows anemia and a prealbumin that is very low at 13 patient needs to be booted up with protein - Physical Exam Vital Signs Temp Pulse Resp BP 98 F 82 16 110/59 L 08/18/17 10:53 08/18/17 10:53 08/18/17 10:53 08/18/17 10:53 General: Oriented x3, Cooperative, Well developed HEENT: Atraumatic, PERRLA Oral: Moist Mucosa Neck: Supple, No JVD Lungs: Clear to auscultation, Normal air movement Cardiovascular: Regular rate, Regular Rhythm Abdomen: Bowel Sounds Present, Soft, Non Tender, No Hepato-splenomegaly Extremities: No clubbing, No edema Skin: Ulcer/ Wound - Lateral hip ulcers with tunneling and undermining, right great toe and right hallux Wound Measurements and Assessment WC - Nurse 1 - General Ulcer Measurement Start: 08/18/17 09:58 Freq: Status: Active Protocol: Activity Type Activity Date Activity User E-Sign Co-Sign Detail Recorded Client Recorded Date Recorded By Document 08/18/17 10:53 [facility] [id number] 08/18/17 11:18 [facility] 08/18/17 10:53 Wound Center Nurse 1 [Ulcer Assessment] #4 LEFT HIP -Combined with other wound No -Current Size (cm) - Length 2.9 -Current Size (cm) - Width 0.1 -Current Size (cm) - Depth 5 -Total Square Cm 0.29 -Photo Taken No -Epithelialization None Present -Tunneling No -Undermining/Tunneling No -Circular Undermining No -Exudate Amt Large (67-100%) -Exudate Type Serosanguineous -Wound Margin Distinct, Outline Attached -Granulation Amt Large (67-100%) -Granulation Quality [place] -Slough/Fibrin No -Necrosis Amt None Present (0 %) -Texture (Vidya-wound Skin Appearance) Scarring -Moisture (Vidya-wound Skin Appearance Maceration ) -Color (Vidya-wound Skin Appearance) Assessed -Temperature (Vidya-wound Skin No Abnormality Appearance) (Pt Warm) -Tenderness on Palpation (Vidya-wound No Skin Appearance) -Ulcer Cleansing Rinsed/ Irrigated with Saline -Foul Odor after Cleansing No -Anesthetic Used 4% Lidocaine Solution #3 RIGHT HIP -Combined with other wound No -Current Size (cm) - Length 1 -Current Size (cm) - Width 0.5 -Current Size (cm) - Depth 2.2 -Total Square Cm 0.5 -Photo Taken No -Epithelialization None Present -Tunneling No -Undermining/Tunneling No -Circular Undermining No -Wound Margin Distinct, Outline Attached -Granulation Amt Large (67-100%) -Granulation Quality [place] -Slough/Fibrin No -Necrosis Amt None Present (0 %) -Texture (Vidya-wound Skin Appearance) Scarring -Moisture (Vidya-wound Skin Appearance Maceration ) -Color (Vidya-wound Skin Appearance) No Abnormality Assessed -Temperature (Vidya-wound Skin No Abnormality Appearance) (Pt Warm) -Tenderness on Palpation (Vidya-wound No Skin Appearance) -Ulcer Cleansing Rinsed/ Irrigated with Saline -Foul Odor after Cleansing No -Anesthetic Used 4% Lidocaine Solution #2 Right dorsal Great Toe -Combined with other wound No -Current Size (cm) - Length 0.5 -Current Size (cm) - Width 0.7 -Current Size (cm) - Depth 0.2 -Total Square Cm 0.35 -Photo Taken No -Epithelialization None Present -Tunneling No -Undermining/Tunneling No -Circular Undermining No -Exudate Amt Small (1-33%) -Exudate Type Serosanguineous -Wound Margin Distinct, Outline Attached -Granulation Amt Small (1-33%) -Granulation Quality Red -Slough/Fibrin Yes -Necrosis Amt Large (67-100%) -Necrotic Tissue Type Adherent Slough -Structure Exposed N/A -Texture (Vidya-wound Skin Appearance) Scarring -Moisture (Vidya-wound Skin Appearance Assessed ) -Color (Vidya-wound Skin Appearance) Assessed -Temperature (Vidya-wound Skin No Abnormality Appearance) (Pt Warm) -Tenderness on Palpation (Vidya-wound No Skin Appearance) -Ulcer Cleansing Rinsed/ Irrigated with Saline -Foul Odor after Cleansing No -Anesthetic Used 5% Lidocaine Gel #1 Right dorsal medial 1st Metatarsophalangeal Joint -Combined with other wound No -Current Size (cm) - Length 0.9 -Current Size (cm) - Width 0.7 -Current Size (cm) - Depth 0.1 -Total Square Cm 0.63 -Photo Taken No -Epithelialization None Present -Tunneling No -Undermining/Tunneling No -Circular Undermining No -Exudate Amt Small (1-33%) -Exudate Type Serosanguineous -Wound Margin Distinct, Outline Attached -Granulation Amt Small (1-33%) -Granulation Quality Red -Slough/Fibrin Yes -Necrosis Amt Large (67-100%) -Necrotic Tissue Type Eschar -Structure Exposed N/A -Texture (Vidya-wound Skin Appearance) Scarring -Moisture (Vidya-wound Skin Appearance Assessed ) -Color (Vidya-wound Skin Appearance) Assessed -Temperature (Vidya-wound Skin No Abnormality Appearance) (Pt Warm) -Tenderness on Palpation (Vidya-wound No Skin Appearance) -Ulcer Cleansing Rinsed/ Irrigated with Saline -Foul Odor after Cleansing No -Anesthetic Used 5% Lidocaine Gel [Edema Assessment] -Lower Limb Edema Present Yes -Right Calf (cm) 31.9 -Right Ankle (cm) 21.8 WC - Nurse 2 - General Ulcer CM Notes Start: 08/18/17 09:58 Freq: Status: Active Protocol: Activity Type Activity Date Activity User E-Sign Co-Sign Detail Recorded Client Recorded Date Recorded By Document 08/18/17 11:22 [facility] [id number] 08/18/17 11:52 [facility] 08/18/17 11:22 Wound Center Nurse 2 [Procedure/Treatment] #4 LEFT HIP -Time 11:40 -Correct Patient Yes -Correct Side, Site, Position Yes -Correct Procedure Yes -Procedure Performed Yes -Type of Procedure Debridement -Clinical Debridement Subcutaneous -Post Debridement Size (cm) - Length 2.8 -Post Debridement Size (cm) - Width 0.2 -Post Debridement Size (cm) - Depth 6.5 -Total Square Cm 0.56 -Wound/Ulcer Outcome Not Healed -Ulcer Cleansing Rinsed/ Irrigated with Saline -Foul Odor after Cleansing No -Bioengineered Tissue No -Bleeding Controlled with Pressure -Other TUNNELING 7 - 3 .5CM -Treatment Response Procedure Tolerated Well #3 RIGHT HIP -Time 11:41 -Correct Patient Yes -Correct Side, Site, Position Yes -Correct Procedure Yes -Procedure Performed Yes -Type of Procedure Debridement -Clinical Debridement Subcutaneous -Post Debridement Size (cm) - Length 1.1 -Post Debridement Size (cm) - Width 0.8 -Post Debridement Size (cm) - Depth 1.8 -Total Square Cm 0.88 -Wound/Ulcer Outcome Not Healed -Ulcer Cleansing Rinsed/ Irrigated with Saline -Foul Odor after Cleansing No -Bioengineered Tissue No -Bleeding Controlled with Pressure -Treatment Response Procedure Tolerated Well #2 Right dorsal Great Toe -Time 11:31 -Correct Patient Yes -Correct Side, Site, Position Yes -Correct Procedure Yes -Procedure Performed Yes -Type of Procedure Debridement -Clinical Debridement Subcutaneous -Post Debridement Size (cm) - Length 0.7 -Post Debridement Size (cm) - Width 1.1 -Post Debridement Size (cm) - Depth 0.3 -Total Square Cm 0.77 -Wound/Ulcer Outcome Not Healed -Ulcer Cleansing Rinsed/ Irrigated with Saline -Foul Odor after Cleansing No -Bioengineered Tissue No -Type of bioengineered Tissue EPIFIX -Expiration Date 05/15/22 -Product Lot Number [id number] -Percent Used 100 -Saline Lot Number [id number] -Bleeding Controlled with Pressure -Treatment Response Procedure Tolerated Well #1 Right dorsal medial 1st Metatarsophalangeal Joint -Time 11:31 -Correct Patient Yes -Correct Side, Site, Position Yes -Correct Procedure Yes -Procedure Performed Yes -Type of Procedure Debridement -Clinical Debridement Subcutaneous -Post Debridement Size (cm) - Length 0.9 -Post Debridement Size (cm) - Width 0.9 -Post Debridement Size (cm) - Depth 0.2 -Total Square Cm 0.81 -Wound/Ulcer Outcome Not Healed -Ulcer Cleansing Rinsed/ Irrigated with Saline -Foul Odor after Cleansing No -Bioengineered Tissue No -Type of bioengineered Tissue EPIFIX -Expiration Date 05/15/22 -Product Lot Number [id number] -Percent Used 100 -Saline Lot Number [id number] -Bleeding Controlled with Pressure -Treatment Response Procedure Tolerated Well [See Physician Procedure note for Specifics] Pain Scale: 0-10 Numeric [Pain] -Is Patient Pain Free? Yes Musculoskeletal: No Tenderness to Palpation of Joints or Extremities Lymphatic: No Cervical, Supraclavicular, or Inguinal Adenopathy Neurological: Cranial nerves II-XII grossly intact, Neuro grossly intact Psych/Mental Status: Normal Affect, Appropriate, Alert and oriented to time, place, person, mood and affect Debridement Note Post-Debridement Measurements/Treatment WC - Nurse 2 - General Ulcer CM Notes Start: 08/18/17 09:58 Freq: Status: Active Protocol: Activity Type Activity Date Activity User E-Sign Co-Sign Detail Recorded Client Recorded Date Recorded By Document 08/18/17 11:22 [facility] [id number] 08/18/17 11:52 [facility] 08/18/17 11:22 Wound Center Nurse 2 #4 LEFT HIP -Time 11:40 -Correct Patient Yes -Correct Side, Site, Position Yes -Correct Procedure Yes -Procedure Performed Yes -Type of Procedure Debridement -Clinical Debridement Subcutaneous -Post Debridement Size (cm) - Length 2.8 -Post Debridement Size (cm) - Width 0.2 -Post Debridement Size (cm) - Depth 6.5 -Total Square Cm 0.56 -Wound/Ulcer Outcome Not Healed -Ulcer Cleansing Rinsed/ Irrigated with Saline -Foul Odor after Cleansing No -Bioengineered Tissue No -Bleeding Controlled with Pressure -Other TUNNELING 7 - 3 .5CM -Treatment Response Procedure Tolerated Well #3 RIGHT HIP -Time 11:41 -Correct Patient Yes -Correct Side, Site, Position Yes -Correct Procedure Yes -Procedure Performed Yes -Type of Procedure Debridement -Clinical Debridement Subcutaneous -Post Debridement Size (cm) - Length 1.1 -Post Debridement Size (cm) - Width 0.8 -Post Debridement Size (cm) - Depth 1.8 -Total Square Cm 0.88 -Wound/Ulcer Outcome Not Healed -Ulcer Cleansing Rinsed/ Irrigated with Saline -Foul Odor after Cleansing No -Bioengineered Tissue No -Bleeding Controlled with Pressure -Treatment Response Procedure Tolerated Well #2 Right dorsal Great Toe -Time 11:31 -Correct Patient Yes -Correct Side, Site, Position Yes -Correct Procedure Yes -Procedure Performed Yes -Type of Procedure Debridement -Clinical Debridement Subcutaneous -Post Debridement Size (cm) - Length 0.7 -Post Debridement Size (cm) - Width 1.1 -Post Debridement Size (cm) - Depth 0.3 -Total Square Cm 0.77 -Wound/Ulcer Outcome Not Healed -Ulcer Cleansing Rinsed/ Irrigated with Saline -Foul Odor after Cleansing No -Bioengineered Tissue No -Type of bioengineered Tissue EPIFIX -Expiration Date 05/15/22 -Product Lot Number [id number] -Percent Used 100 -Saline Lot Number [id number] -Bleeding Controlled with Pressure -Treatment Response Procedure Tolerated Well #1 Right dorsal medial 1st Metatarsophalangeal Joint -Time 11:31 -Correct Patient Yes -Correct Side, Site, Position Yes -Correct Procedure Yes -Procedure Performed Yes -Type of Procedure Debridement -Clinical Debridement Subcutaneous -Post Debridement Size (cm) - Length 0.9 -Post Debridement Size (cm) - Width 0.9 -Post Debridement Size (cm) - Depth 0.2 -Total Square Cm 0.81 -Wound/Ulcer Outcome Not Healed -Ulcer Cleansing Rinsed/ Irrigated with Saline -Foul Odor after Cleansing No -Bioengineered Tissue No -Type of bioengineered Tissue EPIFIX -Expiration Date 05/15/22 -Product Lot Number [id number] -Percent Used 100 -Saline Lot Number [id number] -Bleeding Controlled with Pressure -Treatment Response Procedure Tolerated Well Pain Scale: 0-10 Numeric Is Patient Pain Free? Yes Wound debrided: Great toe Type of Debridement: Excisional debridement Anesthesia Used: 5% Lidocaine Gel Depth: Down to and including healthy tissue, in the subcutaneous layer, to bone Percentage of wound debrided: 100 Instrument Used: 3mm curette Tissue Removed: Fibrin Severity: Limited To Skin Breakdown Amount of bleeding with debridement: Moderate Bleeding Controlled with: Compression and gauze Patient tolerated procedure well - Additional Wound Wound debrided: Right hallux Type of Debridement: Excisional debridement Anesthesia Used: 5% Lidocaine Gel Depth: Down to and including healthy tissue, in the subcutaneous layer Percentage of wound debrided: 100 Instrument Used: 3mm curette Tissue Removed: fibrin Severity: Limited To Skin Breakdown Amount of bleeding with debridement: Moderate Bleeding Controlled with: Compression and gauze Patient tolerated procedure: Patient tolerated procedure well - Additional Wound Wound debrided: Right hip Type of Debridement: Excisional debridement Depth: Down to and including healthy tissue, in the subcutaneous layer, to bone Instrument Used: 3mm curette Tissue Removed: Fibrin Severity: Limited To Skin Breakdown Amount of bleeding with debridement: Mild Bleeding Controlled with: - - Gated with normal saline Patient tolerated procedure: Patient tolerated procedure well - Additional Wound Wound debrided: Hip ulcer Laterality: Left Type of Debridement: Excisional debridement Anesthesia Used: 5% Lidocaine Gel Depth: Down to and including healthy tissue, in the subcutaneous layer, to bone Percentage of wound debrided: 100 Instrument Used: 3mm curette Tissue Removed: Serous fluid Severity: Limited To Skin Breakdown Amount of bleeding with debridement: Mild Patient tolerated procedure: Patient tolerated procedure well Assessment/Plan Active Problems Open wound of left hip and thigh with complication (Chronic) Open wound of right hip (Chronic) Chronic ulcer of right great toe (Acute) Delayed wound healing (Chronic) Malnutrition (Chronic) Right foot drop (Chronic) Status post total hip replacement, left (Chronic) Assessment: Ulcers to the dorsal aspect of the right hallux and medial right first metatarsophalangeal joint with fat layer exposed. Foot drop. 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 Malnutrition. Right and left hip ulcers. 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 Right great toe and hallux #6 epi fix applied. Patient assessed for HBO treatments recommended 1/2 srinivas with 2 air breaks of 5 minutes. Follow-up in 1 week. This note was generated with [employer] dictation software. It may contain incorrect words, spelling, and punctuation that were not noted in checking the note before signing.
--- NOTE | 2017-08-18 13:03 | PN.PCM_ITS ---
(1) Chronic ulcer of right foot Status: Acute Current Visit: No Qualifiers: Non-pressure ulcer stage: with necrosis of bone Qualified Code(s): L97.514 - Non-pressure chronic ulcer of other part of right foot with necrosis of bone Code(s): L97.519 - Non-pressure chronic ulcer of other part of right foot with unspecified severity (2) Chronic ulcer of right great toe Status: Acute Current Visit: Yes Qualifiers: Non-pressure ulcer stage: unspecified non-pressure ulcer stage Qualified Code(s): L97.519 - Non-pressure chronic ulcer of other part of right foot with unspecified severity Code(s): L97.519 - Non-pressure chronic ulcer of other part of right foot with unspecified severity (3) Delayed wound healing Status: Chronic Current Visit: Yes Code(s): T14.8XXD - Other injury of unspecified body region, subsequent encounter (4) Malnutrition Status: Chronic Current Visit: Yes Qualifiers: Malnutrition type: protein-calorie malnutrition Protein-calorie malnutrition severity: moderate Qualified Code(s): E44.0 - Moderate protein- calorie malnutrition Code(s): E46 - Unspecified protein-calorie malnutrition (5) Open wound of left hip and thigh with complication Status: Chronic Current Visit: Yes Qualifiers: Encounter type: subsequent encounter Qualified Code(s): S71.002D - Unspecified open wound, left hip, subsequent encounter; S71.102D - Unspecified open wound, left thigh, subsequent encounter Code(s): S71.002A - Unspecified open wound, left hip, initial encounter; S71.102A - Unspecified open wound, left thigh, initial encounter (6) 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 Current Visit: No Code(s): L59.8 - Other specified disorders of the skin and subcutaneous tissue related to radiation; Y84.2 - Radiological procedure and radiotherapy as the cause of abnormal reaction of the patient, or of later complication, without mention of misadventure at the time of the procedure (7) Status post total hip replacement, left Status: Chronic Current Visit: Yes Code(s): Z96.642 - Presence of left artificial hip joint (8) Open wound of right hip Status: Chronic Current Visit: Yes Qualifiers: Encounter type: subsequent encounter Qualified Code(s): S71.001D - Unspecified open wound, right hip, subsequent encounter Code(s): S71.001A - Unspecified open wound, right hip, initial encounter (9) Right foot drop Status: Chronic Current Visit: Yes Code(s): M21.371 - Foot drop, right foot Type of Wound Date of Service: 08/18/17 Chief Complaint: Ulcer to dorsomedial aspect of the right hallux and dorsomedial 1st metatarsophalangeal joint. Right and left hips ulcers. To be cleared for HBO therapy History of Wound: 76-year-old white male had previously in 1999 for about had prostate cancer and was given radiation over and beyond what was therapeutic. After that he had both hips replacements ?2 to each one done with poor outcomes. He now has ulcers in both hips that tunnel into the bone on either side. He has had wound vacs and a currently he is just packing with gauze dressings. She has been on continuous Augmentin since April. Because of his poor outcomes for healing they have opted for HBO therapy here at the wound center. In the meantime I am to care for all of his other wounds also. 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 Patient still has drainage from bilateral hips that look yellowish some odor. We will obtain cultures from both hips and toes we will x- ray foot and hips bilaterally. We will also get chest x-ray for HBO and a complete blood count and a pre-albumin. Progress of Wound: There appears to be a slight improvement from last week bilateral hips. Great toe and right helix debrided and we applied #6 epi fix to the toe and hallux . Ulcers came back positive from the left hip of E. coli patient started on Levaquin 750 mg daily for 14 days. X-rays of the pelvis and hips show questionable osteomyelitis bone scan will be ordered. 2 new packing of the left and right hip with the Aquacel roping. chest x-ray was negative for HBO evaluation. Lab work shows anemia and a prealbumin that is very low at 13 patient needs to be booted up with protein - Physical Exam Vital Signs Temp Pulse Resp BP 98 F 82 16 110/59 L 08/18/17 10:53 08/18/17 10:53 08/18/17 10:53 08/18/17 10:53 General: Oriented x3, Cooperative, Well developed HEENT: Atraumatic, PERRLA Oral: Moist Mucosa Neck: Supple, No JVD Lungs: Clear to auscultation, Normal air movement Cardiovascular: Regular rate, Regular Rhythm Abdomen: Bowel Sounds Present, Soft, Non Tender, No Hepato-splenomegaly Extremities: No clubbing, No edema Skin: Ulcer/ Wound - Lateral hip ulcers with tunneling and undermining, right great toe and right hallux Wound Measurements and Assessment WC - Nurse 1 - General Ulcer Measurement Start: 08/18/17 09:58 Freq: Status: Active Protocol: Activity Type Activity Date Activity User E-Sign Co-Sign Detail Recorded Client Recorded Date Recorded By Document 08/18/17 10:53 [facility] [id number] 08/18/17 11:18 [facility] 08/18/17 10:53 Wound Center Nurse 1 [Ulcer Assessment] #4 LEFT HIP -Combined with other wound No -Current Size (cm) - Length 2.9 -Current Size (cm) - Width 0.1 -Current Size (cm) - Depth 5 -Total Square Cm 0.29 -Photo Taken No -Epithelialization None Present -Tunneling No -Undermining/Tunneling No -Circular Undermining No -Exudate Amt Large (67-100%) -Exudate Type Serosanguineous -Wound Margin Distinct, Outline Attached -Granulation Amt Large (67-100%) -Granulation Quality [place] -Slough/Fibrin No -Necrosis Amt None Present (0 %) -Texture (Vidya-wound Skin Appearance) Scarring -Moisture (Vidya-wound Skin Appearance Maceration ) -Color (Vidya-wound Skin Appearance) Assessed -Temperature (Vidya-wound Skin No Abnormality Appearance) (Pt Warm) -Tenderness on Palpation (Vidya-wound No Skin Appearance) -Ulcer Cleansing Rinsed/ Irrigated with Saline -Foul Odor after Cleansing No -Anesthetic Used 4% Lidocaine Solution #3 RIGHT HIP -Combined with other wound No -Current Size (cm) - Length 1 -Current Size (cm) - Width 0.5 -Current Size (cm) - Depth 2.2 -Total Square Cm 0.5 -Photo Taken No -Epithelialization None Present -Tunneling No -Undermining/Tunneling No -Circular Undermining No -Wound Margin Distinct, Outline Attached -Granulation Amt Large (67-100%) -Granulation Quality [place] -Slough/Fibrin No -Necrosis Amt None Present (0 %) -Texture (Vidya-wound Skin Appearance) Scarring -Moisture (Vidya-wound Skin Appearance Maceration ) -Color (Vidya-wound Skin Appearance) No Abnormality Assessed -Temperature (Vidya-wound Skin No Abnormality Appearance) (Pt Warm) -Tenderness on Palpation (Vidya-wound No Skin Appearance) -Ulcer Cleansing Rinsed/ Irrigated with Saline -Foul Odor after Cleansing No -Anesthetic Used 4% Lidocaine Solution #2 Right dorsal Great Toe -Combined with other wound No -Current Size (cm) - Length 0.5 -Current Size (cm) - Width 0.7 -Current Size (cm) - Depth 0.2 -Total Square Cm 0.35 -Photo Taken No -Epithelialization None Present -Tunneling No -Undermining/Tunneling No -Circular Undermining No -Exudate Amt Small (1-33%) -Exudate Type Serosanguineous -Wound Margin Distinct, Outline Attached -Granulation Amt Small (1-33%) -Granulation Quality Red -Slough/Fibrin Yes -Necrosis Amt Large (67-100%) -Necrotic Tissue Type Adherent Slough -Structure Exposed N/A -Texture (Vidya-wound Skin Appearance) Scarring -Moisture (Vidya-wound Skin Appearance Assessed ) -Color (Vidya-wound Skin Appearance) Assessed -Temperature (Vidya-wound Skin No Abnormality Appearance) (Pt Warm) -Tenderness on Palpation (Vidya-wound No Skin Appearance) -Ulcer Cleansing Rinsed/ Irrigated with Saline -Foul Odor after Cleansing No -Anesthetic Used 5% Lidocaine Gel #1 Right dorsal medial 1st Metatarsophalangeal Joint -Combined with other wound No -Current Size (cm) - Length 0.9 -Current Size (cm) - Width 0.7 -Current Size (cm) - Depth 0.1 -Total Square Cm 0.63 -Photo Taken No -Epithelialization None Present -Tunneling No -Undermining/Tunneling No -Circular Undermining No -Exudate Amt Small (1-33%) -Exudate Type Serosanguineous -Wound Margin Distinct, Outline Attached -Granulation Amt Small (1-33%) -Granulation Quality Red -Slough/Fibrin Yes -Necrosis Amt Large (67-100%) -Necrotic Tissue Type Eschar -Structure Exposed N/A -Texture (Vidya-wound Skin Appearance) Scarring -Moisture (Vidya-wound Skin Appearance Assessed ) -Color (Vidya-wound Skin Appearance) Assessed -Temperature (Vidya-wound Skin No Abnormality Appearance) (Pt Warm) -Tenderness on Palpation (Vidya-wound No Skin Appearance) -Ulcer Cleansing Rinsed/ Irrigated with Saline -Foul Odor after Cleansing No -Anesthetic Used 5% Lidocaine Gel [Edema Assessment] -Lower Limb Edema Present Yes -Right Calf (cm) 31.9 -Right Ankle (cm) 21.8 WC - Nurse 2 - General Ulcer CM Notes Start: 08/18/17 09:58 Freq: Status: Active Protocol: Activity Type Activity Date Activity User E-Sign Co-Sign Detail Recorded Client Recorded Date Recorded By Document 08/18/17 11:22 [facility] [id number] 08/18/17 11:52 [facility] 08/18/17 11:22 Wound Center Nurse 2 [Procedure/Treatment] #4 LEFT HIP -Time 11:40 -Correct Patient Yes -Correct Side, Site, Position Yes -Correct Procedure Yes -Procedure Performed Yes -Type of Procedure Debridement -Clinical Debridement Subcutaneous -Post Debridement Size (cm) - Length 2.8 -Post Debridement Size (cm) - Width 0.2 -Post Debridement Size (cm) - Depth 6.5 -Total Square Cm 0.56 -Wound/Ulcer Outcome Not Healed -Ulcer Cleansing Rinsed/ Irrigated with Saline -Foul Odor after Cleansing No -Bioengineered Tissue No -Bleeding Controlled with Pressure -Other TUNNELING 7 - 3 .5CM -Treatment Response Procedure Tolerated Well #3 RIGHT HIP -Time 11:41 -Correct Patient Yes -Correct Side, Site, Position Yes -Correct Procedure Yes -Procedure Performed Yes -Type of Procedure Debridement -Clinical Debridement Subcutaneous -Post Debridement Size (cm) - Length 1.1 -Post Debridement Size (cm) - Width 0.8 -Post Debridement Size (cm) - Depth 1.8 -Total Square Cm 0.88 -Wound/Ulcer Outcome Not Healed -Ulcer Cleansing Rinsed/ Irrigated with Saline -Foul Odor after Cleansing No -Bioengineered Tissue No -Bleeding Controlled with Pressure -Treatment Response Procedure Tolerated Well #2 Right dorsal Great Toe -Time 11:31 -Correct Patient Yes -Correct Side, Site, Position Yes -Correct Procedure Yes -Procedure Performed Yes -Type of Procedure Debridement -Clinical Debridement Subcutaneous -Post Debridement Size (cm) - Length 0.7 -Post Debridement Size (cm) - Width 1.1 -Post Debridement Size (cm) - Depth 0.3 -Total Square Cm 0.77 -Wound/Ulcer Outcome Not Healed -Ulcer Cleansing Rinsed/ Irrigated with Saline -Foul Odor after Cleansing No -Bioengineered Tissue No -Type of bioengineered Tissue EPIFIX -Expiration Date 05/15/22 -Product Lot Number [id number] -Percent Used 100 -Saline Lot Number [id number] -Bleeding Controlled with Pressure -Treatment Response Procedure Tolerated Well #1 Right dorsal medial 1st Metatarsophalangeal Joint -Time 11:31 -Correct Patient Yes -Correct Side, Site, Position Yes -Correct Procedure Yes -Procedure Performed Yes -Type of Procedure Debridement -Clinical Debridement Subcutaneous -Post Debridement Size (cm) - Length 0.9 -Post Debridement Size (cm) - Width 0.9 -Post Debridement Size (cm) - Depth 0.2 -Total Square Cm 0.81 -Wound/Ulcer Outcome Not Healed -Ulcer Cleansing Rinsed/ Irrigated with Saline -Foul Odor after Cleansing No -Bioengineered Tissue No -Type of bioengineered Tissue EPIFIX -Expiration Date 05/15/22 -Product Lot Number [id number] -Percent Used 100 -Saline Lot Number [id number] -Bleeding Controlled with Pressure -Treatment Response Procedure Tolerated Well [See Physician Procedure note for Specifics] Pain Scale: 0-10 Numeric [Pain] -Is Patient Pain Free? Yes Musculoskeletal: No Tenderness to Palpation of Joints or Extremities Lymphatic: No Cervical, Supraclavicular, or Inguinal Adenopathy Neurological: Cranial nerves II-XII grossly intact, Neuro grossly intact Psych/Mental Status: Normal Affect, Appropriate, Alert and oriented to time, place, person, mood and affect Debridement Note Post-Debridement Measurements/Treatment WC - Nurse 2 - General Ulcer CM Notes Start: 08/18/17 09:58 Freq: Status: Active Protocol: Activity Type Activity Date Activity User E-Sign Co-Sign Detail Recorded Client Recorded Date Recorded By Document 08/18/17 11:22 [facility] [id number] 08/18/17 11:52 [facility] 08/18/17 11:22 Wound Center Nurse 2 #4 LEFT HIP -Time 11:40 -Correct Patient Yes -Correct Side, Site, Position Yes -Correct Procedure Yes -Procedure Performed Yes -Type of Procedure Debridement -Clinical Debridement Subcutaneous -Post Debridement Size (cm) - Length 2.8 -Post Debridement Size (cm) - Width 0.2 -Post Debridement Size (cm) - Depth 6.5 -Total Square Cm 0.56 -Wound/Ulcer Outcome Not Healed -Ulcer Cleansing Rinsed/ Irrigated with Saline -Foul Odor after Cleansing No -Bioengineered Tissue No -Bleeding Controlled with Pressure -Other TUNNELING 7 - 3 .5CM -Treatment Response Procedure Tolerated Well #3 RIGHT HIP -Time 11:41 -Correct Patient Yes -Correct Side, Site, Position Yes -Correct Procedure Yes -Procedure Performed Yes -Type of Procedure Debridement -Clinical Debridement Subcutaneous -Post Debridement Size (cm) - Length 1.1 -Post Debridement Size (cm) - Width 0.8 -Post Debridement Size (cm) - Depth 1.8 -Total Square Cm 0.88 -Wound/Ulcer Outcome Not Healed -Ulcer Cleansing Rinsed/ Irrigated with Saline -Foul Odor after Cleansing No -Bioengineered Tissue No -Bleeding Controlled with Pressure -Treatment Response Procedure Tolerated Well #2 Right dorsal Great Toe -Time 11:31 -Correct Patient Yes -Correct Side, Site, Position Yes -Correct Procedure Yes -Procedure Performed Yes -Type of Procedure Debridement -Clinical Debridement Subcutaneous -Post Debridement Size (cm) - Length 0.7 -Post Debridement Size (cm) - Width 1.1 -Post Debridement Size (cm) - Depth 0.3 -Total Square Cm 0.77 -Wound/Ulcer Outcome Not Healed -Ulcer Cleansing Rinsed/ Irrigated with Saline -Foul Odor after Cleansing No -Bioengineered Tissue No -Type of bioengineered Tissue EPIFIX -Expiration Date 05/15/22 -Product Lot Number [id number] -Percent Used 100 -Saline Lot Number [id number] -Bleeding Controlled with Pressure -Treatment Response Procedure Tolerated Well #1 Right dorsal medial 1st Metatarsophalangeal Joint -Time 11:31 -Correct Patient Yes -Correct Side, Site, Position Yes -Correct Procedure Yes -Procedure Performed Yes -Type of Procedure Debridement -Clinical Debridement Subcutaneous -Post Debridement Size (cm) - Length 0.9 -Post Debridement Size (cm) - Width 0.9 -Post Debridement Size (cm) - Depth 0.2 -Total Square Cm 0.81 -Wound/Ulcer Outcome Not Healed -Ulcer Cleansing Rinsed/ Irrigated with Saline -Foul Odor after Cleansing No -Bioengineered Tissue No -Type of bioengineered Tissue EPIFIX -Expiration Date 05/15/22 -Product Lot Number [id number] -Percent Used 100 -Saline Lot Number [id number] -Bleeding Controlled with Pressure -Treatment Response Procedure Tolerated Well Pain Scale: 0-10 Numeric Is Patient Pain Free? Yes Wound debrided: Great toe Type of Debridement: Excisional debridement Anesthesia Used: 5% Lidocaine Gel Depth: Down to and including healthy tissue, in the subcutaneous layer, to bone Percentage of wound debrided: 100 Instrument Used: 3mm curette Tissue Removed: Fibrin Severity: Limited To Skin Breakdown Amount of bleeding with debridement: Moderate Bleeding Controlled with: Compression and gauze Patient tolerated procedure well - Additional Wound Wound debrided: Right hallux Type of Debridement: Excisional debridement Anesthesia Used: 5% Lidocaine Gel Depth: Down to and including healthy tissue, in the subcutaneous layer Percentage of wound debrided: 100 Instrument Used: 3mm curette Tissue Removed: fibrin Severity: Limited To Skin Breakdown Amount of bleeding with debridement: Moderate Bleeding Controlled with: Compression and gauze Patient tolerated procedure: Patient tolerated procedure well - Additional Wound Wound debrided: Right hip Type of Debridement: Excisional debridement Depth: Down to and including healthy tissue, in the subcutaneous layer, to bone Instrument Used: 3mm curette Tissue Removed: Fibrin Severity: Limited To Skin Breakdown Amount of bleeding with debridement: Mild Bleeding Controlled with: - - Gated with normal saline Patient tolerated procedure: Patient tolerated procedure well - Additional Wound Wound debrided: Hip ulcer Laterality: Left Type of Debridement: Excisional debridement Anesthesia Used: 5% Lidocaine Gel Depth: Down to and including healthy tissue, in the subcutaneous layer, to bone Percentage of wound debrided: 100 Instrument Used: 3mm curette Tissue Removed: Serous fluid Severity: Limited To Skin Breakdown Amount of bleeding with debridement: Mild Patient tolerated procedure: Patient tolerated procedure well Assessment/Plan Active Problems Open wound of left hip and thigh with complication (Chronic) Open wound of right hip (Chronic) Chronic ulcer of right great toe (Acute) Delayed wound healing (Chronic) Malnutrition (Chronic) Right foot drop (Chronic) Status post total hip replacement, left (Chronic) Assessment: Ulcers to the dorsal aspect of the right hallux and medial right first metatarsophalangeal joint with fat layer exposed. Foot drop. 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 Malnutrition. Right and left hip ulcers. 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 Right great toe and hallux #6 epi fix applied. Patient assessed for HBO treatments recommended 1/2 srinivas with 2 air breaks of 5 minutes. Follow-up in 1 week. This note was generated with [employer] dictation software. It may contain incorrect words, spelling, and punctuation that were not noted in checking the note before signing.
--- NOTE | 2017-08-22 09:18 | NM_ITS ---
STUDY: THREE-PHASE BONE SCAN. REASON FOR EXAM: Male, 76 years old. The patient has a history of chronic ulcerations of both buttocks. TECHNIQUE: 26.2 mCi of technetium labeled MDP were given intravenously. A three-phase bone scan of the pelvis and upper femurs were obtained. COMPARISON: None. FINDINGS: On the blood flow imaging sequence, there is no evidence of increased blood flow. On the blood pool images, increased uptake is seen within the soft tissues. This is suggestive of possible inflammatory change. On the delayed images, there is evidence of bilateral hip replacements. Persistent soft tissue uptake more prominent on the left side. NM/Bone Scan Three Phase IMPRESSION: Status post bilateral total hip replacement. Findings suggestive of the possible infection or inflammatory changes surrounding both hip joints. Electronically Signed: Shaun Tam MD at 9:33 EDT Tel [phone], Service support ,
[2017-08-25 12:38] VITALS: BP 109/74; PULSE 93; RESP 16; TEMP 36.6; BMI 23.7
--- NOTE | 2017-08-25 14:37 | PCM.WC.PN ---
(1) Chronic ulcer of right foot Status: Acute Current Visit: No Qualifiers: Non-pressure ulcer stage: with necrosis of bone Qualified Code(s): L97.514 - Non-pressure chronic ulcer of other part of right foot with necrosis of bone Code(s): L97.519 - Non-pressure chronic ulcer of other part of right foot with unspecified severity (2) Chronic ulcer of right great toe Status: Acute Current Visit: Yes Qualifiers: Non-pressure ulcer stage: unspecified non-pressure ulcer stage Qualified Code(s): L97.519 - Non-pressure chronic ulcer of other part of right foot with unspecified severity Code(s): L97.519 - Non-pressure chronic ulcer of other part of right foot with unspecified severity (3) Delayed wound healing Status: Chronic Current Visit: Yes Code(s): T14.8XXD - Other injury of unspecified body region, subsequent encounter (4) Malnutrition Status: Chronic Current Visit: Yes Qualifiers: Malnutrition type: protein-calorie malnutrition Protein-calorie malnutrition severity: moderate Qualified Code(s): E44.0 - Moderate protein-calorie malnutrition Code(s): E46 - Unspecified protein-calorie malnutrition (5) Open wound of left hip and thigh with complication Status: Chronic Current Visit: Yes Qualifiers: Encounter type: subsequent encounter Qualified Code(s): S71.002D - Unspecified open wound, left hip, subsequent encounter; S71.102D - Unspecified open wound, left thigh, subsequent encounter Code(s): S71.002A - Unspecified open wound, left hip, initial encounter; S71.102A - Unspecified open wound, left thigh, initial encounter (6) 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 Current Visit: Yes Code(s): L59.8 - Other specified disorders of the skin and subcutaneous tissue related to radiation; Y84.2 - Radiological procedure and radiotherapy as the cause of abnormal reaction of the patient, or of later complication, without mention of misadventure at the time of the procedure (7) Status post total hip replacement, left Status: Chronic Current Visit: Yes Code(s): Z96.642 - Presence of left artificial hip joint (8) Open wound of right hip Status: Chronic Current Visit: Yes Qualifiers: Encounter type: subsequent encounter Qualified Code(s): S71.001D - Unspecified open wound, right hip, subsequent encounter Code(s): S71.001A - Unspecified open wound, right hip, initial encounter (9) Right foot drop Status: Chronic Current Visit: Yes Code(s): M21.371 - Foot drop, right foot Type of Wound Date of Service: 08/25/17 Chief Complaint: Ulcer to dorsomedial aspect of the right hallux and dorsomedial 1st metatarsophalangeal joint. Right and left hips ulcers. To be cleared for HBO therapy History of Wound: 76-year-old white male had previously in 1999 for about had prostate cancer and was given radiation over and beyond what was therapeutic. After that he had both hips replacements ?2 to each one done with poor outcomes. He now has ulcers in both hips that tunnel into the bone on either side. He has had wound vacs and a currently he is just packing with gauze dressings. She has been on continuous Augmentin since April. Because of his poor outcomes for healing they have opted for HBO therapy here at the wound center. In the meantime I am to care for all of his other wounds also. 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 Patient still has drainage from bilateral hips that look yellowish some odor. We will obtain cultures from both hips and toes we will x-ray foot and hips bilaterally. We will also get chest x-ray for HBO and a complete blood count and a pre-albumin. Progress of Wound: There appears to be a slight improvement from last week bilateral hips. Great toe and right helix debrided and we applied #7 epi fix to the toe and hallux . Ulcers came back positive from the left hip of E. coli patient started on Levaquin 750 mg daily for 14 days. X-rays of the pelvis and hips show questionable osteomyelitis bone scan will be ordered. Scan was indeterminate and just showed inflammation now we will get a CT of pelvis and abdomen with and without contrast. 2 new packing of the left and right hip with the Aquacel roping. chest x-ray was negative for HBO evaluation. Lab work shows anemia and a prealbumin that is very low at 13 patient needs to be booted up with protein - Physical Exam Vital Signs Temp Pulse Resp BP 98 F 93 16 109/74 08/25/17 12:38 08/25/17 12:38 08/25/17 12:38 08/25/17 12:38 General: Oriented x3, Cooperative, Well developed HEENT: Atraumatic, PERRLA Oral: Moist Mucosa Neck: Supple, No JVD Lungs: Clear to auscultation, Normal air movement Cardiovascular: Regular rate, Regular Rhythm Abdomen: Bowel Sounds Present, Soft, Non Tender, No Hepato-splenomegaly Extremities: No clubbing, No edema, - - Bilateral open ulcers to both hips right great toe and right hallux Skin: Ulcer/ Wound Wound Measurements and Assessment WC - Nurse 1 - General Ulcer Measurement Start: 08/18/17 09:58 Freq: Status: Active Protocol: Activity Type Activity Date Activity User E-Sign Co-Sign Detail Recorded Client Recorded Date Recorded By Document 08/25/17 12:38 [facility] [id number] 08/25/17 12:55 [facility] 08/25/17 12:38 Wound Center Nurse 1 [Ulcer Assessment] #4 LEFT HIP -Combined with other wound No -Current Size (cm) - Length 2.7 -Current Size (cm) - Width 0.6 -Current Size (cm) - Depth 6.2 -Total Square Cm 1.62 -Photo Taken No -Epithelialization Small 1-33% -Tunneling No -Undermining/Tunneling No -Circular Undermining No -Classification - Thickness Full Thickness without Exposed Support Structure -Exudate Amt Large (67-100%) -Exudate Type Serosanguineous -Wound Margin Fibrotic Scar, Thickened Scar -Granulation Amt Large (67-100%) -Granulation Quality [place] -Slough/Fibrin No -Necrosis Amt None Present (0 %) -Structure Exposed Fascia Fat Layer Exposed -Texture (Vidya-wound Skin Appearance) Scarring -Moisture (Vidya-wound Skin Appearance Maceration ) -Color (Vidya-wound Skin Appearance) Erythema -Temperature (Vidya-wound Skin No Abnormality Appearance) (Pt Warm) -Tenderness on Palpation (Vidya-wound No Skin Appearance) -Ulcer Cleansing Rinsed/ Irrigated with Saline -Foul Odor after Cleansing No -Anesthetic Used 4% Lidocaine Solution #3 RIGHT HIP -Combined with other wound No -Current Size (cm) - Length 1.0 -Current Size (cm) - Width 0.6 -Current Size (cm) - Depth 5.0 -Total Square Cm 0.60 -Photo Taken No -Tunneling No -Undermining/Tunneling No -Circular Undermining No -Classification - Thickness Full Thickness without Exposed Support Structure -Exudate Amt Large (67-100%) -Exudate Type Serosanguineous -Wound Margin Fibrotic Scar, Thickened Scar -Granulation Amt Large (67-100%) -Granulation Quality [place] -Slough/Fibrin No -Necrosis Amt None Present (0 %) -Structure Exposed Fascia None/Limited to Skin Breakdown -Texture (Vidya-wound Skin Appearance) Scarring -Moisture (Vidya-wound Skin Appearance Maceration ) -Color (Vidya-wound Skin Appearance) Erythema Palor -Temperature (Vidya-wound Skin No Abnormality Appearance) (Pt Warm) -Tenderness on Palpation (Vidya-wound No Skin Appearance) -Ulcer Cleansing Rinsed/ Irrigated with Saline -Foul Odor after Cleansing No -Anesthetic Used 4% Lidocaine Solution #2 Right dorsal Great Toe -Combined with other wound No -Current Size (cm) - Length 0.5 -Current Size (cm) - Width 1.0 -Current Size (cm) - Depth 0.2 -Total Square Cm 0.50 -Photo Taken No -Epithelialization Small 1-33% -Tunneling No -Undermining/Tunneling No -Circular Undermining No -Classification - Thickness Full Thickness without Exposed Support Structure -Exudate Amt Small (1-33%) -Exudate Type Serosanguineous -Wound Margin Fibrotic Scar, Thickened Scar -Granulation Amt Large (67-100%) -Granulation Quality Pale [place] -Slough/Fibrin Yes -Necrosis Amt Small (1-33%) -Necrotic Tissue Type Adherent Slough -Structure Exposed Fascia Fat Layer Exposed -Texture (Vidya-wound Skin Appearance) Scarring -Moisture (Vidya-wound Skin Appearance Maceration ) -Color (Vidya-wound Skin Appearance) Erythema -Temperature (Vidya-wound Skin No Abnormality Appearance) (Pt Warm) -Tenderness on Palpation (Vidya-wound No Skin Appearance) -Ulcer Cleansing Rinsed/ Irrigated with Saline -Anesthetic Used 4% Lidocaine Solution #1 Right dorsal medial 1st Metatarsophalangeal Joint -Combined with other wound No -Current Size (cm) - Length 0.6 -Current Size (cm) - Width 0.4 -Current Size (cm) - Depth 0.2 -Total Square Cm 0.24 -Photo Taken No -Epithelialization Small 1-33% -Tunneling No -Undermining/Tunneling No -Circular Undermining No -Classification - Thickness Full Thickness without Exposed Support Structure -Exudate Amt Small (1-33%) -Exudate Type Serosanguineous -Wound Margin Fibrotic Scar, Thickened Scar -Granulation Amt Large (67-100%) -Granulation Quality Pale [place] -Slough/Fibrin Yes -Necrosis Amt Small (1-33%) -Necrotic Tissue Type Adherent Slough -Structure Exposed Fascia Fat Layer Exposed -Texture (Vidya-wound Skin Appearance) Callus Scarring -Moisture (Vidya-wound Skin Appearance Maceration ) -Color (Vidya-wound Skin Appearance) Erythema Palor -Temperature (Vidya-wound Skin No Abnormality Appearance) (Pt Warm) -Tenderness on Palpation (Vidya-wound No Skin Appearance) -Ulcer Cleansing Rinsed/ Irrigated with Saline -Foul Odor after Cleansing No -Anesthetic Used 4% Lidocaine Solution [Edema Assessment] -Lower Limb Edema Present Yes -Right Calf (cm) 63.4 -Right Ankle (cm) 21.5 WC - Nurse 2 - General Ulcer CM Notes Start: 08/18/17 09:58 Freq: Status: Active Protocol: Activity Type Activity Date Activity User E-Sign Co-Sign Detail Recorded Client Recorded Date Recorded By Document 08/25/17 13:06 MW [id number] 08/25/17 13:27 MW 08/25/17 13:06 Wound Center Nurse 2 [Procedure/Treatment] #4 LEFT HIP -Time 13:06 -Correct Patient Yes -Correct Side, Site, Position Yes -Correct Procedure Yes -Procedure Performed Yes -Type of Procedure Debridement -Clinical Debridement Subcutaneous -Post Debridement Size (cm) - Length 2.7 -Post Debridement Size (cm) - Width 0.6 -Post Debridement Size (cm) - Depth 6.5 -Total Square Cm 1.62 -Wound/Ulcer Outcome Not Healed -Ulcer Cleansing Rinsed/ Irrigated with Saline -Foul Odor after Cleansing No -Bioengineered Tissue No -Bleeding Controlled with Pressure -Other TUNNEL @ 6 - 2. 1 CM, @ 9- 6. 0CM -Treatment Response Procedure Tolerated Well #3 RIGHT HIP -Time 13:06 -Correct Patient Yes -Correct Side, Site, Position Yes -Correct Procedure Yes -Procedure Performed Yes -Type of Procedure Debridement -Clinical Debridement Subcutaneous -Post Debridement Size (cm) - Length 1.0 -Post Debridement Size (cm) - Width 1.7 -Post Debridement Size (cm) - Depth 1.5 -Total Square Cm 1.70 -Wound/Ulcer Outcome Not Healed -Ulcer Cleansing Rinsed/ Irrigated with Saline -Foul Odor after Cleansing No -Bioengineered Tissue No -Bleeding Controlled with Pressure -Treatment Response Procedure Tolerated Well #2 Right dorsal Great Toe -Time 13:06 -Correct Patient Yes -Correct Side, Site, Position Yes -Correct Procedure Yes -Procedure Performed Yes -Type of Procedure Debridement -Clinical Debridement Subcutaneous -Post Debridement Size (cm) - Length 0.5 -Post Debridement Size (cm) - Width 0.9 -Post Debridement Size (cm) - Depth 0.2 -Total Square Cm 0.45 -Wound/Ulcer Outcome Not Healed -Ulcer Cleansing Rinsed/ Irrigated with Saline -Foul Odor after Cleansing No -Bioengineered Tissue Yes -Type of bioengineered Tissue EPIFIX -Expiration Date 05/15/22 -Product Lot Number [id number] -Percent Used 100 -Saline Lot Number [id number] -Bleeding Controlled with Pressure -Treatment Response Procedure Tolerated Well #1 Right dorsal medial 1st Metatarsophalangeal Joint -Time 13:07 -Correct Patient Yes -Correct Side, Site, Position Yes -Correct Procedure Yes -Procedure Performed Yes -Type of Procedure Debridement -Clinical Debridement Subcutaneous -Post Debridement Size (cm) - Length 0.7 -Post Debridement Size (cm) - Width 0.7 -Post Debridement Size (cm) - Depth 0.2 -Total Square Cm 0.49 -Wound/Ulcer Outcome Not Healed -Ulcer Cleansing Not Cleansed -Foul Odor after Cleansing No -Bioengineered Tissue Yes -Type of bioengineered Tissue EPIFIX -Expiration Date 05/15/22 -Product Lot Number [id number] -Percent Used 100 -Saline Lot Number [id number] -Bleeding Controlled with Pressure -Treatment Response Procedure Tolerated Well [See Physician Procedure note for Specifics] Pain Scale: 0-10 Numeric [Pain] -Is Patient Pain Free? Yes Musculoskeletal: No Tenderness to Palpation of Joints or Extremities Lymphatic: No Cervical, Supraclavicular, or Inguinal Adenopathy Neurological: Cranial nerves II-XII grossly intact, Neuro grossly intact Psych/Mental Status: Normal Affect, Appropriate, Alert and oriented to time, place, person, mood and affect Debridement Note Post-Debridement Measurements/Treatment WC - Nurse 2 - General Ulcer CM Notes Start: 08/18/17 09:58 Freq: Status: Active Protocol: Activity Type Activity Date Activity User E-Sign Co-Sign Detail Recorded Client Recorded Date Recorded By Document 08/18/17 11:22 [facility] [id number] 08/18/17 11:52 [facility] Document 08/25/17 13:06 [id number] 08/25/17 13:27 08/18/17 08/25/17 11:22 13:06 Wound Center Nurse 2 #4 LEFT HIP -Time 11:40 13:06 -Correct Patient Yes Yes -Correct Side, Site, Position Yes Yes -Correct Procedure Yes Yes -Procedure Performed Yes Yes -Type of Procedure Debridement Debridement -Clinical Debridement Subcutaneous Subcutaneous -Post Debridement Size (cm) - Length 2.8 2.7 -Post Debridement Size (cm) - Width 0.2 0.6 -Post Debridement Size (cm) - Depth 6.5 6.5 -Total Square Cm 0.56 1.62 -Wound/Ulcer Outcome Not Healed Not Healed -Ulcer Cleansing Rinsed/ Rinsed/ Irrigated with Irrigated with Saline Saline -Foul Odor after Cleansing No No -Bioengineered Tissue No No -Bleeding Controlled with Pressure Pressure -Other TUNNELING 7 - 3 TUNNEL @ 6 - 2. .5CM 1 CM, @ 9- 6. 0CM -Treatment Response Procedure Procedure Tolerated Well Tolerated Well #3 RIGHT HIP -Time 11:41 13:06 -Correct Patient Yes Yes -Correct Side, Site, Position Yes Yes -Correct Procedure Yes Yes -Procedure Performed Yes Yes -Type of Procedure Debridement Debridement -Clinical Debridement Subcutaneous Subcutaneous -Post Debridement Size (cm) - Length 1.1 1.0 -Post Debridement Size (cm) - Width 0.8 1.7 -Post Debridement Size (cm) - Depth 1.8 1.5 -Total Square Cm 0.88 1.70 -Wound/Ulcer Outcome Not Healed Not Healed -Ulcer Cleansing Rinsed/ Rinsed/ Irrigated with Irrigated with Saline Saline -Foul Odor after Cleansing No No -Bioengineered Tissue No No -Bleeding Controlled with Pressure Pressure -Treatment Response Procedure Procedure Tolerated Well Tolerated Well #2 Right dorsal Great Toe -Time 11:31 13:06 -Correct Patient Yes Yes -Correct Side, Site, Position Yes Yes -Correct Procedure Yes Yes -Procedure Performed Yes Yes -Type of Procedure Debridement Debridement -Clinical Debridement Subcutaneous Subcutaneous -Post Debridement Size (cm) - Length 0.7 0.5 -Post Debridement Size (cm) - Width 1.1 0.9 -Post Debridement Size (cm) - Depth 0.3 0.2 -Total Square Cm 0.77 0.45 -Wound/Ulcer Outcome Not Healed Not Healed -Ulcer Cleansing Rinsed/ Rinsed/ Irrigated with Irrigated with Saline Saline -Foul Odor after Cleansing No No -Bioengineered Tissue No Yes -Type of bioengineered Tissue EPIFIX EPIFIX -Expiration Date 05/15/22 05/15/22 -Product Lot Number [id number] -Percent Used 100 100 -Saline Lot Number [id number] -Bleeding Controlled with Pressure Pressure -Treatment Response Procedure Procedure Tolerated Well Tolerated Well #1 Right dorsal medial 1st Metatarsophalangeal Joint -Time 11:31 13:07 -Correct Patient Yes Yes -Correct Side, Site, Position Yes Yes -Correct Procedure Yes Yes -Procedure Performed Yes Yes -Type of Procedure Debridement Debridement -Clinical Debridement Subcutaneous Subcutaneous -Post Debridement Size (cm) - Length 0.9 0.7 -Post Debridement Size (cm) - Width 0.9 0.7 -Post Debridement Size (cm) - Depth 0.2 0.2 -Total Square Cm 0.81 0.49 -Wound/Ulcer Outcome Not Healed Not Healed -Ulcer Cleansing Rinsed/ Not Cleansed Irrigated with Saline -Foul Odor after Cleansing No No -Bioengineered Tissue No Yes -Type of bioengineered Tissue EPIFIX EPIFIX -Expiration Date 05/15/22 05/15/22 -Product Lot Number [id number] -Percent Used 100 100 -Saline Lot Number [id number] -Bleeding Controlled with Pressure Pressure -Treatment Response Procedure Procedure Tolerated Well Tolerated Well Pain Scale: 0-10 Numeric Is Patient Pain Free? Yes Yes Wound debrided: Right great toe Type of Debridement: Excisional debridement Anesthesia Used: 5% Lidocaine Gel Depth: Down to and including healthy tissue, in the subcutaneous layer, to bone Percentage of wound debrided: 100 Instrument Used: 5mm curette Tissue Removed: fibrin and devitalized tissue Severity: Limited To Skin Breakdown Amount of bleeding with debridement: Mild Bleeding Controlled with: Compression and gauze Patient tolerated procedure well - Additional Wound Wound debrided: Right helix Type of Debridement: Excisional debridement Anesthesia Used: 5% Lidocaine Gel Depth: Down to and including healthy tissue, in the subcutaneous layer Percentage of wound debrided: 100 Instrument Used: 3mm curette Tissue Removed: Devitalized tissue and fibrin Severity: Limited To Skin Breakdown Amount of bleeding with debridement: Mild Bleeding Controlled with: Compression and gauze Patient tolerated procedure: Patient tolerated procedure well - Additional Wound Wound debrided: Right hip ulcer Type of Debridement: Excisional debridement Anesthesia Used: 5% Lidocaine Gel Depth: to bone Percentage of wound debrided: 100 Instrument Used: 5mm curette Tissue Removed: Serous fluid Severity: Limited To Skin Breakdown Amount of bleeding with debridement: None Bleeding Controlled with: Pressure Patient tolerated procedure: Patient tolerated procedure well - Additional Wound Wound debrided: Hip ulcer Laterality: Left Type of Debridement: Excisional debridement Anesthesia Used: 5% Lidocaine Gel Depth: Down to and including healthy tissue, in the subcutaneous layer, to muscle, to bone Percentage of wound debrided: 100 Instrument Used: 5mm curette Tissue Removed: Fibrin Severity: Limited To Skin Breakdown Amount of bleeding with debridement: Mild Bleeding Controlled with: Compression and gauze Patient tolerated procedure: Patient tolerated procedure well Assessment/Plan Clinical Impression(s) from Imaging Studies Bone Scan Nuclear Medicine 08/22/17 09:18 IMPRESSION: Status post bilateral total hip replacement. Findings suggestive of the possible infection or inflammatory changes surrounding both hip joints. Electronically Signed: Shaun Tam MD at 9:33 EDT Tel [phone], Service support , Active Problems Open wound of left hip and thigh with complication (Chronic) Radiation necrosis of skin and subcutaneous (Chronic) Open wound of right hip (Chronic) Chronic ulcer of right great toe (Acute) Delayed wound healing (Chronic) Malnutrition (Chronic) Right foot drop (Chronic) Status post total hip replacement, left (Chronic) Assessment: Ulcers to the dorsal aspect of the right hallux and medial right first metatarsophalangeal joint with fat layer exposed. Foot drop. 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 Malnutrition. Right and left hip ulcers. 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 Right great toe and hallux #7 epi fix applied. Patient is to increase iron to twice daily dosing. Patient is to increase protein intake with meat at least 3-[address] abdomen and pelvis with and without contrast will be preauthorized. Patient assessed for HBO treatments recommended 1/2 srinivas with 2 air breaks of 5 minutes. Follow-up in 1 week. This note was generated with [email or web address] dictation software. It may contain incorrect words, spelling, and punctuation that were not noted in checking the note before signing.
--- NOTE | 2017-08-25 14:43 | PN.PCM_ITS ---
(1) Chronic ulcer of right foot Status: Acute Current Visit: No Qualifiers: Non-pressure ulcer stage: with necrosis of bone Qualified Code(s): L97.514 - Non-pressure chronic ulcer of other part of right foot with necrosis of bone Code(s): L97.519 - Non-pressure chronic ulcer of other part of right foot with unspecified severity (2) Chronic ulcer of right great toe Status: Acute Current Visit: Yes Qualifiers: Non-pressure ulcer stage: unspecified non-pressure ulcer stage Qualified Code(s): L97.519 - Non-pressure chronic ulcer of other part of right foot with unspecified severity Code(s): L97.519 - Non-pressure chronic ulcer of other part of right foot with unspecified severity (3) Delayed wound healing Status: Chronic Current Visit: Yes Code(s): T14.8XXD - Other injury of unspecified body region, subsequent encounter (4) Malnutrition Status: Chronic Current Visit: Yes Qualifiers: Malnutrition type: protein-calorie malnutrition Protein-calorie malnutrition severity: moderate Qualified Code(s): E44.0 - Moderate protein- calorie malnutrition Code(s): E46 - Unspecified protein-calorie malnutrition (5) Open wound of left hip and thigh with complication Status: Chronic Current Visit: Yes Qualifiers: Encounter type: subsequent encounter Qualified Code(s): S71.002D - Unspecified open wound, left hip, subsequent encounter; S71.102D - Unspecified open wound, left thigh, subsequent encounter Code(s): S71.002A - Unspecified open wound, left hip, initial encounter; S71.102A - Unspecified open wound, left thigh, initial encounter (6) 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 Current Visit: Yes Code(s): L59.8 - Other specified disorders of the skin and subcutaneous tissue related to radiation; Y84.2 - Radiological procedure and radiotherapy as the cause of abnormal reaction of the patient, or of later complication, without mention of misadventure at the time of the procedure (7) Status post total hip replacement, left Status: Chronic Current Visit: Yes Code(s): Z96.642 - Presence of left artificial hip joint (8) Open wound of right hip Status: Chronic Current Visit: Yes Qualifiers: Encounter type: subsequent encounter Qualified Code(s): S71.001D - Unspecified open wound, right hip, subsequent encounter Code(s): S71.001A - Unspecified open wound, right hip, initial encounter (9) Right foot drop Status: Chronic Current Visit: Yes Code(s): M21.371 - Foot drop, right foot Type of Wound Date of Service: 08/25/17 Chief Complaint: Ulcer to dorsomedial aspect of the right hallux and dorsomedial 1st metatarsophalangeal joint. Right and left hips ulcers. To be cleared for HBO therapy History of Wound: 76-year-old white male had previously in 1999 for about had prostate cancer and was given radiation over and beyond what was therapeutic. After that he had both hips replacements ?2 to each one done with poor outcomes. He now has ulcers in both hips that tunnel into the bone on either side. He has had wound vacs and a currently he is just packing with gauze dressings. She has been on continuous Augmentin since April. Because of his poor outcomes for healing they have opted for HBO therapy here at the wound center. In the meantime I am to care for all of his other wounds also. 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 Patient still has drainage from bilateral hips that look yellowish some odor. We will obtain cultures from both hips and toes we will x- ray foot and hips bilaterally. We will also get chest x-ray for HBO and a complete blood count and a pre-albumin. Progress of Wound: There appears to be a slight improvement from last week bilateral hips. Great toe and right helix debrided and we applied #7 epi fix to the toe and hallux . Ulcers came back positive from the left hip of E. coli patient started on Levaquin 750 mg daily for 14 days. X-rays of the pelvis and hips show questionable osteomyelitis bone scan will be ordered. Scan was indeterminate and just showed inflammation now we will get a CT of pelvis and abdomen with and without contrast. 2 new packing of the left and right hip with the Aquacel roping. chest x-ray was negative for HBO evaluation. Lab work shows anemia and a prealbumin that is very low at 13 patient needs to be booted up with protein - Physical Exam Vital Signs Temp Pulse Resp BP 98 F 93 16 109/74 08/25/17 12:38 08/25/17 12:38 08/25/17 12:38 08/25/17 12:38 General: Oriented x3, Cooperative, Well developed HEENT: Atraumatic, PERRLA Oral: Moist Mucosa Neck: Supple, No JVD Lungs: Clear to auscultation, Normal air movement Cardiovascular: Regular rate, Regular Rhythm Abdomen: Bowel Sounds Present, Soft, Non Tender, No Hepato-splenomegaly Extremities: No clubbing, No edema, - - Bilateral open ulcers to both hips right great toe and right hallux Skin: Ulcer/ Wound Wound Measurements and Assessment WC - Nurse 1 - General Ulcer Measurement Start: 08/18/17 09:58 Freq: Status: Active Protocol: Activity Type Activity Date Activity User E-Sign Co-Sign Detail Recorded Client Recorded Date Recorded By Document 08/25/17 12:38 [facility] [id number] 08/25/17 12:55 [facility] 08/25/17 12:38 Wound Center Nurse 1 [Ulcer Assessment] #4 LEFT HIP -Combined with other wound No -Current Size (cm) - Length 2.7 -Current Size (cm) - Width 0.6 -Current Size (cm) - Depth 6.2 -Total Square Cm 1.62 -Photo Taken No -Epithelialization Small 1-33% -Tunneling No -Undermining/Tunneling No -Circular Undermining No -Classification - Thickness Full Thickness without Exposed Support Structure -Exudate Amt Large (67-100%) -Exudate Type Serosanguineous -Wound Margin Fibrotic Scar, Thickened Scar -Granulation Amt Large (67-100%) -Granulation Quality Zearing -Slough/Fibrin No -Necrosis Amt None Present (0 %) -Structure Exposed Fascia Fat Layer Exposed -Texture (Vidya-wound Skin Appearance) Scarring -Moisture (Vidya-wound Skin Appearance Maceration ) -Color (Vidya-wound Skin Appearance) Erythema -Temperature (Vidya-wound Skin No Abnormality Appearance) (Pt Warm) -Tenderness on Palpation (Vidya-wound No Skin Appearance) -Ulcer Cleansing Rinsed/ Irrigated with Saline -Foul Odor after Cleansing No -Anesthetic Used 4% Lidocaine Solution #3 RIGHT HIP -Combined with other wound No -Current Size (cm) - Length 1.0 -Current Size (cm) - Width 0.6 -Current Size (cm) - Depth 5.0 -Total Square Cm 0.60 -Photo Taken No -Tunneling No -Undermining/Tunneling No -Circular Undermining No -Classification - Thickness Full Thickness without Exposed Support Structure -Exudate Amt Large (67-100%) -Exudate Type Serosanguineous -Wound Margin Fibrotic Scar, Thickened Scar -Granulation Amt Large (67-100%) -Granulation Quality Zearing -Slough/Fibrin No -Necrosis Amt None Present (0 %) -Structure Exposed Fascia None/Limited to Skin Breakdown -Texture (Vidya-wound Skin Appearance) Scarring -Moisture (Vidya-wound Skin Appearance Maceration ) -Color (Vidya-wound Skin Appearance) Erythema Palor -Temperature (Vidya-wound Skin No Abnormality Appearance) (Pt Warm) -Tenderness on Palpation (Vidya-wound No Skin Appearance) -Ulcer Cleansing Rinsed/ Irrigated with Saline -Foul Odor after Cleansing No -Anesthetic Used 4% Lidocaine Solution #2 Right dorsal Great Toe -Combined with other wound No -Current Size (cm) - Length 0.5 -Current Size (cm) - Width 1.0 -Current Size (cm) - Depth 0.2 -Total Square Cm 0.50 -Photo Taken No -Epithelialization Small 1-33% -Tunneling No -Undermining/Tunneling No -Circular Undermining No -Classification - Thickness Full Thickness without Exposed Support Structure -Exudate Amt Small (1-33%) -Exudate Type Serosanguineous -Wound Margin Fibrotic Scar, Thickened Scar -Granulation Amt Large (67-100%) -Granulation Quality Pale Zearing -Slough/Fibrin Yes -Necrosis Amt Small (1-33%) -Necrotic Tissue Type Adherent Slough -Structure Exposed Fascia Fat Layer Exposed -Texture (Vidya-wound Skin Appearance) Scarring -Moisture (Vidya-wound Skin Appearance Maceration ) -Color (Vidya-wound Skin Appearance) Erythema -Temperature (Vidya-wound Skin No Abnormality Appearance) (Pt Warm) -Tenderness on Palpation (Vidya-wound No Skin Appearance) -Ulcer Cleansing Rinsed/ Irrigated with Saline -Anesthetic Used 4% Lidocaine Solution #1 Right dorsal medial 1st Metatarsophalangeal Joint -Combined with other wound No -Current Size (cm) - Length 0.6 -Current Size (cm) - Width 0.4 -Current Size (cm) - Depth 0.2 -Total Square Cm 0.24 -Photo Taken No -Epithelialization Small 1-33% -Tunneling No -Undermining/Tunneling No -Circular Undermining No -Classification - Thickness Full Thickness without Exposed Support Structure -Exudate Amt Small (1-33%) -Exudate Type Serosanguineous -Wound Margin Fibrotic Scar, Thickened Scar -Granulation Amt Large (67-100%) -Granulation Quality Pale Zearing -Slough/Fibrin Yes -Necrosis Amt Small (1-33%) -Necrotic Tissue Type Adherent Slough -Structure Exposed Fascia Fat Layer Exposed -Texture (Vidya-wound Skin Appearance) Callus Scarring -Moisture (Vidya-wound Skin Appearance Maceration ) -Color (Vidya-wound Skin Appearance) Erythema Palor -Temperature (Vidya-wound Skin No Abnormality Appearance) (Pt Warm) -Tenderness on Palpation (Vidya-wound No Skin Appearance) -Ulcer Cleansing Rinsed/ Irrigated with Saline -Foul Odor after Cleansing No -Anesthetic Used 4% Lidocaine Solution [Edema Assessment] -Lower Limb Edema Present Yes -Right Calf (cm) 63.4 -Right Ankle (cm) 21.5 WC - Nurse 2 - General Ulcer CM Notes Start: 08/18/17 09:58 Freq: Status: Active Protocol: Activity Type Activity Date Activity User E-Sign Co-Sign Detail Recorded Client Recorded Date Recorded By Document 08/25/17 13:06 MW [id number] 08/25/17 13:27 MW 08/25/17 13:06 Wound Center Nurse 2 [Procedure/Treatment] #4 LEFT HIP -Time 13:06 -Correct Patient Yes -Correct Side, Site, Position Yes -Correct Procedure Yes -Procedure Performed Yes -Type of Procedure Debridement -Clinical Debridement Subcutaneous -Post Debridement Size (cm) - Length 2.7 -Post Debridement Size (cm) - Width 0.6 -Post Debridement Size (cm) - Depth 6.5 -Total Square Cm 1.62 -Wound/Ulcer Outcome Not Healed -Ulcer Cleansing Rinsed/ Irrigated with Saline -Foul Odor after Cleansing No -Bioengineered Tissue No -Bleeding Controlled with Pressure -Other TUNNEL @ 6 - 2. 1 CM, @ 9- 6. 0CM -Treatment Response Procedure Tolerated Well #3 RIGHT HIP -Time 13:06 -Correct Patient Yes -Correct Side, Site, Position Yes -Correct Procedure Yes -Procedure Performed Yes -Type of Procedure Debridement -Clinical Debridement Subcutaneous -Post Debridement Size (cm) - Length 1.0 -Post Debridement Size (cm) - Width 1.7 -Post Debridement Size (cm) - Depth 1.5 -Total Square Cm 1.70 -Wound/Ulcer Outcome Not Healed -Ulcer Cleansing Rinsed/ Irrigated with Saline -Foul Odor after Cleansing No -Bioengineered Tissue No -Bleeding Controlled with Pressure -Treatment Response Procedure Tolerated Well #2 Right dorsal Great Toe -Time 13:06 -Correct Patient Yes -Correct Side, Site, Position Yes -Correct Procedure Yes -Procedure Performed Yes -Type of Procedure Debridement -Clinical Debridement Subcutaneous -Post Debridement Size (cm) - Length 0.5 -Post Debridement Size (cm) - Width 0.9 -Post Debridement Size (cm) - Depth 0.2 -Total Square Cm 0.45 -Wound/Ulcer Outcome Not Healed -Ulcer Cleansing Rinsed/ Irrigated with Saline -Foul Odor after Cleansing No -Bioengineered Tissue Yes -Type of bioengineered Tissue EPIFIX -Expiration Date 05/15/22 -Product Lot Number [id number] -Percent Used 100 -Saline Lot Number [id number] -Bleeding Controlled with Pressure -Treatment Response Procedure Tolerated Well #1 Right dorsal medial 1st Metatarsophalangeal Joint -Time 13:07 -Correct Patient Yes -Correct Side, Site, Position Yes -Correct Procedure Yes -Procedure Performed Yes -Type of Procedure Debridement -Clinical Debridement Subcutaneous -Post Debridement Size (cm) - Length 0.7 -Post Debridement Size (cm) - Width 0.7 -Post Debridement Size (cm) - Depth 0.2 -Total Square Cm 0.49 -Wound/Ulcer Outcome Not Healed -Ulcer Cleansing Not Cleansed -Foul Odor after Cleansing No -Bioengineered Tissue Yes -Type of bioengineered Tissue EPIFIX -Expiration Date 05/15/22 -Product Lot Number [id number] -Percent Used 100 -Saline Lot Number [id number] -Bleeding Controlled with Pressure -Treatment Response Procedure Tolerated Well [See Physician Procedure note for Specifics] Pain Scale: 0-10 Numeric [Pain] -Is Patient Pain Free? Yes Musculoskeletal: No Tenderness to Palpation of Joints or Extremities Lymphatic: No Cervical, Supraclavicular, or Inguinal Adenopathy Neurological: Cranial nerves II-XII grossly intact, Neuro grossly intact Psych/Mental Status: Normal Affect, Appropriate, Alert and oriented to time, place, person, mood and affect Debridement Note Post-Debridement Measurements/Treatment WC - Nurse 2 - General Ulcer CM Notes Start: 08/18/17 09:58 Freq: Status: Active Protocol: Activity Type Activity Date Activity User E-Sign Co-Sign Detail Recorded Client Recorded Date Recorded By Document 08/18/17 11:22 [facility] [id number] 08/18/17 11:52 [facility] Document 08/25/17 13:06 [id number] 08/25/17 13:27 08/18/17 08/25/17 11:22 13:06 Wound Center Nurse 2 #4 LEFT HIP -Time 11:40 13:06 -Correct Patient Yes Yes -Correct Side, Site, Position Yes Yes -Correct Procedure Yes Yes -Procedure Performed Yes Yes -Type of Procedure Debridement Debridement -Clinical Debridement Subcutaneous Subcutaneous -Post Debridement Size (cm) - Length 2.8 2.7 -Post Debridement Size (cm) - Width 0.2 0.6 -Post Debridement Size (cm) - Depth 6.5 6.5 -Total Square Cm 0.56 1.62 -Wound/Ulcer Outcome Not Healed Not Healed -Ulcer Cleansing Rinsed/ Rinsed/ Irrigated with Irrigated with Saline Saline -Foul Odor after Cleansing No No -Bioengineered Tissue No No -Bleeding Controlled with Pressure Pressure -Other TUNNELING 7 - 3 TUNNEL @ 6 - 2. .5CM 1 CM, @ 9- 6. 0CM -Treatment Response Procedure Procedure Tolerated Well Tolerated Well #3 RIGHT HIP -Time 11:41 13:06 -Correct Patient Yes Yes -Correct Side, Site, Position Yes Yes -Correct Procedure Yes Yes -Procedure Performed Yes Yes -Type of Procedure Debridement Debridement -Clinical Debridement Subcutaneous Subcutaneous -Post Debridement Size (cm) - Length 1.1 1.0 -Post Debridement Size (cm) - Width 0.8 1.7 -Post Debridement Size (cm) - Depth 1.8 1.5 -Total Square Cm 0.88 1.70 -Wound/Ulcer Outcome Not Healed Not Healed -Ulcer Cleansing Rinsed/ Rinsed/ Irrigated with Irrigated with Saline Saline -Foul Odor after Cleansing No No -Bioengineered Tissue No No -Bleeding Controlled with Pressure Pressure -Treatment Response Procedure Procedure Tolerated Well Tolerated Well #2 Right dorsal Great Toe -Time 11:31 13:06 -Correct Patient Yes Yes -Correct Side, Site, Position Yes Yes -Correct Procedure Yes Yes -Procedure Performed Yes Yes -Type of Procedure Debridement Debridement -Clinical Debridement Subcutaneous Subcutaneous -Post Debridement Size (cm) - Length 0.7 0.5 -Post Debridement Size (cm) - Width 1.1 0.9 -Post Debridement Size (cm) - Depth 0.3 0.2 -Total Square Cm 0.77 0.45 -Wound/Ulcer Outcome Not Healed Not Healed -Ulcer Cleansing Rinsed/ Rinsed/ Irrigated with Irrigated with Saline Saline -Foul Odor after Cleansing No No -Bioengineered Tissue No Yes -Type of bioengineered Tissue EPIFIX EPIFIX -Expiration Date 05/15/22 05/15/22 -Product Lot Number [id number] -Percent Used 100 100 -Saline Lot Number [id number] -Bleeding Controlled with Pressure Pressure -Treatment Response Procedure Procedure Tolerated Well Tolerated Well #1 Right dorsal medial 1st Metatarsophalangeal Joint -Time 11:31 13:07 -Correct Patient Yes Yes -Correct Side, Site, Position Yes Yes -Correct Procedure Yes Yes -Procedure Performed Yes Yes -Type of Procedure Debridement Debridement -Clinical Debridement Subcutaneous Subcutaneous -Post Debridement Size (cm) - Length 0.9 0.7 -Post Debridement Size (cm) - Width 0.9 0.7 -Post Debridement Size (cm) - Depth 0.2 0.2 -Total Square Cm 0.81 0.49 -Wound/Ulcer Outcome Not Healed Not Healed -Ulcer Cleansing Rinsed/ Not Cleansed Irrigated with Saline -Foul Odor after Cleansing No No -Bioengineered Tissue No Yes -Type of bioengineered Tissue EPIFIX EPIFIX -Expiration Date 05/15/22 05/15/22 -Product Lot Number [id number] -Percent Used 100 100 -Saline Lot Number [id number] -Bleeding Controlled with Pressure Pressure -Treatment Response Procedure Procedure Tolerated Well Tolerated Well Pain Scale: 0-10 Numeric Is Patient Pain Free? Yes Yes Wound debrided: Right great toe Type of Debridement: Excisional debridement Anesthesia Used: 5% Lidocaine Gel Depth: Down to and including healthy tissue, in the subcutaneous layer, to bone Percentage of wound debrided: 100 Instrument Used: 5mm curette Tissue Removed: fibrin and devitalized tissue Severity: Limited To Skin Breakdown Amount of bleeding with debridement: Mild Bleeding Controlled with: Compression and gauze Patient tolerated procedure well - Additional Wound Wound debrided: Right helix Type of Debridement: Excisional debridement Anesthesia Used: 5% Lidocaine Gel Depth: Down to and including healthy tissue, in the subcutaneous layer Percentage of wound debrided: 100 Instrument Used: 3mm curette Tissue Removed: Devitalized tissue and fibrin Severity: Limited To Skin Breakdown Amount of bleeding with debridement: Mild Bleeding Controlled with: Compression and gauze Patient tolerated procedure: Patient tolerated procedure well - Additional Wound Wound debrided: Right hip ulcer Type of Debridement: Excisional debridement Anesthesia Used: 5% Lidocaine Gel Depth: to bone Percentage of wound debrided: 100 Instrument Used: 5mm curette Tissue Removed: Serous fluid Severity: Limited To Skin Breakdown Amount of bleeding with debridement: None Bleeding Controlled with: Pressure Patient tolerated procedure: Patient tolerated procedure well - Additional Wound Wound debrided: Hip ulcer Laterality: Left Type of Debridement: Excisional debridement Anesthesia Used: 5% Lidocaine Gel Depth: Down to and including healthy tissue, in the subcutaneous layer, to muscle, to bone Percentage of wound debrided: 100 Instrument Used: 5mm curette Tissue Removed: Fibrin Severity: Limited To Skin Breakdown Amount of bleeding with debridement: Mild Bleeding Controlled with: Compression and gauze Patient tolerated procedure: Patient tolerated procedure well Assessment/Plan Clinical Impression(s) from Imaging Studies Bone Scan Nuclear Medicine 08/22/17 09:18 IMPRESSION: Status post bilateral total hip replacement. Findings suggestive of the possible infection or inflammatory changes surrounding both hip joints. Electronically Signed: Shaun Tam MD at 9:33 EDT Tel [phone], Service support , Active Problems Open wound of left hip and thigh with complication (Chronic) Radiation necrosis of skin and subcutaneous (Chronic) Open wound of right hip (Chronic) Chronic ulcer of right great toe (Acute) Delayed wound healing (Chronic) Malnutrition (Chronic) Right foot drop (Chronic) Status post total hip replacement, left (Chronic) Assessment: Ulcers to the dorsal aspect of the right hallux and medial right first metatarsophalangeal joint with fat layer exposed. Foot drop. 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 Malnutrition. Right and left hip ulcers. 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 Right great toe and hallux #7 epi fix applied. Patient is to increase iron to twice daily dosing. Patient is to increase protein intake with meat at least 3-[address] abdomen and pelvis with and without contrast will be preauthorized. Patient assessed for HBO treatments recommended 1/2 srinivas with 2 air breaks of 5 minutes. Follow-up in 1 week. This note was generated with [employer] dictation software. It may contain incorrect words, spelling, and punctuation that were not noted in checking the note before signing.
[2017-08-25 17:14] LABS: Absolute Lymphocyte Count 0.62 X10^3/ul (0.83-4.51); Absolute Neutrophil Count 6.6 X10^3/uL (2.0-7.7); Basophil# 0.04 X10^3/uL; Basophil% 0.5 % (0-1); Eosinophil# 0.22 X10^3/uL; Eosinophils% 2.6 % (0-5); Hematocrit 37.1 % (40-54); Lymphocyte # 0.62 X10^3/ul (4.0); Lymphocyte % 7.4 % (19-41); Mean Corp Hgb Conc 29.6 g/gl (32-36); Mean Corpuscular Hgb 24.8 pg (27.0-32.0); Mean Corpuscular Volume 83.7 fL (80-94); Mean Platelet Vol. 9.1 fl (6.2-12.0); Monocyte# 0.86 X10^3/uL; Monocyte% 10.3 % (0-10); Neutrophil # 6.57 X10^3/uL (2.7-7.7); Neutrophil % 78.4 % (47-70); Platelet Count 513 K/mm3 (150-450); RBC Distribution Width SD 57.7 fl (35.1-43.9); Red Blood Count 4.43 M/mm3 (4.6-6.2); White Blood Count 8.4 K/mm3 (4.4-11.0)
[2017-08-25 17:19] LABS: POSITIVE COUNT NO; POSITIVE DIFFERENTIAL NO; POSITIVE MORPHOLOGY NO
[2017-08-25 17:33] LABS: ALB/GLOB Ratio 0.6 RATIO (0.9-2.4); AST(SGOT) 20 U/L (15-37); Alanine Aminotransfer ALT/SGPT 12 U/L (16-61); Albumin, Serum 2.4 g/dL (3.2-5.0); Alkaline Phosphatase 75 U/L (45-117); Anion Gap 6 (5-15); BUN 20 mg/dL (7-18); BUN/Creat Ratio 18.7 RATIO (10-20); Calcium,Total 8.7 mg/dL (8.5-10.1); Chloride 102 mmol/L (98-107); Creatinine, Serum 1.07 mg/dL (0.70-1.30); EST Glomerular Filtration Rate 71 mL/min (>60); Est Glom Filt Rate - Afr Amer 86 mL/min (>60); Estimated Creatinine Clearance 61.58 ml/min; Globulin 3.9 g/dL (2.2-4.2); Glucose 78 mg/dL (74-106); Potassium 4.4 mmol/L (3.5-5.1); Protein, Total 6.3 g/dL (6.4-8.2); Sodium Level 139 mmol/L (136-145)
[2017-09-01 11:40] VITALS: BP 108/67; PULSE 72; RESP 16; TEMP 36; BMI 23.7
--- NOTE | 2017-09-01 12:48 | PCM.WC.PN ---
(1) Chronic ulcer of right foot Status: Acute Current Visit: No Qualifiers: Non-pressure ulcer stage: with necrosis of bone Qualified Code(s): L97.514 - Non-pressure chronic ulcer of other part of right foot with necrosis of bone Code(s): L97.519 - Non-pressure chronic ulcer of other part of right foot with unspecified severity (2) Chronic ulcer of right great toe Status: Acute Current Visit: Yes Qualifiers: Non-pressure ulcer stage: unspecified non-pressure ulcer stage Qualified Code(s): L97.519 - Non-pressure chronic ulcer of other part of right foot with unspecified severity Code(s): L97.519 - Non-pressure chronic ulcer of other part of right foot with unspecified severity (3) Delayed wound healing Status: Chronic Current Visit: Yes Code(s): T14.8XXD - Other injury of unspecified body region, subsequent encounter (4) Malnutrition Status: Chronic Current Visit: Yes Qualifiers: Malnutrition type: protein-calorie malnutrition Protein-calorie malnutrition severity: moderate Qualified Code(s): E44.0 - Moderate protein-calorie malnutrition Code(s): E46 - Unspecified protein-calorie malnutrition (5) Open wound of left hip and thigh with complication Status: Chronic Current Visit: Yes Qualifiers: Encounter type: subsequent encounter Qualified Code(s): S71.002D - Unspecified open wound, left hip, subsequent encounter; S71.102D - Unspecified open wound, left thigh, subsequent encounter Code(s): S71.002A - Unspecified open wound, left hip, initial encounter; S71.102A - Unspecified open wound, left thigh, initial encounter (6) 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 Current Visit: Yes Code(s): L59.8 - Other specified disorders of the skin and subcutaneous tissue related to radiation; Y84.2 - Radiological procedure and radiotherapy as the cause of abnormal reaction of the patient, or of later complication, without mention of misadventure at the time of the procedure (7) Status post total hip replacement, left Status: Chronic Current Visit: Yes Code(s): Z96.642 - Presence of left artificial hip joint (8) Open wound of right hip Status: Chronic Current Visit: Yes Qualifiers: Encounter type: subsequent encounter Qualified Code(s): S71.001D - Unspecified open wound, right hip, subsequent encounter Code(s): S71.001A - Unspecified open wound, right hip, initial encounter (9) Right foot drop Status: Chronic Current Visit: Yes Code(s): M21.371 - Foot drop, right foot Type of Wound Date of Service: 09/01/17 Chief Complaint: Ulcer to dorsomedial aspect of the right hallux and dorsomedial 1st metatarsophalangeal joint. Right and left hips ulcers. To be cleared for HBO therapy History of Wound: 76-year-old white male had previously in 1999 for about had prostate cancer and was given radiation over and beyond what was therapeutic. After that he had both hips replacements ?2 to each one done with poor outcomes. He now has ulcers in both hips that tunnel into the bone on either side. He has had wound vacs and a currently he is just packing with gauze dressings. She has been on continuous Augmentin since April. Because of his poor outcomes for healing they have opted for HBO therapy here at the wound center. In the meantime I am to care for all of his other wounds also. 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 Patient still has drainage from bilateral hips that look yellowish some odor. We will obtain cultures from both hips and toes we will x-ray foot and hips bilaterally. We will also get chest x-ray for HBO and a complete blood count and a pre-albumin. Progress of Wound: There appears to be a slight improvement from last week bilateral hips. Great toe and right helix debrided and we applied #8 epi fix to the toe and hallux . Ulcers came back positive from the left hip of E. coli patient started on Levaquin 750 mg daily for [address] of abdomen and pelvis show definite skin breakdown of the bone and infectious disease Dr. Cameron was here talking with family about options will discuss with Dr. Harris his orthopedic surgeon .Bone Scan was indeterminate and just showed inflammation . 2 new packing of the left and right hip with the Aquacel roping. chest x-ray was negative for HBO evaluation. Lab work shows anemia and a prealbumin that is very low at 13 patient needs to be booted up with protein - Physical Exam Vital Signs Temp Pulse Resp BP 96.8 F L 72 16 108/67 09/01/17 11:40 09/01/17 11:40 09/01/17 11:40 09/01/17 11:40 Wound Measurements and Assessment WC - Nurse 1 - General Ulcer Measurement Start: 08/18/17 09:58 Freq: Status: Active Protocol: Activity Type Activity Date Activity User E-Sign Co-Sign Detail Recorded Client Recorded Date Recorded By Document 09/01/17 11:40 DV [id number] 09/01/17 11:57 DV 09/01/17 11:40 Wound Center Nurse 1 [Ulcer Assessment] #4 LEFT HIP -Combined with other wound No -Current Size (cm) - Length 2.0 -Current Size (cm) - Width 0.5 -Current Size (cm) - Depth 7.2 -Total Square Cm 1.00 -Photo Taken No -Epithelialization None Present -Undermining/Tunneling No -Circular Undermining No -Exudate Amt Large (67-100%) -Exudate Type Purulent -Wound Margin Indistinct, Non -Visible -Granulation Amt None Present (0 %) -Granulation Quality N/A -Slough/Fibrin Yes -Necrosis Amt Large (67-100%) -Necrotic Tissue Type Adherent Slough -Structure Exposed Muscle Joint -Texture (Vidya-wound Skin Appearance) Assessed Scarring -Moisture (Vidya-wound Skin Appearance Assessed ) Weeping -Color (Vidya-wound Skin Appearance) Assessed Erythema -Temperature (Vidya-wound Skin No Abnormality Appearance) (Pt Warm) -Tenderness on Palpation (Vidya-wound Yes Skin Appearance) -Ulcer Cleansing Rinsed/ Irrigated with Saline -Foul Odor after Cleansing No -Anesthetic Used 4% Lidocaine Solution #3 RIGHT HIP -Combined with other wound No -Current Size (cm) - Length 1.0 -Current Size (cm) - Width 0.5 -Current Size (cm) - Depth 3.0 -Total Square Cm 0.50 -Photo Taken No -Epithelialization None Present -Tunneling No -Undermining/Tunneling No -Circular Undermining No -Exudate Amt Large (67-100%) -Exudate Type Purulent -Wound Margin Indistinct, Non -Visible -Granulation Amt None Present (0 %) -Granulation Quality N/A -Slough/Fibrin No -Necrosis Amt Large (67-100%) -Necrotic Tissue Type Adherent Slough -Structure Exposed Muscle Joint -Texture (Vidya-wound Skin Appearance) Assessed Scarring -Moisture (Vidya-wound Skin Appearance Assessed ) Weeping -Color (Vidya-wound Skin Appearance) Assessed Erythema -Temperature (Vidya-wound Skin No Abnormality Appearance) (Pt Warm) -Ulcer Cleansing Rinsed/ Irrigated with Saline -Foul Odor after Cleansing No -Anesthetic Used 4% Lidocaine Solution #2 Right dorsal Great Toe -Combined with other wound No -Current Size (cm) - Length 0.5 -Current Size (cm) - Width 1.0 -Current Size (cm) - Depth 0.2 -Total Square Cm 0.50 -Photo Taken No -Epithelialization None Present -Tunneling No -Undermining/Tunneling No -Circular Undermining No -Exudate Amt Large (67-100%) -Exudate Type Purulent -Wound Margin Distinct, Outline Attached -Granulation Amt None Present (0 %) -Granulation Quality N/A -Slough/Fibrin Yes -Necrosis Amt Large (67-100%) -Necrotic Tissue Type Adherent Slough -Structure Exposed None/Limited to Skin Breakdown -Texture (Vidya-wound Skin Appearance) Assessed Scarring -Moisture (Vidya-wound Skin Appearance Assessed ) Weeping -Color (Vidya-wound Skin Appearance) Assessed -Temperature (Vidya-wound Skin No Abnormality Appearance) (Pt Warm) -Tenderness on Palpation (Vidya-wound No Skin Appearance) -Ulcer Cleansing Rinsed/ Irrigated with Saline -Foul Odor after Cleansing No -Anesthetic Used 5% Lidocaine Gel #1 Right dorsal medial 1st Metatarsophalangeal Joint -Combined with other wound No -Current Size (cm) - Length 0.5 -Current Size (cm) - Width 1.0 -Current Size (cm) - Depth 0.2 -Total Square Cm 0.50 -Photo Taken No -Epithelialization None Present -Tunneling No -Undermining/Tunneling No -Circular Undermining No -Exudate Amt Large (67-100%) -Exudate Type Yellow/Green -Wound Margin Flat & Intact -Granulation Amt None Present (0 %) -Granulation Quality N/A -Necrosis Amt Large (67-100%) -Necrotic Tissue Type Adherent Slough -Structure Exposed None/Limited to Skin Breakdown -Texture (Vidya-wound Skin Appearance) Assessed Scarring -Moisture (Vidya-wound Skin Appearance Assessed ) Weeping -Color (Vidya-wound Skin Appearance) No Abnormality Assessed -Temperature (Vidya-wound Skin No Abnormality Appearance) (Pt Warm) -Tenderness on Palpation (Vidya-wound No Skin Appearance) -Ulcer Cleansing Rinsed/ Irrigated with Saline -Foul Odor after Cleansing No -Anesthetic Used 5% Lidocaine Gel WC - Nurse 2 - General Ulcer CM Notes Start: 08/18/17 09:58 Freq: Status: Active Protocol: Activity Type Activity Date Activity User E-Sign Co-Sign Detail Recorded Client Recorded Date Recorded By Document 09/01/17 11:59 MW [id number] 09/01/17 12:26 MW 09/01/17 11:59 Wound Center Nurse 2 [Procedure/Treatment] #4 LEFT HIP -Time 12:07 -Correct Patient Yes -Correct Side, Site, Position Yes -Correct Procedure Yes -Procedure Performed Yes -Type of Procedure Debridement -Clinical Debridement Subcutaneous -Post Debridement Size (cm) - Length 3.5 -Post Debridement Size (cm) - Width 0.2 -Post Debridement Size (cm) - Depth 6.0 -Total Square Cm 0.70 -Wound/Ulcer Outcome Not Healed -Ulcer Cleansing Rinsed/ Irrigated with Saline -Foul Odor after Cleansing No -Bleeding Controlled with Pressure -Other TUNNEL @6 - 5. 5CM, @9 -Treatment Response Procedure Tolerated Well #3 RIGHT HIP -Time 12:07 -Correct Patient Yes -Correct Side, Site, Position Yes -Correct Procedure Yes -Procedure Performed Yes -Type of Procedure Debridement -Clinical Debridement Subcutaneous -Post Debridement Size (cm) - Length 0.4 -Post Debridement Size (cm) - Width 0.5 -Post Debridement Size (cm) - Depth 1.5 -Total Square Cm 0.20 -Wound/Ulcer Outcome Not Healed -Ulcer Cleansing Rinsed/ Irrigated with Saline -Foul Odor after Cleansing No -Bioengineered Tissue No -Bleeding Controlled with Pressure -Treatment Response Procedure Tolerated Well #2 Right dorsal Great Toe -Time 12:06 -Correct Patient Yes -Correct Side, Site, Position Yes -Correct Procedure Yes -Procedure Performed Yes -Type of Procedure Debridement -Clinical Debridement Subcutaneous -Post Debridement Size (cm) - Length 0.7 -Post Debridement Size (cm) - Width 0.9 -Post Debridement Size (cm) - Depth 0.2 -Total Square Cm 0.63 -Wound/Ulcer Outcome Not Healed -Ulcer Cleansing Rinsed/ Irrigated with Saline -Foul Odor after Cleansing No -Type of bioengineered Tissue EPIFIX -Expiration Date 05/15/22 -Product Lot Number [id number] -Percent Used 100 -Saline Lot Number [id number] -Bleeding Controlled with Pressure -Treatment Response Procedure Tolerated Well #1 Right dorsal medial 1st Metatarsophalangeal Joint -Time 12:06 -Correct Patient Yes -Correct Side, Site, Position Yes -Correct Procedure Yes -Procedure Performed Yes -Type of Procedure Debridement -Clinical Debridement Subcutaneous -Post Debridement Size (cm) - Length 0.5 -Post Debridement Size (cm) - Width 0.4 -Post Debridement Size (cm) - Depth 0.1 -Total Square Cm 0.20 -Wound/Ulcer Outcome Not Healed -Ulcer Cleansing Rinsed/ Irrigated with Saline -Foul Odor after Cleansing No -Type of bioengineered Tissue EPIFIX -Expiration Date 05/15/22 -Product Lot Number [id number] -Percent Used 100 -Saline Lot Number [id number] -Bleeding Controlled with Pressure -Treatment Response Procedure Tolerated Well [See Physician Procedure note for Specifics] Pain Scale: 0-10 Numeric [Pain] -Is Patient Pain Free? Yes Psych/Mental Status: Alert and oriented to time, place, person, mood and affect Debridement Note Post-Debridement Measurements/Treatment WC - Nurse 2 - General Ulcer CM Notes Start: 08/18/17 09:58 Freq: Status: Active Protocol: Activity Type Activity Date Activity User E-Sign Co-Sign Detail Recorded Client Recorded Date Recorded By Document 08/18/17 11:22 [facility] [id number] 08/18/17 11:52 BMF Document 08/25/17 13:06 MW [id number] 08/25/17 13:27 MW Document 09/01/17 11:59 MW [id number] 09/01/17 12:26 MW 08/18/17 08/25/17 09/01/17 11:22 13:06 11:59 Wound Center Nurse 2 #4 LEFT HIP -Time 11:40 13:06 12:07 -Correct Patient Yes Yes Yes -Correct Side, Site, Position Yes Yes Yes -Correct Procedure Yes Yes Yes -Procedure Performed Yes Yes Yes -Type of Procedure Debridement Debridement Debridement -Clinical Debridement Subcutaneous Subcutaneous Subcutaneous -Post Debridement Size (cm) - Length 2.8 2.7 3.5 -Post Debridement Size (cm) - Width 0.2 0.6 0.2 -Post Debridement Size (cm) - Depth 6.5 6.5 6.0 -Total Square Cm 0.56 1.62 0.70 -Wound/Ulcer Outcome Not Healed Not Healed Not Healed -Ulcer Cleansing Rinsed/ Rinsed/ Rinsed/ Irrigated with Irrigated with Irrigated with Saline Saline Saline -Foul Odor after Cleansing No No No -Bioengineered Tissue No No -Bleeding Controlled with Pressure Pressure Pressure -Other TUNNELING 7 - 3 TUNNEL @ 6 - 2. TUNNEL @6 - 5. .5CM 1 CM, @ 9- 6. 5CM, @9 0CM -Treatment Response Procedure Procedure Procedure Tolerated Well Tolerated Well Tolerated Well #3 RIGHT HIP -Time 11:41 13:06 12:07 -Correct Patient Yes Yes Yes -Correct Side, Site, Position Yes Yes Yes -Correct Procedure Yes Yes Yes -Procedure Performed Yes Yes Yes -Type of Procedure Debridement Debridement Debridement -Clinical Debridement Subcutaneous Subcutaneous Subcutaneous -Post Debridement Size (cm) - Length 1.1 1.0 0.4 -Post Debridement Size (cm) - Width 0.8 1.7 0.5 -Post Debridement Size (cm) - Depth 1.8 1.5 1.5 -Total Square Cm 0.88 1.70 0.20 -Wound/Ulcer Outcome Not Healed Not Healed Not Healed -Ulcer Cleansing Rinsed/ Rinsed/ Rinsed/ Irrigated with Irrigated with Irrigated with Saline Saline Saline -Foul Odor after Cleansing No No No -Bioengineered Tissue No No No -Bleeding Controlled with Pressure Pressure Pressure -Treatment Response Procedure Procedure Procedure Tolerated Well Tolerated Well Tolerated Well #2 Right dorsal Great Toe -Time 11:31 13:06 12:06 -Correct Patient Yes Yes Yes -Correct Side, Site, Position Yes Yes Yes -Correct Procedure Yes Yes Yes -Procedure Performed Yes Yes Yes -Type of Procedure Debridement Debridement Debridement -Clinical Debridement Subcutaneous Subcutaneous Subcutaneous -Post Debridement Size (cm) - Length 0.7 0.5 0.7 -Post Debridement Size (cm) - Width 1.1 0.9 0.9 -Post Debridement Size (cm) - Depth 0.3 0.2 0.2 -Total Square Cm 0.77 0.45 0.63 -Wound/Ulcer Outcome Not Healed Not Healed Not Healed -Ulcer Cleansing Rinsed/ Rinsed/ Rinsed/ Irrigated with Irrigated with Irrigated with Saline Saline Saline -Foul Odor after Cleansing No No No -Bioengineered Tissue No Yes -Type of bioengineered Tissue EPIFIX EPIFIX EPIFIX -Expiration Date 05/15/22 05/15/22 05/15/22 -Product Lot Number [id number] -Percent Used 100 100 100 -Saline Lot Number [id number] -Bleeding Controlled with Pressure Pressure Pressure -Treatment Response Procedure Procedure Procedure Tolerated Well Tolerated Well Tolerated Well #1 Right dorsal medial 1st Metatarsophalangeal Joint -Time 11:31 13:07 12:06 -Correct Patient Yes Yes Yes -Correct Side, Site, Position Yes Yes Yes -Correct Procedure Yes Yes Yes -Procedure Performed Yes Yes Yes -Type of Procedure Debridement Debridement Debridement -Clinical Debridement Subcutaneous Subcutaneous Subcutaneous -Post Debridement Size (cm) - Length 0.9 0.7 0.5 -Post Debridement Size (cm) - Width 0.9 0.7 0.4 -Post Debridement Size (cm) - Depth 0.2 0.2 0.1 -Total Square Cm 0.81 0.49 0.20 -Wound/Ulcer Outcome Not Healed Not Healed Not Healed -Ulcer Cleansing Rinsed/ Not Cleansed Rinsed/ Irrigated with Irrigated with Saline Saline -Foul Odor after Cleansing No No No -Bioengineered Tissue No Yes -Type of bioengineered Tissue EPIFIX EPIFIX EPIFIX -Expiration Date 05/15/22 05/15/22 05/15/22 -Product Lot Number [id number] -Percent Used 100 100 100 -Saline Lot Number [id number] -Bleeding Controlled with Pressure Pressure Pressure -Treatment Response Procedure Procedure Procedure Tolerated Well Tolerated Well Tolerated Well Pain Scale: 0-10 Numeric Is Patient Pain Free? Yes Yes Yes Wound debrided: Right great toe Type of Debridement: Excisional debridement Anesthesia Used: 5% Lidocaine Gel Depth: Down to and including healthy tissue, in the subcutaneous layer, to bone Percentage of wound debrided: 100 Instrument Used: 3mm curette Tissue Removed: Fibrin Severity: Limited To Skin Breakdown Amount of bleeding with debridement: Mild Bleeding Controlled with: Compression and gauze Patient tolerated procedure well - Additional Wound Wound debrided: Right Hallux Type of Debridement: Excisional debridement Anesthesia Used: 5% Lidocaine Gel Depth: Down to and including healthy tissue, in the subcutaneous layer Percentage of wound debrided: 100 Instrument Used: 3mm curette Tissue Removed: fibrin Severity: Limited To Skin Breakdown Amount of bleeding with debridement: None - Additional Wound Wound debrided: Right hip Type of Debridement: Excisional debridement Anesthesia Used: 5% Lidocaine Gel Depth: Down to and including healthy tissue, to bone Instrument Used: 3mm curette Tissue Removed: Serous Severity: Limited To Skin Breakdown Bleeding Controlled with: Compression and gauze - Additional Wound Wound debrided: Left hip Tissue Removed: no Debridement Assessment/Plan Clinical Impression(s) from Imaging Studies Bone Scan Nuclear Medicine 08/22/17 09:18 IMPRESSION: Status post bilateral total hip replacement. Findings suggestive of the possible infection or inflammatory changes surrounding both hip joints. 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 Foot drop. 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 Malnutrition. Right and left hip ulcers. 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 Right great toe and hallux #8 epi fix applied. Patient is to increase iron to twice daily dosing. Patient is to increase protein intake with meat at least 3-4 times a day. Follow-up in 2 week. This note was generated with [employer]ation software. It may contain incorrect words, spelling, and punctuation that were not noted in checking the note before signing.
--- NOTE | 2017-09-01 12:55 | PN.PCM_ITS ---
(1) Chronic ulcer of right foot Status: Acute Current Visit: No Qualifiers: Non-pressure ulcer stage: with necrosis of bone Qualified Code(s): L97.514 - Non-pressure chronic ulcer of other part of right foot with necrosis of bone Code(s): L97.519 - Non-pressure chronic ulcer of other part of right foot with unspecified severity (2) Chronic ulcer of right great toe Status: Acute Current Visit: Yes Qualifiers: Non-pressure ulcer stage: unspecified non-pressure ulcer stage Qualified Code(s): L97.519 - Non-pressure chronic ulcer of other part of right foot with unspecified severity Code(s): L97.519 - Non-pressure chronic ulcer of other part of right foot with unspecified severity (3) Delayed wound healing Status: Chronic Current Visit: Yes Code(s): T14.8XXD - Other injury of unspecified body region, subsequent encounter (4) Malnutrition Status: Chronic Current Visit: Yes Qualifiers: Malnutrition type: protein-calorie malnutrition Protein-calorie malnutrition severity: moderate Qualified Code(s): E44.0 - Moderate protein- calorie malnutrition Code(s): E46 - Unspecified protein-calorie malnutrition (5) Open wound of left hip and thigh with complication Status: Chronic Current Visit: Yes Qualifiers: Encounter type: subsequent encounter Qualified Code(s): S71.002D - Unspecified open wound, left hip, subsequent encounter; S71.102D - Unspecified open wound, left thigh, subsequent encounter Code(s): S71.002A - Unspecified open wound, left hip, initial encounter; S71.102A - Unspecified open wound, left thigh, initial encounter (6) 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 Current Visit: Yes Code(s): L59.8 - Other specified disorders of the skin and subcutaneous tissue related to radiation; Y84.2 - Radiological procedure and radiotherapy as the cause of abnormal reaction of the patient, or of later complication, without mention of misadventure at the time of the procedure (7) Status post total hip replacement, left Status: Chronic Current Visit: Yes Code(s): Z96.642 - Presence of left artificial hip joint (8) Open wound of right hip Status: Chronic Current Visit: Yes Qualifiers: Encounter type: subsequent encounter Qualified Code(s): S71.001D - Unspecified open wound, right hip, subsequent encounter Code(s): S71.001A - Unspecified open wound, right hip, initial encounter (9) Right foot drop Status: Chronic Current Visit: Yes Code(s): M21.371 - Foot drop, right foot Type of Wound Date of Service: 09/01/17 Chief Complaint: Ulcer to dorsomedial aspect of the right hallux and dorsomedial 1st metatarsophalangeal joint. Right and left hips ulcers. To be cleared for HBO therapy History of Wound: 76-year-old white male had previously in 1999 for about had prostate cancer and was given radiation over and beyond what was therapeutic. After that he had both hips replacements ?2 to each one done with poor outcomes. He now has ulcers in both hips that tunnel into the bone on either side. He has had wound vacs and a currently he is just packing with gauze dressings. She has been on continuous Augmentin since April. Because of his poor outcomes for healing they have opted for HBO therapy here at the wound center. In the meantime I am to care for all of his other wounds also. 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 Patient still has drainage from bilateral hips that look yellowish some odor. We will obtain cultures from both hips and toes we will x- ray foot and hips bilaterally. We will also get chest x-ray for HBO and a complete blood count and a pre-albumin. Progress of Wound: There appears to be a slight improvement from last week bilateral hips. Great toe and right helix debrided and we applied #8 epi fix to the toe and hallux . Ulcers came back positive from the left hip of E. coli patient started on Levaquin 750 mg daily for [address] of abdomen and pelvis show definite skin breakdown of the bone and infectious disease Dr. Cameron was here talking with family about options will discuss with Dr. Harris his orthopedic surgeon .Bone Scan was indeterminate and just showed inflammation . 2 new packing of the left and right hip with the Aquacel roping. chest x-ray was negative for HBO evaluation. Lab work shows anemia and a prealbumin that is very low at 13 patient needs to be booted up with protein - Physical Exam Vital Signs Temp Pulse Resp BP 96.8 F L 72 16 108/67 09/01/17 11:40 09/01/17 11:40 09/01/17 11:40 09/01/17 11:40 Wound Measurements and Assessment WC - Nurse 1 - General Ulcer Measurement Start: 08/18/17 09:58 Freq: Status: Active Protocol: Activity Type Activity Date Activity User E-Sign Co-Sign Detail Recorded Client Recorded Date Recorded By Document 09/01/17 11:40 DV [id number] 09/01/17 11:57 DV 09/01/17 11:40 Wound Center Nurse 1 [Ulcer Assessment] #4 LEFT HIP -Combined with other wound No -Current Size (cm) - Length 2.0 -Current Size (cm) - Width 0.5 -Current Size (cm) - Depth 7.2 -Total Square Cm 1.00 -Photo Taken No -Epithelialization None Present -Undermining/Tunneling No -Circular Undermining No -Exudate Amt Large (67-100%) -Exudate Type Purulent -Wound Margin Indistinct, Non -Visible -Granulation Amt None Present (0 %) -Granulation Quality N/A -Slough/Fibrin Yes -Necrosis Amt Large (67-100%) -Necrotic Tissue Type Adherent Slough -Structure Exposed Muscle Joint -Texture (Vidya-wound Skin Appearance) Assessed Scarring -Moisture (Vidya-wound Skin Appearance Assessed ) Weeping -Color (Vidya-wound Skin Appearance) Assessed Erythema -Temperature (Vidya-wound Skin No Abnormality Appearance) (Pt Warm) -Tenderness on Palpation (Vidya-wound Yes Skin Appearance) -Ulcer Cleansing Rinsed/ Irrigated with Saline -Foul Odor after Cleansing No -Anesthetic Used 4% Lidocaine Solution #3 RIGHT HIP -Combined with other wound No -Current Size (cm) - Length 1.0 -Current Size (cm) - Width 0.5 -Current Size (cm) - Depth 3.0 -Total Square Cm 0.50 -Photo Taken No -Epithelialization None Present -Tunneling No -Undermining/Tunneling No -Circular Undermining No -Exudate Amt Large (67-100%) -Exudate Type Purulent -Wound Margin Indistinct, Non -Visible -Granulation Amt None Present (0 %) -Granulation Quality N/A -Slough/Fibrin No -Necrosis Amt Large (67-100%) -Necrotic Tissue Type Adherent Slough -Structure Exposed Muscle Joint -Texture (Vidya-wound Skin Appearance) Assessed Scarring -Moisture (Vidya-wound Skin Appearance Assessed ) Weeping -Color (Vidya-wound Skin Appearance) Assessed Erythema -Temperature (Vidya-wound Skin No Abnormality Appearance) (Pt Warm) -Ulcer Cleansing Rinsed/ Irrigated with Saline -Foul Odor after Cleansing No -Anesthetic Used 4% Lidocaine Solution #2 Right dorsal Great Toe -Combined with other wound No -Current Size (cm) - Length 0.5 -Current Size (cm) - Width 1.0 -Current Size (cm) - Depth 0.2 -Total Square Cm 0.50 -Photo Taken No -Epithelialization None Present -Tunneling No -Undermining/Tunneling No -Circular Undermining No -Exudate Amt Large (67-100%) -Exudate Type Purulent -Wound Margin Distinct, Outline Attached -Granulation Amt None Present (0 %) -Granulation Quality N/A -Slough/Fibrin Yes -Necrosis Amt Large (67-100%) -Necrotic Tissue Type Adherent Slough -Structure Exposed None/Limited to Skin Breakdown -Texture (Vidya-wound Skin Appearance) Assessed Scarring -Moisture (Vidya-wound Skin Appearance Assessed ) Weeping -Color (Vidya-wound Skin Appearance) Assessed -Temperature (Vidya-wound Skin No Abnormality Appearance) (Pt Warm) -Tenderness on Palpation (Vidya-wound No Skin Appearance) -Ulcer Cleansing Rinsed/ Irrigated with Saline -Foul Odor after Cleansing No -Anesthetic Used 5% Lidocaine Gel #1 Right dorsal medial 1st Metatarsophalangeal Joint -Combined with other wound No -Current Size (cm) - Length 0.5 -Current Size (cm) - Width 1.0 -Current Size (cm) - Depth 0.2 -Total Square Cm 0.50 -Photo Taken No -Epithelialization None Present -Tunneling No -Undermining/Tunneling No -Circular Undermining No -Exudate Amt Large (67-100%) -Exudate Type Yellow/Green -Wound Margin Flat & Intact -Granulation Amt None Present (0 %) -Granulation Quality N/A -Necrosis Amt Large (67-100%) -Necrotic Tissue Type Adherent Slough -Structure Exposed None/Limited to Skin Breakdown -Texture (Vidya-wound Skin Appearance) Assessed Scarring -Moisture (Vidya-wound Skin Appearance Assessed ) Weeping -Color (Vidya-wound Skin Appearance) No Abnormality Assessed -Temperature (Vidya-wound Skin No Abnormality Appearance) (Pt Warm) -Tenderness on Palpation (Vidya-wound No Skin Appearance) -Ulcer Cleansing Rinsed/ Irrigated with Saline -Foul Odor after Cleansing No -Anesthetic Used 5% Lidocaine Gel WC - Nurse 2 - General Ulcer CM Notes Start: 08/18/17 09:58 Freq: Status: Active Protocol: Activity Type Activity Date Activity User E-Sign Co-Sign Detail Recorded Client Recorded Date Recorded By Document 09/01/17 11:59 MW [id number] 09/01/17 12:26 MW 09/01/17 11:59 Wound Center Nurse 2 [Procedure/Treatment] #4 LEFT HIP -Time 12:07 -Correct Patient Yes -Correct Side, Site, Position Yes -Correct Procedure Yes -Procedure Performed Yes -Type of Procedure Debridement -Clinical Debridement Subcutaneous -Post Debridement Size (cm) - Length 3.5 -Post Debridement Size (cm) - Width 0.2 -Post Debridement Size (cm) - Depth 6.0 -Total Square Cm 0.70 -Wound/Ulcer Outcome Not Healed -Ulcer Cleansing Rinsed/ Irrigated with Saline -Foul Odor after Cleansing No -Bleeding Controlled with Pressure -Other TUNNEL @6 - 5. 5CM, @9 -Treatment Response Procedure Tolerated Well #3 RIGHT HIP -Time 12:07 -Correct Patient Yes -Correct Side, Site, Position Yes -Correct Procedure Yes -Procedure Performed Yes -Type of Procedure Debridement -Clinical Debridement Subcutaneous -Post Debridement Size (cm) - Length 0.4 -Post Debridement Size (cm) - Width 0.5 -Post Debridement Size (cm) - Depth 1.5 -Total Square Cm 0.20 -Wound/Ulcer Outcome Not Healed -Ulcer Cleansing Rinsed/ Irrigated with Saline -Foul Odor after Cleansing No -Bioengineered Tissue No -Bleeding Controlled with Pressure -Treatment Response Procedure Tolerated Well #2 Right dorsal Great Toe -Time 12:06 -Correct Patient Yes -Correct Side, Site, Position Yes -Correct Procedure Yes -Procedure Performed Yes -Type of Procedure Debridement -Clinical Debridement Subcutaneous -Post Debridement Size (cm) - Length 0.7 -Post Debridement Size (cm) - Width 0.9 -Post Debridement Size (cm) - Depth 0.2 -Total Square Cm 0.63 -Wound/Ulcer Outcome Not Healed -Ulcer Cleansing Rinsed/ Irrigated with Saline -Foul Odor after Cleansing No -Type of bioengineered Tissue EPIFIX -Expiration Date 05/15/22 -Product Lot Number [id number] -Percent Used 100 -Saline Lot Number [id number] -Bleeding Controlled with Pressure -Treatment Response Procedure Tolerated Well #1 Right dorsal medial 1st Metatarsophalangeal Joint -Time 12:06 -Correct Patient Yes -Correct Side, Site, Position Yes -Correct Procedure Yes -Procedure Performed Yes -Type of Procedure Debridement -Clinical Debridement Subcutaneous -Post Debridement Size (cm) - Length 0.5 -Post Debridement Size (cm) - Width 0.4 -Post Debridement Size (cm) - Depth 0.1 -Total Square Cm 0.20 -Wound/Ulcer Outcome Not Healed -Ulcer Cleansing Rinsed/ Irrigated with Saline -Foul Odor after Cleansing No -Type of bioengineered Tissue EPIFIX -Expiration Date 05/15/22 -Product Lot Number [id number] -Percent Used 100 -Saline Lot Number [id number] -Bleeding Controlled with Pressure -Treatment Response Procedure Tolerated Well [See Physician Procedure note for Specifics] Pain Scale: 0-10 Numeric [Pain] -Is Patient Pain Free? Yes Psych/Mental Status: Alert and oriented to time, place, person, mood and affect Debridement Note Post-Debridement Measurements/Treatment WC - Nurse 2 - General Ulcer CM Notes Start: 08/18/17 09:58 Freq: Status: Active Protocol: Activity Type Activity Date Activity User E-Sign Co-Sign Detail Recorded Client Recorded Date Recorded By Document 08/18/17 11:22 [facility] [id number] 08/18/17 11:52 BMF Document 08/25/17 13:06 MW [id number] 08/25/17 13:27 MW Document 09/01/17 11:59 MW [id number] 09/01/17 12:26 MW 08/18/17 08/25/17 09/01/17 11:22 13:06 11:59 Wound Center Nurse 2 #4 LEFT HIP -Time 11:40 13:06 12:07 -Correct Patient Yes Yes Yes -Correct Side, Site, Position Yes Yes Yes -Correct Procedure Yes Yes Yes -Procedure Performed Yes Yes Yes -Type of Procedure Debridement Debridement Debridement -Clinical Debridement Subcutaneous Subcutaneous Subcutaneous -Post Debridement Size (cm) - Length 2.8 2.7 3.5 -Post Debridement Size (cm) - Width 0.2 0.6 0.2 -Post Debridement Size (cm) - Depth 6.5 6.5 6.0 -Total Square Cm 0.56 1.62 0.70 -Wound/Ulcer Outcome Not Healed Not Healed Not Healed -Ulcer Cleansing Rinsed/ Rinsed/ Rinsed/ Irrigated with Irrigated with Irrigated with Saline Saline Saline -Foul Odor after Cleansing No No No -Bioengineered Tissue No No -Bleeding Controlled with Pressure Pressure Pressure -Other TUNNELING 7 - 3 TUNNEL @ 6 - 2. TUNNEL @6 - 5. .5CM 1 CM, @ 9- 6. 5CM, @9 0CM -Treatment Response Procedure Procedure Procedure Tolerated Well Tolerated Well Tolerated Well #3 RIGHT HIP -Time 11:41 13:06 12:07 -Correct Patient Yes Yes Yes -Correct Side, Site, Position Yes Yes Yes -Correct Procedure Yes Yes Yes -Procedure Performed Yes Yes Yes -Type of Procedure Debridement Debridement Debridement -Clinical Debridement Subcutaneous Subcutaneous Subcutaneous -Post Debridement Size (cm) - Length 1.1 1.0 0.4 -Post Debridement Size (cm) - Width 0.8 1.7 0.5 -Post Debridement Size (cm) - Depth 1.8 1.5 1.5 -Total Square Cm 0.88 1.70 0.20 -Wound/Ulcer Outcome Not Healed Not Healed Not Healed -Ulcer Cleansing Rinsed/ Rinsed/ Rinsed/ Irrigated with Irrigated with Irrigated with Saline Saline Saline -Foul Odor after Cleansing No No No -Bioengineered Tissue No No No -Bleeding Controlled with Pressure Pressure Pressure -Treatment Response Procedure Procedure Procedure Tolerated Well Tolerated Well Tolerated Well #2 Right dorsal Great Toe -Time 11:31 13:06 12:06 -Correct Patient Yes Yes Yes -Correct Side, Site, Position Yes Yes Yes -Correct Procedure Yes Yes Yes -Procedure Performed Yes Yes Yes -Type of Procedure Debridement Debridement Debridement -Clinical Debridement Subcutaneous Subcutaneous Subcutaneous -Post Debridement Size (cm) - Length 0.7 0.5 0.7 -Post Debridement Size (cm) - Width 1.1 0.9 0.9 -Post Debridement Size (cm) - Depth 0.3 0.2 0.2 -Total Square Cm 0.77 0.45 0.63 -Wound/Ulcer Outcome Not Healed Not Healed Not Healed -Ulcer Cleansing Rinsed/ Rinsed/ Rinsed/ Irrigated with Irrigated with Irrigated with Saline Saline Saline -Foul Odor after Cleansing No No No -Bioengineered Tissue No Yes -Type of bioengineered Tissue EPIFIX EPIFIX EPIFIX -Expiration Date 05/15/22 05/15/22 05/15/22 -Product Lot Number [id number] -Percent Used 100 100 100 -Saline Lot Number [id number] -Bleeding Controlled with Pressure Pressure Pressure -Treatment Response Procedure Procedure Procedure Tolerated Well Tolerated Well Tolerated Well #1 Right dorsal medial 1st Metatarsophalangeal Joint -Time 11:31 13:07 12:06 -Correct Patient Yes Yes Yes -Correct Side, Site, Position Yes Yes Yes -Correct Procedure Yes Yes Yes -Procedure Performed Yes Yes Yes -Type of Procedure Debridement Debridement Debridement -Clinical Debridement Subcutaneous Subcutaneous Subcutaneous -Post Debridement Size (cm) - Length 0.9 0.7 0.5 -Post Debridement Size (cm) - Width 0.9 0.7 0.4 -Post Debridement Size (cm) - Depth 0.2 0.2 0.1 -Total Square Cm 0.81 0.49 0.20 -Wound/Ulcer Outcome Not Healed Not Healed Not Healed -Ulcer Cleansing Rinsed/ Not Cleansed Rinsed/ Irrigated with Irrigated with Saline Saline -Foul Odor after Cleansing No No No -Bioengineered Tissue No Yes -Type of bioengineered Tissue EPIFIX EPIFIX EPIFIX -Expiration Date 05/15/22 05/15/22 05/15/22 -Product Lot Number [id number] -Percent Used 100 100 100 -Saline Lot Number [id number] -Bleeding Controlled with Pressure Pressure Pressure -Treatment Response Procedure Procedure Procedure Tolerated Well Tolerated Well Tolerated Well Pain Scale: 0-10 Numeric Is Patient Pain Free? Yes Yes Yes Wound debrided: Right great toe Type of Debridement: Excisional debridement Anesthesia Used: 5% Lidocaine Gel Depth: Down to and including healthy tissue, in the subcutaneous layer, to bone Percentage of wound debrided: 100 Instrument Used: 3mm curette Tissue Removed: Fibrin Severity: Limited To Skin Breakdown Amount of bleeding with debridement: Mild Bleeding Controlled with: Compression and gauze Patient tolerated procedure well - Additional Wound Wound debrided: Right Hallux Type of Debridement: Excisional debridement Anesthesia Used: 5% Lidocaine Gel Depth: Down to and including healthy tissue, in the subcutaneous layer Percentage of wound debrided: 100 Instrument Used: 3mm curette Tissue Removed: fibrin Severity: Limited To Skin Breakdown Amount of bleeding with debridement: None - Additional Wound Wound debrided: Right hip Type of Debridement: Excisional debridement Anesthesia Used: 5% Lidocaine Gel Depth: Down to and including healthy tissue, to bone Instrument Used: 3mm curette Tissue Removed: Serous Severity: Limited To Skin Breakdown Bleeding Controlled with: Compression and gauze - Additional Wound Wound debrided: Left hip Tissue Removed: no Debridement Assessment/Plan Clinical Impression(s) from Imaging Studies Bone Scan Nuclear Medicine 08/22/17 09:18 IMPRESSION: Status post bilateral total hip replacement. Findings suggestive of the possible infection or inflammatory changes surrounding both hip joints. 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 Foot drop. 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 Malnutrition. Right and left hip ulcers. 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 Right great toe and hallux #8 epi fix applied. Patient is to increase iron to twice daily dosing. Patient is to increase protein intake with meat at least 3-4 times a day. Follow-up in 2 week. This note was generated with [employer] software. It may contain incorrect words, spelling, and punctuation that were not noted in checking the note before signing.
--- NOTE | 2017-09-01 13:02 | PCM.PN.ID ---
Patient Problems: Active and Suspected Problems Chronic ulcer of right great toe (Acute) Subjective: Feeling ok, just completed course of levaquin and not much change seen in bilat purulent hip drainage. No fever, no n/v/d, no redness extending beyond the open incision sites. Has been on augmentin prior to this for years. Follows with Dr. Lopez and Dr. Harris. - Physical Exam General: Alert, Cooperative, No apparent distress Lungs: Clear to auscultation, Normal air movement Cardiovascular: Regular rate, Regular Rhythm Abdomen: Soft, Non Tender, Non-Distended Extremities: No edema Skin: Ulcer/ Wound - R toe wounds, no inflammation. Bilat hip ulcers with deep tunneling, purulent drainage. Hardware visible in R side. 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 Ecoli now R to augmentin. Has had multiple debridements and replacements of both hips with chronic infection. Bone scan with bilateral enhancement of hips/pelvis. Xray showed L hip with broken screw. 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 Discussed with him, his , and [employer]TER that this is very difficult situation. First step is to send imaging results to Dr. Harris to see if there are any surgical options for debridement or joint revision. Given the depth of involvement and exposed/infected hardware, I don't think po abx will have any effect at this time. Whether or not there are surgical options, will likely need course of iv abx and then back on suppressive po indefinitely. Any surgery would help with source control and improve chance of getting this under control, but with his surgical and radiation history, would also have significant risk. For now, monitor off of abx. Discussed with wound care team. Will discuss with Dr. Lopez who knows the patient well. Will send letter to Dr. Harris.
== END 2017-09-11 23:59 ==
LOC: WC 11:15
PROVIDERS: Family Provider Family Medicine; PCP Family Medicine; Visit Provider Nurse Practitioner
DX: L97.514 Non-pressure chronic ulcer of other part of right foot with necrosis of bone (principal); L59.8 Other specified disorders of the skin and subcutaneous tissue related to radiation; Y84.2 Radiological procedure and radiotherapy as the cause of abnormal reaction of the patient, or of later complication, without mention of misadventure at the time of the procedure; M21.371 Foot drop, right foot; L98.491 Non-pressure chronic ulcer of skin of other sites limited to breakdown of skin; D64.9 Anemia, unspecified; G62.9 Polyneuropathy, unspecified
CPT/HCPCS: 11042; 15275; 36415; 78315; 80053; 85025; Q4131

== ENCOUNTER 2017-10-06 11:00 | Outpatient (RCR) | payer MEDICARE, OTHER, SELFPAY ==
[2017-09-12 00:36] VITALS: BP 116/70; PULSE 72; RESP 16; TEMP 36; BMI 23.7
[2017-09-15 09:09] VITALS: BP 106/69; PULSE 82; RESP 18; TEMP 35.7; BMI 23.7
--- NOTE | 2017-09-18 13:42 | PN.PCM_ITS ---
(1) Chronic ulcer of right foot Status: Chronic Current Visit: Yes Qualifiers: Non-pressure ulcer stage: unspecified non-pressure ulcer stage Qualified Code(s): L97.519 - Non-pressure chronic ulcer of other part of right foot with unspecified severity Code(s): L97.519 - Non-pressure chronic ulcer of other part of right foot with unspecified severity (2) Chronic ulcer of right great toe Status: Chronic Current Visit: Yes Qualifiers: Non-pressure ulcer stage: unspecified non-pressure ulcer stage Qualified Code(s): L97.519 - Non-pressure chronic ulcer of other part of right foot with unspecified severity Code(s): L97.519 - Non-pressure chronic ulcer of other part of right foot with unspecified severity (3) 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 Current Visit: No Code(s): M87.052 - Idiopathic aseptic necrosis of left femur (4) Atrial fibrillation Status: Chronic Current Visit: No Qualifiers: Atrial fibrillation type: chronic Qualified Code(s): I48.2 - Chronic atrial fibrillation Code(s): I48.91 - Unspecified atrial fibrillation (5) Chronic anemia Status: Chronic Current Visit: No Code(s): D64.9 - Anemia, unspecified (6) Delayed wound healing Status: Chronic Current Visit: Yes Code(s): T14.8XXD - Other injury of unspecified body region, subsequent encounter (7) History of total hip replacement Status: Chronic Current Visit: Yes Qualifiers: Laterality: bilateral Qualified Code(s): Z96.643 - Presence of artificial hip joint, bilateral Code(s): Z96.649 - Presence of unspecified artificial hip joint (8) Malnutrition Status: Chronic Current Visit: No Qualifiers: Malnutrition type: nutritional marasmus Qualified Code(s): E41 - Nutritional marasmus Code(s): E46 - Unspecified protein-calorie malnutrition (9) 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 Current Visit: No Code(s): G57.91 - Unspecified mononeuropathy of right lower limb (10) Open wound of left hip and thigh with complication Status: Chronic Current Visit: Yes Qualifiers: Encounter type: initial encounter Qualified Code(s): S71.002A - Unspecified open wound, left hip, initial encounter; S71.102A - Unspecified open wound, left thigh, initial encounter Code(s): S71.002A - Unspecified open wound, left hip, initial encounter; S71.102A - Unspecified open wound, left thigh, initial encounter (11) Open wound of right hip Status: Chronic Current Visit: No Qualifiers: Encounter type: subsequent encounter Qualified Code(s): S71.001D - Unspecified open wound, right hip, subsequent encounter Code(s): S71.001A - Unspecified open wound, right hip, initial encounter (12) Recurrent deep vein thrombosis (DVT) Status: Chronic Current Visit: No Code(s): I82.409 - Acute embolism and thrombosis of unspecified deep veins of unspecified lower extremity (13) Right foot drop Status: Chronic Current Visit: No Code(s): M21.371 - Foot drop, right foot (14) Status post total hip replacement, left Status: Chronic Current Visit: Yes Code(s): Z96.642 - Presence of left artificial hip joint Type of Wound Date of Service: 09/29/17 Chief Complaint: Ulcer to dorsomedial aspect of the right hallux and dorsomedial 1st metatarsophalangeal joint. Right and left hips ulcers. To be cleared for HBO therapy History of Wound: 76-year-old white male had previously in 1999 for about had prostate cancer and was given radiation over and beyond what was therapeutic. After that he had both hips replacements ?2 to each one done with poor outcomes. He now has ulcers in both hips that tunnel into the bone on either side. He has had wound vacs and a currently he is just packing with gauze dressings. She has been on continuous Augmentin since April. Because of his poor outcomes for healing they have opted for HBO therapy here at the wound center. In the meantime I am to care for all of his other wounds also. 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 Patient still has drainage from bilateral hips that look yellowish some odor. We will obtain cultures from both hips and toes we will x- ray foot and hips bilaterally. We will also get chest x-ray for HBO and a complete blood count and a pre-albumin. Progress of Wound: There appears to be a slight improvement from last week bilateral hips. the 1st metatarsophalngeal ulcer healed today . Great toe we applied #9 epi fix to the toe and healing well almost done . Ulcers came back positive from the left hip of E. coli patient started on Levaquin 750 mg daily for 14 days Patine has since finished. A repeat cx after 1 month shows rare Ecoli now . CT of abdomen and pelvis show definite skin breakdown of the bone. and infectious disease Dr. Cameron was here talking with family about options will discuss with Dr. Harris his orthopedic surgeon .Bone Scan was undeterminate and just showed inflammation . We will continue packing of the left and right hip with the Aquacel roping. chest x-ray was negative for HBO evaluation. Lab work shows anemia and a prealbumin that is very low at 13 patient needs to be booted up with protein. Patient has appointment with Kimberly on October 02 - Physical Exam Vital Signs Temp Pulse Resp BP 96.2 F L 82 18 106/69 09/15/17 09:09 09/15/17 09:09 09/15/17 09:09 09/15/17 09:09 General: Oriented x3, Cooperative, Well developed HEENT: Atraumatic, PERRLA Oral: Moist Mucosa Neck: Supple, No JVD Lungs: Clear to auscultation, Normal air movement Cardiovascular: Regular rate, Regular Rhythm Abdomen: Bowel Sounds Present, Soft, Non Tender, No Hepato-splenomegaly Extremities: No clubbing, No edema Skin: Ulcer/ Wound - [place] L hip ulcers and R great toe and and lower 1st metatarsophalangeal joint Musculoskeletal: No Tenderness to Palpation of Joints or Extremities Lymphatic: No Cervical, Supraclavicular, or Inguinal Adenopathy Neurological: Cranial nerves II-XII grossly intact, Neuro grossly intact Psych/Mental Status: Normal Affect, Appropriate, Alert and oriented to time, place, person, mood and affect Debridement Note Post-Debridement Measurements/Treatment WC - Nurse 2 - General Ulcer CM Notes Start: 09/15/17 09:09 Freq: Status: Active Protocol: Activity Type Activity Date Activity User E-Sign Co-Sign Detail Recorded Client Recorded Date Recorded By Document 09/15/17 10:07 ROMMEL [id number] 09/15/17 10:24 ROMMEL 09/15/17 10:07 Wound Center Nurse 2 #4 LEFT HIP -Time 10:23 -Correct Patient Yes -Correct Side, Site, Position Yes -Correct Procedure Yes -Procedure Performed Yes -Type of Procedure Debridement -Clinical Debridement Subcutaneous -Post Debridement Size (cm) - Length 3.0 -Post Debridement Size (cm) - Width 0.2 -Post Debridement Size (cm) - Depth 5.0 -Total Square Cm 0.60 -Wound/Ulcer Outcome Not Healed -Ulcer Cleansing Rinsed/ Irrigated with Saline -Foul Odor after Cleansing No -Bioengineered Tissue No -Topical Lidocaine (%) 4 -Lidocaine (ml) 10 -Bleeding Controlled with NA -Treatment Response Procedure Tolerated Well #3 RIGHT HIP -Time 10:22 -Correct Patient Yes -Correct Side, Site, Position Yes -Correct Procedure Yes -Procedure Performed Yes -Type of Procedure Debridement -Clinical Debridement Subcutaneous -Post Debridement Size (cm) - Length 0.3 -Post Debridement Size (cm) - Width 0.7 -Post Debridement Size (cm) - Depth 3.0 -Total Square Cm 0.21 -Wound/Ulcer Outcome Not Healed -Ulcer Cleansing Rinsed/ Irrigated with Saline -Foul Odor after Cleansing No -Bioengineered Tissue No -Topical Lidocaine (%) 4 -Lidocaine (ml) 10 -Bleeding Controlled with NA -Treatment Response Procedure Tolerated Well #2 Right dorsal Great Toe -Time 10:07 -Correct Patient Yes -Correct Side, Site, Position Yes -Correct Procedure Yes -Procedure Performed Yes -Type of Procedure Debridement -Clinical Debridement Subcutaneous -Post Debridement Size (cm) - Length 0.4 -Post Debridement Size (cm) - Width 0.8 -Post Debridement Size (cm) - Depth 0.1 -Total Square Cm 0.32 -Wound/Ulcer Outcome Not Healed -Ulcer Cleansing Rinsed/ Irrigated with Saline -Foul Odor after Cleansing No -Type of bioengineered Tissue EPIFIX -Expiration Date 05/15/22 -Product Lot Number [id number] -Percent Used 100 -Saline Lot Number [id number] -Topical Lidocaine (%) 4 -Lidocaine (ml) 10 -Bleeding Controlled with Pressure -Treatment Response Procedure Tolerated Well #1 Right dorsal medial 1st Metatarsophalangeal Joint -Time 10:13 -Correct Patient Yes -Correct Side, Site, Position Yes -Correct Procedure Yes -Procedure Performed No -Wound/Ulcer Outcome Not Healed Wound debrided: R great toe Type of Debridement: Excisional debridement Anesthesia Used: 5% Lidocaine Gel Depth: Down to and including healthy tissue, in the subcutaneous layer Percentage of wound debrided: 100 Instrument Used: 5mm curette Tissue Removed: fibrin Severity: Limited To Skin Breakdown Amount of bleeding with debridement: None Bleeding Controlled with: Pressure Patient tolerated procedure well - Additional Wound Wound debrided: R hip Type of Debridement: Excisional debridement Anesthesia Used: 5% Lidocaine Gel Depth: Down to and including healthy tissue, to bone Percentage of wound debrided: 100 Instrument Used: 3mm curette Tissue Removed: serous d/c Severity: Limited To Skin Breakdown Amount of bleeding with debridement: Mild Bleeding Controlled with: Compression and gauze Patient tolerated procedure: Patient tolerated procedure well - Additional Wound Wound debrided: L hip Type of Debridement: Excisional debridement Anesthesia Used: 5% Lidocaine Gel Depth: Down to and including healthy tissue, in the subcutaneous layer, to bone Percentage of wound debrided: 100 Instrument Used: 3mm curette Tissue Removed: serous Severity: Limited To Skin Breakdown Amount of bleeding with debridement: None Bleeding Controlled with: Pressure, Compression and gauze Patient tolerated procedure: Patient tolerated procedure well Assessment/Plan Active Problems Open wound of left hip and thigh with complication (Chronic) Chronic ulcer of right foot (Chronic) 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 medial right first metatarsophalangeal jointreslved. Foot drop. 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 Malnutrition. Right and left hip ulcers. 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 Right great toe and hallux #9 epi fix applied. Patient is to increase iron to twice daily dosing. Patient is to increase protein intake with meat at least 3-4 times a day. Follow-up in 1 week. This note was generated with [employer] software. It may contain incorrect words, spelling, and punctuation that were not noted in checking the note before signing.
[2017-09-22 12:01] VITALS: BP 116/76; PULSE 82; RESP 16; TEMP 36.2; BMI 23.7
--- NOTE | 2017-09-22 13:19 | PCM.WC.HP ---
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 Current Visit: Yes Code(s): L59.9 - Disorder of the skin and subcutaneous tissue related to radiation, unspecified (4) Chronic ulcer of right great toe Status: Chronic Current Visit: Yes Qualifiers: Non-pressure ulcer stage: unspecified non-pressure ulcer stage Code(s): L97.519 - Non-pressure chronic ulcer of other part of right foot with unspecified severity (5) 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 Current Visit: No Code(s): M87.052 - Idiopathic aseptic necrosis of left femur (6) Atrial fibrillation Status: Chronic Current Visit: No Qualifiers: Atrial fibrillation type: chronic Qualified Code(s): I48.2 - Chronic atrial fibrillation Code(s): I48.91 - Unspecified atrial fibrillation (7) Chronic anemia Status: Chronic Current Visit: No Code(s): D64.9 - Anemia, unspecified (8) Chronic congestive heart failure Status: Chronic Current Visit: No Code(s): I50.9 - Heart failure, unspecified (9) Chronic ulcer of right foot Status: Chronic Current Visit: Yes Qualifiers: Non-pressure ulcer stage: unspecified non-pressure ulcer stage Code(s): L97.519 - Non-pressure chronic ulcer of other part of right foot with unspecified severity (10) Delayed wound healing Status: Chronic Current Visit: Yes Code(s): T14.8XXD - Other injury of unspecified body region, subsequent encounter (11) History of DVT (deep vein thrombosis) Status: Chronic Current Visit: No Code(s): Z86.718 - Personal history of other venous thrombosis and embolism Comment: With massive PE in 2005; since then Coumadin therapy Status post IVC filter 04/2013 (12) History of prostate cancer Status: Chronic Current Visit: No Comment: Status post radiation therapy in 2006 complicated by avascular necrosis of the right hip (13) History of total hip replacement Status: Chronic Current Visit: Yes Qualifiers: Laterality: bilateral Qualified Code(s): Z96.643 - Presence of artificial hip joint, bilateral Code(s): Z96.649 - Presence of unspecified artificial hip joint (14) Hyperlipidemia Status: Chronic Current Visit: No Code(s): E78.5 - Hyperlipidemia, unspecified (15) Hypertension Status: Chronic Current Visit: No Code(s): I10 - Essential (primary) hypertension (16) Open wound of left hip and thigh with complication Status: Chronic Current Visit: Yes Qualifiers: Encounter type: initial encounter Qualified Code(s): S71.002A - Unspecified open wound, left hip, initial encounter; S71.102A - Unspecified open wound, left thigh, initial encounter Code(s): S71.002A - Unspecified open wound, left hip, initial encounter; S71.102A - Unspecified open wound, left thigh, initial encounter (17) Prostate cancer Status: Chronic Current Visit: No Code(s): C61 - Malignant neoplasm of prostate (18) 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 Current Visit: Yes Code(s): L59.8 - Other specified disorders of the skin and subcutaneous tissue related to radiation; Y84.2 - Radiological procedure and radiotherapy as the cause of abnormal reaction of the patient, or of later complication, without mention of misadventure at the time of the procedure (19) Sleep apnea Status: Chronic Current Visit: No Code(s): G47.30 - Sleep apnea, unspecified (20) Status post total hip replacement, left Status: Chronic Current Visit: Yes Code(s): Z96.642 - Presence of left artificial hip joint (21) Hypothyroidism Status: Acute Current Visit: Yes Code(s): E03.9 - Hypothyroidism, unspecified (22) Physical deconditioning Status: Chronic Current Visit: Yes Code(s): R53.81 - Other malaise History of Present Illness Date of Service: 09/22/17 Chief Complaint: Ulcer to dorsomedial aspect of the right hallux and dorsomedial 1st metatarsophalangeal joint. Right and left hips ulcers. Bilateral prosthetic hip joint infection. Osteomyelitis History of Wound: 76-year-old white male had previously in 1999 for about had prostate cancer and was given radiation over and beyond what was therapeutic. After that he had both hips replacements ?2 to each one done with poor outcomes. He now has ulcers in both hips that tunnel into the bone on either side. He has had wound vacs and a currently he is just packing with gauze dressings. He has been on continuous Augmentin since April. Because of his poor outcomes for healing they have opted for HBO therapy here at the wound center. In the meantime I am to care for all of his other wounds also. 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 Patient still has drainage from bilateral hips that look yellowish some odor. We will obtain cultures from both hips and toes we will x-ray foot and hips bilaterally. We will also get chest x-ray for HBO and a complete blood count and a pre-albumin. 09/22/17 the above has been noted. This is a 77-year-old gentleman with a very complicated past medical history. He was diagnosed with prostate cancer approximately 16 years ago, and was treated with radiation therapy, with what is thought to be excessive amounts of radiation. He has suffered from significant symptoms. 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 Due to complications from both hip surgeries, he required bilateral total hip replacement revisions in recent years. Since the time of his revisions, he has had chronic nonhealing open wounds. He has been treated at the [facility] May 2017. He also has an ulceration on the dorsum of the right great toe, which is currently undergoing treatment. The patient's past medical history and records have been reviewed. A noninvasive lower extremity arterial study performed on May 23, 2017, was normal, revealing no evidence of significant arterial occlusive disease in the lower extremities. A CT scan of the abdomen and pelvis which was performed on August 28, 2017, revealed early lytic destruction of the medial aspect of the right supra acetabular region of the right iliac bone. Soft tissue ulcerations are noted overlying both hip joints. Osteomyelitis of the hips could not be excluded. The patient also underwent a three-phase bone scan on August 22, 2017, which revealed findings suggestive of possible infection or inflammatory changes surrounding both hip joints. Review of a progress note from the Infectious Disease service, Dr. Isma De Oliveira, from September 01, 2017, reveals a clinical suspicion of osteomyelitis, with a suggestion to send imaging results to Dr. Harris to see if there are any surgical options for debridement or joint revision. Furthermore, Dr. De Oliveira indicated that given the depth of involvement and exposed/infected hardware I do not think p.o. antibiotics will have any effect at this time. Whether or not there are surgical options, will likely need course of IV antibiotics and then back on suppressive p.o. indefinitely. Any surgery would help with source control and improved chance of getting this under control, but with his surgical and radiation history, would also have significant risk. 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 Grant Chronic ulcer of right great toe (Chronic) Delayed wound healing (Chronic) Malnutrition (Chronic) Right foot drop (Chronic) Neuropathy of right lower extremity (Chronic) History of prostate cancer (Chronic) Status post radiation therapy in 2005 complicated by avascular necrosis of the right hip Non-pressure chronic ulcer of right lower leg with fat layer exposed (Chronic) Right foot drop (Chronic) Recurrent deep vein thrombosis (DVT) (Chronic) Pulmonary embolism (Chronic) Sleep apnea (Chronic) Chronic anemia (Chronic) Atrial fibrillation (Chronic) Prostate cancer (Chronic) Status post total hip replacement, left (Chronic) 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 Patient has a history of prostate cancer. He has a history of skin cancer on his back. He suffers from hyperlipidemia, atrial fibrillation hypertension, and hypothyroidism. Surgical History: cataract, total hip arthroplasty - Bilateral, with bilateral revisional hip replacement., - - IVC filter Allergies/Adverse Reactions: Allergies No Known Allergies Allergy (Verified 05/04/13 17:29) Home Medications: Ambulatory Orders Medication Instructions Recorded Furosemide [Lasix] 40 mg PO BID 05/04/13 Amoxicillin [Amoxil] 500 mg PO BID@1000,2200 capsule 05/25/16 Bisacodyl [Dulcolax] 10 mg RECTAL DAILY PRN #30 suppos. 05/25/16 Calcium Carbonate [Tums] 500 mg PO BIDCM tablet 05/25/16 Ergocalciferol [Vitamin D] 50,000 unit PO Q7D capsule 05/25/16 Gabapentin [Neurontin] 300 mg PO BIDCM #60 capsule 05/25/16 Lisinopril [Zestril] 10 mg PO BID@0800,1700 #60 tablet 05/25/16 Menthol/Lanolin/Calamine/Znox 1 applic TOPICAL TID #1 tube 05/25/16 [Calmoseptine Ointment] Polyethylene Glycol 3350 [Miralax] 17 gm PO DAILY #30 packet 05/25/16 Senna/Docusate Sodium [Senokot-S] 1 tablet PO BID@0800,1700 #30 05/25/16 tablet Acetaminophen [Tylenol] 1,000 mg PO BID PRN PRN 05/18/17 Augmentin 875-125 Tablet 875 mg PO BID 05/18/17 Diltiazem HCl [Diltiazem 24Hr Cd] 180 mg PO DAILY 05/18/17 Duloxetine HCl 60 mg PO DAILY 05/18/17 Enalapril Maleate 10 mg PO BID 05/18/17 Ferrous Sulfate [Iron] 325 mg PO BID 05/18/17 Gabapentin [Neurontin] 300 mg PO BID 05/18/17 Iron Polysaccharide Complex 150 mg PO BIDAC 05/18/17 [Ferrex 150] Levothyroxine [Synthroid] 125 mcg PO DAILY@0600 05/18/17 Oxycodone HCl/Acetaminophen 1 tablet PO Q6H PRN PRN 05/18/17 [Percocet 5/325] Rosuvastatin Calcium [Crestor] 5 mg PO QHS 05/18/17 Warfarin [Coumadin ([facility])] 2.5 mg PO DAILY 05/18/17 - Family History Maternal No pertinent history Paternal No pertinent history Lives: Spouse/ Significant Other Smoking Status: Never smoker Tobacco Use: Non-smoker Alcohol: Occasional Drugs: None Review of Systems Constitutional: Denies: Chills, Fever, Weight Change Eyes: Denies: Pain, Vision Change HEENT: Denies: Difficulty Hearing, Difficulty Swallowing, Sinus Congestion Cardiovascular: Denies: Chest Pain, Palpitations Respiratory: Denies: Cough, Shortness of Breath Gastrointestinal: Denies: Diarrhea, Nausea, Vomiting Genitourinary: Denies: Dysuria, Hematuria Endocrine: Denies: Heat/ Cold Intolerance, Polydipsia, Polyuria Hematologic/ Lymphatic: Denies: Easy Bruising, Easy Bleeding - Physical Exam Vital Signs Temp Pulse Resp BP 97.1 F L 82 16 116/76 09/22/17 12:09/22/17 12:01 09/22/17 12:09/22/17 12:01 General: Alert, Oriented x3, Cooperative, No apparent distress, Well developed, Well nourished HEENT: Atraumatic, PERRLA, EOMI, Normocephalic Oral: Moist Mucosa Neck: No JVD, Negative Carotid Bruits, No Nodes, No Nuchal Rigidity, Trachea Midline Lungs: Clear to auscultation, Normal air movement, No rhonchi, No wheeze, No rales Cardiovascular: Regular rate, Regular Rhythm, Normal S1, Normal S2, No murmurs Abdomen: Bowel Sounds Present, Soft, Non Tender, Non-Distended Extremities: No clubbing, No cyanosis, No edema, No Calf Tenderness, - - An ulceration is noted on the dorsum of the right great toe. There is no sign of infection or cellulitis. Dimensions are documented elsewhere. There is a moderate amount of bioburden. A large, chronic, nonhealing surgical wound is noted on each hip. Each of the wounds appears to track down to underlying bone or prosthesis. The surgical wound on the right hip demonstrates a small amount of hypertrophic granulation tissue. Wound dimensions are documented elsewhere. Skin: No rashes Wound Measurements and Assessment WC - Nurse 1 - General Ulcer Measurement Start: 09/15/17 09:09 Freq: Status: Active Protocol: Activity Type Activity Date Activity User E-Sign Co-Sign Detail Recorded Client Recorded Date Recorded By Document 09/22/17 12:01 [facility] [id number] 09/22/17 12:23 [facility] 09/22/17 12:01 Wound Center Nurse 1 [Ulcer Assessment] #4 LEFT HIP -Combined with other wound No -Current Size (cm) - Length 3 -Current Size (cm) - Width 0.2 -Current Size (cm) - Depth 3.4 -Total Square Cm 0.6 -Photo Taken No -Epithelialization None Present -Tunneling No -Undermining/Tunneling No -Circular Undermining No -Exudate Amt Large (67-100%) -Exudate Type Serosanguineous -Wound Margin Fibrotic Scar, Thickened Scar -Granulation Amt Large (67-100%) -Granulation Quality Red -Slough/Fibrin No -Necrosis Amt None Present (0 %) -Texture (Vidya-wound Skin Appearance) Scarring -Moisture (Vidya-wound Skin Appearance Assessed ) -Color (Vidya-wound Skin Appearance) Assessed -Temperature (Vidya-wound Skin No Abnormality Appearance) (Pt Warm) -Tenderness on Palpation (Vidya-wound Yes Skin Appearance) -Ulcer Cleansing Rinsed/ Irrigated with Saline -Foul Odor after Cleansing No -Anesthetic Used 4% Lidocaine Solution #3 RIGHT HIP -Combined with other wound No -Current Size (cm) - Length 2 -Current Size (cm) - Width 1.2 -Current Size (cm) - Depth 5.2 -Total Square Cm 2.4 -Photo Taken No -Epithelialization None Present -Tunneling No -Undermining/Tunneling No -Circular Undermining No -Exudate Amt Large (67-100%) -Exudate Type Serosanguineous -Wound Margin Distinct, Outline Attached -Granulation Amt Large (67-100%) -Granulation Quality Hyper- granulation Red -Necrosis Amt None Present (0 %) -Texture (Vidya-wound Skin Appearance) Scarring -Moisture (Vidya-wound Skin Appearance Maceration ) -Color (Vidya-wound Skin Appearance) Palor -Temperature (Vidya-wound Skin No Abnormality Appearance) (Pt Warm) -Tenderness on Palpation (Vidya-wound No Skin Appearance) -Ulcer Cleansing Rinsed/ Irrigated with Saline -Foul Odor after Cleansing No -Anesthetic Used 4% Lidocaine Solution #2 Right dorsal Great Toe -Combined with other wound No -Current Size (cm) - Length 0.8 -Current Size (cm) - Width 0.9 -Current Size (cm) - Depth 0.1 -Total Square Cm 0.72 -Photo Taken No -Epithelialization None Present -Tunneling No -Undermining/Tunneling No -Circular Undermining No -Exudate Amt Small (1-33%) -Exudate Type Serosanguineous -Wound Margin Distinct, Outline Attached -Granulation Amt None Present (0 %) -Slough/Fibrin Yes -Necrosis Amt Large (67-100%) -Necrotic Tissue Type Adherent Slough -Structure Exposed N/A -Texture (Vidya-wound Skin Appearance) Scarring -Moisture (Vidya-wound Skin Appearance Dry/Scaly ) -Color (Vidya-wound Skin Appearance) Assessed Erythema -Temperature (Vidya-wound Skin No Abnormality Appearance) (Pt Warm) -Tenderness on Palpation (Vidya-wound No Skin Appearance) -Ulcer Cleansing Rinsed/ Irrigated with Saline -Foul Odor after Cleansing No -Anesthetic Used 4% Lidocaine Solution #1 Right dorsal medial 1st Metatarsophalangeal Joint -Combined with other wound No -Current Size (cm) - Length 0 -Current Size (cm) - Width 0 -Current Size (cm) - Depth 0 -Total Square Cm 0 -Date of Last Picture (Recall this 09/22/17 field) -Photo Taken Yes WC - Nurse 2 - General Ulcer CM Notes Start: 09/15/17 09:09 Freq: Status: Active Protocol: Activity Type Activity Date Activity User E-Sign Co-Sign Detail Recorded Client Recorded Date Recorded By Document 09/22/17 12:42 ROMM[facility] [id number] 09/22/17 13:09 ROMMEL 09/22/17 12:42 Wound Center Nurse 2 [Procedure/Treatment] #4 LEFT HIP -Time 12:42 -Correct Patient Yes -Correct Side, Site, Position Yes -Correct Procedure Yes -Wound/Ulcer Outcome Not Healed -Ulcer Cleansing Rinsed/ Irrigated with Saline -Foul Odor after Cleansing No -Bioengineered Tissue No -Topical Lidocaine (%) 4 -Lidocaine (ml) 5 -Bleeding Controlled with NA -Treatment Response Procedure Tolerated Well #3 RIGHT HIP -Time 12:43 -Correct Patient Yes -Correct Side, Site, Position Yes -Correct Procedure Yes -Procedure Performed No -Wound/Ulcer Outcome Not Healed -Ulcer Cleansing Rinsed/ Irrigated with Saline -Foul Odor after Cleansing No -Bioengineered Tissue No -Topical Lidocaine (%) 4 -Lidocaine (ml) 10 -Bleeding Controlled with NA -Treatment Response Procedure Tolerated Well #2 Right dorsal Great Toe -Time 12:43 -Correct Patient Yes -Correct Side, Site, Position Yes -Correct Procedure Yes -Wound/Ulcer Outcome Not Healed -Ulcer Cleansing Rinsed/ Irrigated with Saline -Foul Odor after Cleansing No -Bioengineered Tissue No -Topical Lidocaine (%) 4 -Lidocaine (ml) 5 -Bleeding Controlled with NA -Treatment Response Procedure Tolerated Well #1 Right dorsal medial 1st Metatarsophalangeal Joint -Time 12:44 -Correct Patient Yes -Correct Side, Site, Position Yes -Correct Procedure Yes -Procedure Performed Yes -Type of Procedure Debridement -Clinical Debridement Subcutaneous -Post Debridement Size (cm) - Length 0.5 -Post Debridement Size (cm) - Width 0.8 -Post Debridement Size (cm) - Depth 0.4 -Total Square Cm 0.40 -Wound/Ulcer Outcome Not Healed -Ulcer Cleansing Rinsed/ Irrigated with Saline -Foul Odor after Cleansing No -Bioengineered Tissue No -Topical Lidocaine (%) 4 -Lidocaine (ml) 5 -Bleeding Controlled with NA -Treatment Response Procedure Not Tolerated Well [See Physician Procedure note for Specifics] Pain Scale: 0-10 Numeric [Pain] -Is Patient Pain Free? Yes Musculoskeletal: Muscle Wasting Neurological: Cranial nerves II-XII grossly intact, Neuro grossly intact, - - Patient suffers from hearing deficit Psych/Mental Status: Normal Affect, Appropriate, Alert and oriented to time, place, person, mood and affect Debridement Note Post-Debridement Measurements/Treatment WC - Nurse 2 - General Ulcer CM Notes Start: 09/15/17 09:09 Freq: Status: Active Protocol: Activity Type Activity Date Activity User E-Sign Co-Sign Detail Recorded Client Recorded Date Recorded By Document 09/15/17 10:07 ROMMEL [id number] 09/15/17 10:24 JS Document 09/22/17 12:42 ROMMEL [id number] 09/22/17 13:09 JS 09/15/17 09/22/17 10:07 12:42 Wound Center Nurse 2 #4 LEFT HIP -Time 10:23 12:42 -Correct Patient Yes Yes -Correct Side, Site, Position Yes Yes -Correct Procedure Yes Yes -Procedure Performed Yes -Type of Procedure Debridement -Clinical Debridement Subcutaneous -Post Debridement Size (cm) - Length 3.0 -Post Debridement Size (cm) - Width 0.2 -Post Debridement Size (cm) - Depth 5.0 -Total Square Cm 0.60 -Wound/Ulcer Outcome Not Healed Not Healed -Ulcer Cleansing Rinsed/ Rinsed/ Irrigated with Irrigated with Saline Saline -Foul Odor after Cleansing No No -Bioengineered Tissue No No -Topical Lidocaine (%) 4 4 -Lidocaine (ml) 10 5 -Bleeding Controlled with NA NA -Treatment Response Procedure Procedure Tolerated Well Tolerated Well #3 RIGHT HIP -Time 10:22 12:43 -Correct Patient Yes Yes -Correct Side, Site, Position Yes Yes -Correct Procedure Yes Yes -Procedure Performed Yes No -Type of Procedure Debridement -Clinical Debridement Subcutaneous -Post Debridement Size (cm) - Length 0.3 -Post Debridement Size (cm) - Width 0.7 -Post Debridement Size (cm) - Depth 3.0 -Total Square Cm 0.21 -Wound/Ulcer Outcome Not Healed Not Healed -Ulcer Cleansing Rinsed/ Rinsed/ Irrigated with Irrigated with Saline Saline -Foul Odor after Cleansing No No -Bioengineered Tissue No No -Topical Lidocaine (%) 4 4 -Lidocaine (ml) 10 10 -Bleeding Controlled with NA NA -Treatment Response Procedure Procedure Tolerated Well Tolerated Well #2 Right dorsal Great Toe -Time 10:07 12:43 -Correct Patient Yes Yes -Correct Side, Site, Position Yes Yes -Correct Procedure Yes Yes -Procedure Performed Yes -Type of Procedure Debridement -Clinical Debridement Subcutaneous -Post Debridement Size (cm) - Length 0.4 -Post Debridement Size (cm) - Width 0.8 -Post Debridement Size (cm) - Depth 0.1 -Total Square Cm 0.32 -Wound/Ulcer Outcome Not Healed Not Healed -Ulcer Cleansing Rinsed/ Rinsed/ Irrigated with Irrigated with Saline Saline -Foul Odor after Cleansing No No -Bioengineered Tissue No -Type of bioengineered Tissue EPIFIX -Expiration Date 05/15/22 -Product Lot Number [id number] -Percent Used 100 -Saline Lot Number [id number] -Topical Lidocaine (%) 4 4 -Lidocaine (ml) 10 5 -Bleeding Controlled with Pressure NA -Treatment Response Procedure Procedure Tolerated Well Tolerated Well #1 Right dorsal medial 1st Metatarsophalangeal Joint -Time 10:13 12:44 -Correct Patient Yes Yes -Correct Side, Site, Position Yes Yes -Correct Procedure Yes Yes -Procedure Performed No Yes -Type of Procedure Debridement -Clinical Debridement Subcutaneous -Post Debridement Size (cm) - Length 0.5 -Post Debridement Size (cm) - Width 0.8 -Post Debridement Size (cm) - Depth 0.4 -Total Square Cm 0.40 -Wound/Ulcer Outcome Not Healed Not Healed -Ulcer Cleansing Rinsed/ Irrigated with Saline -Foul Odor after Cleansing No -Bioengineered Tissue No -Topical Lidocaine (%) 4 -Lidocaine (ml) 5 -Bleeding Controlled with NA -Treatment Response Procedure Not Tolerated Well Pain Scale: 0-10 Numeric Is Patient Pain Free? 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 Patient was treated for prostate cancer by means of radiation therapy in 2002, and appears to have received excessive doses of radiation. As result, his lower abdomen and was suffered the consequences of radiation tissue injury. Radiation cystitis and radiation proctitis have been previously treated by HBO therapy. He is currently under treatment for an ulceration on the right great toe, likely due to poorly fitted footwear. He has previously undergone bilateral total hip replacement surgery, both of which have required revision. At this time, it appears as though he may suffer from bilateral prosthetic joint infections, with chronic nonhealing of his bilateral hip surgical wounds. The Infectious Disease service is currently involved, and recommendations have been previously noted in this document. If, as suspected, infection involves the implanted prosthetic hip joints, the definitive management option would be that of prosthetic joint removal, prolonged antibiotic treatment, and eventual joint replacement. However, given the patient's deconditioned state, and radiation injury, this option may be prohibitive and fraught with complications or failure. No doubt, a multidisciplinary approach is warranted. The patient, and his at the bedside, indicate that the patient is scheduled to be evaluated by his orthopedic surgeon, Dr. Harris, in approximately 10 days. Certainly, Dr. Harris recommendations will be of benefit in the overall approach to the patient's management. Plan: Previously implemented measures will be continued. We will continue with the use of Aquacel rope to both of the patient's hip wounds. We will use Tiffanie topically to the right dorsal great toe ulceration. Offloading measures are to be continued. The patient is wearing a surgical shoe on the right foot, for the purpose of offloading measures. A low air loss mattress or similar offloading overlay has been recommended for the patient's bed. Patient will return in 1 week for reassessment with his usual provider. Recommendations from the patient's order entry specialist, Dr. Harris, will be awaited.
[2017-09-29 13:30] VITALS: BP 112/68; PULSE 67; RESP 16; TEMP 36.1; BMI 23.7
--- NOTE | 2017-10-02 09:57 | PCM.WC.PN ---
(1) Chronic ulcer of right foot Status: Chronic Qualifiers: Non-pressure ulcer stage: unspecified non-pressure ulcer stage Qualified Code(s): L97.519 - Non-pressure chronic ulcer of other part of right foot with unspecified severity Code(s): L97.519 - Non-pressure chronic ulcer of other part of right foot with unspecified severity (2) Chronic ulcer of right great toe Status: Chronic Qualifiers: Non-pressure ulcer stage: unspecified non-pressure ulcer stage Qualified Code(s): L97.519 - Non-pressure chronic ulcer of other part of right foot with unspecified severity Code(s): L97.519 - Non-pressure chronic ulcer of other part of right foot with unspecified severity (3) 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 Code(s): M87.052 - Idiopathic aseptic necrosis of left femur (4) Atrial fibrillation Status: Chronic Qualifiers: Atrial fibrillation type: chronic Qualified Code(s): I48.2 - Chronic atrial fibrillation Code(s): I48.91 - Unspecified atrial fibrillation (5) Chronic anemia Status: Chronic Code(s): D64.9 - Anemia, unspecified (6) Delayed wound healing Status: Chronic Code(s): T14.8XXD - Other injury of unspecified body region, subsequent encounter (7) History of total hip replacement Status: Chronic Qualifiers: Laterality: bilateral Qualified Code(s): Z96.643 - Presence of artificial hip joint, bilateral Code(s): Z96.649 - Presence of unspecified artificial hip joint (8) Malnutrition Status: Chronic Qualifiers: Malnutrition type: nutritional marasmus Qualified Code(s): E41 - Nutritional marasmus Code(s): E46 - Unspecified protein-calorie malnutrition (9) 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 Code(s): G57.91 - Unspecified mononeuropathy of right lower limb (10) Open wound of left hip and thigh with complication Status: Chronic Qualifiers: Encounter type: subsequent encounter Qualified Code(s): S71.002D - Unspecified open wound, left hip, subsequent encounter; S71.102D - Unspecified open wound, left thigh, subsequent encounter Code(s): S71.002A - Unspecified open wound, left hip, initial encounter; S71.102A - Unspecified open wound, left thigh, initial encounter (11) Open wound of right hip Status: Chronic Qualifiers: Encounter type: subsequent encounter Qualified Code(s): S71.001D - Unspecified open wound, right hip, subsequent encounter Code(s): S71.001A - Unspecified open wound, right hip, initial encounter (12) Recurrent deep vein thrombosis (DVT) Status: Chronic Code(s): I82.409 - Acute embolism and thrombosis of unspecified deep veins of unspecified lower extremity (13) Right foot drop Status: Chronic Code(s): M21.371 - Foot drop, right foot (14) Status post total hip replacement, left Status: Chronic Code(s): Z96.642 - Presence of left artificial hip joint Type of Wound Date of Service: 09/29/17 Chief Complaint: Ulcer to dorsomedial aspect of the right hallux and dorsomedial 1st metatarsophalangeal joint. Right and left hips ulcers. To be cleared for HBO therapy History of Wound: 76-year-old white male had previously in 1999 for about had prostate cancer and was given radiation over and beyond what was therapeutic. After that he had both hips replacements ?2 to each one done with poor outcomes. He now has ulcers in both hips that tunnel into the bone on either side. He has had wound vacs and a currently he is just packing with gauze dressings. She has been on continuous Augmentin since April. Because of his poor outcomes for healing they have opted for HBO therapy here at the wound center. In the meantime I am to care for all of his other wounds also. 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 Patient still has drainage from bilateral hips that look yellowish some odor. We will obtain cultures from both hips and toes we will x-ray foot and hips bilaterally. We will also get chest x-ray for HBO and a complete blood count and a pre-albumin. Progress of Wound: There appears to be a slight improvement from last week bilateral hips. the 1st metatarsophalngeal ulcer healed today . Great toe we applied #10 epi fix to the toe and healing well almost done . Ulcers came back positive from the left hip of E. coli but rare ,did not treat. CT of abdomen and pelvis show definite skin breakdown of the bone. and infectious disease Dr. Cameron was here talking with family about options will discuss with Dr. Harris his orthopedic surgeon .Bone Scan was undeterminate and just showed inflammation . We will continue packing of the left and right hip with the Aquacel roping. chest x-ray was negative for HBO evaluation. Lab work shows anemia and a prealbumin that is very low at 13 patient needs to be booted up with protein. Patient has appointment with Kimberly on October 02 - Physical Exam Vital Signs Temp Pulse Resp BP 96.9 F L 67 16 112/68 09/29/17 13:30 09/29/17 13:30 09/29/17 13:30 09/29/17 13:30 General: Oriented x3, Cooperative, Well developed HEENT: Atraumatic, PERRLA Oral: Moist Mucosa Neck: Supple, No JVD Lungs: Clear to auscultation, Normal air movement Cardiovascular: Regular rate, Regular Rhythm Abdomen: Bowel Sounds Present, Soft, Non Tender, No Hepato-splenomegaly Extremities: No clubbing, No edema, - - open tunneling ulcers R & L hips open non-healing R great toe Skin: Ulcer/ Wound Wound Measurements and Assessment WC - Nurse 1 - General Ulcer Measurement Start: 09/15/17 09:09 Freq: Status: Active Protocol: Activity Type Activity Date Activity User E-Sign Co-Sign Detail Recorded Client Recorded Date Recorded By Document 09/29/17 13:30 ROMMEL [id number] 09/29/17 14:03 ROMMEL 09/29/17 13:30 Wound Center Nurse 1 [Ulcer Assessment] #4 LEFT HIP -Combined with other wound No -Current Size (cm) - Length 3.1 -Current Size (cm) - Width 0.1 -Current Size (cm) - Depth 6.9 -Total Square Cm 0.31 -Date of Last Picture (Recall this 09/15/17 field) -Photo Taken No -Tunneling Position (O'clock) 6 -Tunneling Distance (cm) 5.1 -Undermining/Tunneling No -Circular Undermining No -Classification - Thickness Full Thickness with Exposed Support Structure -Exudate Amt Large (67-100%) -Exudate Type Yellow/Green -Wound Margin Distinct, Outline Attached -Granulation Amt None Present (0 %) -Granulation Quality N/A -Slough/Fibrin Yes -Necrosis Amt None Present (0 %) -Necrotic Tissue Type Adherent Slough -Structure Exposed Bone -Texture (Vidya-wound Skin Appearance) No Abnormality -Moisture (Vidya-wound Skin Appearance No Abnormality ) -Color (Vidya-wound Skin Appearance) No Abnormality -Temperature (Vidya-wound Skin No Abnormality Appearance) (Pt Warm) -Tenderness on Palpation (Vidya-wound No Skin Appearance) -Ulcer Cleansing Rinsed/ Irrigated with Saline -Foul Odor after Cleansing No -Anesthetic Used 4% Lidocaine Solution #3 RIGHT HIP -Combined with other wound No -Current Size (cm) - Length 1.5 -Current Size (cm) - Width 0.5 -Current Size (cm) - Depth 2.6 -Total Square Cm 0.75 -Date of Last Picture (Recall this 09/15/17 field) -Photo Taken No -Tunneling Yes -Tunneling Position (O'clock) 7 -Tunneling Distance (cm) 4.6 -Undermining/Tunneling No -Circular Undermining No -Classification - Thickness Full Thickness without Exposed Support Structure -Exudate Amt Large (67-100%) -Exudate Type Serosanguineous -Wound Margin Distinct, Outline Attached -Granulation Amt None Present (0 %) -Granulation Quality N/A -Slough/Fibrin Yes -Necrosis Amt None Present (0 %) -Necrotic Tissue Type Adherent Slough -Structure Exposed Fat Layer Exposed -Texture (Vidya-wound Skin Appearance) Fluctuance -Moisture (Vidya-wound Skin Appearance No Abnormality ) -Color (Vidya-wound Skin Appearance) Assessed -Temperature (Vidya-wound Skin No Abnormality Appearance) (Pt Warm) -Tenderness on Palpation (Vidya-wound No Skin Appearance) -Ulcer Cleansing Rinsed/ Irrigated with Saline -Foul Odor after Cleansing No #2 Right dorsal Great Toe -Combined with other wound No -Current Size (cm) - Length 0.5 -Current Size (cm) - Width 0.6 -Current Size (cm) - Depth 0.1 -Total Square Cm 0.30 -Date of Last Picture (Recall this 09/15/17 field) -Photo Taken No -Epithelialization Small 1-33% -Tunneling No -Undermining/Tunneling No -Circular Undermining No -Classification - Thickness Full Thickness without Exposed Support Structure -Classification - Toscano Grading ( Grade 1 Diabetic Ulcer) -Exudate Amt None Present (0 %) -Wound Margin Distinct, Outline Attached -Granulation Amt None Present (0 %) -Granulation Quality N/A -Slough/Fibrin Yes -Necrosis Amt None Present (0 %) -Necrotic Tissue Type Eschar -Structure Exposed N/A -Texture (Vidya-wound Skin Appearance) No Abnormality -Moisture (Vidya-wound Skin Appearance No Abnormality ) -Color (Vidya-wound Skin Appearance) No Abnormality -Temperature (Vidya-wound Skin No Abnormality Appearance) (Pt Warm) -Tenderness on Palpation (Vidya-wound No Skin Appearance) -Ulcer Cleansing Rinsed/ Irrigated with Saline -Foul Odor after Cleansing No -Anesthetic Used 4% Lidocaine Solution WC - Nurse 2 - General Ulcer CM Notes Start: 09/15/17 09:09 Freq: Status: Active Protocol: Activity Type Activity Date Activity User E-Sign Co-Sign Detail Recorded Client Recorded Date Recorded By Document 09/29/17 14:32 DV [id number] 09/29/17 14:49 DV 09/29/17 14:32 Wound Center Nurse 2 [Procedure/Treatment] #4 LEFT HIP -Time 14:32 -Correct Patient Yes -Correct Side, Site, Position Yes -Correct Procedure Yes -Procedure Performed Yes -Type of Procedure Debridement -Clinical Debridement Bone -Post Debridement Size (cm) - Length 3.0 -Post Debridement Size (cm) - Width 0.3 -Post Debridement Size (cm) - Depth 6.0 -Total Square Cm 0.90 -Wound/Ulcer Outcome Not Healed -Ulcer Cleansing Rinsed/ Irrigated with Saline -Foul Odor after Cleansing No -Bioengineered Tissue No -Bleeding Controlled with Pressure -Treatment Response Procedure Tolerated Well #3 RIGHT HIP -Time 14:32 -Correct Patient Yes -Correct Side, Site, Position Yes -Correct Procedure Yes -Procedure Performed Yes -Type of Procedure Debridement -Clinical Debridement Bone -Post Debridement Size (cm) - Length 0.5 -Post Debridement Size (cm) - Width 1.0 -Post Debridement Size (cm) - Depth 5.9 -Total Square Cm 0.50 -Wound/Ulcer Outcome Not Healed -Ulcer Cleansing Rinsed/ Irrigated with Saline -Foul Odor after Cleansing No -Bioengineered Tissue No -Bleeding Controlled with Silver Nitrate -Treatment Response Procedure Tolerated Well #2 Right dorsal Great Toe -Time 14:33 -Correct Patient Yes -Correct Side, Site, Position Yes -Correct Procedure Yes -Procedure Performed Yes -Type of Procedure Debridement -Clinical Debridement Subcutaneous -Post Debridement Size (cm) - Length 0.3 -Post Debridement Size (cm) - Width 0.7 -Post Debridement Size (cm) - Depth 0.2 -Total Square Cm 0.21 -Wound/Ulcer Outcome Not Healed -Ulcer Cleansing Rinsed/ Irrigated with Saline -Foul Odor after Cleansing No -Bioengineered Tissue No -Type of bioengineered Tissue EPIFIX -Expiration Date 07/13/22 -Product Lot Number [id number] -Percent Used 100 -Saline Lot Number [id number] -Topical Lidocaine (%) 4 -Bleeding Controlled with NA -Treatment Response Procedure Tolerated Well [See Physician Procedure note for Specifics] Pain Scale: 0-10 Numeric [Pain] -Is Patient Pain Free? Yes Musculoskeletal: No Tenderness to Palpation of Joints or Extremities Lymphatic: No Cervical, Supraclavicular, or Inguinal Adenopathy Neurological: Cranial nerves II-XII grossly intact, Neuro grossly intact Psych/Mental Status: Normal Affect, Appropriate, Alert and oriented to time, place, person, mood and affect Debridement Note Post-Debridement Measurements/Treatment WC - Nurse 2 - General Ulcer CM Notes Start: 09/15/17 09:09 Freq: Status: Active Protocol: Activity Type Activity Date Activity User E-Sign Co-Sign Detail Recorded Client Recorded Date Recorded By Document 09/15/17 10:07 [id number] 09/15/17 10:24 Document 09/22/17 12:42 [id number] 09/22/17 13:09 JS Document 09/29/17 14:32 DV [id number] 09/29/17 14:49 DV 09/15/17 09/22/17 09/29/17 10:07 12:42 14:32 Wound Center Nurse 2 #4 LEFT HIP -Time 10:23 12:42 14:32 -Correct Patient Yes Yes Yes -Correct Side, Site, Position Yes Yes Yes -Correct Procedure Yes Yes Yes -Procedure Performed Yes Yes -Type of Procedure Debridement Debridement -Clinical Debridement Subcutaneous Bone -Post Debridement Size (cm) - Length 3.0 3.0 -Post Debridement Size (cm) - Width 0.2 0.3 -Post Debridement Size (cm) - Depth 5.0 6.0 -Total Square Cm 0.60 0.90 -Wound/Ulcer Outcome Not Healed Not Healed Not Healed -Ulcer Cleansing Rinsed/ Rinsed/ Rinsed/ Irrigated with Irrigated with Irrigated with Saline Saline Saline -Foul Odor after Cleansing No No No -Bioengineered Tissue No No No -Topical Lidocaine (%) 4 4 -Lidocaine (ml) 10 5 -Bleeding Controlled with NA NA Pressure -Treatment Response Procedure Procedure Procedure Tolerated Well Tolerated Well Tolerated Well #3 RIGHT HIP -Time 10:22 12:43 14:32 -Correct Patient Yes Yes Yes -Correct Side, Site, Position Yes Yes Yes -Correct Procedure Yes Yes Yes -Procedure Performed Yes No Yes -Type of Procedure Debridement Debridement -Clinical Debridement Subcutaneous Bone -Post Debridement Size (cm) - Length 0.3 0.5 -Post Debridement Size (cm) - Width 0.7 1.0 -Post Debridement Size (cm) - Depth 3.0 5.9 -Total Square Cm 0.21 0.50 -Wound/Ulcer Outcome Not Healed Not Healed Not Healed -Ulcer Cleansing Rinsed/ Rinsed/ Rinsed/ Irrigated with Irrigated with Irrigated with Saline Saline Saline -Foul Odor after Cleansing No No No -Bioengineered Tissue No No No -Topical Lidocaine (%) 4 4 -Lidocaine (ml) 10 10 -Bleeding Controlled with NA NA Silver Nitrate -Treatment Response Procedure Procedure Procedure Tolerated Well Tolerated Well Tolerated Well #2 Right dorsal Great Toe -Time 10:07 12:43 14:33 -Correct Patient Yes Yes Yes -Correct Side, Site, Position Yes Yes Yes -Correct Procedure Yes Yes Yes -Procedure Performed Yes Yes -Type of Procedure Debridement Debridement -Clinical Debridement Subcutaneous Subcutaneous -Post Debridement Size (cm) - Length 0.4 0.3 -Post Debridement Size (cm) - Width 0.8 0.7 -Post Debridement Size (cm) - Depth 0.1 0.2 -Total Square Cm 0.32 0.21 -Wound/Ulcer Outcome Not Healed Not Healed Not Healed -Ulcer Cleansing Rinsed/ Rinsed/ Rinsed/ Irrigated with Irrigated with Irrigated with Saline Saline Saline -Foul Odor after Cleansing No No No -Bioengineered Tissue No No -Type of bioengineered Tissue EPIFIX EPIFIX -Expiration Date 05/15/22 07/13/22 -Product Lot Number [id number] -Percent Used 100 100 -Saline Lot Number [id number] -Topical Lidocaine (%) 4 4 4 -Lidocaine (ml) 10 5 -Bleeding Controlled with Pressure NA NA -Treatment Response Procedure Procedure Procedure Tolerated Well Tolerated Well Tolerated Well #1 Right dorsal medial 1st Metatarsophalangeal Joint -Time 10:13 12:44 -Correct Patient Yes Yes -Correct Side, Site, Position Yes Yes -Correct Procedure Yes Yes -Procedure Performed No Yes -Type of Procedure Debridement -Clinical Debridement Subcutaneous -Post Debridement Size (cm) - Length 0.5 -Post Debridement Size (cm) - Width 0.8 -Post Debridement Size (cm) - Depth 0.4 -Total Square Cm 0.40 -Wound/Ulcer Outcome Not Healed Not Healed -Ulcer Cleansing Rinsed/ Irrigated with Saline -Foul Odor after Cleansing No -Bioengineered Tissue No -Topical Lidocaine (%) 4 -Lidocaine (ml) 5 -Bleeding Controlled with NA -Treatment Response Procedure Not Tolerated Well Pain Scale: 0-10 Numeric Is Patient Pain Free? Yes Yes Wound debrided: R great toe Anesthesia Used: 5% Lidocaine Gel Depth: Down to and including healthy tissue, in the subcutaneous layer Instrument Used: 3mm curette Tissue Removed: fibrin Amount of bleeding with debridement: None Bleeding Controlled with: Pressure Patient tolerated procedure well - Additional Wound Wound debrided: R hip Laterality: Right Type of Debridement: Excisional debridement Depth: to bone Percentage of wound debrided: 20 Instrument Used: 3mm curette Tissue Removed: fibrin Amount of bleeding with debridement: None Patient tolerated procedure: Patient tolerated procedure well - Additional Wound Wound debrided: L hip Type of Debridement: Excisional debridement Anesthesia Used: 5% Lidocaine Gel Depth: to bone Percentage of wound debrided: 20 Instrument Used: 3mm curette Tissue Removed: fibrin Amount of bleeding with debridement: None Bleeding Controlled with: Pressure Assessment/Plan Assessment: Ulcers to the dorsal aspect of the right hallux. medial right first metatarsophalangeal joint resolved. Foot drop. 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 Malnutrition. Right and left hip ulcers. 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 Right great toe and hallux #10 epi fix applied. Patient is to increase iron to twice daily dosing. Patient is to increase protein intake with meat at least 3-4 times a day. Follow-up in 1 week. This note was generated with [employer] software. It may contain incorrect words, spelling, and punctuation that were not noted in checking the note before signing.
--- NOTE | 2017-10-02 10:05 | PN.PCM_ITS ---
(1) Chronic ulcer of right foot Status: Chronic Qualifiers: Non-pressure ulcer stage: unspecified non-pressure ulcer stage Qualified Code(s): L97.519 - Non-pressure chronic ulcer of other part of right foot with unspecified severity Code(s): L97.519 - Non-pressure chronic ulcer of other part of right foot with unspecified severity (2) Chronic ulcer of right great toe Status: Chronic Qualifiers: Non-pressure ulcer stage: unspecified non-pressure ulcer stage Qualified Code(s): L97.519 - Non-pressure chronic ulcer of other part of right foot with unspecified severity Code(s): L97.519 - Non-pressure chronic ulcer of other part of right foot with unspecified severity (3) 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 Code(s): M87.052 - Idiopathic aseptic necrosis of left femur (4) Atrial fibrillation Status: Chronic Qualifiers: Atrial fibrillation type: chronic Qualified Code(s): I48.2 - Chronic atrial fibrillation Code(s): I48.91 - Unspecified atrial fibrillation (5) Chronic anemia Status: Chronic Code(s): D64.9 - Anemia, unspecified (6) Delayed wound healing Status: Chronic Code(s): T14.8XXD - Other injury of unspecified body region, subsequent encounter (7) History of total hip replacement Status: Chronic Qualifiers: Laterality: bilateral Qualified Code(s): Z96.643 - Presence of artificial hip joint, bilateral Code(s): Z96.649 - Presence of unspecified artificial hip joint (8) Malnutrition Status: Chronic Qualifiers: Malnutrition type: nutritional marasmus Qualified Code(s): E41 - Nutritional marasmus Code(s): E46 - Unspecified protein-calorie malnutrition (9) 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 Code(s): G57.91 - Unspecified mononeuropathy of right lower limb (10) Open wound of left hip and thigh with complication Status: Chronic Qualifiers: Encounter type: subsequent encounter Qualified Code(s): S71.002D - Unspecified open wound, left hip, subsequent encounter; S71.102D - Unspecified open wound, left thigh, subsequent encounter Code(s): S71.002A - Unspecified open wound, left hip, initial encounter; S71.102A - Unspecified open wound, left thigh, initial encounter (11) Open wound of right hip Status: Chronic Qualifiers: Encounter type: subsequent encounter Qualified Code(s): S71.001D - Unspecified open wound, right hip, subsequent encounter Code(s): S71.001A - Unspecified open wound, right hip, initial encounter (12) Recurrent deep vein thrombosis (DVT) Status: Chronic Code(s): I82.409 - Acute embolism and thrombosis of unspecified deep veins of unspecified lower extremity (13) Right foot drop Status: Chronic Code(s): M21.371 - Foot drop, right foot (14) Status post total hip replacement, left Status: Chronic Code(s): Z96.642 - Presence of left artificial hip joint Type of Wound Date of Service: 09/29/17 Chief Complaint: Ulcer to dorsomedial aspect of the right hallux and dorsomedial 1st metatarsophalangeal joint. Right and left hips ulcers. To be cleared for HBO therapy History of Wound: 76-year-old white male had previously in 1999 for about had prostate cancer and was given radiation over and beyond what was therapeutic. After that he had both hips replacements ?2 to each one done with poor outcomes. He now has ulcers in both hips that tunnel into the bone on either side. He has had wound vacs and a currently he is just packing with gauze dressings. She has been on continuous Augmentin since April. Because of his poor outcomes for healing they have opted for HBO therapy here at the wound center. In the meantime I am to care for all of his other wounds also. 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 Patient still has drainage from bilateral hips that look yellowish some odor. We will obtain cultures from both hips and toes we will x- ray foot and hips bilaterally. We will also get chest x-ray for HBO and a complete blood count and a pre-albumin. Progress of Wound: There appears to be a slight improvement from last week bilateral hips. the 1st metatarsophalngeal ulcer healed today . Great toe we applied #10 epi fix to the toe and healing well almost done . Ulcers came back positive from the left hip of E. coli but rare ,did not treat. CT of abdomen and pelvis show definite skin breakdown of the bone. and infectious disease Dr. Cameron was here talking with family about options will discuss with Dr. Harris his orthopedic surgeon .Bone Scan was undeterminate and just showed inflammation . We will continue packing of the left and right hip with the Aquacel roping. chest x-ray was negative for HBO evaluation. Lab work shows anemia and a prealbumin that is very low at 13 patient needs to be booted up with protein. Patient has appointment with Kimberly on October 02 - Physical Exam Vital Signs Temp Pulse Resp BP 96.9 F L 67 16 112/68 09/29/17 13:30 09/29/17 13:30 09/29/17 13:30 09/29/17 13:30 General: Oriented x3, Cooperative, Well developed HEENT: Atraumatic, PERRLA Oral: Moist Mucosa Neck: Supple, No JVD Lungs: Clear to auscultation, Normal air movement Cardiovascular: Regular rate, Regular Rhythm Abdomen: Bowel Sounds Present, Soft, Non Tender, No Hepato-splenomegaly Extremities: No clubbing, No edema, - - open tunneling ulcers R & L hips open non-healing R great toe Skin: Ulcer/ Wound Wound Measurements and Assessment WC - Nurse 1 - General Ulcer Measurement Start: 09/15/17 09:09 Freq: Status: Active Protocol: Activity Type Activity Date Activity User E-Sign Co-Sign Detail Recorded Client Recorded Date Recorded By Document 09/29/17 13:30 ROMMEL [id number] 09/29/17 14:03 ROMMEL 09/29/17 13:30 Wound Center Nurse 1 [Ulcer Assessment] #4 LEFT HIP -Combined with other wound No -Current Size (cm) - Length 3.1 -Current Size (cm) - Width 0.1 -Current Size (cm) - Depth 6.9 -Total Square Cm 0.31 -Date of Last Picture (Recall this 09/15/17 field) -Photo Taken No -Tunneling Position (O'clock) 6 -Tunneling Distance (cm) 5.1 -Undermining/Tunneling No -Circular Undermining No -Classification - Thickness Full Thickness with Exposed Support Structure -Exudate Amt Large (67-100%) -Exudate Type Yellow/Green -Wound Margin Distinct, Outline Attached -Granulation Amt None Present (0 %) -Granulation Quality N/A -Slough/Fibrin Yes -Necrosis Amt None Present (0 %) -Necrotic Tissue Type Adherent Slough -Structure Exposed Bone -Texture (Vidya-wound Skin Appearance) No Abnormality -Moisture (Vidya-wound Skin Appearance No Abnormality ) -Color (Vidya-wound Skin Appearance) No Abnormality -Temperature (Vidya-wound Skin No Abnormality Appearance) (Pt Warm) -Tenderness on Palpation (Vidya-wound No Skin Appearance) -Ulcer Cleansing Rinsed/ Irrigated with Saline -Foul Odor after Cleansing No -Anesthetic Used 4% Lidocaine Solution #3 RIGHT HIP -Combined with other wound No -Current Size (cm) - Length 1.5 -Current Size (cm) - Width 0.5 -Current Size (cm) - Depth 2.6 -Total Square Cm 0.75 -Date of Last Picture (Recall this 09/15/17 field) -Photo Taken No -Tunneling Yes -Tunneling Position (O'clock) 7 -Tunneling Distance (cm) 4.6 -Undermining/Tunneling No -Circular Undermining No -Classification - Thickness Full Thickness without Exposed Support Structure -Exudate Amt Large (67-100%) -Exudate Type Serosanguineous -Wound Margin Distinct, Outline Attached -Granulation Amt None Present (0 %) -Granulation Quality N/A -Slough/Fibrin Yes -Necrosis Amt None Present (0 %) -Necrotic Tissue Type Adherent Slough -Structure Exposed Fat Layer Exposed -Texture (Vidya-wound Skin Appearance) Fluctuance -Moisture (Vidya-wound Skin Appearance No Abnormality ) -Color (Vidya-wound Skin Appearance) Assessed -Temperature (Vidya-wound Skin No Abnormality Appearance) (Pt Warm) -Tenderness on Palpation (Vidya-wound No Skin Appearance) -Ulcer Cleansing Rinsed/ Irrigated with Saline -Foul Odor after Cleansing No #2 Right dorsal Great Toe -Combined with other wound No -Current Size (cm) - Length 0.5 -Current Size (cm) - Width 0.6 -Current Size (cm) - Depth 0.1 -Total Square Cm 0.30 -Date of Last Picture (Recall this 09/15/17 field) -Photo Taken No -Epithelialization Small 1-33% -Tunneling No -Undermining/Tunneling No -Circular Undermining No -Classification - Thickness Full Thickness without Exposed Support Structure -Classification - Toscano Grading ( Grade 1 Diabetic Ulcer) -Exudate Amt None Present (0 %) -Wound Margin Distinct, Outline Attached -Granulation Amt None Present (0 %) -Granulation Quality N/A -Slough/Fibrin Yes -Necrosis Amt None Present (0 %) -Necrotic Tissue Type Eschar -Structure Exposed N/A -Texture (Vidya-wound Skin Appearance) No Abnormality -Moisture (Vidya-wound Skin Appearance No Abnormality ) -Color (Vidya-wound Skin Appearance) No Abnormality -Temperature (Vidya-wound Skin No Abnormality Appearance) (Pt Warm) -Tenderness on Palpation (Vidya-wound No Skin Appearance) -Ulcer Cleansing Rinsed/ Irrigated with Saline -Foul Odor after Cleansing No -Anesthetic Used 4% Lidocaine Solution WC - Nurse 2 - General Ulcer CM Notes Start: 09/15/17 09:09 Freq: Status: Active Protocol: Activity Type Activity Date Activity User E-Sign Co-Sign Detail Recorded Client Recorded Date Recorded By Document 09/29/17 14:32 DV [id number] 09/29/17 14:49 DV 09/29/17 14:32 Wound Center Nurse 2 [Procedure/Treatment] #4 LEFT HIP -Time 14:32 -Correct Patient Yes -Correct Side, Site, Position Yes -Correct Procedure Yes -Procedure Performed Yes -Type of Procedure Debridement -Clinical Debridement Bone -Post Debridement Size (cm) - Length 3.0 -Post Debridement Size (cm) - Width 0.3 -Post Debridement Size (cm) - Depth 6.0 -Total Square Cm 0.90 -Wound/Ulcer Outcome Not Healed -Ulcer Cleansing Rinsed/ Irrigated with Saline -Foul Odor after Cleansing No -Bioengineered Tissue No -Bleeding Controlled with Pressure -Treatment Response Procedure Tolerated Well #3 RIGHT HIP -Time 14:32 -Correct Patient Yes -Correct Side, Site, Position Yes -Correct Procedure Yes -Procedure Performed Yes -Type of Procedure Debridement -Clinical Debridement Bone -Post Debridement Size (cm) - Length 0.5 -Post Debridement Size (cm) - Width 1.0 -Post Debridement Size (cm) - Depth 5.9 -Total Square Cm 0.50 -Wound/Ulcer Outcome Not Healed -Ulcer Cleansing Rinsed/ Irrigated with Saline -Foul Odor after Cleansing No -Bioengineered Tissue No -Bleeding Controlled with Silver Nitrate -Treatment Response Procedure Tolerated Well #2 Right dorsal Great Toe -Time 14:33 -Correct Patient Yes -Correct Side, Site, Position Yes -Correct Procedure Yes -Procedure Performed Yes -Type of Procedure Debridement -Clinical Debridement Subcutaneous -Post Debridement Size (cm) - Length 0.3 -Post Debridement Size (cm) - Width 0.7 -Post Debridement Size (cm) - Depth 0.2 -Total Square Cm 0.21 -Wound/Ulcer Outcome Not Healed -Ulcer Cleansing Rinsed/ Irrigated with Saline -Foul Odor after Cleansing No -Bioengineered Tissue No -Type of bioengineered Tissue EPIFIX -Expiration Date 07/13/22 -Product Lot Number [id number] -Percent Used 100 -Saline Lot Number [id number] -Topical Lidocaine (%) 4 -Bleeding Controlled with NA -Treatment Response Procedure Tolerated Well [See Physician Procedure note for Specifics] Pain Scale: 0-10 Numeric [Pain] -Is Patient Pain Free? Yes Musculoskeletal: No Tenderness to Palpation of Joints or Extremities Lymphatic: No Cervical, Supraclavicular, or Inguinal Adenopathy Neurological: Cranial nerves II-XII grossly intact, Neuro grossly intact Psych/Mental Status: Normal Affect, Appropriate, Alert and oriented to time, place, person, mood and affect Debridement Note Post-Debridement Measurements/Treatment WC - Nurse 2 - General Ulcer CM Notes Start: 09/15/17 09:09 Freq: Status: Active Protocol: Activity Type Activity Date Activity User E-Sign Co-Sign Detail Recorded Client Recorded Date Recorded By Document 09/15/17 10:07 [id number] 09/15/17 10:24 Document 09/22/17 12:42 [id number] 09/22/17 13:09 JS Document 09/29/17 14:32 DV [id number] 09/29/17 14:49 DV 09/15/17 09/22/17 09/29/17 10:07 12:42 14:32 Wound Center Nurse 2 #4 LEFT HIP -Time 10:23 12:42 14:32 -Correct Patient Yes Yes Yes -Correct Side, Site, Position Yes Yes Yes -Correct Procedure Yes Yes Yes -Procedure Performed Yes Yes -Type of Procedure Debridement Debridement -Clinical Debridement Subcutaneous Bone -Post Debridement Size (cm) - Length 3.0 3.0 -Post Debridement Size (cm) - Width 0.2 0.3 -Post Debridement Size (cm) - Depth 5.0 6.0 -Total Square Cm 0.60 0.90 -Wound/Ulcer Outcome Not Healed Not Healed Not Healed -Ulcer Cleansing Rinsed/ Rinsed/ Rinsed/ Irrigated with Irrigated with Irrigated with Saline Saline Saline -Foul Odor after Cleansing No No No -Bioengineered Tissue No No No -Topical Lidocaine (%) 4 4 -Lidocaine (ml) 10 5 -Bleeding Controlled with NA NA Pressure -Treatment Response Procedure Procedure Procedure Tolerated Well Tolerated Well Tolerated Well #3 RIGHT HIP -Time 10:22 12:43 14:32 -Correct Patient Yes Yes Yes -Correct Side, Site, Position Yes Yes Yes -Correct Procedure Yes Yes Yes -Procedure Performed Yes No Yes -Type of Procedure Debridement Debridement -Clinical Debridement Subcutaneous Bone -Post Debridement Size (cm) - Length 0.3 0.5 -Post Debridement Size (cm) - Width 0.7 1.0 -Post Debridement Size (cm) - Depth 3.0 5.9 -Total Square Cm 0.21 0.50 -Wound/Ulcer Outcome Not Healed Not Healed Not Healed -Ulcer Cleansing Rinsed/ Rinsed/ Rinsed/ Irrigated with Irrigated with Irrigated with Saline Saline Saline -Foul Odor after Cleansing No No No -Bioengineered Tissue No No No -Topical Lidocaine (%) 4 4 -Lidocaine (ml) 10 10 -Bleeding Controlled with NA NA Silver Nitrate -Treatment Response Procedure Procedure Procedure Tolerated Well Tolerated Well Tolerated Well #2 Right dorsal Great Toe -Time 10:07 12:43 14:33 -Correct Patient Yes Yes Yes -Correct Side, Site, Position Yes Yes Yes -Correct Procedure Yes Yes Yes -Procedure Performed Yes Yes -Type of Procedure Debridement Debridement -Clinical Debridement Subcutaneous Subcutaneous -Post Debridement Size (cm) - Length 0.4 0.3 -Post Debridement Size (cm) - Width 0.8 0.7 -Post Debridement Size (cm) - Depth 0.1 0.2 -Total Square Cm 0.32 0.21 -Wound/Ulcer Outcome Not Healed Not Healed Not Healed -Ulcer Cleansing Rinsed/ Rinsed/ Rinsed/ Irrigated with Irrigated with Irrigated with Saline Saline Saline -Foul Odor after Cleansing No No No -Bioengineered Tissue No No -Type of bioengineered Tissue EPIFIX EPIFIX -Expiration Date 05/15/22 07/13/22 -Product Lot Number [id number] -Percent Used 100 100 -Saline Lot Number [id number] -Topical Lidocaine (%) 4 4 4 -Lidocaine (ml) 10 5 -Bleeding Controlled with Pressure NA NA -Treatment Response Procedure Procedure Procedure Tolerated Well Tolerated Well Tolerated Well #1 Right dorsal medial 1st Metatarsophalangeal Joint -Time 10:13 12:44 -Correct Patient Yes Yes -Correct Side, Site, Position Yes Yes -Correct Procedure Yes Yes -Procedure Performed No Yes -Type of Procedure Debridement -Clinical Debridement Subcutaneous -Post Debridement Size (cm) - Length 0.5 -Post Debridement Size (cm) - Width 0.8 -Post Debridement Size (cm) - Depth 0.4 -Total Square Cm 0.40 -Wound/Ulcer Outcome Not Healed Not Healed -Ulcer Cleansing Rinsed/ Irrigated with Saline -Foul Odor after Cleansing No -Bioengineered Tissue No -Topical Lidocaine (%) 4 -Lidocaine (ml) 5 -Bleeding Controlled with NA -Treatment Response Procedure Not Tolerated Well Pain Scale: 0-10 Numeric Is Patient Pain Free? Yes Yes Wound debrided: R great toe Anesthesia Used: 5% Lidocaine Gel Depth: Down to and including healthy tissue, in the subcutaneous layer Instrument Used: 3mm curette Tissue Removed: fibrin Amount of bleeding with debridement: None Bleeding Controlled with: Pressure Patient tolerated procedure well - Additional Wound Wound debrided: R hip Laterality: Right Type of Debridement: Excisional debridement Depth: to bone Percentage of wound debrided: 20 Instrument Used: 3mm curette Tissue Removed: fibrin Amount of bleeding with debridement: None Patient tolerated procedure: Patient tolerated procedure well - Additional Wound Wound debrided: L hip Type of Debridement: Excisional debridement Anesthesia Used: 5% Lidocaine Gel Depth: to bone Percentage of wound debrided: 20 Instrument Used: 3mm curette Tissue Removed: fibrin Amount of bleeding with debridement: None Bleeding Controlled with: Pressure Assessment/Plan Assessment: Ulcers to the dorsal aspect of the right hallux. medial right first metatarsophalangeal joint resolved. Foot drop. 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 Malnutrition. Right and left hip ulcers. 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 Right great toe and hallux #10 epi fix applied. Patient is to increase iron to twice daily dosing. Patient is to increase protein intake with meat at least 3-4 times a day. Follow-up in 1 week. This note was generated with i[employer]acked[employer] software. It may contain incorrect words, spelling, and punctuation that were not noted in checking the note before signing.
[2017-10-06 11:26] VITALS: BP 109/70; PULSE 69; RESP 16; TEMP 36.4; BMI 23.7
--- NOTE | 2017-10-06 12:39 | PCM.WC.PN ---
(1) Chronic ulcer of right foot Status: Chronic Current Visit: Yes Qualifiers: Non-pressure ulcer stage: unspecified non-pressure ulcer stage Qualified Code(s): L97.519 - Non-pressure chronic ulcer of other part of right foot with unspecified severity Code(s): L97.519 - Non-pressure chronic ulcer of other part of right foot with unspecified severity (2) Chronic ulcer of right great toe Status: Chronic Current Visit: Yes Qualifiers: Non-pressure ulcer stage: unspecified non-pressure ulcer stage Qualified Code(s): L97.519 - Non-pressure chronic ulcer of other part of right foot with unspecified severity Code(s): L97.519 - Non-pressure chronic ulcer of other part of right foot with unspecified severity (3) 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 Current Visit: Yes Code(s): M87.052 - Idiopathic aseptic necrosis of left femur (4) Atrial fibrillation Status: Chronic Current Visit: No Qualifiers: Atrial fibrillation type: chronic Qualified Code(s): I48.2 - Chronic atrial fibrillation Code(s): I48.91 - Unspecified atrial fibrillation (5) Chronic anemia Status: Chronic Current Visit: Yes Code(s): D64.9 - Anemia, unspecified (6) Delayed wound healing Status: Chronic Current Visit: No Code(s): T14.8XXD - Other injury of unspecified body region, subsequent encounter (7) History of total hip replacement Status: Chronic Current Visit: Yes Qualifiers: Laterality: bilateral Qualified Code(s): Z96.643 - Presence of artificial hip joint, bilateral Code(s): Z96.649 - Presence of unspecified artificial hip joint (8) Malnutrition Status: Chronic Current Visit: Yes Qualifiers: Malnutrition type: nutritional marasmus Qualified Code(s): E41 - Nutritional marasmus Code(s): E46 - Unspecified protein-calorie malnutrition (9) 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 Current Visit: Yes Code(s): G57.91 - Unspecified mononeuropathy of right lower limb (10) Open wound of left hip and thigh with complication Status: Chronic Current Visit: Yes Qualifiers: Encounter type: subsequent encounter Qualified Code(s): S71.002D - Unspecified open wound, left hip, subsequent encounter; S71.102D - Unspecified open wound, left thigh, subsequent encounter Code(s): S71.002A - Unspecified open wound, left hip, initial encounter; S71.102A - Unspecified open wound, left thigh, initial encounter (11) Open wound of right hip Status: Chronic Current Visit: Yes Qualifiers: Encounter type: subsequent encounter Qualified Code(s): S71.001D - Unspecified open wound, right hip, subsequent encounter Code(s): S71.001A - Unspecified open wound, right hip, initial encounter (12) Recurrent deep vein thrombosis (DVT) Status: Chronic Current Visit: Yes Code(s): I82.409 - Acute embolism and thrombosis of unspecified deep veins of unspecified lower extremity (13) Right foot drop Status: Chronic Current Visit: Yes Code(s): M21.371 - Foot drop, right foot (14) Status post total hip replacement, left Status: Chronic Current Visit: Yes Code(s): Z96.642 - Presence of left artificial hip joint Type of Wound Date of Service: 10/06/17 Chief Complaint: Ulcer to dorsomedial aspect of the right hallux and dorsomedial 1st metatarsophalangeal joint. Right and left hips ulcers. To be cleared for HBO therapy History of Wound: 76-year-old white male had previously in 1999 for about had prostate cancer and was given radiation over and beyond what was therapeutic. After that he had both hips replacements ?2 to each one done with poor outcomes. He now has ulcers in both hips that tunnel into the bone on either side. He has had wound vacs and a currently he is just packing with gauze dressings. She has been on continuous Augmentin since April. Because of his poor outcomes for healing they have opted for HBO therapy here at the wound center. In the meantime I am to care for all of his other wounds also. 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 Patient still has drainage from bilateral hips that look yellowish some odor. We will obtain cultures from both hips and toes we will x-ray foot and hips bilaterally. We will also get chest x-ray for HBO and a complete blood count and a pre-albumin. Progress of Wound: There appears to be a more improvement from last week bilateral hips. the 1st metatarsophalngeal ulcer healed today . Great toe we applied #10 epi fix to the toe and healing well almost done .Will we continue to use promogran daily dressing. Ulcers came back positive from the left hip of E. coli but rare ,did not treat. CT of abdomen and pelvis show definite skin breakdown of the bone. and infectious disease Dr. Cameron was here talking with family about options will discuss with Dr. Harris his orthopedic surgeon. They saw him last week and he was impressed with the closing of the hips ,but felt the hips in good allignment and the screws are not that loose . Will follw up with him again in 2 weeks week of the 10/23/17 Bone Scan was undeterminate and just showed inflammation . We will continue packing of the left and right hip with the iodoform guaze having copious amounts of drainage that needs to be absorbed . It is medically necassary to increase the dressing changes to bid to absorb for healling qualities and faster. Chest x-ray was negative for HBO evaluation. Lab work shows anemia and a prealbumin that is very low at 13 patient needs to be booted up with protein. - Physical Exam Vital Signs Temp Pulse Resp BP 97.5 F L 69 16 109/70 10/06/17 11:26 10/06/17 11:26 10/06/17 11:26 10/06/17 11:26 General: Oriented x3, Cooperative, Well developed HEENT: Atraumatic, PERRLA Oral: Moist Mucosa Neck: Supple, No JVD Lungs: Clear to auscultation, Normal air movement Cardiovascular: Regular rate, Regular Rhythm Abdomen: Bowel Sounds Present, Soft, Non Tender, No Hepato-splenomegaly Extremities: No clubbing, No edema, - - Right toe ulcer right and left hip open nonhealing wounds Skin: No rashes Wound Measurements and Assessment WC - Nurse 1 - General Ulcer Measurement Start: 09/15/17 09:09 Freq: Status: Active Protocol: Activity Type Activity Date Activity User E-Sign Co-Sign Detail Recorded Client Recorded Date Recorded By Document 10/06/17 11:[address] [facility] [id number] 10/06/17 11:50 BMF 10/06/17 11:26 Wound Center Nurse 1 [Ulcer Assessment] #4 LEFT HIP -Combined with other wound No -Current Size (cm) - Length 2.3 -Current Size (cm) - Width 0.1 -Current Size (cm) - Depth 4.9 -Total Square Cm 0.23 -Date of Last Picture (Recall this 09/15/17 field) -Photo Taken No -Epithelialization None Present -Tunneling No -Undermining/Tunneling No -Circular Undermining No -Classification - Thickness Full Thickness with Exposed Support Structure -Exudate Amt Large (67-100%) -Exudate Type Serous -Wound Margin Distinct, Outline Attached -Granulation Amt None Present (0 %) -Granulation Quality N/A -Slough/Fibrin Yes -Necrosis Amt None Present (0 %) -Necrotic Tissue Type Eschar -Structure Exposed Bone -Texture (Vidya-wound Skin Appearance) No Abnormality -Moisture (Vidya-wound Skin Appearance No Abnormality ) -Color (Vidya-wound Skin Appearance) No Abnormality -Temperature (Vidya-wound Skin No Abnormality Appearance) (Pt Warm) -Tenderness on Palpation (Vidya-wound No Skin Appearance) -Ulcer Cleansing Rinsed/ Irrigated with Saline -Foul Odor after Cleansing No -Anesthetic Used 4% Lidocaine Solution #3 RIGHT HIP -Combined with other wound No -Current Size (cm) - Length 0.4 -Current Size (cm) - Width 0.5 -Current Size (cm) - Depth 4.6 -Total Square Cm 0.20 -Date of Last Picture (Recall this 09/15/17 field) -Photo Taken No -Epithelialization None Present -Tunneling No -Undermining/Tunneling No -Circular Undermining No -Classification - Thickness Full Thickness without Exposed Support Structure -Exudate Amt Small (1-33%) -Exudate Type Serous -Wound Margin Distinct, Outline Attached -Granulation Amt None Present (0 %) -Granulation Quality N/A -Slough/Fibrin Yes -Necrosis Amt None Present (0 %) -Necrotic Tissue Type Adherent Slough -Structure Exposed Fat Layer Exposed -Texture (Vidya-wound Skin Appearance) Fluctuance -Moisture (Vidya-wound Skin Appearance No Abnormality ) -Color (Vidya-wound Skin Appearance) Assessed -Temperature (Vidya-wound Skin No Abnormality Appearance) (Pt Warm) -Tenderness on Palpation (Vidya-wound No Skin Appearance) -Ulcer Cleansing Rinsed/ Irrigated with Saline -Foul Odor after Cleansing No -Anesthetic Used 4% Lidocaine Solution #2 Right dorsal Great Toe -Combined with other wound No -Current Size (cm) - Length 0.3 -Current Size (cm) - Width 0.7 -Current Size (cm) - Depth 0.1 -Total Square Cm 0.21 -Date of Last Picture (Recall this 09/15/17 field) -Photo Taken No -Epithelialization Small 1-33% -Tunneling No -Undermining/Tunneling No -Circular Undermining No -Classification - Thickness Full Thickness without Exposed Support Structure -Classification - Toscano Grading ( Grade 1 Diabetic Ulcer) -Exudate Amt None Present (0 %) -Exudate Type Serous -Wound Margin Distinct, Outline Attached -Granulation Amt Small (1-33%) -Granulation Quality Red -Slough/Fibrin Yes -Necrosis Amt None Present (0 %) -Necrotic Tissue Type Adherent Slough -Structure Exposed N/A -Texture (Vidya-wound Skin Appearance) No Abnormality -Moisture (Vidya-wound Skin Appearance Maceration ) -Color (Vidya-wound Skin Appearance) No Abnormality -Temperature (Vidya-wound Skin No Abnormality Appearance) (Pt Warm) -Tenderness on Palpation (Vidya-wound No Skin Appearance) -Ulcer Cleansing Rinsed/ Irrigated with Saline -Foul Odor after Cleansing No -Anesthetic Used 4% Lidocaine Solution [Edema Assessment] -Lower Limb Edema Present No WC - Nurse 2 - General Ulcer CM Notes Start: 09/15/17 09:09 Freq: Status: Active Protocol: Activity Type Activity Date Activity User E-Sign Co-Sign Detail Recorded Client Recorded Date Recorded By Document 10/06/17 12:16 DV [id number] 10/06/17 12:32 DV 10/06/17 12:16 Wound Center Nurse 2 [Procedure/Treatment] #4 LEFT HIP -Time 12:21 -Correct Patient Yes -Correct Side, Site, Position Yes -Correct Procedure Yes -Procedure Performed Yes -Type of Procedure Debridement -Clinical Debridement Subcutaneous -Post Debridement Size (cm) - Length 2.8 -Post Debridement Size (cm) - Width 0.2 -Post Debridement Size (cm) - Depth 5.7 -Total Square Cm 0.56 -Wound/Ulcer Outcome Not Healed -Ulcer Cleansing Rinsed/ Irrigated with Saline -Foul Odor after Cleansing No -Bleeding Controlled with NA -Treatment Response Procedure Tolerated Well #3 RIGHT HIP -Time 12:24 -Correct Patient Yes -Correct Side, Site, Position Yes -Correct Procedure Yes -Procedure Performed Yes -Type of Procedure Debridement -Clinical Debridement Subcutaneous -Post Debridement Size (cm) - Length 0.7 -Post Debridement Size (cm) - Width 0.8 -Post Debridement Size (cm) - Depth 2.8 -Total Square Cm 0.56 -Wound/Ulcer Outcome Not Healed -Ulcer Cleansing Rinsed/ Irrigated with Saline -Foul Odor after Cleansing No -Bioengineered Tissue No -Bleeding Controlled with NA -Treatment Response Procedure Tolerated Well #2 Right dorsal Great Toe -Time 12:16 -Correct Patient Yes -Correct Side, Site, Position Yes -Correct Procedure Yes -Procedure Performed Yes -Type of Procedure Debridement -Clinical Debridement Subcutaneous -Post Debridement Size (cm) - Length 0.4 -Post Debridement Size (cm) - Width 0.7 -Post Debridement Size (cm) - Depth 0.2 -Total Square Cm 0.28 -Wound/Ulcer Outcome Not Healed -Ulcer Cleansing Rinsed/ Irrigated with Saline -Foul Odor after Cleansing No -Bioengineered Tissue No -Bleeding Controlled with NA -Treatment Response Procedure Tolerated Well [See Physician Procedure note for Specifics] Pain Scale: 0-10 Numeric [Pain] -Is Patient Pain Free? Yes Musculoskeletal: No Tenderness to Palpation of Joints or Extremities Lymphatic: No Cervical, Supraclavicular, or Inguinal Adenopathy Neurological: Cranial nerves II-XII grossly intact, Neuro grossly intact Psych/Mental Status: Normal Affect, Appropriate, Alert and oriented to time, place, person, mood and affect Debridement Note Post-Debridement Measurements/Treatment WC - Nurse 2 - General Ulcer CM Notes Start: 09/15/17 09:09 Freq: Status: Active Protocol: Activity Type Activity Date Activity User E-Sign Co-Sign Detail Recorded Client Recorded Date Recorded By Document 09/15/17 10:07 [id number] 09/15/17 10:24 JS Document 09/22/17 12:42 JS [id number] 09/22/17 13:09 JS Document 09/29/17 14:32 DV [id number] 09/29/17 14:49 DV Document 10/06/17 12:16 DV [id number] 10/06/17 12:32 DV 09/15/17 09/22/17 09/29/17 10:07 12:42 14:32 Wound Center Nurse 2 #4 LEFT HIP -Time 10:23 12:42 14:32 -Correct Patient Yes Yes Yes -Correct Side, Site, Position Yes Yes Yes -Correct Procedure Yes Yes Yes -Procedure Performed Yes Yes -Type of Procedure Debridement Debridement -Clinical Debridement Subcutaneous Bone -Post Debridement Size (cm) - Length 3.0 3.0 -Post Debridement Size (cm) - Width 0.2 0.3 -Post Debridement Size (cm) - Depth 5.0 6.0 -Total Square Cm 0.60 0.90 -Wound/Ulcer Outcome Not Healed Not Healed Not Healed -Ulcer Cleansing Rinsed/ Rinsed/ Rinsed/ Irrigated with Irrigated with Irrigated with Saline Saline Saline -Foul Odor after Cleansing No No No -Bioengineered Tissue No No No -Topical Lidocaine (%) 4 4 -Lidocaine (ml) 10 5 -Bleeding Controlled with NA NA Pressure -Treatment Response Procedure Procedure Procedure Tolerated Well Tolerated Well Tolerated Well #3 RIGHT HIP -Time 10:22 12:43 14:32 -Correct Patient Yes Yes Yes -Correct Side, Site, Position Yes Yes Yes -Correct Procedure Yes Yes Yes -Procedure Performed Yes No Yes -Type of Procedure Debridement Debridement -Clinical Debridement Subcutaneous Bone -Post Debridement Size (cm) - Length 0.3 0.5 -Post Debridement Size (cm) - Width 0.7 1.0 -Post Debridement Size (cm) - Depth 3.0 5.9 -Total Square Cm 0.21 0.50 -Wound/Ulcer Outcome Not Healed Not Healed Not Healed -Ulcer Cleansing Rinsed/ Rinsed/ Rinsed/ Irrigated with Irrigated with Irrigated with Saline Saline Saline -Foul Odor after Cleansing No No No -Bioengineered Tissue No No No -Topical Lidocaine (%) 4 4 -Lidocaine (ml) 10 10 -Bleeding Controlled with NA NA Silver Nitrate -Treatment Response Procedure Procedure Procedure Tolerated Well Tolerated Well Tolerated Well #2 Right dorsal Great Toe -Time 10:07 12:43 14:33 -Correct Patient Yes Yes Yes -Correct Side, Site, Position Yes Yes Yes -Correct Procedure Yes Yes Yes -Procedure Performed Yes Yes -Type of Procedure Debridement Debridement -Clinical Debridement Subcutaneous Subcutaneous -Post Debridement Size (cm) - Length 0.4 0.3 -Post Debridement Size (cm) - Width 0.8 0.7 -Post Debridement Size (cm) - Depth 0.1 0.2 -Total Square Cm 0.32 0.21 -Wound/Ulcer Outcome Not Healed Not Healed Not Healed -Ulcer Cleansing Rinsed/ Rinsed/ Rinsed/ Irrigated with Irrigated with Irrigated with Saline Saline Saline -Foul Odor after Cleansing No No No -Bioengineered Tissue No No -Type of bioengineered Tissue EPIFIX EPIFIX -Expiration Date 05/15/22 07/13/22 -Product Lot Number [id number] -Percent Used 100 100 -Saline Lot Number [id number] -Topical Lidocaine (%) 4 4 4 -Lidocaine (ml) 10 5 -Bleeding Controlled with Pressure NA NA -Treatment Response Procedure Procedure Procedure Tolerated Well Tolerated Well Tolerated Well #1 Right dorsal medial 1st Metatarsophalangeal Joint -Time 10:13 12:44 -Correct Patient Yes Yes -Correct Side, Site, Position Yes Yes -Correct Procedure Yes Yes -Procedure Performed No Yes -Type of Procedure Debridement -Clinical Debridement Subcutaneous -Post Debridement Size (cm) - Length 0.5 -Post Debridement Size (cm) - Width 0.8 -Post Debridement Size (cm) - Depth 0.4 -Total Square Cm 0.40 -Wound/Ulcer Outcome Not Healed Not Healed -Ulcer Cleansing Rinsed/ Irrigated with Saline -Foul Odor after Cleansing No -Bioengineered Tissue No -Topical Lidocaine (%) 4 -Lidocaine (ml) 5 -Bleeding Controlled with NA -Treatment Response Procedure Not Tolerated Well Pain Scale: 0-10 Numeric Is Patient Pain Free? Yes Yes 10/06/17 12:16 Wound Center Nurse 2 #4 LEFT HIP -Time 12:21 -Correct Patient Yes -Correct Side, Site, Position Yes -Correct Procedure Yes -Procedure Performed Yes -Type of Procedure Debridement -Clinical Debridement Subcutaneous -Post Debridement Size (cm) - Length 2.8 -Post Debridement Size (cm) - Width 0.2 -Post Debridement Size (cm) - Depth 5.7 -Total Square Cm 0.56 -Wound/Ulcer Outcome Not Healed -Ulcer Cleansing Rinsed/ Irrigated with Saline -Foul Odor after Cleansing No -Bioengineered Tissue -Topical Lidocaine (%) -Lidocaine (ml) -Bleeding Controlled with NA -Treatment Response Procedure Tolerated Well #3 RIGHT HIP -Time 12:24 -Correct Patient Yes -Correct Side, Site, Position Yes -Correct Procedure Yes -Procedure Performed Yes -Type of Procedure Debridement -Clinical Debridement Subcutaneous -Post Debridement Size (cm) - Length 0.7 -Post Debridement Size (cm) - Width 0.8 -Post Debridement Size (cm) - Depth 2.8 -Total Square Cm 0.56 -Wound/Ulcer Outcome Not Healed -Ulcer Cleansing Rinsed/ Irrigated with Saline -Foul Odor after Cleansing No -Bioengineered Tissue No -Topical Lidocaine (%) -Lidocaine (ml) -Bleeding Controlled with NA -Treatment Response Procedure Tolerated Well #2 Right dorsal Great Toe -Time 12:16 -Correct Patient Yes -Correct Side, Site, Position Yes -Correct Procedure Yes -Procedure Performed Yes -Type of Procedure Debridement -Clinical Debridement Subcutaneous -Post Debridement Size (cm) - Length 0.4 -Post Debridement Size (cm) - Width 0.7 -Post Debridement Size (cm) - Depth 0.2 -Total Square Cm 0.28 -Wound/Ulcer Outcome Not Healed -Ulcer Cleansing Rinsed/ Irrigated with Saline -Foul Odor after Cleansing No -Bioengineered Tissue No -Type of bioengineered Tissue -Expiration Date -Product Lot Number -Percent Used -Saline Lot Number -Topical Lidocaine (%) -Lidocaine (ml) -Bleeding Controlled with NA -Treatment Response Procedure Tolerated Well #1 Right dorsal medial 1st Metatarsophalangeal Joint -Time -Correct Patient -Correct Side, Site, Position -Correct Procedure -Procedure Performed -Type of Procedure -Clinical Debridement -Post Debridement Size (cm) - Length -Post Debridement Size (cm) - Width -Post Debridement Size (cm) - Depth -Total Square Cm -Wound/Ulcer Outcome -Ulcer Cleansing -Foul Odor after Cleansing -Bioengineered Tissue -Topical Lidocaine (%) -Lidocaine (ml) -Bleeding Controlled with -Treatment Response Pain Scale: 0-10 Numeric Is Patient Pain Free? Yes Wound debrided: Great toe Laterality: Right Type of Debridement: Excisional debridement Anesthesia Used: 5% Lidocaine Gel Depth: in the subcutaneous layer Percentage of wound debrided: 100 Instrument Used: 3mm curette Tissue Removed: fibrin Severity: Limited To Skin Breakdown Amount of bleeding with debridement: None Bleeding Controlled with: Pressure Patient tolerated procedure well - Additional Wound Wound debrided: L hip ulcer Type of Debridement: Excisional debridement Anesthesia Used: 5% Lidocaine Gel Depth: Down to and including healthy tissue, in the subcutaneous layer, to bone Percentage of wound debrided: 100 Instrument Used: - - 1 mm Tissue Removed: fibrin Severity: Limited To Skin Breakdown Amount of bleeding with debridement: Mild Bleeding Controlled with: Pressure Patient tolerated procedure: Patient tolerated procedure well - Additional Wound Wound debrided: ulcer hip Laterality: Right Type of Debridement: Excisional debridement Anesthesia Used: 5% Lidocaine Gel Depth: Down to and including healthy tissue, in the subcutaneous layer, to bone Percentage of wound debrided: 100 Instrument Used: 3mm curette Tissue Removed: fibrin Severity: Limited To Skin Breakdown Amount of bleeding with debridement: Mild Bleeding Controlled with: Compression and gauze Patient tolerated procedure: Patient tolerated procedure well Assessment/Plan Active Problems Open wound of left hip and thigh with complication (Chronic) Chronic ulcer of right foot (Chronic) Open wound of right hip (Chronic) History of total hip replacement (Chronic) Chronic ulcer of right great toe (Chronic) Malnutrition (Chronic) Neuropathy of right lower extremity (Chronic) Right foot drop (Chronic) Recurrent deep vein thrombosis (DVT) (Chronic) Chronic anemia (Chronic) Status post total hip replacement, left (Chronic) 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 medial right first metatarsophalangeal joint resolved. Foot drop. 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 Malnutrition. Right and left hip ulcers. HBO clearance for radiation necroisis to the prostate the area Plan: Wash all areas with Hibiclens pack bilateral right hips with iodoform guaze 1/2 inch iodoform guaze to L hip and 1/4 inch guaze packing ot the R hip bid applied gauze and tape. Right great toe apply promogran moistened with adaptic guauze and tape. Patient is to increase iron to twice daily dosing. Patient is to increase protein intake with meat at least 3-4 times a day. Follow-up in 1 week. This note was generated with [employer] dictation software. It may contain incorrect words, spelling, and punctuation that were not noted in checking the note before signing.
== END 2017-10-12 23:59 ==
LOC: WC 11:00
PROVIDERS: Family Provider Family Medicine; PCP Family Medicine; Visit Provider Nurse Practitioner
DX: L97.121 Non-pressure chronic ulcer of left thigh limited to breakdown of skin (principal); L97.511 Non-pressure chronic ulcer of other part of right foot limited to breakdown of skin; M87.052 Idiopathic aseptic necrosis of left femur; I48.2 Chronic atrial fibrillation; D64.9 Anemia, unspecified; Z96.649 Presence of unspecified artificial hip joint; E41 Nutritional marasmus; G57.91 Unspecified mononeuropathy of right lower limb; I82.409 Acute embolism and thrombosis of unspecified deep veins of unspecified lower extremity; M21.371 Foot drop, right foot; Z96.642 Presence of left artificial hip joint; S71.002D Unspecified open wound, left hip, subsequent encounter; S71.002A Unspecified open wound, left hip, initial encounter; S71.001D Unspecified open wound, right hip, subsequent encounter
CPT/HCPCS: 11042; 11044; 11045; 15271; 15275; 17250; 87070; 87075; 87077; 87186; 87205; Q4131

== ENCOUNTER 2017-11-10 11:00 | Outpatient (RCR) | payer MEDICARE, OTHER, SELFPAY ==
[2017-10-13 00:34] VITALS: BP 109/70; PULSE 69; RESP 16; TEMP 36.4; BMI 23.7
[2017-10-13 11:06] VITALS: BP 111/68; PULSE 97; RESP 16; TEMP 36.5; BMI 23.7
--- NOTE | 2017-10-13 13:46 | PN.PCM_ITS ---
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 Current Visit: Yes Code(s): M87.052 - Idiopathic aseptic necrosis of left femur (2) Chronic ulcer of right great toe Status: Chronic Current Visit: Yes Qualifiers: Code(s): L97.519 - Non-pressure chronic ulcer of other part of right foot with unspecified severity (3) Delayed wound healing Status: Chronic Current Visit: Yes Code(s): T14.8XXD - Other injury of unspecified body region, subsequent encounter (4) History of total hip replacement Status: Chronic Current Visit: Yes Qualifiers: Code(s): Z96.649 - Presence of unspecified artificial hip joint (5) Malnutrition Status: Chronic Current Visit: Yes Qualifiers: Code(s): E46 - Unspecified protein-calorie malnutrition (6) 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 Current Visit: Yes Code(s): G57.91 - Unspecified mononeuropathy of right lower limb (7) Open wound of left hip and thigh with complication Status: Chronic Current Visit: Yes Qualifiers: Code(s): S71.002A - Unspecified open wound, left hip, initial encounter; S71.102A - Unspecified open wound, left thigh, initial encounter (8) Open wound of right hip and thigh with complication Status: Chronic Current Visit: Yes Qualifiers: Code(s): S71.001A - Unspecified open wound, right hip, initial encounter; S71.101A - Unspecified open wound, right thigh, initial encounter (9) 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 Current Visit: Yes Code(s): L59.9 - Disorder of the skin and subcutaneous tissue related to radiation, unspecified (10) 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 Right and left hips ulcers. To be cleared for HBO therapy History of Wound: 76-year-old white male had previously in 1999 for about had prostate cancer and was given radiation over and beyond what was therapeutic. After that he had both hips replacements ?2 to each one done with poor outcomes. He now has ulcers in both hips that tunnel into the bone on either side. He has had wound vacs and a currently he is just packing with gauze dressings. She has been on continuous Augmentin since April. Because of his poor outcomes for healing they have opted for HBO therapy here at the wound center. In the meantime I am to care for all of his other wounds also. 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 Patient still has drainage from bilateral hips that look yellowish some odor. We will obtain cultures from both hips and toes we will x- ray foot and hips bilaterally. We will also get chest x-ray for HBO and a complete blood count and a pre-albumin. Progress of Wound: There appears to be a more improvement from last week bilateral hips. the 1st metatarsophalngeal ulcer healed today . Great toe we applied #10 epi fix to the toe and healing well almost done .Will we continue to use promogran daily dressing. Ulcers came back positive from the left hip of E. coli but rare ,did not treat. CT of abdomen and pelvis show definite skin breakdown of the bone. and infectious disease Dr. Cameron was here talking with family about options will discuss with Dr. Harris his orthopedic surgeon. They saw him last week and he was impressed with the closing of the hips ,but felt the hips in good allignment and the screws are not that loose . Will follw up with him again in 2 weeks week of the 10/16/17 Bone Scan was undeterminate and just showed inflammation . We will continue packing of the left and right hip with the iodoform guaze having copious amounts of drainage that needs to be absorbed . It is medically necassary to increase the dressing changes to bid to absorb for healling qualities and faster. Chest x-ray was negative for HBO evaluation. Lab work shows anemia and a prealbumin that is very low at 13 patient needs to be booted up with protein. - Physical Exam Vital Signs Temp Pulse Resp BP 97.7 F L 97 16 111/68 10/13/17 11:06 10/13/17 11:06 10/13/17 11:06 10/13/17 11:06 General: Oriented x3, Cooperative, Well developed HEENT: Atraumatic, PERRLA Oral: Moist Mucosa Neck: Supple, No JVD Lungs: Clear to auscultation, Normal air movement Cardiovascular: Regular rate, Regular Rhythm Abdomen: Bowel Sounds Present, Soft, Non Tender, No Hepato-splenomegaly Extremities: No clubbing, No edema, - - Right great toe ulcer right and left hip nonhealing surgical ulcers Skin: Ulcer/ Wound Wound Measurements and Assessment WC - Nurse 1 - General Ulcer Measurement Start: 10/13/17 10:52 Freq: Status: Active Protocol: Activity Type Activity Date Activity User E-Sign Co-Sign Detail Recorded Client Recorded Date Recorded By Document 10/13/17 11:06 ROMMEL [id number] 10/13/17 11:38 ROMMEL 10/13/17 11:06 Wound Center Nurse 1 [Ulcer Assessment] #4 LEFT HIP -Combined with other wound No -Current Size (cm) - Length 0.3 -Current Size (cm) - Width 0.3 -Current Size (cm) - Depth 3.5 -Total Square Cm 0.09 -Date of Last Picture (Recall this 10/13/17 field) -Photo Taken Yes -Epithelialization None Present -Tunneling No -Undermining/Tunneling No -Circular Undermining No -Classification - Thickness Full Thickness with Exposed Support Structure -Change in Wound Grade/Stage No Query Text:If change please identify the Stage/Grade in the comment (ie. S2 G3) -Exudate Amt Large (67-100%) -Exudate Type Serosanguineous -Wound Margin Distinct, Outline Attached -Granulation Amt None Present (0 %) -Granulation Quality N/A -Slough/Fibrin Yes -Necrosis Amt Small (1-33%) -Necrotic Tissue Type Adherent Slough -Structure Exposed Bone -Texture (Viyda-wound Skin Appearance) No Abnormality -Moisture (Vidya-wound Skin Appearance No Abnormality ) -Color (Vidya-wound Skin Appearance) No Abnormality -Temperature (Vidya-wound Skin No Abnormality Appearance) (Pt Warm) -Tenderness on Palpation (Vidya-wound No Skin Appearance) -Ulcer Cleansing Rinsed/ Irrigated with Saline -Foul Odor after Cleansing No -Anesthetic Used 4% Lidocaine Solution #3 RIGHT HIP -Combined with other wound No -Current Size (cm) - Length 3.0 -Current Size (cm) - Width 0.3 -Current Size (cm) - Depth 5.7 -Total Square Cm 0.90 -Date of Last Picture (Recall this 10/13/17 field) -Photo Taken Yes -Epithelialization None Present -Tunneling No -Undermining/Tunneling No -Circular Undermining No -Classification - Thickness Full Thickness without Exposed Support Structure -Exudate Amt Large (67-100%) -Exudate Type Yellow/Green -Wound Margin Distinct, Outline Attached -Granulation Amt None Present (0 %) -Granulation Quality N/A -Slough/Fibrin Yes -Necrosis Amt None Present (0 %) -Necrotic Tissue Type Adherent Slough -Structure Exposed Bone -Texture (Vidya-wound Skin Appearance) No Abnormality -Moisture (Vidya-wound Skin Appearance No Abnormality ) -Color (Vidya-wound Skin Appearance) No Abnormality -Temperature (Vidya-wound Skin No Abnormality Appearance) (Pt Warm) -Tenderness on Palpation (Vidya-wound No Skin Appearance) -Ulcer Cleansing Rinsed/ Irrigated with Saline -Foul Odor after Cleansing No -Anesthetic Used 4% Lidocaine Solution #2 Right dorsal Great Toe -Combined with other wound No -Current Size (cm) - Length 0.6 -Current Size (cm) - Width 0.3 -Current Size (cm) - Depth 0.2 -Total Square Cm 0.18 -Date of Last Picture (Recall this 10/13/17 field) -Photo Taken Yes -Epithelialization None Present -Tunneling No -Undermining/Tunneling No -Circular Undermining No -Classification - Thickness Full Thickness without Exposed Support Structure -Classification - Toscano Grading ( Grade 1 Diabetic Ulcer) -Exudate Amt None Present (0 %) -Wound Margin Distinct, Outline Attached -Granulation Amt None Present (0 %) -Granulation Quality N/A -Slough/Fibrin Yes -Necrosis Amt None Present (0 %) -Necrotic Tissue Type Adherent Slough -Structure Exposed N/A -Texture (Vidya-wound Skin Appearance) No Abnormality -Moisture (Vidya-wound Skin Appearance No Abnormality ) -Color (Vidya-wound Skin Appearance) No Abnormality -Temperature (Vidya-wound Skin No Abnormality Appearance) (Pt Warm) -Tenderness on Palpation (Vidya-wound No Skin Appearance) -Ulcer Cleansing Rinsed/ Irrigated with Saline -Foul Odor after Cleansing No -Anesthetic Used 4% Lidocaine Solution [Edema Assessment] -Lower Limb Edema Present No WC - Nurse 2 - General Ulcer CM Notes Start: 10/13/17 10:52 Freq: Status: Active Protocol: Activity Type Activity Date Activity User E-Sign Co-Sign Detail Recorded Client Recorded Date Recorded By Document 10/13/17 12:04 MARLY [id number] 10/13/17 12:12 MARLY 10/13/17 12:04 Wound Center Nurse 2 [Procedure/Treatment] #4 LEFT HIP -Time 12:05 -Correct Patient Yes -Correct Side, Site, Position Yes -Correct Procedure Yes -Procedure Performed Yes -Type of Procedure Debridement -Clinical Debridement Subcutaneous -Post Debridement Size (cm) - Length 3.5 -Post Debridement Size (cm) - Width 0.3 -Post Debridement Size (cm) - Depth 6 -Total Square Cm 1.05 -Wound/Ulcer Outcome Not Healed -Ulcer Cleansing Rinsed/ Irrigated with Saline -Foul Odor after Cleansing No -Bioengineered Tissue No -Bleeding Controlled with Pressure -Other 3.0 CM TUNNEL -Treatment Response Procedure Tolerated Well #3 RIGHT HIP -Time 12:07 -Correct Patient Yes -Correct Side, Site, Position Yes -Correct Procedure Yes -Procedure Performed Yes -Type of Procedure Debridement -Clinical Debridement Subcutaneous -Post Debridement Size (cm) - Length 2.0 -Post Debridement Size (cm) - Width 0.5 -Post Debridement Size (cm) - Depth 2.3 -Total Square Cm 1.00 -Wound/Ulcer Outcome Not Healed -Ulcer Cleansing Rinsed/ Irrigated with Saline -Foul Odor after Cleansing No -Bioengineered Tissue No -Bleeding Controlled with Pressure -Treatment Response Procedure Tolerated Well #2 Right dorsal Great Toe -Time 12:10 -Correct Patient Yes -Correct Side, Site, Position Yes -Correct Procedure Yes -Procedure Performed Yes -Type of Procedure Debridement -Clinical Debridement Subcutaneous -Post Debridement Size (cm) - Length 0.3 -Post Debridement Size (cm) - Width 0.6 -Post Debridement Size (cm) - Depth 0.2 -Total Square Cm 0.18 -Wound/Ulcer Outcome Not Healed -Ulcer Cleansing Rinsed/ Irrigated with Saline -Foul Odor after Cleansing No -Bleeding Controlled with Pressure -Treatment Response Procedure Tolerated Well [See Physician Procedure note for Specifics] Pain Scale: 0-10 Numeric [Pain] -Is Patient Pain Free? Yes Musculoskeletal: No Tenderness to Palpation of Joints or Extremities Lymphatic: No Cervical, Supraclavicular, or Inguinal Adenopathy Neurological: Cranial nerves II-XII grossly intact, Neuro grossly intact Psych/Mental Status: Normal Affect, Appropriate, Alert and oriented to time, place, person, mood and affect Debridement Note Post-Debridement Measurements/Treatment WC - Nurse 2 - General Ulcer CM Notes Start: 10/13/17 10:52 Freq: Status: Active Protocol: Activity Type Activity Date Activity User E-Sign Co-Sign Detail Recorded Client Recorded Date Recorded By Document 10/13/17 12:04 MARLY [id number] 10/13/17 12:12 MARLY 10/13/17 12:04 Wound Center Nurse 2 #4 LEFT HIP -Time 12:05 -Correct Patient Yes -Correct Side, Site, Position Yes -Correct Procedure Yes -Procedure Performed Yes -Type of Procedure Debridement -Clinical Debridement Subcutaneous -Post Debridement Size (cm) - Length 3.5 -Post Debridement Size (cm) - Width 0.3 -Post Debridement Size (cm) - Depth 6 -Total Square Cm 1.05 -Wound/Ulcer Outcome Not Healed -Ulcer Cleansing Rinsed/ Irrigated with Saline -Foul Odor after Cleansing No -Bioengineered Tissue No -Bleeding Controlled with Pressure -Other 3.0 CM TUNNEL -Treatment Response Procedure Tolerated Well #3 RIGHT HIP -Time 12:07 -Correct Patient Yes -Correct Side, Site, Position Yes -Correct Procedure Yes -Procedure Performed Yes -Type of Procedure Debridement -Clinical Debridement Subcutaneous -Post Debridement Size (cm) - Length 2.0 -Post Debridement Size (cm) - Width 0.5 -Post Debridement Size (cm) - Depth 2.3 -Total Square Cm 1.00 -Wound/Ulcer Outcome Not Healed -Ulcer Cleansing Rinsed/ Irrigated with Saline -Foul Odor after Cleansing No -Bioengineered Tissue No -Bleeding Controlled with Pressure -Treatment Response Procedure Tolerated Well #2 Right dorsal Great Toe -Time 12:10 -Correct Patient Yes -Correct Side, Site, Position Yes -Correct Procedure Yes -Procedure Performed Yes -Type of Procedure Debridement -Clinical Debridement Subcutaneous -Post Debridement Size (cm) - Length 0.3 -Post Debridement Size (cm) - Width 0.6 -Post Debridement Size (cm) - Depth 0.2 -Total Square Cm 0.18 -Wound/Ulcer Outcome Not Healed -Ulcer Cleansing Rinsed/ Irrigated with Saline -Foul Odor after Cleansing No -Bleeding Controlled with Pressure -Treatment Response Procedure Tolerated Well Pain Scale: 0-10 Numeric Is Patient Pain Free? Yes Wound debrided: Right toe ulcer Type of Debridement: Excisional debridement Anesthesia Used: 5% Lidocaine Gel Depth: Down to and including healthy tissue, in the subcutaneous layer Percentage of wound debrided: 100 Instrument Used: 3mm curette Tissue Removed: fibrin Severity: Limited To Skin Breakdown Amount of bleeding with debridement: None Bleeding Controlled with: Pressure Patient tolerated procedure well - Additional Wound Wound debrided: Left hip ulcer Type of Debridement: Excisional debridement Anesthesia Used: 5% Lidocaine Gel Depth: Down to and including healthy tissue, to bone Percentage of wound debrided: 100 Instrument Used: 3mm curette Tissue Removed: Fibrin Severity: Limited To Skin Breakdown Amount of bleeding with debridement: None Bleeding Controlled with: Pressure Patient tolerated procedure: Patient tolerated procedure well - Additional Wound Wound debrided: Right hip ulcer Type of Debridement: Excisional debridement Anesthesia Used: 5% Lidocaine Gel Depth: Down to and including healthy tissue, to bone Percentage of wound debrided: 100, 50 Instrument Used: 3mm curette Tissue Removed: Yellow slough Severity: Necrosis of Muscle Amount of bleeding with debridement: None Bleeding Controlled with: Compression and gauze Patient tolerated procedure: Patient tolerated procedure well Assessment/Plan Active Problems Open wound of left hip and thigh with complication (Chronic) 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 medial right first metatarsophalangeal joint resolved. Foot drop. 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 Malnutrition. Right and left hip ulcers. HBO clearance for radiation necroisis to the prostate the area Plan: Wash all areas with Hibiclens pack bilateral right hips with iodoform guaze 1/2 inch iodoform guaze to L hip and 1/4 inch guaze packing ot the R hip bid applied gauze and tape. Right great toe apply promogran moistened with adaptic guauze and tape. Patient is to increase iron to twice daily dosing. Patient is to increase protein intake with meat at least 3-4 times a day. Follow-up in 1 week. This note was generated with [employer] dictation software. It may contain incorrect words, spelling, and punctuation that were not noted in checking the note before signing.
[2017-10-27 11:24] VITALS: BP 113/60; PULSE 102; RESP 18; TEMP 36.8; BMI 23.7
--- NOTE | 2017-10-27 12:14 | PCM.WC.PN ---
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 Current Visit: Yes Code(s): M87.052 - Idiopathic aseptic necrosis of left femur (2) Chronic ulcer of right great toe Status: Chronic Current Visit: No Qualifiers: Code(s): L97.519 - Non-pressure chronic ulcer of other part of right foot with unspecified severity (3) Delayed wound healing Status: Chronic Current Visit: Yes Code(s): T14.8XXD - Other injury of unspecified body region, subsequent encounter (4) History of total hip replacement Status: Chronic Current Visit: Yes Qualifiers: Laterality: bilateral Code(s): Z96.649 - Presence of unspecified artificial hip joint (5) Malnutrition Status: Chronic Current Visit: Yes Qualifiers: Code(s): E46 - Unspecified protein-calorie malnutrition (6) 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 Current Visit: Yes Code(s): G57.91 - Unspecified mononeuropathy of right lower limb (7) Open wound of left hip and thigh with complication Status: Chronic Current Visit: Yes Qualifiers: Code(s): S71.002A - Unspecified open wound, left hip, initial encounter; S71.102A - Unspecified open wound, left thigh, initial encounter (8) Open wound of right hip and thigh with complication Status: Chronic Current Visit: Yes Qualifiers: Encounter type: subsequent encounter Qualified Code(s): S71.001D - Unspecified open wound, right hip, subsequent encounter; S71.101D - Unspecified open wound, right thigh, subsequent encounter Code(s): S71.001A - Unspecified open wound, right hip, initial encounter; S71.101A - Unspecified open wound, right thigh, initial encounter (9) 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 Current Visit: Yes Code(s): L59.9 - Disorder of the skin and subcutaneous tissue related to radiation, unspecified (10) 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 Right and left hips ulcers. To be cleared for HBO therapy History of Wound: 76-year-old white male had previously in 1999 for about had prostate cancer and was given radiation over and beyond what was therapeutic. After that he had both hips replacements ?2 to each one done with poor outcomes. He now has ulcers in both hips that tunnel into the bone on either side. He has had wound vacs and a currently he is just packing with gauze dressings. She has been on continuous Augmentin since April. Because of his poor outcomes for healing they have opted for HBO therapy here at the wound center. In the meantime I am to care for all of his other wounds also. 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 Patient still has drainage from bilateral hips that look yellowish some odor. We will obtain cultures from both hips and toes we will x-ray foot and hips bilaterally. We will also get chest x-ray for HBO and a complete blood count and a pre-albumin. Progress of Wound: There appears to be a more improvement from last week bilateral hips. the 1st metatarsophalngeal ulcer healed today . Right great toe is healed today totally. Ulcers came back positive from the left hip of E. coli but rare ,did not treat. CT of abdomen and pelvis show definite skin breakdown of the bone and infectious disease Dr. Cameron was here talking with family about options will discuss with Dr. Harris his orthopedic surgeon. They saw him last week and he was impressed with the closing of the hips ,but felt the hips in good allignment and the screws are not that loose . Will follw up with him again in 2 weeks week of the 10/16/17. Dr. Harris wants to continue monitoring his hips and will follow him up again. Surgeries necessary at this time per Dr. Harris .Bone Scan was undeterminate and just showed inflammation . We will continue packing of the left and right hip with the iodoform guaze having copious amounts of drainage that needs to be absorbed . It is medically necassary to increase the dressing changes to bid to absorb for healling qualities and faster. Chest x-ray was negative for HBO evaluation. Lab work shows anemia and a prealbumin that is very low at 13 patient needs to be booted up with protein. Patient has been eating increasing meats and supplements. We will probably recheck next week. - Physical Exam Vital Signs Temp Pulse Resp BP 98.2 F 102 H 18 113/60 10/27/17 11:24 10/27/17 11:24 10/27/17 11:24 10/27/17 11:24 General: Oriented x3, Cooperative, Well developed HEENT: Atraumatic, PERRLA Oral: Moist Mucosa Neck: Supple, No JVD Lungs: Clear to auscultation, Normal air movement Cardiovascular: Regular rate, Regular Rhythm Abdomen: Bowel Sounds Present, Soft, Non Tender, No Hepato-splenomegaly Extremities: No clubbing, No edema Skin: Ulcer/ Wound - In ulcers right and left hip Wound Measurements and Assessment WC - Nurse 1 - General Ulcer Measurement Start: 10/13/17 10:52 Freq: Status: Active Protocol: Activity Type Activity Date Activity User E-Sign Co-Sign Detail Recorded Client Recorded Date Recorded By Document 10/27/17 11:24 TN [id number] 10/27/17 11:43 TN 10/27/17 11:24 Wound Center Nurse 1 [Ulcer Assessment] #4 LEFT HIP -Combined with other wound No -Current Size (cm) - Length 0.1 -Current Size (cm) - Width 2.5 -Current Size (cm) - Depth 1.9 -Total Square Cm 0.25 -Photo Taken No -Epithelialization None Present -Tunneling No -Undermining/Tunneling No -Circular Undermining No -Classification - Thickness Full Thickness without Exposed Support Structure -Change in Wound Grade/Stage No Query Text:If change please identify the Stage/Grade in the comment (ie. S2 G3) -Exudate Amt Large (67-100%) -Exudate Type Serous -Wound Margin Distinct, Outline Attached -Granulation Amt None Present (0 %) -Slough/Fibrin No -Necrosis Amt Small (1-33%) -Necrotic Tissue Type Adherent Slough -Structure Exposed None/Limited to Skin Breakdown -Texture (Vidya-wound Skin Appearance) Assessed Scarring -Moisture (Vidya-wound Skin Appearance Assessed ) Maceration Weeping -Color (Vidya-wound Skin Appearance) No Abnormality Assessed -Temperature (Vidya-wound Skin No Abnormality Appearance) (Pt Warm) -Tenderness on Palpation (Vidya-wound No Skin Appearance) -Ulcer Cleansing Rinsed/ Irrigated with Saline -Foul Odor after Cleansing No -Anesthetic Used 4% Lidocaine Solution #3 RIGHT HIP -Combined with other wound No -Current Size (cm) - Length 2 -Current Size (cm) - Width 8 -Current Size (cm) - Depth 2.1 -Total Square Cm 16 -Photo Taken No -Epithelialization None Present -Tunneling No -Undermining/Tunneling No -Circular Undermining No -Classification - Thickness Full Thickness without Exposed Support Structure -Change in Wound Grade/Stage No Query Text:If change please identify the Stage/Grade in the comment (ie. S2 G3) -Exudate Amt Large (67-100%) -Exudate Type Serous -Wound Margin Distinct, Outline Attached -Granulation Amt Small (1-33%) -Granulation Quality Pale -Necrosis Amt Small (1-33%) -Necrotic Tissue Type Adherent Slough -Structure Exposed None/Limited to Skin Breakdown -Texture (Vidya-wound Skin Appearance) Assessed Scarring -Moisture (Vidya-wound Skin Appearance Assessed ) Maceration Weeping -Color (Vidya-wound Skin Appearance) No Abnormality Assessed -Temperature (Vidya-wound Skin No Abnormality Appearance) (Pt Warm) -Tenderness on Palpation (Vidya-wound No Skin Appearance) -Ulcer Cleansing Rinsed/ Irrigated with Saline -Anesthetic Used 4% Lidocaine Solution #2 Right dorsal Great Toe -Combined with other wound No -Current Size (cm) - Length 0.5 -Current Size (cm) - Width 0.5 -Current Size (cm) - Depth 0.1 -Total Square Cm 0.25 -Photo Taken No -Epithelialization None Present -Tunneling No -Undermining/Tunneling No -Circular Undermining No -Classification - Thickness Full Thickness without Exposed Support Structure -Change in Wound Grade/Stage No Query Text:If change please identify the Stage/Grade in the comment (ie. S2 G3) -Exudate Amt Small (1-33%) -Exudate Type Serous -Wound Margin Distinct, Outline Attached -Granulation Amt None Present (0 %) -Necrosis Amt Small (1-33%) -Necrotic Tissue Type Adherent Slough -Structure Exposed None/Limited to Skin Breakdown -Texture (Vidya-wound Skin Appearance) Assessed Callus Scarring -Moisture (Vidya-wound Skin Appearance No Abnormality ) Assessed -Color (Vidya-wound Skin Appearance) No Abnormality Assessed -Temperature (Vidya-wound Skin No Abnormality Appearance) (Pt Warm) -Tenderness on Palpation (Vidya-wound No Skin Appearance) -Ulcer Cleansing Rinsed/ Irrigated with Saline [Edema Assessment] -Lower Limb Edema Present No WC - Nurse 2 - General Ulcer CM Notes Start: 10/13/17 10:52 Freq: Status: Active Protocol: Activity Type Activity Date Activity User E-Sign Co-Sign Detail Recorded Client Recorded Date Recorded By Document 10/27/17 11:55 DV [id number] 10/27/17 11:58 DV 10/27/17 11:55 Wound Center Nurse 2 [Procedure/Treatment] #4 LEFT HIP -Time 11:57 -Correct Patient Yes -Correct Side, Site, Position Yes -Correct Procedure Yes -Procedure Performed Yes -Type of Procedure Debridement -Clinical Debridement Subcutaneous -Post Debridement Size (cm) - Length 3.2 -Post Debridement Size (cm) - Width 0.1 -Post Debridement Size (cm) - Depth 2.8 -Total Square Cm 0.32 -Wound/Ulcer Outcome Not Healed -Ulcer Cleansing Rinsed/ Irrigated with Saline -Foul Odor after Cleansing No -Bioengineered Tissue No -Bleeding Controlled with Pressure -Treatment Response Procedure Tolerated Well #3 RIGHT HIP -Time 11:56 -Correct Patient Yes -Correct Side, Site, Position Yes -Correct Procedure Yes -Procedure Performed Yes -Type of Procedure Debridement -Clinical Debridement Subcutaneous -Post Debridement Size (cm) - Length 0.5 -Post Debridement Size (cm) - Width 0.5 -Post Debridement Size (cm) - Depth 2.5 -Total Square Cm 0.25 -Wound/Ulcer Outcome Not Healed -Ulcer Cleansing Rinsed/ Irrigated with Saline -Foul Odor after Cleansing No -Bioengineered Tissue No -Bleeding Controlled with Pressure -Treatment Response Procedure Tolerated Well #2 Right dorsal Great Toe -Time 11:55 -Correct Patient Yes -Procedure Performed No -Post Debridement Size (cm) - Length 0 -Post Debridement Size (cm) - Width 0 -Post Debridement Size (cm) - Depth 0 -Total Square Cm 0 -Wound/Ulcer Outcome Healed- Epithelialized -Bioengineered Tissue No [See Physician Procedure note for Specifics] Pain Scale: 0-10 Numeric [Pain] -Is Patient Pain Free? Yes Musculoskeletal: No Tenderness to Palpation of Joints or Extremities Lymphatic: No Cervical, Supraclavicular, or Inguinal Adenopathy Neurological: Cranial nerves II-XII grossly intact, Neuro grossly intact Psych/Mental Status: Normal Affect, Appropriate, Alert and oriented to time, place, person, mood and affect Debridement Note Post-Debridement Measurements/Treatment WC - Nurse 2 - General Ulcer CM Notes Start: 10/13/17 10:52 Freq: Status: Active Protocol: Activity Type Activity Date Activity User E-Sign Co-Sign Detail Recorded Client Recorded Date Recorded By Document 10/13/17 12:04 JF [id number] 10/13/17 12:12 JF Document 10/27/17 11:55 DV [id number] 10/27/17 11:58 DV 10/13/17 10/27/17 12:04 11:55 Wound Center Nurse 2 #4 LEFT HIP -Time 12:05 11:57 -Correct Patient Yes Yes -Correct Side, Site, Position Yes Yes -Correct Procedure Yes Yes -Procedure Performed Yes Yes -Type of Procedure Debridement Debridement -Clinical Debridement Subcutaneous Subcutaneous -Post Debridement Size (cm) - Length 3.5 3.2 -Post Debridement Size (cm) - Width 0.3 0.1 -Post Debridement Size (cm) - Depth 6 2.8 -Total Square Cm 1.05 0.32 -Wound/Ulcer Outcome Not Healed Not Healed -Ulcer Cleansing Rinsed/ Rinsed/ Irrigated with Irrigated with Saline Saline -Foul Odor after Cleansing No No -Bioengineered Tissue No No -Bleeding Controlled with Pressure Pressure -Other 3.0 CM TUNNEL -Treatment Response Procedure Procedure Tolerated Well Tolerated Well #3 RIGHT HIP -Time 12:07 11:56 -Correct Patient Yes Yes -Correct Side, Site, Position Yes Yes -Correct Procedure Yes Yes -Procedure Performed Yes Yes -Type of Procedure Debridement Debridement -Clinical Debridement Subcutaneous Subcutaneous -Post Debridement Size (cm) - Length 2.0 0.5 -Post Debridement Size (cm) - Width 0.5 0.5 -Post Debridement Size (cm) - Depth 2.3 2.5 -Total Square Cm 1.00 0.25 -Wound/Ulcer Outcome Not Healed Not Healed -Ulcer Cleansing Rinsed/ Rinsed/ Irrigated with Irrigated with Saline Saline -Foul Odor after Cleansing No No -Bioengineered Tissue No No -Bleeding Controlled with Pressure Pressure -Treatment Response Procedure Procedure Tolerated Well Tolerated Well #2 Right dorsal Great Toe -Time 12:10 11:55 -Correct Patient Yes Yes -Correct Side, Site, Position Yes -Correct Procedure Yes -Procedure Performed Yes No -Type of Procedure Debridement -Clinical Debridement Subcutaneous -Post Debridement Size (cm) - Length 0.3 0 -Post Debridement Size (cm) - Width 0.6 0 -Post Debridement Size (cm) - Depth 0.2 0 -Total Square Cm 0.18 0 -Wound/Ulcer Outcome Not Healed Healed- Epithelialized -Ulcer Cleansing Rinsed/ Irrigated with Saline -Foul Odor after Cleansing No -Bioengineered Tissue No -Bleeding Controlled with Pressure -Treatment Response Procedure Tolerated Well Pain Scale: 0-10 Numeric Is Patient Pain Free? Yes Yes Wound debrided: Right hip ulcer Laterality: Right Type of Debridement: Excisional debridement Anesthesia Used: 5% Lidocaine Gel Depth: Down to and including healthy tissue, in the subcutaneous layer, to muscle Percentage of wound debrided: 100 Instrument Used: 3mm curette Tissue Removed: Serous and fibrin Severity: Limited To Skin Breakdown Amount of bleeding with debridement: None Bleeding Controlled with: Compression and gauze Patient tolerated procedure well - Additional Wound Wound debrided: hip ulcer Laterality: Left Type of Debridement: Excisional debridement Anesthesia Used: 5% Lidocaine Gel Depth: Down to and including healthy tissue, in the subcutaneous layer, to muscle, to bone Percentage of wound debrided: 100 Instrument Used: 3mm curette Tissue Removed: Serous and fibrin Severity: Limited To Skin Breakdown Amount of bleeding with debridement: Mild Bleeding Controlled with: Pressure Patient tolerated procedure: Patient tolerated procedure well Assessment/Plan Active Problems Open wound of left hip and thigh with complication (Chronic) 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 medial right first metatarsophalangeal joint resolved. Foot drop. 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 Malnutrition. Right and left hip ulcers. HBO clearance for radiation necroisis to the prostate the area Plan: Wash all areas with Hibiclens pack bilateral right hips with iodoform guaze 1/2 inch iodoform guaze to L hip and 1/4 inch guaze packing ot the R hip bid applied gauze and tape. dry dressing to R Great toe to protect for a few weeks. Patient is to increase iron to twice daily dosing. Patient is to increase protein intake with meat at least 3-4 times a day. Follow-up in 1 week. This note was generated with [employer] dictation software. It may contain incorrect words, spelling, and punctuation that were not noted in checking the note before signing.
[2017-11-03 10:40] VITALS: BP 126/77; PULSE 92; RESP 20; TEMP 36.4; BMI 23.7
--- NOTE | 2017-11-03 13:53 | PCM.WC.PN ---
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 Current Visit: Yes Code(s): M87.052 - Idiopathic aseptic necrosis of left femur (2) Chronic ulcer of right great toe Status: Chronic Current Visit: Yes Qualifiers: Code(s): L97.519 - Non-pressure chronic ulcer of other part of right foot with unspecified severity (3) Delayed wound healing Status: Chronic Current Visit: Yes Code(s): T14.8XXD - Other injury of unspecified body region, subsequent encounter (4) History of total hip replacement Status: Chronic Current Visit: Yes Qualifiers: Laterality: bilateral Code(s): Z96.649 - Presence of unspecified artificial hip joint (5) Malnutrition Status: Chronic Current Visit: Yes Qualifiers: Code(s): E46 - Unspecified protein-calorie malnutrition (6) 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 Current Visit: Yes Code(s): G57.91 - Unspecified mononeuropathy of right lower limb (7) Open wound of left hip and thigh with complication Status: Chronic Current Visit: Yes Qualifiers: Code(s): S71.002A - Unspecified open wound, left hip, initial encounter; S71.102A - Unspecified open wound, left thigh, initial encounter (8) Open wound of right hip and thigh with complication Status: Chronic Current Visit: Yes Qualifiers: Encounter type: subsequent encounter Qualified Code(s): S71.001D - Unspecified open wound, right hip, subsequent encounter; S71.101D - Unspecified open wound, right thigh, subsequent encounter Code(s): S71.001A - Unspecified open wound, right hip, initial encounter; S71.101A - Unspecified open wound, right thigh, initial encounter (9) 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 Current Visit: Yes Code(s): L59.9 - Disorder of the skin and subcutaneous tissue related to radiation, unspecified (10) 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 Right and left hips ulcers. To be cleared for HBO therapy History of Wound: 76-year-old white male had previously in 1999 for about had prostate cancer and was given radiation over and beyond what was therapeutic. After that he had both hips replacements ?2 to each one done with poor outcomes. He now has ulcers in both hips that tunnel into the bone on either side. He has had wound vacs and a currently he is just packing with gauze dressings. She has been on continuous Augmentin since April. Because of his poor outcomes for healing they have opted for HBO therapy here at the wound center. In the meantime I am to care for all of his other wounds also. 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 Patient still has drainage from bilateral hips that look yellowish some odor. We will obtain cultures from both hips and toes we will x-ray foot and hips bilaterally. We will also get chest x-ray for HBO and a complete blood count and a pre-albumin. Progress of Wound: There appears to be a more improvement from last week bilateral hips. the 1st metatarsophalngeal ulcer is still healed . They saw her [place] and he was impressed with the closing of the hips ,but felt the hips in good allignment and the screws are not that loose . We will continue to follow up with him every few months. Dr. Harris wants to continue monitoring his hips and will follow him up again. Surgeries necessary at this time per Dr. Harris .Bone Scan was undeterminate and just showed inflammation . We will continue packing of the left and right hip with the iodoform guaze having copious amounts of drainage that needs to be absorbed . It is medically necassary to increase the dressing changes to bid to absorb for healling qualities and faster. Chest x-ray was negative for HBO evaluation. Lab work shows anemia and a prealbumin that is very low at 13 patient needs to be booted up with protein. Patient has been eating increasing meats and supplements. We will probably recheck next week. - Physical Exam Vital Signs Temp Pulse Resp BP 97.6 F L 92 20 H 126/77 H 11/03/17 10:40 11/03/17 10:40 11/03/17 10:40 11/03/17 10:40 General: Oriented x3, Cooperative, Well developed HEENT: Atraumatic, PERRLA Oral: Moist Mucosa Neck: Supple, No JVD Lungs: Clear to auscultation, Normal air movement Cardiovascular: Regular rate, Regular Rhythm Abdomen: Bowel Sounds Present, Soft, Non Tender, No Hepato-splenomegaly Extremities: No clubbing, No edema Skin: Ulcer/ Wound - Ulcers open right and left hip Wound Measurements and Assessment WC - Nurse 1 - General Ulcer Measurement Start: 10/13/17 10:52 Freq: Status: Active Protocol: Activity Type Activity Date Activity User E-Sign Co-Sign Detail Recorded Client Recorded Date Recorded By Document 11/03/17 10:40 DL [id number] 11/03/17 10:54 DL 11/03/17 10:40 Wound Center Nurse 1 [Ulcer Assessment] #4 LEFT HIP -Current Size (cm) - Length 3 -Current Size (cm) - Width 0.3 -Current Size (cm) - Depth 3 -Total Square Cm 0.9 -Photo Taken No -Exudate Amt Medium (34-66%) -Exudate Type Yellow/Green -Wound Margin Thickened & Rolled Under -Granulation Amt Small (1-33%) -Granulation Quality Red -Necrosis Amt Small (1-33%) -Necrotic Tissue Type Adherent Slough -Structure Exposed N/A -Texture (Vidya-wound Skin Appearance) Scarring -Moisture (Vidya-wound Skin Appearance No Abnormality ) -Color (Vidya-wound Skin Appearance) No Abnormality -Temperature (Vidya-wound Skin No Abnormality Appearance) (Pt Warm) -Tenderness on Palpation (Vidya-wound No Skin Appearance) -Ulcer Cleansing Wound Cleanser -Foul Odor after Cleansing No -Anesthetic Used 4% Lidocaine Solution #3 RIGHT HIP -Current Size (cm) - Length 0.5 -Current Size (cm) - Width 0.5 -Current Size (cm) - Depth 2.5 -Total Square Cm 0.25 -Photo Taken No -Exudate Amt Large (67-100%) -Exudate Type Yellow/Green -Wound Margin Thickened & Rolled Under -Granulation Amt Small (1-33%) -Granulation Quality Red -Necrosis Amt Small (1-33%) -Necrotic Tissue Type Adherent Slough -Structure Exposed Bone -Texture (Vidya-wound Skin Appearance) Scarring -Moisture (Vidya-wound Skin Appearance No Abnormality ) -Color (Vidya-wound Skin Appearance) No Abnormality -Temperature (Vidya-wound Skin No Abnormality Appearance) (Pt Warm) -Ulcer Cleansing Wound Cleanser -Foul Odor after Cleansing No -Anesthetic Used 4% Lidocaine Solution WC - Nurse 2 - General Ulcer CM Notes Start: 10/13/17 10:52 Freq: Status: Active Protocol: Activity Type Activity Date Activity User E-Sign Co-Sign Detail Recorded Client Recorded Date Recorded By Document 11/03/17 11:26 DV [id number] 11/03/17 11:30 DV 11/03/17 11:26 Wound Center Nurse 2 [Procedure/Treatment] #4 LEFT HIP -Time 11:26 -Correct Patient Yes -Correct Side, Site, Position Yes -Correct Procedure Yes -Procedure Performed Yes -Type of Procedure Debridement -Clinical Debridement Subcutaneous -Post Debridement Size (cm) - Length 3 -Post Debridement Size (cm) - Width 0.2 -Post Debridement Size (cm) - Depth 5.0 -Total Square Cm 0.6 -Wound/Ulcer Outcome Not Healed -Ulcer Cleansing Rinsed/ Irrigated with Saline -Foul Odor after Cleansing No -Bioengineered Tissue No -Bleeding Controlled with NA -Treatment Response Procedure Tolerated Well #3 RIGHT HIP -Time 11:26 -Correct Patient Yes -Correct Side, Site, Position Yes -Correct Procedure Yes -Procedure Performed Yes -Type of Procedure Debridement -Clinical Debridement Subcutaneous -Post Debridement Size (cm) - Length 0.4 -Post Debridement Size (cm) - Width 0.3 -Post Debridement Size (cm) - Depth 2.2 -Total Square Cm 0.12 -Wound/Ulcer Outcome Not Healed -Ulcer Cleansing Rinsed/ Irrigated with Saline -Foul Odor after Cleansing No -Bioengineered Tissue No -Bleeding Controlled with NA -Treatment Response Procedure Tolerated Well [See Physician Procedure note for Specifics] Pain Scale: 0-10 Numeric [Pain] -Is Patient Pain Free? Yes Musculoskeletal: No Tenderness to Palpation of Joints or Extremities Lymphatic: No Cervical, Supraclavicular, or Inguinal Adenopathy Neurological: Cranial nerves II-XII grossly intact, Neuro grossly intact Psych/Mental Status: Normal Affect, Appropriate Debridement Note Post-Debridement Measurements/Treatment WC - Nurse 2 - General Ulcer CM Notes Start: 10/13/17 10:52 Freq: Status: Active Protocol: Activity Type Activity Date Activity User E-Sign Co-Sign Detail Recorded Client Recorded Date Recorded By Document 10/13/17 12:04 [id number] 10/13/17 12:12 JF Document 10/27/17 11:55 DV [id number] 10/27/17 11:58 DV Document 11/03/17 11:26 DV [id number] 11/03/17 11:30 DV 10/13/17 10/27/17 11/03/17 12:04 11:55 11:26 Wound Center Nurse 2 #4 LEFT HIP -Time 12:05 11:57 11:26 -Correct Patient Yes Yes Yes -Correct Side, Site, Position Yes Yes Yes -Correct Procedure Yes Yes Yes -Procedure Performed Yes Yes Yes -Type of Procedure Debridement Debridement Debridement -Clinical Debridement Subcutaneous Subcutaneous Subcutaneous -Post Debridement Size (cm) - Length 3.5 3.2 3 -Post Debridement Size (cm) - Width 0.3 0.1 0.2 -Post Debridement Size (cm) - Depth 6 2.8 5.0 -Total Square Cm 1.05 0.32 0.6 -Wound/Ulcer Outcome Not Healed Not Healed Not Healed -Ulcer Cleansing Rinsed/ Rinsed/ Rinsed/ Irrigated with Irrigated with Irrigated with Saline Saline Saline -Foul Odor after Cleansing No No No -Bioengineered Tissue No No No -Bleeding Controlled with Pressure Pressure NA -Other 3.0 CM TUNNEL -Treatment Response Procedure Procedure Procedure Tolerated Well Tolerated Well Tolerated Well #3 RIGHT HIP -Time 12:07 11:56 11:26 -Correct Patient Yes Yes Yes -Correct Side, Site, Position Yes Yes Yes -Correct Procedure Yes Yes Yes -Procedure Performed Yes Yes Yes -Type of Procedure Debridement Debridement Debridement -Clinical Debridement Subcutaneous Subcutaneous Subcutaneous -Post Debridement Size (cm) - Length 2.0 0.5 0.4 -Post Debridement Size (cm) - Width 0.5 0.5 0.3 -Post Debridement Size (cm) - Depth 2.3 2.5 2.2 -Total Square Cm 1.00 0.25 0.12 -Wound/Ulcer Outcome Not Healed Not Healed Not Healed -Ulcer Cleansing Rinsed/ Rinsed/ Rinsed/ Irrigated with Irrigated with Irrigated with Saline Saline Saline -Foul Odor after Cleansing No No No -Bioengineered Tissue No No No -Bleeding Controlled with Pressure Pressure NA -Treatment Response Procedure Procedure Procedure Tolerated Well Tolerated Well Tolerated Well #2 Right dorsal Great Toe -Time 12:10 11:55 -Correct Patient Yes Yes -Correct Side, Site, Position Yes -Correct Procedure Yes -Procedure Performed Yes No -Type of Procedure Debridement -Clinical Debridement Subcutaneous -Post Debridement Size (cm) - Length 0.3 0 -Post Debridement Size (cm) - Width 0.6 0 -Post Debridement Size (cm) - Depth 0.2 0 -Total Square Cm 0.18 0 -Wound/Ulcer Outcome Not Healed Healed- Epithelialized -Ulcer Cleansing Rinsed/ Irrigated with Saline -Foul Odor after Cleansing No -Bioengineered Tissue No -Bleeding Controlled with Pressure -Treatment Response Procedure Tolerated Well Pain Scale: 0-10 Numeric Is Patient Pain Free? Yes Yes Yes Wound debrided: Right hip ulcer Type of Debridement: Excisional debridement Anesthesia Used: 5% Lidocaine Gel Depth: Down to and including healthy tissue, in the subcutaneous layer, to bone Percentage of wound debrided: 100 Instrument Used: 3mm curette Tissue Removed: Fibrin Severity: Limited To Skin Breakdown Amount of bleeding with debridement: Mild Bleeding Controlled with: Compression and gauze Patient tolerated procedure well - Additional Wound Wound debrided: Left hip Type of Debridement: Excisional debridement Anesthesia Used: 5% Lidocaine Gel Depth: Down to and including healthy tissue, in the subcutaneous layer, to bone Percentage of wound debrided: 100 Instrument Used: 3mm curette Tissue Removed: Fibrin Severity: Limited To Skin Breakdown Amount of bleeding with debridement: Mild Bleeding Controlled with: Compression and gauze Patient tolerated procedure: Patient tolerated procedure well Assessment/Plan Active Problems Open wound of left hip and thigh with complication (Chronic) 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 medial right first metatarsophalangeal joint resolved. Foot drop. 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 Malnutrition. Right and left hip ulcers. HBO clearance for radiation necroisis to the prostate the area Plan: Wash all areas with Hibiclens pack bilateral right hips with iodoform guaze 1/2 inch iodoform guaze to L hip and 1/4 inch guaze packing ot the R hip bid applied gauze and tape. Patient is to increase iron to twice daily dosing. Patient is to increase protein intake with meat at least 3-4 times a day. Follow-up in 1 week. This note was generated with [employer] dictation software. It may contain incorrect words, spelling, and punctuation that were not noted in checking the note before signing.
[2017-11-10 10:50] VITALS: RESP 18; TEMP 36.6; BMI 23.7
--- NOTE | 2017-11-10 12:11 | PCM.WC.PN ---
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 Current Visit: Yes Code(s): M87.052 - Idiopathic aseptic necrosis of left femur (2) Chronic ulcer of right great toe Status: Chronic Current Visit: No Qualifiers: Code(s): L97.519 - Non-pressure chronic ulcer of other part of right foot with unspecified severity (3) Delayed wound healing Status: Chronic Current Visit: Yes Code(s): T14.8XXD - Other injury of unspecified body region, subsequent encounter (4) History of total hip replacement Status: Chronic Current Visit: Yes Qualifiers: Laterality: bilateral Code(s): Z96.649 - Presence of unspecified artificial hip joint (5) Malnutrition Status: Chronic Current Visit: Yes Qualifiers: Code(s): E46 - Unspecified protein-calorie malnutrition (6) 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 Current Visit: Yes Code(s): G57.91 - Unspecified mononeuropathy of right lower limb (7) Open wound of left hip and thigh with complication Status: Chronic Current Visit: Yes Qualifiers: Code(s): S71.002A - Unspecified open wound, left hip, initial encounter; S71.102A - Unspecified open wound, left thigh, initial encounter (8) Open wound of right hip and thigh with complication Status: Chronic Current Visit: Yes Qualifiers: Encounter type: subsequent encounter Qualified Code(s): S71.001D - Unspecified open wound, right hip, subsequent encounter; S71.101D - Unspecified open wound, right thigh, subsequent encounter Code(s): S71.001A - Unspecified open wound, right hip, initial encounter; S71.101A - Unspecified open wound, right thigh, initial encounter (9) 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 Current Visit: Yes Code(s): L59.9 - Disorder of the skin and subcutaneous tissue related to radiation, unspecified (10) 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 Right and left hips ulcers. To be cleared for HBO therapy History of Wound: 76-year-old white male had previously in 1999 for about had prostate cancer and was given radiation over and beyond what was therapeutic. After that he had both hips replacements ?2 to each one done with poor outcomes. He now has ulcers in both hips that tunnel into the bone on either side. He has had wound vacs and a currently he is just packing with gauze dressings. She has been on continuous Augmentin since April. Because of his poor outcomes for healing they have opted for HBO therapy here at the wound center. In the meantime I am to care for all of his other wounds also. 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 Patient still has drainage from bilateral hips that look yellowish some odor. We will obtain cultures from both hips and toes we will x-ray foot and hips bilaterally. We will also get chest x-ray for HBO and a complete blood count and a pre-albumin. Progress of Wound: There appears to be a more improvement each week. The 1st metatarsophalngeal ulcer is still healed . They saw her [place] and he was impressed with the closing of the hips ,but felt the hips in good allignment and the screws are not that loose . We will continue to follow up with him every few months. Dr. Harris wants to continue monitoring his hips and will follow him up again. Surgeries necessary at this time per Dr. Harris .Bone Scan was undeterminate and just showed inflammation . We will continue packing of the left and right hip with the iodoform guaze having copious amounts of drainage that needs to be absorbed . It is medically necassary to increase the dressing changes to bid to absorb for healling qualities and faster. Chest x-ray was negative for HBO evaluation. Lab work shows anemia and a prealbumin that is very low at 13 patient needs to be booted up with protein. Patient has been eating increasing meats and supplements. We will change our plan of care to monthly visits since and now all that left his his hips and he is just packing them. Patient is to start physical therapy on Monday because of his strength seems to be getting better. That was elicited by the pain management doctor who felt that it would make him stronger. Patient is also developing feeling in his right leg which will help his foot drop and he needs to do exercises for that also. - Physical Exam Vital Signs Temp Pulse Resp BP 97.8 F 92 18 126/77 H 11/10/17 10:50 11/03/17 10:40 11/10/17 10:50 11/03/17 10:40 General: Oriented x3, Cooperative, Well developed HEENT: Atraumatic, PERRLA Oral: Moist Mucosa Neck: Supple, No JVD Lungs: Clear to auscultation, Normal air movement Cardiovascular: Regular rate, Regular Rhythm Abdomen: Bowel Sounds Present, Soft, Non Tender, No Hepato-splenomegaly Extremities: No clubbing, No edema Skin: Ulcer/ Wound - Right and left hip ulcers Wound Measurements and Assessment WC - Nurse 1 - General Ulcer Measurement Start: 10/13/17 10:52 Freq: Status: Active Protocol: Activity Type Activity Date Activity User E-Sign Co-Sign Detail Recorded Client Recorded Date Recorded By Document 11/10/17 10:50 [facility] [id number] 11/10/17 11:03 [facility] 11/10/17 10:50 Wound Center Nurse 1 [Ulcer Assessment] #4 LEFT HIP -Combined with other wound No -Current Size (cm) - Length 2.9 -Current Size (cm) - Width 0.1 -Current Size (cm) - Depth 3.6 -Total Square Cm 0.29 -Photo Taken No -Epithelialization None Present -Tunneling No -Undermining/Tunneling No -Circular Undermining No -Exudate Amt Medium (34-66%) -Exudate Type Serous -Wound Margin Distinct, Outline Attached -Granulation Amt Large (67-100%) -Granulation Quality Pale [place] -Slough/Fibrin No -Necrosis Amt None Present (0 %) -Texture (Vidya-wound Skin Appearance) Scarring -Moisture (Vidya-wound Skin Appearance Maceration ) -Color (Vidya-wound Skin Appearance) Palor -Temperature (Vidya-wound Skin No Abnormality Appearance) (Pt Warm) -Tenderness on Palpation (Vidya-wound No Skin Appearance) -Ulcer Cleansing Rinsed/ Irrigated with Saline -Foul Odor after Cleansing No -Anesthetic Used 4% Lidocaine Solution #3 RIGHT HIP -Combined with other wound No -Current Size (cm) - Length 0.6 -Current Size (cm) - Width 0.3 -Current Size (cm) - Depth 2 -Total Square Cm 0.18 -Photo Taken No -Epithelialization None Present -Tunneling No -Undermining/Tunneling No -Circular Undermining No -Exudate Amt Large (67-100%) -Exudate Type Serous -Wound Margin Distinct, Outline Attached -Granulation Amt Large (67-100%) -Granulation Quality Pale [place] -Slough/Fibrin No -Necrosis Amt None Present (0 %) -Texture (Vidya-wound Skin Appearance) Scarring -Moisture (Vidya-wound Skin Appearance Maceration ) -Color (Vidya-wound Skin Appearance) Palor -Temperature (Vidya-wound Skin No Abnormality Appearance) (Pt Warm) -Tenderness on Palpation (Vidya-wound No Skin Appearance) -Ulcer Cleansing Rinsed/ Irrigated with Saline -Foul Odor after Cleansing No -Anesthetic Used 4% Lidocaine Solution WC - Nurse 2 - General Ulcer CM Notes Start: 10/13/17 10:52 Freq: Status: Active Protocol: Activity Type Activity Date Activity User E-Sign Co-Sign Detail Recorded Client Recorded Date Recorded By Document 11/10/17 11:30 [facility] [id number] 11/10/17 11:32 [facility] 11/10/17 11:30 Wound Center Nurse 2 [Procedure/Treatment] #4 LEFT HIP -Time 11:31 -Correct Patient Yes -Correct Side, Site, Position Yes -Correct Procedure Yes -Procedure Performed Yes -Type of Procedure Debridement -Clinical Debridement Bone -Post Debridement Size (cm) - Length 2.8 -Post Debridement Size (cm) - Width 0.2 -Post Debridement Size (cm) - Depth 5.0 -Total Square Cm 0.56 -Wound/Ulcer Outcome Not Healed -Ulcer Cleansing Rinsed/ Irrigated with Saline -Foul Odor after Cleansing No -Bioengineered Tissue No -Bleeding Controlled with NA -Treatment Response Procedure Tolerated Well #3 RIGHT HIP -Time 11:31 -Correct Patient Yes -Correct Side, Site, Position Yes -Correct Procedure Yes -Procedure Performed Yes -Type of Procedure Debridement -Clinical Debridement Bone -Post Debridement Size (cm) - Length 0.7 -Post Debridement Size (cm) - Width 0.5 -Post Debridement Size (cm) - Depth 1.5 -Total Square Cm 0.35 -Wound/Ulcer Outcome Not Healed -Ulcer Cleansing Rinsed/ Irrigated with Saline -Foul Odor after Cleansing No -Bioengineered Tissue No -Bleeding Controlled with NA -Treatment Response Procedure Tolerated Well [See Physician Procedure note for Specifics] Pain Scale: 0-10 Numeric [Pain] -Is Patient Pain Free? Yes Musculoskeletal: No Tenderness to Palpation of Joints or Extremities Lymphatic: No Cervical, Supraclavicular, or Inguinal Adenopathy Neurological: Cranial nerves II-XII grossly intact, Neuro grossly intact Psych/Mental Status: Normal Affect, Appropriate Debridement Note Post-Debridement Measurements/Treatment WC - Nurse 2 - General Ulcer CM Notes Start: 10/13/17 10:52 Freq: Status: Active Protocol: Activity Type Activity Date Activity User E-Sign Co-Sign Detail Recorded Client Recorded Date Recorded By Document 10/13/17 12:04 [id number] 10/13/17 12:12 Document 10/27/17 11:55 DV [id number] 10/27/17 11:58 DV Document 11/03/17 11:26 DV [id number] 11/03/17 11:30 DV Document 11/10/17 11:30 JS [id number] 11/10/17 11:32 10/13/17 10/27/17 11/03/17 12:04 11:55 11:26 Wound Center Nurse 2 #4 LEFT HIP -Time 12:05 11:57 11:26 -Correct Patient Yes Yes Yes -Correct Side, Site, Position Yes Yes Yes -Correct Procedure Yes Yes Yes -Procedure Performed Yes Yes Yes -Type of Procedure Debridement Debridement Debridement -Clinical Debridement Subcutaneous Subcutaneous Subcutaneous -Post Debridement Size (cm) - Length 3.5 3.2 3 -Post Debridement Size (cm) - Width 0.3 0.1 0.2 -Post Debridement Size (cm) - Depth 6 2.8 5.0 -Total Square Cm 1.05 0.32 0.6 -Wound/Ulcer Outcome Not Healed Not Healed Not Healed -Ulcer Cleansing Rinsed/ Rinsed/ Rinsed/ Irrigated with Irrigated with Irrigated with Saline Saline Saline -Foul Odor after Cleansing No No No -Bioengineered Tissue No No No -Bleeding Controlled with Pressure Pressure NA -Other 3.0 CM TUNNEL -Treatment Response Procedure Procedure Procedure Tolerated Well Tolerated Well Tolerated Well #3 RIGHT HIP -Time 12:07 11:56 11:26 -Correct Patient Yes Yes Yes -Correct Side, Site, Position Yes Yes Yes -Correct Procedure Yes Yes Yes -Procedure Performed Yes Yes Yes -Type of Procedure Debridement Debridement Debridement -Clinical Debridement Subcutaneous Subcutaneous Subcutaneous -Post Debridement Size (cm) - Length 2.0 0.5 0.4 -Post Debridement Size (cm) - Width 0.5 0.5 0.3 -Post Debridement Size (cm) - Depth 2.3 2.5 2.2 -Total Square Cm 1.00 0.25 0.12 -Wound/Ulcer Outcome Not Healed Not Healed Not Healed -Ulcer Cleansing Rinsed/ Rinsed/ Rinsed/ Irrigated with Irrigated with Irrigated with Saline Saline Saline -Foul Odor after Cleansing No No No -Bioengineered Tissue No No No -Bleeding Controlled with Pressure Pressure NA -Treatment Response Procedure Procedure Procedure Tolerated Well Tolerated Well Tolerated Well #2 Right dorsal Great Toe -Time 12:10 11:55 -Correct Patient Yes Yes -Correct Side, Site, Position Yes -Correct Procedure Yes -Procedure Performed Yes No -Type of Procedure Debridement -Clinical Debridement Subcutaneous -Post Debridement Size (cm) - Length 0.3 0 -Post Debridement Size (cm) - Width 0.6 0 -Post Debridement Size (cm) - Depth 0.2 0 -Total Square Cm 0.18 0 -Wound/Ulcer Outcome Not Healed Healed- Epithelialized -Ulcer Cleansing Rinsed/ Irrigated with Saline -Foul Odor after Cleansing No -Bioengineered Tissue No -Bleeding Controlled with Pressure -Treatment Response Procedure Tolerated Well Pain Scale: 0-10 Numeric Is Patient Pain Free? Yes Yes Yes 11/10/17 11:30 Wound Center Nurse 2 #4 LEFT HIP -Time 11:31 -Correct Patient Yes -Correct Side, Site, Position Yes -Correct Procedure Yes -Procedure Performed Yes -Type of Procedure Debridement -Clinical Debridement Bone -Post Debridement Size (cm) - Length 2.8 -Post Debridement Size (cm) - Width 0.2 -Post Debridement Size (cm) - Depth 5.0 -Total Square Cm 0.56 -Wound/Ulcer Outcome Not Healed -Ulcer Cleansing Rinsed/ Irrigated with Saline -Foul Odor after Cleansing No -Bioengineered Tissue No -Bleeding Controlled with NA -Other -Treatment Response Procedure Tolerated Well #3 RIGHT HIP -Time 11:31 -Correct Patient Yes -Correct Side, Site, Position Yes -Correct Procedure Yes -Procedure Performed Yes -Type of Procedure Debridement -Clinical Debridement Bone -Post Debridement Size (cm) - Length 0.7 -Post Debridement Size (cm) - Width 0.5 -Post Debridement Size (cm) - Depth 1.5 -Total Square Cm 0.35 -Wound/Ulcer Outcome Not Healed -Ulcer Cleansing Rinsed/ Irrigated with Saline -Foul Odor after Cleansing No -Bioengineered Tissue No -Bleeding Controlled with NA -Treatment Response Procedure Tolerated Well #2 Right dorsal Great Toe -Time -Correct Patient -Correct Side, Site, Position -Correct Procedure -Procedure Performed -Type of Procedure -Clinical Debridement -Post Debridement Size (cm) - Length -Post Debridement Size (cm) - Width -Post Debridement Size (cm) - Depth -Total Square Cm -Wound/Ulcer Outcome -Ulcer Cleansing -Foul Odor after Cleansing -Bioengineered Tissue -Bleeding Controlled with -Treatment Response Pain Scale: 0-10 Numeric Is Patient Pain Free? Yes Wound debrided: Right hip ulcer Type of Debridement: Excisional debridement Anesthesia Used: 5% Lidocaine Gel Depth: Down to and including healthy tissue, in the subcutaneous layer, to bone Instrument Used: 3mm curette Tissue Removed: Fibrin Severity: Limited To Skin Breakdown Amount of bleeding with debridement: Mild Bleeding Controlled with: Compression and gauze Patient tolerated procedure well - Additional Wound Wound debrided: Left hip ulcer Type of Debridement: Excisional debridement Anesthesia Used: 5% Lidocaine Gel Depth: Down to and including healthy tissue, to muscle, to bone Instrument Used: 3mm curette Tissue Removed: Fibrin and serous fluid Severity: Limited To Skin Breakdown Amount of bleeding with debridement: Mild Bleeding Controlled with: Pressure, Compression and gauze Patient tolerated procedure: Patient tolerated procedure well Assessment/Plan Active Problems Open wound of left hip and thigh with complication (Chronic) 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 medial right first metatarsophalangeal joint resolved. Foot drop. 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 Malnutrition. Right and left hip ulcers. HBO clearance for radiation necroisis to the prostate the area Plan: Wash all areas with Hibiclens pack bilateral right hips with iodoform guaze 1/2 inch iodoform guaze to L hip and 1/4 inch guaze packing ot the R hip bid applied gauze and tape. Patient is to increase iron to twice daily dosing. Patient is to increase protein intake with meat at least 3-4 times a day. Start physical therapy as suggested by pain management, continue pain management. Follow-up in 1 month. This note was generated with [employer] dictation software. It may contain incorrect words, spelling, and punctuation that were not noted in checking the note before signing.
--- NOTE | 2017-11-10 12:15 | PN.PCM_ITS ---
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 Current Visit: Yes Code(s): M87.052 - Idiopathic aseptic necrosis of left femur (2) Chronic ulcer of right great toe Status: Chronic Current Visit: No Qualifiers: Code(s): L97.519 - Non-pressure chronic ulcer of other part of right foot with unspecified severity (3) Delayed wound healing Status: Chronic Current Visit: Yes Code(s): T14.8XXD - Other injury of unspecified body region, subsequent encounter (4) History of total hip replacement Status: Chronic Current Visit: Yes Qualifiers: Laterality: bilateral Code(s): Z96.649 - Presence of unspecified artificial hip joint (5) Malnutrition Status: Chronic Current Visit: Yes Qualifiers: Code(s): E46 - Unspecified protein-calorie malnutrition (6) 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 Current Visit: Yes Code(s): G57.91 - Unspecified mononeuropathy of right lower limb (7) Open wound of left hip and thigh with complication Status: Chronic Current Visit: Yes Qualifiers: Code(s): S71.002A - Unspecified open wound, left hip, initial encounter; S71.102A - Unspecified open wound, left thigh, initial encounter (8) Open wound of right hip and thigh with complication Status: Chronic Current Visit: Yes Qualifiers: Encounter type: subsequent encounter Qualified Code(s): S71.001D - Unspecified open wound, right hip, subsequent encounter; S71.101D - Unspecified open wound, right thigh, subsequent encounter Code(s): S71.001A - Unspecified open wound, right hip, initial encounter; S71.101A - Unspecified open wound, right thigh, initial encounter (9) 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 Current Visit: Yes Code(s): L59.9 - Disorder of the skin and subcutaneous tissue related to radiation, unspecified (10) 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 Right and left hips ulcers. To be cleared for HBO therapy History of Wound: 76-year-old white male had previously in 1999 for about had prostate cancer and was given radiation over and beyond what was therapeutic. After that he had both hips replacements ?2 to each one done with poor outcomes. He now has ulcers in both hips that tunnel into the bone on either side. He has had wound vacs and a currently he is just packing with gauze dressings. She has been on continuous Augmentin since April. Because of his poor outcomes for healing they have opted for HBO therapy here at the wound center. In the meantime I am to care for all of his other wounds also. 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 Patient still has drainage from bilateral hips that look yellowish some odor. We will obtain cultures from both hips and toes we will x- ray foot and hips bilaterally. We will also get chest x-ray for HBO and a complete blood count and a pre-albumin. Progress of Wound: There appears to be a more improvement each week. The 1st metatarsophalngeal ulcer is still healed . They saw her [place] and he was impressed with the closing of the hips ,but felt the hips in good allignment and the screws are not that loose . We will continue to follow up with him every few months. Dr. Harris wants to continue monitoring his hips and will follow him up again. Surgeries necessary at this time per Dr. Harris .Bone Scan was undeterminate and just showed inflammation . We will continue packing of the left and right hip with the iodoform guaze having copious amounts of drainage that needs to be absorbed . It is medically necassary to increase the dressing changes to bid to absorb for healling qualities and faster. Chest x- ray was negative for HBO evaluation. Lab work shows anemia and a prealbumin that is very low at 13 patient needs to be booted up with protein. Patient has been eating increasing meats and supplements. We will change our plan of care to monthly visits since and now all that left his his hips and he is just packing them. Patient is to start physical therapy on Monday because of his strength seems to be getting better. That was elicited by the pain management doctor who felt that it would make him stronger. Patient is also developing feeling in his right leg which will help his foot drop and he needs to do exercises for that also. - Physical Exam Vital Signs Temp Pulse Resp BP 97.8 F 92 18 126/77 H 11/10/17 10:50 11/03/17 10:40 11/10/17 10:50 11/03/17 10:40 General: Oriented x3, Cooperative, Well developed HEENT: Atraumatic, PERRLA Oral: Moist Mucosa Neck: Supple, No JVD Lungs: Clear to auscultation, Normal air movement Cardiovascular: Regular rate, Regular Rhythm Abdomen: Bowel Sounds Present, Soft, Non Tender, No Hepato-splenomegaly Extremities: No clubbing, No edema Skin: Ulcer/ Wound - Right and left hip ulcers Wound Measurements and Assessment WC - Nurse 1 - General Ulcer Measurement Start: 10/13/17 10:52 Freq: Status: Active Protocol: Activity Type Activity Date Activity User E-Sign Co-Sign Detail Recorded Client Recorded Date Recorded By Document 11/10/17 10:50 [facility] [id number] 11/10/17 11:03 [facility] 11/10/17 10:50 Wound Center Nurse 1 [Ulcer Assessment] #4 LEFT HIP -Combined with other wound No -Current Size (cm) - Length 2.9 -Current Size (cm) - Width 0.1 -Current Size (cm) - Depth 3.6 -Total Square Cm 0.29 -Photo Taken No -Epithelialization None Present -Tunneling No -Undermining/Tunneling No -Circular Undermining No -Exudate Amt Medium (34-66%) -Exudate Type Serous -Wound Margin Distinct, Outline Attached -Granulation Amt Large (67-100%) -Granulation Quality Pale [place] -Slough/Fibrin No -Necrosis Amt None Present (0 %) -Texture (Vidya-wound Skin Appearance) Scarring -Moisture (Vidya-wound Skin Appearance Maceration ) -Color (Vidya-wound Skin Appearance) Palor -Temperature (Vidya-wound Skin No Abnormality Appearance) (Pt Warm) -Tenderness on Palpation (Vidya-wound No Skin Appearance) -Ulcer Cleansing Rinsed/ Irrigated with Saline -Foul Odor after Cleansing No -Anesthetic Used 4% Lidocaine Solution #3 RIGHT HIP -Combined with other wound No -Current Size (cm) - Length 0.6 -Current Size (cm) - Width 0.3 -Current Size (cm) - Depth 2 -Total Square Cm 0.18 -Photo Taken No -Epithelialization None Present -Tunneling No -Undermining/Tunneling No -Circular Undermining No -Exudate Amt Large (67-100%) -Exudate Type Serous -Wound Margin Distinct, Outline Attached -Granulation Amt Large (67-100%) -Granulation Quality Pale [place] -Slough/Fibrin No -Necrosis Amt None Present (0 %) -Texture (Vidya-wound Skin Appearance) Scarring -Moisture (Vidya-wound Skin Appearance Maceration ) -Color (Vidya-wound Skin Appearance) Palor -Temperature (Vidya-wound Skin No Abnormality Appearance) (Pt Warm) -Tenderness on Palpation (Vidya-wound No Skin Appearance) -Ulcer Cleansing Rinsed/ Irrigated with Saline -Foul Odor after Cleansing No -Anesthetic Used 4% Lidocaine Solution WC - Nurse 2 - General Ulcer CM Notes Start: 10/13/17 10:52 Freq: Status: Active Protocol: Activity Type Activity Date Activity User E-Sign Co-Sign Detail Recorded Client Recorded Date Recorded By Document 11/10/17 11:30 [facility] [id number] 11/10/17 11:32 [facility] 11/10/17 11:30 Wound Center Nurse 2 [Procedure/Treatment] #4 LEFT HIP -Time 11:31 -Correct Patient Yes -Correct Side, Site, Position Yes -Correct Procedure Yes -Procedure Performed Yes -Type of Procedure Debridement -Clinical Debridement Bone -Post Debridement Size (cm) - Length 2.8 -Post Debridement Size (cm) - Width 0.2 -Post Debridement Size (cm) - Depth 5.0 -Total Square Cm 0.56 -Wound/Ulcer Outcome Not Healed -Ulcer Cleansing Rinsed/ Irrigated with Saline -Foul Odor after Cleansing No -Bioengineered Tissue No -Bleeding Controlled with NA -Treatment Response Procedure Tolerated Well #3 RIGHT HIP -Time 11:31 -Correct Patient Yes -Correct Side, Site, Position Yes -Correct Procedure Yes -Procedure Performed Yes -Type of Procedure Debridement -Clinical Debridement Bone -Post Debridement Size (cm) - Length 0.7 -Post Debridement Size (cm) - Width 0.5 -Post Debridement Size (cm) - Depth 1.5 -Total Square Cm 0.35 -Wound/Ulcer Outcome Not Healed -Ulcer Cleansing Rinsed/ Irrigated with Saline -Foul Odor after Cleansing No -Bioengineered Tissue No -Bleeding Controlled with NA -Treatment Response Procedure Tolerated Well [See Physician Procedure note for Specifics] Pain Scale: 0-10 Numeric [Pain] -Is Patient Pain Free? Yes Musculoskeletal: No Tenderness to Palpation of Joints or Extremities Lymphatic: No Cervical, Supraclavicular, or Inguinal Adenopathy Neurological: Cranial nerves II-XII grossly intact, Neuro grossly intact Psych/Mental Status: Normal Affect, Appropriate Debridement Note Post-Debridement Measurements/Treatment WC - Nurse 2 - General Ulcer CM Notes Start: 10/13/17 10:52 Freq: Status: Active Protocol: Activity Type Activity Date Activity User E-Sign Co-Sign Detail Recorded Client Recorded Date Recorded By Document 10/13/17 12:04 [id number] 10/13/17 12:12 Document 10/27/17 11:55 DV [id number] 10/27/17 11:58 DV Document 11/03/17 11:26 DV [id number] 11/03/17 11:30 DV Document 11/10/17 11:30 JS [id number] 11/10/17 11:32 10/13/17 10/27/17 11/03/17 12:04 11:55 11:26 Wound Center Nurse 2 #4 LEFT HIP -Time 12:05 11:57 11:26 -Correct Patient Yes Yes Yes -Correct Side, Site, Position Yes Yes Yes -Correct Procedure Yes Yes Yes -Procedure Performed Yes Yes Yes -Type of Procedure Debridement Debridement Debridement -Clinical Debridement Subcutaneous Subcutaneous Subcutaneous -Post Debridement Size (cm) - Length 3.5 3.2 3 -Post Debridement Size (cm) - Width 0.3 0.1 0.2 -Post Debridement Size (cm) - Depth 6 2.8 5.0 -Total Square Cm 1.05 0.32 0.6 -Wound/Ulcer Outcome Not Healed Not Healed Not Healed -Ulcer Cleansing Rinsed/ Rinsed/ Rinsed/ Irrigated with Irrigated with Irrigated with Saline Saline Saline -Foul Odor after Cleansing No No No -Bioengineered Tissue No No No -Bleeding Controlled with Pressure Pressure NA -Other 3.0 CM TUNNEL -Treatment Response Procedure Procedure Procedure Tolerated Well Tolerated Well Tolerated Well #3 RIGHT HIP -Time 12:07 11:56 11:26 -Correct Patient Yes Yes Yes -Correct Side, Site, Position Yes Yes Yes -Correct Procedure Yes Yes Yes -Procedure Performed Yes Yes Yes -Type of Procedure Debridement Debridement Debridement -Clinical Debridement Subcutaneous Subcutaneous Subcutaneous -Post Debridement Size (cm) - Length 2.0 0.5 0.4 -Post Debridement Size (cm) - Width 0.5 0.5 0.3 -Post Debridement Size (cm) - Depth 2.3 2.5 2.2 -Total Square Cm 1.00 0.25 0.12 -Wound/Ulcer Outcome Not Healed Not Healed Not Healed -Ulcer Cleansing Rinsed/ Rinsed/ Rinsed/ Irrigated with Irrigated with Irrigated with Saline Saline Saline -Foul Odor after Cleansing No No No -Bioengineered Tissue No No No -Bleeding Controlled with Pressure Pressure NA -Treatment Response Procedure Procedure Procedure Tolerated Well Tolerated Well Tolerated Well #2 Right dorsal Great Toe -Time 12:10 11:55 -Correct Patient Yes Yes -Correct Side, Site, Position Yes -Correct Procedure Yes -Procedure Performed Yes No -Type of Procedure Debridement -Clinical Debridement Subcutaneous -Post Debridement Size (cm) - Length 0.3 0 -Post Debridement Size (cm) - Width 0.6 0 -Post Debridement Size (cm) - Depth 0.2 0 -Total Square Cm 0.18 0 -Wound/Ulcer Outcome Not Healed Healed- Epithelialized -Ulcer Cleansing Rinsed/ Irrigated with Saline -Foul Odor after Cleansing No -Bioengineered Tissue No -Bleeding Controlled with Pressure -Treatment Response Procedure Tolerated Well Pain Scale: 0-10 Numeric Is Patient Pain Free? Yes Yes Yes 11/10/17 11:30 Wound Center Nurse 2 #4 LEFT HIP -Time 11:31 -Correct Patient Yes -Correct Side, Site, Position Yes -Correct Procedure Yes -Procedure Performed Yes -Type of Procedure Debridement -Clinical Debridement Bone -Post Debridement Size (cm) - Length 2.8 -Post Debridement Size (cm) - Width 0.2 -Post Debridement Size (cm) - Depth 5.0 -Total Square Cm 0.56 -Wound/Ulcer Outcome Not Healed -Ulcer Cleansing Rinsed/ Irrigated with Saline -Foul Odor after Cleansing No -Bioengineered Tissue No -Bleeding Controlled with NA -Other -Treatment Response Procedure Tolerated Well #3 RIGHT HIP -Time 11:31 -Correct Patient Yes -Correct Side, Site, Position Yes -Correct Procedure Yes -Procedure Performed Yes -Type of Procedure Debridement -Clinical Debridement Bone -Post Debridement Size (cm) - Length 0.7 -Post Debridement Size (cm) - Width 0.5 -Post Debridement Size (cm) - Depth 1.5 -Total Square Cm 0.35 -Wound/Ulcer Outcome Not Healed -Ulcer Cleansing Rinsed/ Irrigated with Saline -Foul Odor after Cleansing No -Bioengineered Tissue No -Bleeding Controlled with NA -Treatment Response Procedure Tolerated Well #2 Right dorsal Great Toe -Time -Correct Patient -Correct Side, Site, Position -Correct Procedure -Procedure Performed -Type of Procedure -Clinical Debridement -Post Debridement Size (cm) - Length -Post Debridement Size (cm) - Width -Post Debridement Size (cm) - Depth -Total Square Cm -Wound/Ulcer Outcome -Ulcer Cleansing -Foul Odor after Cleansing -Bioengineered Tissue -Bleeding Controlled with -Treatment Response Pain Scale: 0-10 Numeric Is Patient Pain Free? Yes Wound debrided: Right hip ulcer Type of Debridement: Excisional debridement Anesthesia Used: 5% Lidocaine Gel Depth: Down to and including healthy tissue, in the subcutaneous layer, to bone Instrument Used: 3mm curette Tissue Removed: Fibrin Severity: Limited To Skin Breakdown Amount of bleeding with debridement: Mild Bleeding Controlled with: Compression and gauze Patient tolerated procedure well - Additional Wound Wound debrided: Left hip ulcer Type of Debridement: Excisional debridement Anesthesia Used: 5% Lidocaine Gel Depth: Down to and including healthy tissue, to muscle, to bone Instrument Used: 3mm curette Tissue Removed: Fibrin and serous fluid Severity: Limited To Skin Breakdown Amount of bleeding with debridement: Mild Bleeding Controlled with: Pressure, Compression and gauze Patient tolerated procedure: Patient tolerated procedure well Assessment/Plan Active Problems Open wound of left hip and thigh with complication (Chronic) 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 medial right first metatarsophalangeal joint resolved. Foot drop. 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 Malnutrition. Right and left hip ulcers. HBO clearance for radiation necroisis to the prostate the area Plan: Wash all areas with Hibiclens pack bilateral right hips with iodoform guaze 1/2 inch iodoform guaze to L hip and 1/4 inch guaze packing ot the R hip bid applied gauze and tape. Patient is to increase iron to twice daily dosing. Patient is to increase protein intake with meat at least 3-4 times a day. Start physical therapy as suggested by pain management, continue pain management. Follow-up in 1 month. This note was generated with [employer] dictation software. It may contain incorrect words, spelling, and punctuation that were not noted in checking the note before signing.
== END 2017-11-11 23:59 ==
LOC: WC 11:00
PROVIDERS: Family Provider Family Medicine; PCP Family Medicine; Visit Provider Nurse Practitioner
DX: M87.052 Idiopathic aseptic necrosis of left femur (principal); Z96.649 Presence of unspecified artificial hip joint; L97.511 Non-pressure chronic ulcer of other part of right foot limited to breakdown of skin; L97.821 Non-pressure chronic ulcer of other part of left lower leg limited to breakdown of skin; L97.813 Non-pressure chronic ulcer of other part of right lower leg with necrosis of muscle; G57.91 Unspecified mononeuropathy of right lower limb
CPT/HCPCS: 11042; 87070; 87075; 87077; 87186; 87205

== ENCOUNTER 2017-12-08 08:39 | Outpatient (RCR) | payer MEDICARE, OTHER, SELFPAY ==
[2017-11-12 00:34] VITALS: BP 126/77; PULSE 92; RESP 18; TEMP 36.6; BMI 23.7
[2017-12-08 09:52] VITALS: BP 113/73; PULSE 90; RESP 18; TEMP 36.6; BMI 23.7
--- NOTE | 2017-12-08 11:59 | PCM.WC.PN ---
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 Current Visit: Yes Code(s): M87.052 - Idiopathic aseptic necrosis of left femur (3) Chronic anemia Status: Chronic Current Visit: Yes Code(s): D64.9 - Anemia, unspecified (4) Delayed wound healing Status: Chronic Current Visit: Yes Code(s): T14.8XXD - Other injury of unspecified body region, subsequent encounter (5) History of total hip replacement Status: Chronic Current Visit: Yes Qualifiers: Code(s): Z96.649 - Presence of unspecified artificial hip joint (6) Hyperlipidemia Status: Chronic Current Visit: Yes Code(s): E78.5 - Hyperlipidemia, unspecified (7) Malnutrition Status: Chronic Current Visit: Yes Qualifiers: Code(s): E46 - Unspecified protein-calorie malnutrition (8) 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 Current Visit: Yes Code(s): G57.91 - Unspecified mononeuropathy of right lower limb (9) Non-pressure chronic ulcer of right lower leg with fat layer exposed Status: Chronic Current Visit: Yes Code(s): L97.912 - Non-pressure chronic ulcer of unspecified part of right lower leg with fat layer exposed (10) Open wound of left hip and thigh with complication Status: Chronic Current Visit: Yes Qualifiers: Encounter type: subsequent encounter Code(s): S71.002A - Unspecified open wound, left hip, initial encounter; S71.102A - Unspecified open wound, left thigh, initial encounter (11) Open wound of right hip Status: Chronic Current Visit: Yes Qualifiers: Encounter type: subsequent encounter Code(s): S71.001A - Unspecified open wound, right hip, initial encounter (12) Open wound of right hip and thigh with complication Status: Chronic Current Visit: Yes Qualifiers: Encounter type: subsequent encounter Code(s): S71.001A - Unspecified open wound, right hip, initial encounter; S71.101A - Unspecified open wound, right thigh, initial encounter (13) Paroxysmal a-fib Status: Chronic Current Visit: Yes Code(s): I48.0 - Paroxysmal atrial fibrillation Comment: Post op, on satolol, following with Dr. Grant Type of Wound Date of Service: 12/08/17 Chief Complaint: Ulcer to dorsomedial aspect of the right hallux and dorsomedial 1st metatarsophalangeal joint. Right and left hips ulcers. To be cleared for HBO therapy History of Wound: 76-year-old white male had previously in 1999 for about had prostate cancer and was given radiation over and beyond what was therapeutic. After that he had both hips replacements ?2 to each one done with poor outcomes. He now has ulcers in both hips that tunnel into the bone on either side. He has had wound vacs and a currently he is just packing with gauze dressings. She has been on continuous Augmentin since April. Because of his poor outcomes for healing they have opted for HBO therapy here at the wound center. In the meantime I am to care for all of his other wounds also. 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 Patient still has drainage from bilateral hips that look yellowish some odor. We will obtain cultures from both hips and toes we will x-ray foot and hips bilaterally. We will also get chest x-ray for HBO and a complete blood count and a pre-albumin. Progress of Wound: There appears to be a more improvement each week. The 1st metatarsophalngeal ulcer is still healed . They are to see Dr. Harris this coming Monday. And they are also to see infectious disease in 2 weeks. Today we will get cultures and recheck his pre-albumin to see how good he is doing his last prealbumin was 15. He has started doing therapy he feels stronger he is using a walker more than wheelchair. Cultures were reobtained from the right and left hip. For infectious disease to evaluate in a couple weeks patient is to continue with the iodoform packing as best she can and we will follow-up in another month. - Physical Exam Vital Signs Temp Pulse Resp BP 97.8 F 90 18 113/73 12/08/17 09:52 12/08/17 09:52 12/08/17 09:52 12/08/17 09:52 General: Oriented x3, Cooperative, Well developed HEENT: Atraumatic, PERRLA Oral: Moist Mucosa Neck: Supple, No JVD Lungs: Clear to auscultation, Normal air movement Cardiovascular: Regular rate, Regular Rhythm Abdomen: Bowel Sounds Present, Soft, Non Tender, No Hepato-splenomegaly Extremities: No clubbing, No edema Skin: Ulcer/ Wound, Incision - Nonhealing Wound Measurements and Assessment WC - Nurse 1 - General Ulcer Measurement Start: 12/08/17 09:52 Freq: Status: Active Protocol: Activity Type Activity Date Activity User E-Sign Co-Sign Detail Recorded Client Recorded Date Recorded By Document 12/08/17 09:52 DL [id number] 12/08/17 10:10 DL 12/08/17 09:52 Wound Center Nurse 1 [Ulcer Assessment] #4 LEFT HIP -Current Size (cm) - Length 2.7 -Current Size (cm) - Width 0.3 -Current Size (cm) - Depth 6 -Total Square Cm 0.81 -Photo Taken Yes -Tunneling Yes -Tunneling Position (O'clock) 12 -Tunneling Distance (cm) 6 -Exudate Amt Large (67-100%) -Exudate Type Yellow/Green -Wound Margin Thickened -Granulation Amt Medium (34-66%) -Granulation Quality [place] -Necrosis Amt Medium (34-66%) -Necrotic Tissue Type Adherent Slough -Structure Exposed N/A -Texture (Vidya-wound Skin Appearance) Scarring -Moisture (Vidya-wound Skin Appearance No Abnormality ) -Color (Vidya-wound Skin Appearance) No Abnormality -Tenderness on Palpation (Vidya-wound No Skin Appearance) -Ulcer Cleansing Wound Cleanser -Foul Odor after Cleansing No -Anesthetic Used 4% Lidocaine Solution #3 RIGHT HIP -Current Size (cm) - Length 1 -Current Size (cm) - Width 0.5 -Current Size (cm) - Depth 1.8 -Total Square Cm 0.5 -Photo Taken Yes -Tunneling Yes -Tunneling Position (O'clock) 12 -Tunneling Distance (cm) 1.8 -Exudate Amt Large (67-100%) -Exudate Type Yellow/Green -Wound Margin Thickened & Rolled Under -Granulation Amt Medium (34-66%) -Granulation Quality [place] Burn -Necrotic Tissue Type Adherent Slough -Structure Exposed N/A -Texture (Vidya-wound Skin Appearance) Scarring -Moisture (Vidya-wound Skin Appearance No Abnormality ) -Color (Vidya-wound Skin Appearance) No Abnormality -Temperature (Vidya-wound Skin No Abnormality Appearance) (Pt Warm) -Ulcer Cleansing Wound Cleanser -Foul Odor after Cleansing No -Anesthetic Used 4% Lidocaine Solution WC - Nurse 2 - General Ulcer CM Notes Start: 12/08/17 09:52 Freq: Status: Active Protocol: Activity Type Activity Date Activity User E-Sign Co-Sign Detail Recorded Client Recorded Date Recorded By Document 12/08/17 10:24 ROMMEL [id number] 12/08/17 10:27 ROMMEL 12/08/17 10:24 Wound Center Nurse 2 [Procedure/Treatment] #4 LEFT HIP -Time 10:25 -Correct Patient Yes -Correct Side, Site, Position Yes -Correct Procedure Yes -Procedure Performed Yes -Clinical Debridement Bone -Post Debridement Size (cm) - Length 3.0 -Post Debridement Size (cm) - Width 0.2 -Post Debridement Size (cm) - Depth 7.7 -Total Square Cm 0.60 -Wound/Ulcer Outcome Not Healed -Ulcer Cleansing Rinsed/ Irrigated with Saline -Foul Odor after Cleansing No -Bioengineered Tissue No -Bleeding Controlled with NA -Treatment Response Procedure Tolerated Well #3 RIGHT HIP -Time 10:26 -Correct Patient Yes -Correct Side, Site, Position Yes -Correct Procedure Yes -Procedure Performed Yes -Type of Procedure Debridement -Clinical Debridement Subcutaneous -Post Debridement Size (cm) - Length 1.0 -Post Debridement Size (cm) - Width 0.4 -Post Debridement Size (cm) - Depth 2.3 -Total Square Cm 0.40 -Wound/Ulcer Outcome Not Healed -Ulcer Cleansing Rinsed/ Irrigated with Saline -Foul Odor after Cleansing No -Bioengineered Tissue No -Bleeding Controlled with NA -Treatment Response Procedure Tolerated Well [See Physician Procedure note for Specifics] Pain Scale: 0-10 Numeric [Pain] -Is Patient Pain Free? Yes Musculoskeletal: No Tenderness to Palpation of Joints or Extremities Lymphatic: No Cervical, Supraclavicular, or Inguinal Adenopathy Neurological: Cranial nerves II-XII grossly intact, Neuro grossly intact Psych/Mental Status: Normal Affect, Appropriate, Alert and oriented to time, place, person, mood and affect Debridement Note Post-Debridement Measurements/Treatment JOHN - Nurse 2 - General Ulcer CM Notes Start: 12/08/17 09:52 Freq: Status: Active Protocol: Activity Type Activity Date Activity User E-Sign Co-Sign Detail Recorded Client Recorded Date Recorded By Document 12/08/17 10:24 ROMMEL [id number] 12/08/17 10:27 ROMMEL 12/08/17 10:24 Wound Center Nurse 2 #4 LEFT HIP -Time 10:25 -Correct Patient Yes -Correct Side, Site, Position Yes -Correct Procedure Yes -Procedure Performed Yes -Clinical Debridement Bone -Post Debridement Size (cm) - Length 3.0 -Post Debridement Size (cm) - Width 0.2 -Post Debridement Size (cm) - Depth 7.7 -Total Square Cm 0.60 -Wound/Ulcer Outcome Not Healed -Ulcer Cleansing Rinsed/ Irrigated with Saline -Foul Odor after Cleansing No -Bioengineered Tissue No -Bleeding Controlled with NA -Treatment Response Procedure Tolerated Well #3 RIGHT HIP -Time 10:26 -Correct Patient Yes -Correct Side, Site, Position Yes -Correct Procedure Yes -Procedure Performed Yes -Type of Procedure Debridement -Clinical Debridement Subcutaneous -Post Debridement Size (cm) - Length 1.0 -Post Debridement Size (cm) - Width 0.4 -Post Debridement Size (cm) - Depth 2.3 -Total Square Cm 0.40 -Wound/Ulcer Outcome Not Healed -Ulcer Cleansing Rinsed/ Irrigated with Saline -Foul Odor after Cleansing No -Bioengineered Tissue No -Bleeding Controlled with NA -Treatment Response Procedure Tolerated Well Pain Scale: 0-10 Numeric Is Patient Pain Free? Yes Wound debrided: Right hip ulcer Type of Debridement: Excisional debridement Anesthesia Used: 5% Lidocaine Gel Depth: Down to and including healthy tissue, in the subcutaneous layer, to bone Percentage of wound debrided: 100 Instrument Used: 3mm curette Tissue Removed: Serous and fibrin Severity: Limited To Skin Breakdown Amount of bleeding with debridement: Mild Bleeding Controlled with: Compression and gauze Patient tolerated procedure well - Additional Wound Wound debrided: Left hip ulcer Type of Debridement: Excisional debridement Anesthesia Used: 5% Lidocaine Gel Depth: Down to and including healthy tissue, to bone Percentage of wound debrided: 100 Instrument Used: 3mm curette Tissue Removed: Serous and fibrin Severity: Limited To Skin Breakdown Amount of bleeding with debridement: None Bleeding Controlled with: Compression and gauze Patient tolerated procedure: Patient tolerated procedure well Assessment/Plan Active Problems Open wound of left hip and thigh with complication (Chronic) Open wound of right hip and thigh with complication (Chronic) Open wound of right hip (Chronic) History of total hip replacement (Chronic) Hyperlipidemia (Chronic) Paroxysmal a-fib (Chronic) Post op, on satolol, following with Dr. 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 medial right first metatarsophalangeal joint resolved. Foot drop. 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 Malnutrition. Right and left hip ulcers. HBO clearance for radiation necroisis to the prostate the area Plan: Wash all areas with Hibiclens pack bilateral right hips with iodoform guaze 1/2 inch iodoform guaze to L hip and 1/4 inch guaze packing ot the R hip bid applied gauze and tape. Patient is to increase iron to twice daily dosing. Patient is to increase protein intake with meat at least 3-4 times a day. Start physical therapy as suggested by pain management, continue pain management. Follow-up in 1 month. This note was generated with [employer] dictation software. It may contain incorrect words, spelling, and punctuation that were not noted in checking the note before signing.
--- NOTE | 2017-12-08 12:04 | PN.PCM_ITS ---
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 Current Visit: Yes Code(s): M87.052 - Idiopathic aseptic necrosis of left femur (3) Chronic anemia Status: Chronic Current Visit: Yes Code(s): D64.9 - Anemia, unspecified (4) Delayed wound healing Status: Chronic Current Visit: Yes Code(s): T14.8XXD - Other injury of unspecified body region, subsequent encounter (5) History of total hip replacement Status: Chronic Current Visit: Yes Qualifiers: Code(s): Z96.649 - Presence of unspecified artificial hip joint (6) Hyperlipidemia Status: Chronic Current Visit: Yes Code(s): E78.5 - Hyperlipidemia, unspecified (7) Malnutrition Status: Chronic Current Visit: Yes Qualifiers: Code(s): E46 - Unspecified protein-calorie malnutrition (8) 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 Current Visit: Yes Code(s): G57.91 - Unspecified mononeuropathy of right lower limb (9) Non-pressure chronic ulcer of right lower leg with fat layer exposed Status: Chronic Current Visit: Yes Code(s): L97.912 - Non-pressure chronic ulcer of unspecified part of right lower leg with fat layer exposed (10) Open wound of left hip and thigh with complication Status: Chronic Current Visit: Yes Qualifiers: Encounter type: subsequent encounter Code(s): S71.002A - Unspecified open wound, left hip, initial encounter; S71.102A - Unspecified open wound, left thigh, initial encounter (11) Open wound of right hip Status: Chronic Current Visit: Yes Qualifiers: Encounter type: subsequent encounter Code(s): S71.001A - Unspecified open wound, right hip, initial encounter (12) Open wound of right hip and thigh with complication Status: Chronic Current Visit: Yes Qualifiers: Encounter type: subsequent encounter Code(s): S71.001A - Unspecified open wound, right hip, initial encounter; S71.101A - Unspecified open wound, right thigh, initial encounter (13) Paroxysmal a-fib Status: Chronic Current Visit: Yes Code(s): I48.0 - Paroxysmal atrial fibrillation Comment: Post op, on satolol, following with Dr. Grant Type of Wound Date of Service: 12/08/17 Chief Complaint: Ulcer to dorsomedial aspect of the right hallux and dorsomedial 1st metatarsophalangeal joint. Right and left hips ulcers. To be cleared for HBO therapy History of Wound: 76-year-old white male had previously in 1999 for about had prostate cancer and was given radiation over and beyond what was therapeutic. After that he had both hips replacements ?2 to each one done with poor outcomes. He now has ulcers in both hips that tunnel into the bone on either side. He has had wound vacs and a currently he is just packing with gauze dressings. She has been on continuous Augmentin since April. Because of his poor outcomes for healing they have opted for HBO therapy here at the wound center. In the meantime I am to care for all of his other wounds also. 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 Patient still has drainage from bilateral hips that look yellowish some odor. We will obtain cultures from both hips and toes we will x- ray foot and hips bilaterally. We will also get chest x-ray for HBO and a complete blood count and a pre-albumin. Progress of Wound: There appears to be a more improvement each week. The 1st metatarsophalngeal ulcer is still healed . They are to see Dr. Harris this coming Monday. And they are also to see infectious disease in 2 weeks. Today we will get cultures and recheck his pre-albumin to see how good he is doing his last prealbumin was 15. He has started doing therapy he feels stronger he is using a walker more than wheelchair. Cultures were reobtained from the right and left hip. For infectious disease to evaluate in a couple weeks patient is to continue with the iodoform packing as best she can and we will follow-up in another month. - Physical Exam Vital Signs Temp Pulse Resp BP 97.8 F 90 18 113/73 12/08/17 09:52 12/08/17 09:52 12/08/17 09:52 12/08/17 09:52 General: Oriented x3, Cooperative, Well developed HEENT: Atraumatic, PERRLA Oral: Moist Mucosa Neck: Supple, No JVD Lungs: Clear to auscultation, Normal air movement Cardiovascular: Regular rate, Regular Rhythm Abdomen: Bowel Sounds Present, Soft, Non Tender, No Hepato-splenomegaly Extremities: No clubbing, No edema Skin: Ulcer/ Wound, Incision - Nonhealing Wound Measurements and Assessment WC - Nurse 1 - General Ulcer Measurement Start: 12/08/17 09:52 Freq: Status: Active Protocol: Activity Type Activity Date Activity User E-Sign Co-Sign Detail Recorded Client Recorded Date Recorded By Document 12/08/17 09:52 DL [id number] 12/08/17 10:10 DL 12/08/17 09:52 Wound Center Nurse 1 [Ulcer Assessment] #4 LEFT HIP -Current Size (cm) - Length 2.7 -Current Size (cm) - Width 0.3 -Current Size (cm) - Depth 6 -Total Square Cm 0.81 -Photo Taken Yes -Tunneling Yes -Tunneling Position (O'clock) 12 -Tunneling Distance (cm) 6 -Exudate Amt Large (67-100%) -Exudate Type Yellow/Green -Wound Margin Thickened -Granulation Amt Medium (34-66%) -Granulation Quality [place] -Necrosis Amt Medium (34-66%) -Necrotic Tissue Type Adherent Slough -Structure Exposed N/A -Texture (Vidya-wound Skin Appearance) Scarring -Moisture (Vidya-wound Skin Appearance No Abnormality ) -Color (Vidya-wound Skin Appearance) No Abnormality -Tenderness on Palpation (Vidya-wound No Skin Appearance) -Ulcer Cleansing Wound Cleanser -Foul Odor after Cleansing No -Anesthetic Used 4% Lidocaine Solution #3 RIGHT HIP -Current Size (cm) - Length 1 -Current Size (cm) - Width 0.5 -Current Size (cm) - Depth 1.8 -Total Square Cm 0.5 -Photo Taken Yes -Tunneling Yes -Tunneling Position (O'clock) 12 -Tunneling Distance (cm) 1.8 -Exudate Amt Large (67-100%) -Exudate Type Yellow/Green -Wound Margin Thickened & Rolled Under -Granulation Amt Medium (34-66%) -Granulation Quality [place] -Necrotic Tissue Type Adherent Slough -Structure Exposed N/A -Texture (Vidya-wound Skin Appearance) Scarring -Moisture (Vidya-wound Skin Appearance No Abnormality ) -Color (Vidya-wound Skin Appearance) No Abnormality -Temperature (Vidya-wound Skin No Abnormality Appearance) (Pt Warm) -Ulcer Cleansing Wound Cleanser -Foul Odor after Cleansing No -Anesthetic Used 4% Lidocaine Solution WC - Nurse 2 - General Ulcer CM Notes Start: 12/08/17 09:52 Freq: Status: Active Protocol: Activity Type Activity Date Activity User E-Sign Co-Sign Detail Recorded Client Recorded Date Recorded By Document 12/08/17 10:24 ROMMEL [id number] 12/08/17 10:27 ROMMEL 12/08/17 10:24 Wound Center Nurse 2 [Procedure/Treatment] #4 LEFT HIP -Time 10:25 -Correct Patient Yes -Correct Side, Site, Position Yes -Correct Procedure Yes -Procedure Performed Yes -Clinical Debridement Bone -Post Debridement Size (cm) - Length 3.0 -Post Debridement Size (cm) - Width 0.2 -Post Debridement Size (cm) - Depth 7.7 -Total Square Cm 0.60 -Wound/Ulcer Outcome Not Healed -Ulcer Cleansing Rinsed/ Irrigated with Saline -Foul Odor after Cleansing No -Bioengineered Tissue No -Bleeding Controlled with NA -Treatment Response Procedure Tolerated Well #3 RIGHT HIP -Time 10:26 -Correct Patient Yes -Correct Side, Site, Position Yes -Correct Procedure Yes -Procedure Performed Yes -Type of Procedure Debridement -Clinical Debridement Subcutaneous -Post Debridement Size (cm) - Length 1.0 -Post Debridement Size (cm) - Width 0.4 -Post Debridement Size (cm) - Depth 2.3 -Total Square Cm 0.40 -Wound/Ulcer Outcome Not Healed -Ulcer Cleansing Rinsed/ Irrigated with Saline -Foul Odor after Cleansing No -Bioengineered Tissue No -Bleeding Controlled with NA -Treatment Response Procedure Tolerated Well [See Physician Procedure note for Specifics] Pain Scale: 0-10 Numeric [Pain] -Is Patient Pain Free? Yes Musculoskeletal: No Tenderness to Palpation of Joints or Extremities Lymphatic: No Cervical, Supraclavicular, or Inguinal Adenopathy Neurological: Cranial nerves II-XII grossly intact, Neuro grossly intact Psych/Mental Status: Normal Affect, Appropriate, Alert and oriented to time, place, person, mood and affect Debridement Note Post-Debridement Measurements/Treatment JOHN - Nurse 2 - General Ulcer CM Notes Start: 12/08/17 09:52 Freq: Status: Active Protocol: Activity Type Activity Date Activity User E-Sign Co-Sign Detail Recorded Client Recorded Date Recorded By Document 12/08/17 10:24 ROMMEL [id number] 12/08/17 10:27 ROMMEL 12/08/17 10:24 Wound Center Nurse 2 #4 LEFT HIP -Time 10:25 -Correct Patient Yes -Correct Side, Site, Position Yes -Correct Procedure Yes -Procedure Performed Yes -Clinical Debridement Bone -Post Debridement Size (cm) - Length 3.0 -Post Debridement Size (cm) - Width 0.2 -Post Debridement Size (cm) - Depth 7.7 -Total Square Cm 0.60 -Wound/Ulcer Outcome Not Healed -Ulcer Cleansing Rinsed/ Irrigated with Saline -Foul Odor after Cleansing No -Bioengineered Tissue No -Bleeding Controlled with NA -Treatment Response Procedure Tolerated Well #3 RIGHT HIP -Time 10:26 -Correct Patient Yes -Correct Side, Site, Position Yes -Correct Procedure Yes -Procedure Performed Yes -Type of Procedure Debridement -Clinical Debridement Subcutaneous -Post Debridement Size (cm) - Length 1.0 -Post Debridement Size (cm) - Width 0.4 -Post Debridement Size (cm) - Depth 2.3 -Total Square Cm 0.40 -Wound/Ulcer Outcome Not Healed -Ulcer Cleansing Rinsed/ Irrigated with Saline -Foul Odor after Cleansing No -Bioengineered Tissue No -Bleeding Controlled with NA -Treatment Response Procedure Tolerated Well Pain Scale: 0-10 Numeric Is Patient Pain Free? Yes Wound debrided: Right hip ulcer Type of Debridement: Excisional debridement Anesthesia Used: 5% Lidocaine Gel Depth: Down to and including healthy tissue, in the subcutaneous layer, to bone Percentage of wound debrided: 100 Instrument Used: 3mm curette Tissue Removed: Serous and fibrin Severity: Limited To Skin Breakdown Amount of bleeding with debridement: Mild Bleeding Controlled with: Compression and gauze Patient tolerated procedure well - Additional Wound Wound debrided: Left hip ulcer Type of Debridement: Excisional debridement Anesthesia Used: 5% Lidocaine Gel Depth: Down to and including healthy tissue, to bone Percentage of wound debrided: 100 Instrument Used: 3mm curette Tissue Removed: Serous and fibrin Severity: Limited To Skin Breakdown Amount of bleeding with debridement: None Bleeding Controlled with: Compression and gauze Patient tolerated procedure: Patient tolerated procedure well Assessment/Plan Active Problems Open wound of left hip and thigh with complication (Chronic) Open wound of right hip and thigh with complication (Chronic) Open wound of right hip (Chronic) History of total hip replacement (Chronic) Hyperlipidemia (Chronic) Paroxysmal a-fib (Chronic) Post op, on satolol, following with Dr. 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 medial right first metatarsophalangeal joint resolved. Foot drop. 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 Malnutrition. Right and left hip ulcers. HBO clearance for radiation necroisis to the prostate the area Plan: Wash all areas with Hibiclens pack bilateral right hips with iodoform guaze 1/2 inch iodoform guaze to L hip and 1/4 inch guaze packing ot the R hip bid applied gauze and tape. Patient is to increase iron to twice daily dosing. Patient is to increase protein intake with meat at least 3-4 times a day. Start physical therapy as suggested by pain management, continue pain management. Follow-up in 1 month. This note was generated with [employer] dictation software. It may contain incorrect words, spelling, and punctuation that were not noted in checking the note before signing.
[2017-12-08 12:38] LABS: Absolute Lymphocyte Count 1.24 X10^3/ul (0.83-4.51); Absolute Neutrophil Count 7.7 X10^3/uL (2.0-7.7); Basophil# 0.04 X10^3/uL; Basophil% 0.4 % (0-1); Eosinophil# 0.21 X10^3/uL; Eosinophils% 2.2 % (0-5); Hematocrit 39.7 % (40-54); Hemoglobin 11.7 g/dl (13.0-16.5); Lymphocyte # 1.24 X10^3/ul (4.0); Lymphocyte % 12.8 % (19-41); Mean Corp Hgb Conc 29.5 g/gl (32-36); Mean Corpuscular Hgb 24.6 pg (27.0-32.0); Mean Corpuscular Volume 83.6 fL (80-94); Mean Platelet Vol. 9.2 fl (6.2-12.0); Monocyte# 0.46 X10^3/uL; Monocyte% 4.7 % (0-10); Neutrophil % 79.5 % (47-70); POSITIVE COUNT NO; POSITIVE DIFFERENTIAL NO; POSITIVE MORPHOLOGY NO; Platelet Count 474 K/mm3 (150-450); RBC Distribution Width CV 17.8 % (11.6-14.6); Red Blood Count 4.75 M/mm3 (4.6-6.2); White Blood Count 9.7 K/mm3 (4.4-11.0)
[2017-12-08 13:00] LABS: Prealbumin 15.5 mg/dL (20.0-40.0)
== END 2017-12-12 23:59 ==
LOC: WC 08:39
PROVIDERS: Family Provider Family Medicine; PCP Family Medicine; Visit Provider Nurse Practitioner
DX: I87.2 Venous insufficiency (chronic) (peripheral) (principal); E78.5 Hyperlipidemia, unspecified; G57.91 Unspecified mononeuropathy of right lower limb; L98.491 Non-pressure chronic ulcer of skin of other sites limited to breakdown of skin; I48.0 Paroxysmal atrial fibrillation; Z96.643 Presence of artificial hip joint, bilateral; Z85.46 Personal history of malignant neoplasm of prostate; Z92.3 Personal history of irradiation
CPT/HCPCS: 11044; 84134; 85025; 87070; 87075; 87077; 87186; 87205

== ENCOUNTER 2018-01-26 10:51 | Outpatient (RCR) | payer MEDICARE, OTHER, SELFPAY ==
[2017-12-13 00:37] VITALS: BP 113/73; PULSE 90; RESP 18; TEMP 36.6; BMI 23.7
[2018-01-26 11:14] VITALS: BP 112/69; PULSE 107; RESP 16; TEMP 36.4; BMI 23.7
--- NOTE | 2018-01-26 12:04 | PN.PCM_ITS ---
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 Current Visit: Yes Code(s): M87.052 - Idiopathic aseptic necrosis of left femur (2) Atrial fibrillation Status: Chronic Current Visit: Yes Qualifiers: Code(s): I48.91 - Unspecified atrial fibrillation (3) Chronic anemia Status: Chronic Current Visit: Yes Code(s): D64.9 - Anemia, unspecified (4) Chronic congestive heart failure Status: Chronic Current Visit: Yes Code(s): I50.9 - Heart failure, unspecified (5) Delayed wound healing Status: Chronic Current Visit: Yes Code(s): T14.8XXD - Other injury of unspecified body region, subsequent encounter (6) History of total hip replacement Status: Chronic Current Visit: Yes Qualifiers: Code(s): Z96.649 - Presence of unspecified artificial hip joint (7) Malnutrition Status: Chronic Current Visit: Yes Qualifiers: Code(s): E46 - Unspecified protein-calorie malnutrition (8) 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 Current Visit: Yes Code(s): G57.91 - Unspecified mononeuropathy of right lower limb (9) Open wound of left hip and thigh with complication Status: Chronic Current Visit: Yes Qualifiers: Code(s): S71.002A - Unspecified open wound, left hip, initial encounter; S71.102A - Unspecified open wound, left thigh, initial encounter (10) Open wound of right hip and thigh with complication Status: Chronic Current Visit: Yes Qualifiers: Code(s): S71.001A - Unspecified open wound, right hip, initial encounter; S71.101A - Unspecified open wound, right thigh, initial encounter (11) 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 Right and left hips ulcers. To be cleared for HBO therapy History of Wound: 76-year-old white male had previously in 1999 for about had prostate cancer and was given radiation over and beyond what was therapeutic. After that he had both hips replacements ?2 to each one done with poor outcomes. He now has ulcers in both hips that tunnel into the bone on either side. He has had wound vacs and a currently he is just packing with gauze dressings. She has been on continuous Augmentin since April. Because of his poor outcomes for healing they have opted for HBO therapy here at the wound center. In the meantime I am to care for all of his other wounds also. 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 Patient still has drainage from bilateral hips that look yellowish some odor. We will obtain cultures from both hips and toes we will x- ray foot and hips bilaterally. We will also get chest x-ray for HBO and a complete blood count and a pre-albumin. Progress of Wound: There appears to be a more improvement each week in both hips. States last week had some large amounts of bloody discharge and serous discharge. No odor. They are to see Dr. Harris next 2 weeks. Today we will get cultures and recheck his pre-albumin to see how good he is doing his last prealbumin was 15. He has started doing therapy he feels stronger he is using a walker more than wheelchair. Cultures were reobtained from the right and left hip. We follow-up in another month. - Physical Exam Vital Signs Temp Pulse Resp BP 97.5 F L 107 H 16 112/69 01/26/18 11:14 01/26/18 11:14 01/26/18 11:14 01/26/18 11:14 General: Oriented x3, Cooperative, Well developed HEENT: Atraumatic, PERRLA Oral: Moist Mucosa Neck: Supple, No JVD Lungs: Clear to auscultation, Normal air movement Cardiovascular: Regular rate, Regular Rhythm Abdomen: Bowel Sounds Present, Soft, Non Tender, No Hepato-splenomegaly Extremities: No clubbing, No edema Skin: Ulcer/ Wound - Open ulcers right hip left hip Wound Measurements and Assessment WC - Nurse 1 - General Ulcer Measurement Start: 01/26/18 11:13 Freq: Status: Active Protocol: Activity Type Activity Date Activity User E-Sign Co-Sign Detail Recorded Client Recorded Date Recorded By Document 01/26/18 11:14 [facility] [id number] 01/26/18 11:30 [facility] 01/26/18 11:14 Wound Center Nurse 1 [Ulcer Assessment] #6- RT HIP -Combined with other wound No -Current Size (cm) - Length 0.2 -Current Size (cm) - Width 0.1 -Current Size (cm) - Depth 0.2 -Total Square Cm 0.02 -Date of Last Picture (Recall this 01/26/18 field) -Photo Taken Yes -Epithelialization None Present -Tunneling No -Undermining/Tunneling No -Circular Undermining No -Exudate Amt Large (67-100%) -Exudate Type Serosanguineous -Wound Margin Distinct, Outline Attached -Granulation Amt Large (67-100%) -Granulation Quality [place] -Slough/Fibrin No -Necrosis Amt None Present (0 %) -Texture (Vidya-wound Skin Appearance) Scarring -Moisture (Vidya-wound Skin Appearance Assessed ) -Color (Vidya-wound Skin Appearance) Assessed -Temperature (Vidya-wound Skin No Abnormality Appearance) (Pt Warm) -Tenderness on Palpation (Vidya-wound Yes Skin Appearance) -Ulcer Cleansing Rinsed/ Irrigated with Saline -Foul Odor after Cleansing No -Anesthetic Used 4% Lidocaine Solution #5- LT HIP -Combined with other wound No -Current Size (cm) - Length 2.5 -Current Size (cm) - Width 0.1 -Current Size (cm) - Depth 4.8 -Total Square Cm 0.25 -Date of Last Picture (Recall this 01/26/18 field) -Photo Taken Yes -Epithelialization None Present -Tunneling No -Undermining/Tunneling No -Circular Undermining No -Exudate Amt Large (67-100%) -Exudate Type Serosanguineous -Wound Margin Distinct, Outline Attached -Granulation Amt Large (67-100%) -Granulation Quality [place] -Slough/Fibrin No -Necrosis Amt None Present (0 %) -Texture (Vidya-wound Skin Appearance) Scarring -Moisture (Vidya-wound Skin Appearance Assessed ) -Color (Vidya-wound Skin Appearance) Assessed -Temperature (Vidya-wound Skin No Abnormality Appearance) (Pt Warm) -Tenderness on Palpation (Vidya-wound Yes Skin Appearance) -Ulcer Cleansing Rinsed/ Irrigated with Saline -Foul Odor after Cleansing No -Anesthetic Used 4% Lidocaine Solution WC - Nurse 2 - General Ulcer CM Notes Start: 01/26/18 11:13 Freq: Status: Active Protocol: Activity Type Activity Date Activity User E-Sign Co-Sign Detail Recorded Client Recorded Date Recorded By Document 01/26/18 11:35 MW [id number] 01/26/18 11:38 MW 01/26/18 11:35 Wound Center Nurse 2 [Procedure/Treatment] #6- RT HIP -Time 11:35 -Correct Patient Yes -Correct Side, Site, Position Yes -Correct Procedure Yes -Procedure Performed Yes -Type of Procedure Debridement -Clinical Debridement Subcutaneous -Post Debridement Size (cm) - Length 0.4 -Post Debridement Size (cm) - Width 0.4 -Post Debridement Size (cm) - Depth 2.4 -Total Square Cm 0.16 -Wound/Ulcer Outcome Not Healed -Ulcer Cleansing Rinsed/ Irrigated with Saline -Foul Odor after Cleansing No -Bioengineered Tissue No -Bleeding Controlled with Pressure -Treatment Response Procedure Tolerated Well #5- LT HIP -Time 11:36 -Correct Patient Yes -Correct Side, Site, Position Yes -Correct Procedure Yes -Procedure Performed Yes -Type of Procedure Debridement -Clinical Debridement Subcutaneous -Post Debridement Size (cm) - Length 2.8 -Post Debridement Size (cm) - Width 0.1 -Post Debridement Size (cm) - Depth 7.4 -Total Square Cm 0.28 -Wound/Ulcer Outcome Not Healed -Ulcer Cleansing Rinsed/ Irrigated with Saline -Foul Odor after Cleansing No -Bioengineered Tissue No -Bleeding Controlled with Pressure -Other TUNNEL @7 - 2. 2CM -Treatment Response Procedure Tolerated Well [See Physician Procedure note for Specifics] Pain Scale: 0-10 Numeric [Pain] -Is Patient Pain Free? Yes Musculoskeletal: No Tenderness to Palpation of Joints or Extremities Lymphatic: No Cervical, Supraclavicular, or Inguinal Adenopathy Neurological: Cranial nerves II-XII grossly intact, Neuro grossly intact Psych/Mental Status: Normal Affect, Appropriate Debridement Note Post-Debridement Measurements/Treatment JOHN - Nurse 2 - General Ulcer CM Notes Start: 01/26/18 11:13 Freq: Status: Active Protocol: Activity Type Activity Date Activity User E-Sign Co-Sign Detail Recorded Client Recorded Date Recorded By Document 01/26/18 11:35 MW [id number] 01/26/18 11:38 MW 01/26/18 11:35 Wound Center Nurse 2 #6- RT HIP -Time 11:35 -Correct Patient Yes -Correct Side, Site, Position Yes -Correct Procedure Yes -Procedure Performed Yes -Type of Procedure Debridement -Clinical Debridement Subcutaneous -Post Debridement Size (cm) - Length 0.4 -Post Debridement Size (cm) - Width 0.4 -Post Debridement Size (cm) - Depth 2.4 -Total Square Cm 0.16 -Wound/Ulcer Outcome Not Healed -Ulcer Cleansing Rinsed/ Irrigated with Saline -Foul Odor after Cleansing No -Bioengineered Tissue No -Bleeding Controlled with Pressure -Treatment Response Procedure Tolerated Well #5- LT HIP -Time 11:36 -Correct Patient Yes -Correct Side, Site, Position Yes -Correct Procedure Yes -Procedure Performed Yes -Type of Procedure Debridement -Clinical Debridement Subcutaneous -Post Debridement Size (cm) - Length 2.8 -Post Debridement Size (cm) - Width 0.1 -Post Debridement Size (cm) - Depth 7.4 -Total Square Cm 0.28 -Wound/Ulcer Outcome Not Healed -Ulcer Cleansing Rinsed/ Irrigated with Saline -Foul Odor after Cleansing No -Bioengineered Tissue No -Bleeding Controlled with Pressure -Other TUNNEL @7 - 2. 2CM -Treatment Response Procedure Tolerated Well Pain Scale: 0-10 Numeric Is Patient Pain Free? Yes Wound debrided: Right hip ulcer Type of Debridement: Excisional debridement Anesthesia Used: 5% Lidocaine Gel Depth: Down to and including healthy tissue, in the subcutaneous layer, to muscle, to bone Percentage of wound debrided: 100 Instrument Used: 3mm curette Tissue Removed: Fibrin and slough Amount of bleeding with debridement: Mild Bleeding Controlled with: Compression and gauze Patient tolerated procedure well - Additional Wound Wound debrided: Left hip ulcer Type of Debridement: Excisional debridement Anesthesia Used: 5% Lidocaine Gel Depth: Down to and including healthy tissue, in the subcutaneous layer, to muscle, to bone Percentage of wound debrided: 100 Instrument Used: 3mm curette Tissue Removed: Fibrin and slough Severity: Limited To Skin Breakdown Amount of bleeding with debridement: Mild Bleeding Controlled with: Compression and gauze Patient tolerated procedure: Patient tolerated procedure well Assessment/Plan Active Problems Open wound of left hip and thigh with complication (Chronic) 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 Malnutrition. Right and left hip ulcers healing Plan: Wash all areas with Hibiclens pack bilateral right hips with iodoform guaze 1/4 inch iodoform guaze to L hip and 1/2 inch guaze packing ot the R hip bid applied gauze and tape. Patient is to increase iron to twice daily dosing. Patient is to increase protein intake with meat at least 3-4 times a day. Start physical therapy as suggested by pain management, continue pain management. Follow-up in 1 month. This note was generated with [employer] dictation software. It may contain incorrect words, spelling, and punctuation that were not noted in checking the note before signing.
== END 2018-02-11 23:59 ==
LOC: WC 10:51
PROVIDERS: Family Provider Family Medicine; PCP Family Medicine; Visit Provider Nurse Practitioner
DX: L59.8 Other specified disorders of the skin and subcutaneous tissue related to radiation (principal); Y84.2 Radiological procedure and radiotherapy as the cause of abnormal reaction of the patient, or of later complication, without mention of misadventure at the time of the procedure; M21.371 Foot drop, right foot; I48.2 Chronic atrial fibrillation; M87.052 Idiopathic aseptic necrosis of left femur; Z85.46 Personal history of malignant neoplasm of prostate; G57.91 Unspecified mononeuropathy of right lower limb; L98.491 Non-pressure chronic ulcer of skin of other sites limited to breakdown of skin
CPT/HCPCS: 11042; 87070; 87075; 87077; 87186; 87205; 99213; G0463

== ENCOUNTER 2018-02-16 10:07 | Outpatient (RCR) | payer MEDICARE, OTHER, SELFPAY ==
[2018-02-12 00:09] VITALS: BP 112/69; PULSE 107; RESP 16; TEMP 36.4; BMI 23.7
[2018-02-16 11:36] VITALS: BP 116/68; PULSE 93; RESP 20; TEMP 36.2; BMI 23.7
--- NOTE | 2018-02-16 12:58 | PCM.WC.PN ---
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 Current Visit: Yes Code(s): M87.052 - Idiopathic aseptic necrosis of left femur (2) Delayed wound healing Status: Chronic Current Visit: Yes Code(s): T14.8XXD - Other injury of unspecified body region, subsequent encounter (3) History of total hip replacement Status: Chronic Current Visit: Yes Qualifiers: Code(s): Z96.649 - Presence of unspecified artificial hip joint (4) Open wound of left hip and thigh with complication Status: Chronic Current Visit: Yes Qualifiers: Code(s): S71.002A - Unspecified open wound, left hip, initial encounter; S71.102A - Unspecified open wound, left thigh, initial encounter (5) Open wound of right hip Status: Chronic Current Visit: Yes Qualifiers: Code(s): S71.001A - Unspecified open wound, right hip, initial encounter Type of Wound Chief Complaint: Ulcer to dorsomedial aspect of the right hallux and dorsomedial 1st metatarsophalangeal joint. Right and left hips ulcers. To be cleared for HBO therapy History of Wound: 76-year-old white male had previously in 1999 for about had prostate cancer and was given radiation over and beyond what was therapeutic. After that he had both hips replacements ?2 to each one done with poor outcomes. He now has ulcers in both hips that tunnel into the bone on either side. He has had wound vacs and a currently he is just packing with gauze dressings. She has been on continuous Augmentin since April. Because of his poor outcomes for healing they have opted for HBO therapy here at the wound center. In the meantime I am to care for all of his other wounds also. 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 Patient still has drainage from bilateral hips that look yellowish some odor. We will obtain cultures from both hips and toes we will x-ray foot and hips bilaterally. We will also get chest x-ray for HBO and a complete blood count and a pre-albumin. Progress of Wound: There appears to be a more improvement each week in both hips. states he was complaining of pain in the right hip and then a large screw came out and she thought she could not get the packing out but today the girls were able to pull it out.To see Dr. Harris next week. Cultures were positive patient has been on ciprofloxacin for 2 weeks . his last prealbumin was 15.5 better than what it was but he needs improvement. He has started doing therapy he feels stronger he is using a walker more than wheelchair. - Physical Exam Vital Signs Temp Pulse Resp BP 97.1 F L 93 20 H 116/68 02/16/18 11:36 02/16/18 11:36 02/16/18 11:36 02/16/18 11:36 General: Oriented x3, Cooperative, Well developed HEENT: Atraumatic, PERRLA Oral: Moist Mucosa Neck: Supple, No JVD Lungs: Clear to auscultation, Normal air movement Cardiovascular: Regular rate, Regular Rhythm Abdomen: Bowel Sounds Present, Soft, Non Tender, No Hepato-splenomegaly Extremities: No clubbing, No edema Skin: Ulcer/ Wound - Open nonhealing surgical wounds right and left hip Wound Measurements and Assessment WC - Nurse 1 - General Ulcer Measurement Start: 02/16/18 11:36 Freq: Status: Active Protocol: Activity Type Activity Date Activity User E-Sign Co-Sign Detail Recorded Client Recorded Date Recorded By Document 02/16/18 11:36 DL [id number] 02/16/18 11:52 DL 02/16/18 11:36 Wound Center Nurse 1 [Ulcer Assessment] #6- RT HIP -Current Size (cm) - Length 0.7 -Current Size (cm) - Width 0.4 -Current Size (cm) - Depth 2 -Total Square Cm 0.28 -Photo Taken Yes -Exudate Amt Large (67-100%) -Exudate Type Serosanguineous -Wound Margin Thickened -Granulation Amt None Present (0 %) -Necrosis Amt Large (67-100%) -Necrotic Tissue Type Adherent Slough -Structure Exposed N/A -Texture (Vidya-wound Skin Appearance) Scarring -Moisture (Vidya-wound Skin Appearance Maceration ) -Color (Vidya-wound Skin Appearance) No Abnormality -Temperature (Vidya-wound Skin No Abnormality Appearance) (Pt Warm) -Ulcer Cleansing Wound Cleanser -Foul Odor after Cleansing No -Anesthetic Used 4% Lidocaine Solution #5- LT HIP -Current Size (cm) - Length 2.5 -Current Size (cm) - Width 0.2 -Current Size (cm) - Depth 7 -Total Square Cm 0.50 -Photo Taken Yes -Exudate Amt Large (67-100%) -Exudate Type Serosanguineous -Wound Margin Distinct, Outline Attached -Necrosis Amt Large (67-100%) -Necrotic Tissue Type Adherent Slough -Structure Exposed N/A -Texture (Vidya-wound Skin Appearance) Scarring -Moisture (Vidya-wound Skin Appearance Maceration ) -Color (Vidya-wound Skin Appearance) No Abnormality -Temperature (Vidya-wound Skin No Abnormality Appearance) (Pt Warm) -Ulcer Cleansing Wound Cleanser -Foul Odor after Cleansing No -Anesthetic Used 4% Lidocaine Solution WC - Nurse 2 - General Ulcer CM Notes Start: 02/16/18 11:36 Freq: Status: Active Protocol: Activity Type Activity Date Activity User E-Sign Co-Sign Detail Recorded Client Recorded Date Recorded By Document 02/16/18 12:02 MW [id number] 02/16/18 12:06 MW 02/16/18 12:02 Wound Center Nurse 2 [Procedure/Treatment] #6- RT HIP -Time 12:02 -Correct Patient Yes -Correct Side, Site, Position Yes -Correct Procedure Yes -Procedure Performed Yes -Type of Procedure Debridement -Clinical Debridement Subcutaneous -Post Debridement Size (cm) - Length 0.7 -Post Debridement Size (cm) - Width 0.4 -Post Debridement Size (cm) - Depth 2.3 -Total Square Cm 0.28 -Wound/Ulcer Outcome Not Healed -Ulcer Cleansing Rinsed/ Irrigated with Saline -Foul Odor after Cleansing No -Bioengineered Tissue No -Bleeding Controlled with Pressure -Other tunnel @7 - 1. 8cm -Treatment Response Procedure Tolerated Well #5- LT HIP -Time 12:03 -Correct Patient Yes -Correct Side, Site, Position Yes -Correct Procedure Yes -Procedure Performed Yes -Type of Procedure Debridement -Clinical Debridement Subcutaneous -Post Debridement Size (cm) - Length 2.5 -Post Debridement Size (cm) - Width 0.3 -Post Debridement Size (cm) - Depth 6.5 -Total Square Cm 0.75 -Wound/Ulcer Outcome Not Healed -Ulcer Cleansing Rinsed/ Irrigated with Saline -Foul Odor after Cleansing No -Bioengineered Tissue No -Bleeding Controlled with Pressure -Other tunnel @7 - 6. 5cm -Treatment Response Procedure Tolerated Well [See Physician Procedure note for Specifics] Pain Scale: 0-10 Numeric [Pain] -Is Patient Pain Free? Yes Musculoskeletal: No Tenderness to Palpation of Joints or Extremities Lymphatic: No Cervical, Supraclavicular, or Inguinal Adenopathy Neurological: Cranial nerves II-XII grossly intact, Neuro grossly intact Psych/Mental Status: Normal Affect, Appropriate Debridement Note Post-Debridement Measurements/Treatment WC - Nurse 2 - General Ulcer CM Notes Start: 02/16/18 11:36 Freq: Status: Active Protocol: Activity Type Activity Date Activity User E-Sign Co-Sign Detail Recorded Client Recorded Date Recorded By Document 02/16/18 12:02 MW [id number] 02/16/18 12:06 MW 02/16/18 12:02 Wound Center Nurse 2 #6- RT HIP -Time 12:02 -Correct Patient Yes -Correct Side, Site, Position Yes -Correct Procedure Yes -Procedure Performed Yes -Type of Procedure Debridement -Clinical Debridement Subcutaneous -Post Debridement Size (cm) - Length 0.7 -Post Debridement Size (cm) - Width 0.4 -Post Debridement Size (cm) - Depth 2.3 -Total Square Cm 0.28 -Wound/Ulcer Outcome Not Healed -Ulcer Cleansing Rinsed/ Irrigated with Saline -Foul Odor after Cleansing No -Bioengineered Tissue No -Bleeding Controlled with Pressure -Other tunnel @7 - 1. 8cm -Treatment Response Procedure Tolerated Well #5- LT HIP -Time 12:03 -Correct Patient Yes -Correct Side, Site, Position Yes -Correct Procedure Yes -Procedure Performed Yes -Type of Procedure Debridement -Clinical Debridement Subcutaneous -Post Debridement Size (cm) - Length 2.5 -Post Debridement Size (cm) - Width 0.3 -Post Debridement Size (cm) - Depth 6.5 -Total Square Cm 0.75 -Wound/Ulcer Outcome Not Healed -Ulcer Cleansing Rinsed/ Irrigated with Saline -Foul Odor after Cleansing No -Bioengineered Tissue No -Bleeding Controlled with Pressure -Other tunnel @7 - 6. 5cm -Treatment Response Procedure Tolerated Well Pain Scale: 0-10 Numeric Is Patient Pain Free? Yes Wound debrided: Right hip ulcer Type of Debridement: Excisional debridement Anesthesia Used: 5% Lidocaine Gel Depth: Down to and including healthy tissue, in the subcutaneous layer Percentage of wound debrided: 100 Tissue Removed: Fibrin slough Severity: Fat Layer Exposed Amount of bleeding with debridement: None Bleeding Controlled with: Pressure, Compression and gauze Patient tolerated procedure well - Additional Wound Wound debrided: Left hip ulcer Type of Debridement: Excisional debridement Anesthesia Used: 5% Lidocaine Gel Depth: Down to and including healthy tissue, in the subcutaneous layer Percentage of wound debrided: 100 Instrument Used: 3mm curette Tissue Removed: Slough and fibrin Severity: Limited To Skin Breakdown Amount of bleeding with debridement: Mild Bleeding Controlled with: Compression and gauze Patient tolerated procedure: Patient tolerated procedure well Assessment/Plan Active Problems Open wound of left hip and thigh with complication (Chronic) Open wound of right hip (Chronic) History of total hip replacement (Chronic) Delayed wound healing (Chronic) 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 Malnutrition. Right and left hip ulcers healing Plan: Wash all areas with Hibiclens pack bilateral right hips with iodoform guaze 1/4 inch iodoform guaze to L hip and 1/2 inch guaze packing ot the R hip bid applied gauze and tape. Patient is to increase iron to twice daily dosing. Patient is to increase protein intake with meat at least 3-4 times a day. Start physical therapy as suggested by pain management, continue pain management. Follow-up in 1 month. This note was generated with [employer] dictation software. It may contain incorrect words, spelling, and punctuation that were not noted in checking the note before signing.
== END 2018-03-14 23:59 ==
LOC: WC 10:07
PROVIDERS: Family Provider Family Medicine; PCP Family Medicine; Referring Provider Nurse Practitioner; Visit Provider Nurse Practitioner
DX: M87.052 Idiopathic aseptic necrosis of left femur (principal); M21.371 Foot drop, right foot; Z96.643 Presence of artificial hip joint, bilateral; Z85.46 Personal history of malignant neoplasm of prostate; Z92.3 Personal history of irradiation; L98.492 Non-pressure chronic ulcer of skin of other sites with fat layer exposed
CPT/HCPCS: 11042

== ENCOUNTER 2018-03-16 11:07 | Outpatient (RCR) | payer MEDICARE, OTHER, SELFPAY ==
[2018-03-15 00:22] VITALS: BP 116/68; PULSE 93; RESP 20; TEMP 36.2; BMI 23.7
[2018-03-16 11:12] VITALS: BP 112/69; PULSE 104; RESP 18; TEMP 36.9; BMI 23.7
--- NOTE | 2018-03-16 12:11 | PCM.WC.PN ---
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 Current Visit: No Code(s): M87.052 - Idiopathic aseptic necrosis of left femur (2) Atrial fibrillation Status: Chronic Current Visit: Yes Qualifiers: Code(s): I48.91 - Unspecified atrial fibrillation (3) Chronic anemia Status: Chronic Current Visit: Yes Code(s): D64.9 - Anemia, unspecified (4) Chronic congestive heart failure Status: Chronic Current Visit: Yes Code(s): I50.9 - Heart failure, unspecified (5) Delayed wound healing Status: Chronic Current Visit: Yes Code(s): T14.8XXD - Other injury of unspecified body region, subsequent encounter (6) History of total hip replacement Status: Chronic Current Visit: Yes Qualifiers: Code(s): Z96.649 - Presence of unspecified artificial hip joint (7) Malnutrition Status: Chronic Current Visit: Yes Qualifiers: Code(s): E46 - Unspecified protein-calorie malnutrition (8) 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 Current Visit: Yes Code(s): G57.91 - Unspecified mononeuropathy of right lower limb (9) Open wound of left hip and thigh with complication Status: Chronic Current Visit: Yes Qualifiers: Encounter type: subsequent encounter Code(s): S71.002A - Unspecified open wound, left hip, initial encounter; S71.102A - Unspecified open wound, left thigh, initial encounter (10) Open wound of right hip Status: Chronic Current Visit: Yes Qualifiers: Encounter type: subsequent encounter Code(s): S71.001A - Unspecified open wound, right hip, initial encounter Type of Wound Chief Complaint: Ulcer to dorsomedial aspect of the right hallux and dorsomedial 1st metatarsophalangeal joint. Right and left hips ulcers. To be cleared for HBO therapy History of Wound: 76-year-old white male had previously in 1999 for about had prostate cancer and was given radiation over and beyond what was therapeutic. After that he had both hips replacements ?2 to each one done with poor outcomes. He now has ulcers in both hips that tunnel into the bone on either side. He has had wound vacs and a currently he is just packing with gauze dressings. She has been on continuous Augmentin since April. Because of his poor outcomes for healing they have opted for HBO therapy here at the wound center. In the meantime I am to care for all of his other wounds also. 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 Patient still has drainage from bilateral hips that look yellowish some odor. We will obtain cultures from both hips and toes we will x-ray foot and hips bilaterally. We will also get chest x-ray for HBO and a complete blood count and a pre-albumin. Progress of Wound: There appears to be a more improvement each week in both hips. Again could not get the packing out ended up in the emergency room. But they were unable to get it either and sent her to see Dr. Harris. Dr. Harris used a special tool to get it out. Last cultures were done in January were positive and treated. Today we will repeat his pre-albumin his last prealbumin was 15.5 . Physically he is improving with movements and walking - Physical Exam Vital Signs Temp Pulse Resp BP 98.4 F 104 H 18 112/69 03/16/18 11:12 03/16/18 11:12 03/16/18 11:12 03/16/18 11:12 General: Oriented x3, Cooperative, Well developed HEENT: Atraumatic, PERRLA Oral: Moist Mucosa Neck: Supple, No JVD Lungs: Clear to auscultation, Normal air movement Cardiovascular: Regular rate, Regular Rhythm Abdomen: Bowel Sounds Present, Soft, Non Tender, No Hepato-splenomegaly Extremities: No clubbing, No edema, - - Right and left hip nonhealing surgical wounds Wound Measurements and Assessment WC - Nurse 1 - General Ulcer Measurement Start: 03/16/18 11:12 Freq: Status: Active Protocol: Activity Type Activity Date Activity User E-Sign Co-Sign Detail Recorded Client Recorded Date Recorded By Document 03/16/18 11:12 [id number] 03/16/18 11:20 03/16/18 11:12 Wound Center Nurse 1 [Ulcer Assessment] #6- RT HIP -Combined with other wound No -Current Size (cm) - Length 0.7 -Current Size (cm) - Width 0.3 -Current Size (cm) - Depth 2.2 -Total Square Cm 0.21 -Photo Taken No -Epithelialization Small 1-33% -Tunneling No -Undermining/Tunneling Yes -Undermining/Tunneling Starts (O' 7 clock) -Undermining/Tunneling Ends (O'clock) 8 -Circular Undermining No -Exudate Amt Medium (34-66%) -Exudate Type Yellow/Green -Wound Margin Distinct, Outline Attached -Granulation Amt Medium (34-66%) -Granulation Quality Pale -Slough/Fibrin Yes -Necrosis Amt None Present (0 %) -Texture (Vidya-wound Skin Appearance) Scarring -Moisture (Vidya-wound Skin Appearance Maceration ) -Color (Vidya-wound Skin Appearance) No Abnormality Assessed -Temperature (Vidya-wound Skin No Abnormality Appearance) (Pt Warm) -Tenderness on Palpation (Vidya-wound Yes Skin Appearance) -Ulcer Cleansing Rinsed/ Irrigated with Saline -Foul Odor after Cleansing No -Anesthetic Used 4% Lidocaine Solution #5- LT HIP -Combined with other wound No -Current Size (cm) - Length 2.4 -Current Size (cm) - Width 0.2 -Current Size (cm) - Depth 6.5 -Total Square Cm 0.48 -Photo Taken No -Epithelialization None Present -Tunneling No -Undermining/Tunneling No -Circular Undermining No -Necrosis Amt Medium (34-66%) -Necrotic Tissue Type Adherent Slough -Structure Exposed None/Limited to Skin Breakdown -Texture (Vidya-wound Skin Appearance) Assessed Scarring -Temperature (Vidya-wound Skin No Abnormality Appearance) (Pt Warm) -Tenderness on Palpation (Vidya-wound Yes Skin Appearance) -Ulcer Cleansing Rinsed/ Irrigated with Saline -Foul Odor after Cleansing No -Anesthetic Used 4% Lidocaine Solution [Edema Assessment] -Lower Limb Edema Present NA WC - Nurse 2 - General Ulcer CM Notes Start: 03/16/18 11:12 Freq: Status: Active Protocol: Activity Type Activity Date Activity User E-Sign Co-Sign Detail Recorded Client Recorded Date Recorded By Document 03/16/18 11:41 MW [id number] 03/16/18 11:43 MW 03/16/18 11:41 Wound Center Nurse 2 [Procedure/Treatment] #6- RT HIP -Time 11:41 -Correct Patient Yes -Correct Side, Site, Position Yes -Correct Procedure Yes -Procedure Performed No -Post Debridement Size (cm) - Length 0.5 -Post Debridement Size (cm) - Width 0.3 -Post Debridement Size (cm) - Depth 2.0 -Total Square Cm 0.15 -Wound/Ulcer Outcome Not Healed -Ulcer Cleansing Rinsed/ Irrigated with Saline -Foul Odor after Cleansing No -Bioengineered Tissue No -Bleeding Controlled with NA -Treatment Response Procedure Tolerated Well #5- LT HIP -Time 11:41 -Correct Patient Yes -Correct Side, Site, Position Yes -Correct Procedure Yes -Procedure Performed Yes -Type of Procedure Debridement -Clinical Debridement Subcutaneous -Post Debridement Size (cm) - Length 2.5 -Post Debridement Size (cm) - Width 0.2 -Post Debridement Size (cm) - Depth 6.0 -Total Square Cm 0.50 -Wound/Ulcer Outcome Not Healed -Ulcer Cleansing Not Cleansed -Foul Odor after Cleansing No -Bioengineered Tissue No -Bleeding Controlled with Pressure -Treatment Response Procedure Tolerated Well [See Physician Procedure note for Specifics] Pain Scale: 0-10 Numeric [Pain] -Is Patient Pain Free? Yes Musculoskeletal: No Tenderness to Palpation of Joints or Extremities Lymphatic: No Cervical, Supraclavicular, or Inguinal Adenopathy Neurological: Cranial nerves II-XII grossly intact, Neuro grossly intact Psych/Mental Status: Normal Affect, Appropriate Debridement Note Post-Debridement Measurements/Treatment WC - Nurse 2 - General Ulcer CM Notes Start: 03/16/18 11:12 Freq: Status: Active Protocol: Activity Type Activity Date Activity User E-Sign Co-Sign Detail Recorded Client Recorded Date Recorded By Document 03/16/18 11:41 MW [id number] 03/16/18 11:43 MW 18 11:41 Wound Center Nurse 2 #6- RT HIP -Time 11:41 -Correct Patient Yes -Correct Side, Site, Position Yes -Correct Procedure Yes -Procedure Performed No -Post Debridement Size (cm) - Length 0.5 -Post Debridement Size (cm) - Width 0.3 -Post Debridement Size (cm) - Depth 2.0 -Total Square Cm 0.15 -Wound/Ulcer Outcome Not Healed -Ulcer Cleansing Rinsed/ Irrigated with Saline -Foul Odor after Cleansing No -Bioengineered Tissue No -Bleeding Controlled with NA -Treatment Response Procedure Tolerated Well #5- LT HIP -Time 11:41 -Correct Patient Yes -Correct Side, Site, Position Yes -Correct Procedure Yes -Procedure Performed Yes -Type of Procedure Debridement -Clinical Debridement Subcutaneous -Post Debridement Size (cm) - Length 2.5 -Post Debridement Size (cm) - Width 0.2 -Post Debridement Size (cm) - Depth 6.0 -Total Square Cm 0.50 -Wound/Ulcer Outcome Not Healed -Ulcer Cleansing Not Cleansed -Foul Odor after Cleansing No -Bioengineered Tissue No -Bleeding Controlled with Pressure -Treatment Response Procedure Tolerated Well Pain Scale: 0-10 Numeric Is Patient Pain Free? Yes Wound debrided: Right hip ulcer No debridement was completed today - Additional Wound Wound debrided: Left hip ulcer Type of Debridement: Excisional debridement Anesthesia Used: 5% Lidocaine Gel Depth: Down to and including healthy tissue, in the subcutaneous layer Percentage of wound debrided: 100 Instrument Used: 7mm curette Tissue Removed: Fibrin Severity: Limited To Skin Breakdown Amount of bleeding with debridement: Mild Bleeding Controlled with: Compression and gauze Patient tolerated procedure: Patient tolerated procedure well Assessment/Plan 3 albumin lab test for today Active Problems Open wound of left hip and thigh with complication (Chronic) Open wound of right hip (Chronic) History of total hip replacement (Chronic) Chronic congestive heart failure (Chronic) Delayed wound healing (Chronic) Malnutrition (Chronic) Neuropathy of right lower extremity (Chronic) Chronic anemia (Chronic) Atrial fibrillation (Chronic) Assessment: Foot drop. 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 Malnutrition. Right and left hip ulcers healing Plan: Wash all areas with Hibiclens pack bilateral right hips with iodoform guaze 1/2 inch iodoform guaze to L hip and strips of Aquacel silver packing to the R hip gauze and tape. Patient is to increase iron to twice daily dosing. Patient is to increase protein intake with meat at least 3-4 times a day. Start physical therapy as suggested by pain management, continue pain management. Follow-up in 1 month. This note was generated with [employer] software. It may contain incorrect words, spelling, and punctuation that were not noted in checking the note before signing.
[2018-03-16 15:37] LABS: Prealbumin 12.6 mg/dL (20.0-40.0)
== END 2018-04-13 23:59 ==
LOC: WC 11:07
PROVIDERS: Family Provider Family Medicine; PCP Family Medicine; Referring Provider Nurse Practitioner; Visit Provider Nurse Practitioner
DX: M87.052 Idiopathic aseptic necrosis of left femur (principal); M21.371 Foot drop, right foot; Z92.3 Personal history of irradiation; Z85.46 Personal history of malignant neoplasm of prostate; Z96.643 Presence of artificial hip joint, bilateral; I48.2 Chronic atrial fibrillation; I50.9 Heart failure, unspecified; G57.91 Unspecified mononeuropathy of right lower limb; L98.491 Non-pressure chronic ulcer of skin of other sites limited to breakdown of skin
CPT/HCPCS: 11042; 84134

== ENCOUNTER 2018-04-20 09:03 | Outpatient (RCR) | payer MEDICARE, OTHER, SELFPAY ==
[2018-04-14 00:26] VITALS: BP 112/69; PULSE 104; RESP 18; TEMP 36.9
[2018-04-20 11:13] VITALS: BP 123/77; PULSE 110; RESP 18; TEMP 36.2; BMI 23.7
--- NOTE | 2018-04-20 12:45 | PN.PCM_ITS ---
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 Current Visit: Yes Code(s): M87.052 - Idiopathic aseptic necrosis of left femur (2) Atrial fibrillation Status: Chronic Current Visit: Yes Qualifiers: Code(s): I48.91 - Unspecified atrial fibrillation (3) Chronic anemia Status: Chronic Current Visit: Yes Code(s): D64.9 - Anemia, unspecified (4) Chronic congestive heart failure Status: Chronic Current Visit: Yes Code(s): I50.9 - Heart failure, unspecified (5) History of total hip replacement Status: Chronic Current Visit: Yes Qualifiers: Code(s): Z96.649 - Presence of unspecified artificial hip joint (6) Open wound of left hip and thigh with complication Status: Chronic Current Visit: Yes Qualifiers: Code(s): S71.002A - Unspecified open wound, left hip, initial encounter; S71.102A - Unspecified open wound, left thigh, initial encounter (7) Open wound of right hip Status: Chronic Current Visit: Yes Qualifiers: Code(s): S71.001A - Unspecified open wound, right hip, initial encounter Type of Wound Chief Complaint: Ulcer to dorsomedial aspect of the right hallux and dorsomedial 1st metatarsophalangeal joint. Right and left hips ulcers. To be cleared for HBO therapy History of Wound: 76-year-old white male had previously in 1999 for about had prostate cancer and was given radiation over and beyond what was therapeutic. After that he had both hips replacements ?2 to each one done with poor outcomes. He now has ulcers in both hips that tunnel into the bone on either side. He has had wound vacs and a currently he is just packing with gauze dressings. She has been on continuous Augmentin since April. Because of his poor outcomes for healing they have opted for HBO therapy here at the wound center. In the meantime I am to care for all of his other wounds also. 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 Patient still has drainage from bilateral hips that look yellowish some odor. We will obtain cultures from both hips and toes we will x-ray foot and hips bilaterally. We will also get chest x-ray for HBO and a complete blood count and a pre-albumin. Progress of Wound: There appears to be a standstill each week in both hips. Last cultures were done in January were positive and treated. Today we will repeat his pre-albumin his last prealbumin was 15.5 . He is down to 12 we discussed better management of his protein levels and he wonders why he is not getting better is because he is not eating good. Physically he is improving with movements and walking - Physical Exam Vital Signs Temp Pulse Resp BP 97.1 F L 110 H 18 123/77 H 04/20/18 11:13 04/20/18 11:13 04/20/18 11:13 04/20/18 11:13 General: Oriented x3, Cooperative, Well developed HEENT: Atraumatic, PERRLA Oral: Moist Mucosa Neck: Supple, No JVD Lungs: Clear to auscultation, Normal air movement Cardiovascular: Regular rate, Regular Rhythm Abdomen: Bowel Sounds Present, Soft, Non Tender, No Hepato-splenomegaly Extremities: No clubbing, No edema, - - Bilateral hip open surgical wounds Wound Measurements and Assessment WC - Nurse 1 - General Ulcer Measurement Start: 04/20/18 11:13 Freq: Status: Active Protocol: Activity Type Activity Date Activity User E-Sign Co-Sign Detail Recorded Client Recorded Date Recorded By Document 04/20/18 11:13 [id number] 04/20/18 11:15 04/20/18 11:13 Wound Center Nurse 1 [Ulcer Assessment] #6- RT HIP -Combined with other wound No -Current Size (cm) - Length 5.3 -Current Size (cm) - Width 1 -Current Size (cm) - Depth 0.5 -Total Square Cm 5.3 -Photo Taken No -Epithelialization None Present -Tunneling No -Undermining/Tunneling No -Circular Undermining No -Exudate Amt Medium (34-66%) -Exudate Type Yellow/Green -Wound Margin Thickened -Granulation Amt Medium (34-66%) -Granulation Quality Pale -Slough/Fibrin Yes -Necrosis Amt None Present (0 %) -Necrotic Tissue Type Adherent Slough -Structure Exposed None/Limited to Skin Breakdown -Texture (Vidya-wound Skin Appearance) Scarring -Moisture (Vidya-wound Skin Appearance Maceration ) -Color (Vidya-wound Skin Appearance) No Abnormality Assessed -Temperature (Vidya-wound Skin No Abnormality Appearance) (Pt Warm) -Tenderness on Palpation (Vidya-wound Yes Skin Appearance) -Ulcer Cleansing Rinsed/ Irrigated with Saline -Foul Odor after Cleansing No -Anesthetic Used 4% Lidocaine Solution #5- LT HIP -Combined with other wound No -Current Size (cm) - Length 2.5 -Current Size (cm) - Width 0.1 -Current Size (cm) - Depth 0.3 -Total Square Cm 0.25 -Photo Taken No -Epithelialization None Present -Tunneling No -Undermining/Tunneling No -Circular Undermining No -Exudate Amt Small (1-33%) -Exudate Type Serosanguineous -Wound Margin Distinct, Outline Attached -Granulation Amt None Present (0 %) -Granulation Quality N/A -Slough/Fibrin Yes -Necrosis Amt None Present (0 %) -Necrotic Tissue Type Adherent Slough -Structure Exposed None/Limited to Skin Breakdown -Texture (Vidya-wound Skin Appearance) Scarring -Moisture (Vidya-wound Skin Appearance Maceration ) -Color (Vidya-wound Skin Appearance) No Abnormality Assessed -Temperature (Vidya-wound Skin No Abnormality Appearance) (Pt Warm) -Tenderness on Palpation (Vidya-wound Yes Skin Appearance) -Ulcer Cleansing Rinsed/ Irrigated with Saline -Foul Odor after Cleansing No -Anesthetic Used 4% Lidocaine Solution [Edema Assessment] -Lower Limb Edema Present NA WC - Nurse 2 - General Ulcer CM Notes Start: 04/20/18 11:13 Freq: Status: Active Protocol: Activity Type Activity Date Activity User E-Sign Co-Sign Detail Recorded Client Recorded Date Recorded By Document 04/20/18 11:25 MW [id number] 04/20/18 11:30 MW 04/20/18 11:25 Wound Center Nurse 2 [Procedure/Treatment] #6- RT HIP -Time 11:26 -Correct Patient Yes -Correct Side, Site, Position Yes -Correct Procedure Yes -Procedure Performed Yes -Type of Procedure Debridement -Clinical Debridement Subcutaneous -Post Debridement Size (cm) - Length 0.3 -Post Debridement Size (cm) - Width 1.0 -Post Debridement Size (cm) - Depth 2.0 -Total Square Cm 0.30 -Wound/Ulcer Outcome Not Healed -Ulcer Cleansing Rinsed/ Irrigated with Saline -Foul Odor after Cleansing No -Bioengineered Tissue No -Bleeding Controlled with Pressure -Treatment Response Procedure Tolerated Well #5- LT HIP -Time 11:26 -Correct Patient Yes -Correct Side, Site, Position Yes -Correct Procedure Yes -Procedure Performed Yes -Type of Procedure Debridement -Clinical Debridement Subcutaneous -Post Debridement Size (cm) - Length 0.1 -Post Debridement Size (cm) - Width 2.5 -Post Debridement Size (cm) - Depth 8.0 -Total Square Cm 0.25 -Wound/Ulcer Outcome Not Healed -Ulcer Cleansing Rinsed/ Irrigated with Saline -Foul Odor after Cleansing No -Bioengineered Tissue No -Bleeding Controlled with Pressure -Offloading No -Treatment Response Procedure Tolerated Well [See Physician Procedure note for Specifics] Pain Scale: 0-10 Numeric [Pain] -Is Patient Pain Free? Yes Musculoskeletal: No Tenderness to Palpation of Joints or Extremities Lymphatic: No Cervical, Supraclavicular, or Inguinal Adenopathy Neurological: Cranial nerves II-XII grossly intact, Neuro grossly intact Psych/Mental Status: Normal Affect, Appropriate, Alert and oriented to time, place, person, mood and affect Debridement Note Post-Debridement Measurements/Treatment WC - Nurse 2 - General Ulcer CM Notes Start: 04/20/18 11:13 Freq: Status: Active Protocol: Activity Type Activity Date Activity User E-Sign Co-Sign Detail Recorded Client Recorded Date Recorded By Document 04/20/18 11:25 MW [id number] 04/20/18 11:30 MW 04/20/18 11:25 Wound Center Nurse 2 #6- RT HIP -Time 11:26 -Correct Patient Yes -Correct Side, Site, Position Yes -Correct Procedure Yes -Procedure Performed Yes -Type of Procedure Debridement -Clinical Debridement Subcutaneous -Post Debridement Size (cm) - Length 0.3 -Post Debridement Size (cm) - Width 1.0 -Post Debridement Size (cm) - Depth 2.0 -Total Square Cm 0.30 -Wound/Ulcer Outcome Not Healed -Ulcer Cleansing Rinsed/ Irrigated with Saline -Foul Odor after Cleansing No -Bioengineered Tissue No -Bleeding Controlled with Pressure -Treatment Response Procedure Tolerated Well #5- LT HIP -Time 11:26 -Correct Patient Yes -Correct Side, Site, Position Yes -Correct Procedure Yes -Procedure Performed Yes -Type of Procedure Debridement -Clinical Debridement Subcutaneous -Post Debridement Size (cm) - Length 0.1 -Post Debridement Size (cm) - Width 2.5 -Post Debridement Size (cm) - Depth 8.0 -Total Square Cm 0.25 -Wound/Ulcer Outcome Not Healed -Ulcer Cleansing Rinsed/ Irrigated with Saline -Foul Odor after Cleansing No -Bioengineered Tissue No -Bleeding Controlled with Pressure -Offloading No -Treatment Response Procedure Tolerated Well Pain Scale: 0-10 Numeric Is Patient Pain Free? Yes Wound debrided: Right hip Depth: Down to and including healthy tissue, in the subcutaneous layer Instrument Used: 3mm curette Tissue Removed: Fibrin Amount of bleeding with debridement: Mild Bleeding Controlled with: Compression and gauze Patient tolerated procedure well - Additional Wound Wound debrided: Left hip Type of Debridement: Excisional debridement Anesthesia Used: 5% Lidocaine Gel Depth: Down to and including healthy tissue, in the subcutaneous layer Percentage of wound debrided: 100 Instrument Used: 3mm curette Tissue Removed: Fibrin and slough Amount of bleeding with debridement: None Bleeding Controlled with: Pressure Patient tolerated procedure: Patient tolerated procedure well Assessment/Plan Active Problems Open wound of left hip and thigh with complication (Chronic) Open wound of right hip (Chronic) History of total hip replacement (Chronic) Chronic congestive heart failure (Chronic) Chronic anemia (Chronic) Atrial fibrillation (Chronic) 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 Malnutrition. Right and left hip ulcers healing Plan: Wash all areas with Hibiclens pack bilateral right hips with iodoform guaze 1/2 inch iodoform guaze to L hip and strips of Aquacel silver packing to the R hip gauze and tape. Patient is to increase iron to twice daily dosing. Patient is to increase 30 g protein intake with meat at least 1-2 times a day. Start physical therapy as suggested by pain management, continue pain management. Follow-up in 1 month. This note was generated with [employer] software. It may contain incorrect words, spelling, and punctuation that were not noted in checking the note before signing.
== END 2018-05-14 23:59 ==
LOC: WC 09:03
PROVIDERS: Family Provider Family Medicine; PCP Family Medicine; Referring Provider Nurse Practitioner; Visit Provider Nurse Practitioner
DX: M87.052 Idiopathic aseptic necrosis of left femur (principal); I48.2 Chronic atrial fibrillation; D64.9 Anemia, unspecified; I50.9 Heart failure, unspecified; L98.491 Non-pressure chronic ulcer of skin of other sites limited to breakdown of skin; Z96.649 Presence of unspecified artificial hip joint; Z85.46 Personal history of malignant neoplasm of prostate; Z92.3 Personal history of irradiation; M21.371 Foot drop, right foot
CPT/HCPCS: 11042

== ENCOUNTER 2018-05-18 10:27 | Outpatient (RCR) | payer MEDICARE, OTHER, SELFPAY ==
[2018-05-15 00:29] VITALS: BP 123/77; PULSE 110; RESP 18; TEMP 36.2
[2018-05-18 10:34] VITALS: BP 122/75; PULSE 105; RESP 18; TEMP 35.7; BMI 23.7
--- NOTE | 2018-05-18 11:41 | PCM.WC.PN ---
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 Current Visit: Yes Code(s): M87.052 - Idiopathic aseptic necrosis of left femur (3) Delayed wound healing Status: Chronic Current Visit: Yes Code(s): T14.8XXD - Other injury of unspecified body region, subsequent encounter (4) History of total hip replacement Status: Chronic Current Visit: Yes Qualifiers: Code(s): Z96.649 - Presence of unspecified artificial hip joint (5) Open wound of left hip and thigh with complication Status: Chronic Current Visit: Yes Qualifiers: Code(s): S71.002A - Unspecified open wound, left hip, initial encounter; S71.102A - Unspecified open wound, left thigh, initial encounter (6) Open wound of right hip Status: Chronic Current Visit: Yes Qualifiers: Encounter type: subsequent encounter Code(s): S71.001A - Unspecified open wound, right hip, initial encounter (7) Open wound of right hip and thigh with complication Status: Chronic Current Visit: Yes Qualifiers: Encounter type: subsequent encounter Code(s): S71.001A - Unspecified open wound, right hip, initial encounter; S71.101A - Unspecified open wound, right thigh, initial encounter (8) Physical deconditioning Status: Chronic Current Visit: Yes Code(s): R53.81 - Other malaise (9) Right foot drop Status: Chronic Current Visit: Yes Code(s): M21.371 - Foot drop, right foot (10) Status post total hip replacement, left Status: Chronic Current Visit: Yes Code(s): Z96.642 - Presence of left artificial hip joint (11) Status post total hip replacement, right Status: Chronic Current Visit: Yes Code(s): Z96.641 - Presence of right artificial hip joint Type of Wound Chief Complaint: Ulcer to dorsomedial aspect of the right hallux and dorsomedial 1st metatarsophalangeal joint. Right and left hips ulcers. To be cleared for HBO therapy History of Wound: 76-year-old white male had previously in 1999 for about had prostate cancer and was given radiation over and beyond what was therapeutic. After that he had both hips replacements ?2 to each one done with poor outcomes. He now has ulcers in both hips that tunnel into the bone on either side. He has had wound vacs and a currently he is just packing with gauze dressings. She has been on continuous Augmentin since April. Because of his poor outcomes for healing they have opted for HBO therapy here at the wound center. In the meantime I am to care for all of his other wounds also. 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 Patient still has drainage from bilateral hips that look yellowish some odor. We will obtain cultures from both hips and toes we will x-ray foot and hips bilaterally. We will also get chest x-ray for HBO and a complete blood count and a pre-albumin. Progress of Wound: There appears to be a standstill each week in both hips. Last cultures were done in January were positive and treated. Today we will repeat his pre-albumin his last prealbumin was 15.5 . He is down to 12 we discussed better management of his protein levels and he wonders why he is not getting better is because he is not eating good. Physically he is improving with movements and walking - Physical Exam Vital Signs Temp Pulse Resp BP 96.2 F L 105 H 18 122/75 H 05/18/18 10:34 05/18/18 10:34 05/18/18 10:34 05/18/18 10:34 General: Oriented x3, Cooperative, Well developed HEENT: Atraumatic, PERRLA Oral: Moist Mucosa Neck: Supple, No JVD Lungs: Clear to auscultation, Normal air movement Cardiovascular: Regular rate, Regular Rhythm Abdomen: Bowel Sounds Present, Soft, Non Tender, No Hepato-splenomegaly Extremities: No clubbing, No edema Wound Measurements and Assessment WC - Nurse 1 - General Ulcer Measurement Start: 05/18/18 10:34 Freq: Status: Active Protocol: Activity Type Activity Date Activity User E-Sign Co-Sign Detail Recorded Client Recorded Date Recorded By Document 05/18/18 10:34 [email or web address] [id number] 05/18/18 10:39 RB 05/18/18 10:34 Wound Center Nurse 1 [Ulcer Assessment] #6- RT HIP -Combined with other wound No -Current Size (cm) - Length 5.5 -Current Size (cm) - Width 1.5 -Current Size (cm) - Depth 1.9 -Total Square Cm 8.25 -Photo Taken No -Tunneling No -Undermining/Tunneling No -Circular Undermining No -Exudate Amt Small (1-33%) -Exudate Type Serosanguineous -Wound Margin Distinct, Outline Attached -Granulation Amt Medium (34-66%) -Granulation Quality Pale [place] -Slough/Fibrin Yes -Necrosis Amt Small (1-33%) -Necrotic Tissue Type Adherent Slough -Structure Exposed N/A -Texture (Vidya-wound Skin Appearance) Assessed -Moisture (Vidya-wound Skin Appearance Maceration ) -Color (Vidya-wound Skin Appearance) Assessed -Temperature (Vidya-wound Skin No Abnormality Appearance) (Pt Warm) -Tenderness on Palpation (Vidya-wound No Skin Appearance) -Ulcer Cleansing Rinsed/ Irrigated with Saline -Foul Odor after Cleansing No -Anesthetic Used 4% Lidocaine Solution #5- LT HIP -Combined with other wound No -Current Size (cm) - Length 3.5 -Current Size (cm) - Width 0.2 -Current Size (cm) - Depth 0.3 -Total Square Cm 0.70 -Photo Taken No -Tunneling No -Undermining/Tunneling No -Circular Undermining No -Exudate Amt Small (1-33%) -Exudate Type Serosanguineous -Wound Margin Distinct, Outline Attached -Granulation Amt Large (67-100%) -Granulation Quality [place] -Slough/Fibrin Yes -Necrosis Amt Small (1-33%) -Necrotic Tissue Type Adherent Slough -Structure Exposed N/A -Texture (Vidya-wound Skin Appearance) Scarring -Moisture (Vidya-wound Skin Appearance Assessed ) -Color (Vidya-wound Skin Appearance) Assessed -Temperature (Vidya-wound Skin No Abnormality Appearance) (Pt Warm) -Tenderness on Palpation (Vidya-wound No Skin Appearance) -Ulcer Cleansing Rinsed/ Irrigated with Saline -Foul Odor after Cleansing No -Anesthetic Used 4% Lidocaine Solution WC - Nurse 2 - General Ulcer CM Notes Start: 05/18/18 10:34 Freq: Status: Active Protocol: Activity Type Activity Date Activity User E-Sign Co-Sign Detail Recorded Client Recorded Date Recorded By Document 05/18/18 10:46 MW [id number] 05/18/18 10:51 MW 05/18/18 10:46 Wound Center Nurse 2 [Procedure/Treatment] #6- RT HIP -Time 10:46 -Correct Patient Yes -Correct Side, Site, Position Yes -Correct Procedure Yes -Procedure Performed Yes -Type of Procedure Debridement -Clinical Debridement Subcutaneous -Post Debridement Size (cm) - Length 1.0 -Post Debridement Size (cm) - Width 0.3 -Post Debridement Size (cm) - Depth 2.0 -Total Square Cm 0.30 -Wound/Ulcer Outcome Not Healed -Ulcer Cleansing Rinsed/ Irrigated with Saline -Foul Odor after Cleansing No -Bioengineered Tissue No -Bleeding Controlled with Pressure -Offloading No -Treatment Response Procedure Tolerated Well #5- LT HIP -Time 10:47 -Correct Patient Yes -Correct Side, Site, Position Yes -Correct Procedure Yes -Procedure Performed Yes -Type of Procedure Debridement -Clinical Debridement Subcutaneous -Post Debridement Size (cm) - Length 0.1 -Post Debridement Size (cm) - Width 2.9 -Post Debridement Size (cm) - Depth 9.5 -Total Square Cm 0.29 -Wound/Ulcer Outcome Not Healed -Ulcer Cleansing Rinsed/ Irrigated with Saline -Foul Odor after Cleansing No -Bioengineered Tissue No -Bleeding Controlled with Pressure -Offloading No -Treatment Response Procedure Tolerated Well [See Physician Procedure note for Specifics] Pain Scale: 0-10 Numeric [Pain] -Is Patient Pain Free? Yes Musculoskeletal: No Tenderness to Palpation of Joints or Extremities Lymphatic: No Cervical, Supraclavicular, or Inguinal Adenopathy Neurological: Cranial nerves II-XII grossly intact, Neuro grossly intact Psych/Mental Status: Normal Affect, Appropriate, Alert and oriented to time, place, person, mood and affect Debridement Note Post-Debridement Measurements/Treatment WC - Nurse 2 - General Ulcer CM Notes Start: 05/18/18 10:34 Freq: Status: Active Protocol: Activity Type Activity Date Activity User E-Sign Co-Sign Detail Recorded Client Recorded Date Recorded By Document 05/18/18 10:46 MW [id number] 05/18/18 10:51 MW 05/18/18 10:46 Wound Center Nurse 2 #6- RT HIP -Time 10:46 -Correct Patient Yes -Correct Side, Site, Position Yes -Correct Procedure Yes -Procedure Performed Yes -Type of Procedure Debridement -Clinical Debridement Subcutaneous -Post Debridement Size (cm) - Length 1.0 -Post Debridement Size (cm) - Width 0.3 -Post Debridement Size (cm) - Depth 2.0 -Total Square Cm 0.30 -Wound/Ulcer Outcome Not Healed -Ulcer Cleansing Rinsed/ Irrigated with Saline -Foul Odor after Cleansing No -Bioengineered Tissue No -Bleeding Controlled with Pressure -Offloading No -Treatment Response Procedure Tolerated Well #5- LT HIP -Time 10:47 -Correct Patient Yes -Correct Side, Site, Position Yes -Correct Procedure Yes -Procedure Performed Yes -Type of Procedure Debridement -Clinical Debridement Subcutaneous -Post Debridement Size (cm) - Length 0.1 -Post Debridement Size (cm) - Width 2.9 -Post Debridement Size (cm) - Depth 9.5 -Total Square Cm 0.29 -Wound/Ulcer Outcome Not Healed -Ulcer Cleansing Rinsed/ Irrigated with Saline -Foul Odor after Cleansing No -Bioengineered Tissue No -Bleeding Controlled with Pressure -Offloading No -Treatment Response Procedure Tolerated Well Pain Scale: 0-10 Numeric Is Patient Pain Free? Yes Wound debrided: Right hip Type of Debridement: Excisional debridement Depth: Down to and including healthy tissue, in the subcutaneous layer, to muscle, to bone Percentage of wound debrided: 100 Instrument Used: 7mm curette Tissue Removed: Fibrin Severity: Limited To Skin Breakdown Amount of bleeding with debridement: None Bleeding Controlled with: Pressure Patient tolerated procedure well - Additional Wound Wound debrided: Left hip Type of Debridement: Excisional debridement Anesthesia Used: 5% Lidocaine Gel Depth: Down to and including healthy tissue, in the subcutaneous layer, to muscle, to bone Percentage of wound debrided: 100 Instrument Used: 5mm curette Tissue Removed: Fibrin Severity: Limited To Skin Breakdown Amount of bleeding with debridement: None Bleeding Controlled with: Pressure Patient tolerated procedure: Patient tolerated procedure well Assessment/Plan Active Problems Open wound of left hip and thigh with complication (Chronic) Open wound of right hip and thigh with complication (Chronic) Status post total hip replacement, right (Chronic) Physical deconditioning (Chronic) Malnutrition compromising bodily function (Chronic) Open wound of right hip (Chronic) History of total hip replacement (Chronic) Delayed wound healing (Chronic) Right foot drop (Chronic) Status post total hip replacement, left (Chronic) 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 Malnutrition. Right and left hip ulcers healing Plan: Wash all areas with Hibiclens pack bilateral right hips with iodoform guaze 1/2 inch iodoform guaze to L hip and strips of Aquacel silver packing to the R hip gauze and tape. Patient is to increase iron to twice daily dosing. Patient is to increase 30 g protein intake with meat at least 1-2 times a day. Start physical therapy as suggested by pain management, continue pain management. Follow-up in 1 month. This note was generated with [employer] dictation software. It may contain incorrect words, spelling, and punctuation that were not noted in checking the note before signing.
--- NOTE | 2018-05-18 11:45 | PN.PCM_ITS ---
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 Current Visit: Yes Code(s): M87.052 - Idiopathic aseptic necrosis of left femur (3) Delayed wound healing Status: Chronic Current Visit: Yes Code(s): T14.8XXD - Other injury of unspecified body region, subsequent encounter (4) History of total hip replacement Status: Chronic Current Visit: Yes Qualifiers: Code(s): Z96.649 - Presence of unspecified artificial hip joint (5) Open wound of left hip and thigh with complication Status: Chronic Current Visit: Yes Qualifiers: Code(s): S71.002A - Unspecified open wound, left hip, initial encounter; S71.102A - Unspecified open wound, left thigh, initial encounter (6) Open wound of right hip Status: Chronic Current Visit: Yes Qualifiers: Encounter type: subsequent encounter Code(s): S71.001A - Unspecified open wound, right hip, initial encounter (7) Open wound of right hip and thigh with complication Status: Chronic Current Visit: Yes Qualifiers: Encounter type: subsequent encounter Code(s): S71.001A - Unspecified open wound, right hip, initial encounter; S71.101A - Unspecified open wound, right thigh, initial encounter (8) Physical deconditioning Status: Chronic Current Visit: Yes Code(s): R53.81 - Other malaise (9) Right foot drop Status: Chronic Current Visit: Yes Code(s): M21.371 - Foot drop, right foot (10) Status post total hip replacement, left Status: Chronic Current Visit: Yes Code(s): Z96.642 - Presence of left artificial hip joint (11) Status post total hip replacement, right Status: Chronic Current Visit: Yes Code(s): Z96.641 - Presence of right artificial hip joint Type of Wound Chief Complaint: Ulcer to dorsomedial aspect of the right hallux and dorsomedial 1st metatarsophalangeal joint. Right and left hips ulcers. To be cleared for HBO therapy History of Wound: 76-year-old white male had previously in 1999 for about had prostate cancer and was given radiation over and beyond what was therapeutic. After that he had both hips replacements ?2 to each one done with poor outcomes. He now has ulcers in both hips that tunnel into the bone on either side. He has had wound vacs and a currently he is just packing with gauze dressings. She has been on continuous Augmentin since April. Because of his poor outcomes for healing they have opted for HBO therapy here at the wound center. In the meantime I am to care for all of his other wounds also. 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 Patient still has drainage from bilateral hips that look yellowish some odor. We will obtain cultures from both hips and toes we will x-ray foot and hips bila terally. We will also get chest x-ray for HBO and a complete blood count and a pre-albumin. Progress of Wound: There appears to be a standstill each week in both hips. Last cultures were done in January were positive and treated. Today we will repeat his pre-albumin his last prealbumin was 15.5 . He is down to 12 we discussed better management of his protein levels and he wonders why he is not getting better is because he is not eating good. Physically he is improving with movements and walking - Physical Exam Vital Signs Temp Pulse Resp BP 96.2 F L 105 H 18 122/75 H 05/18/18 10:34 05/18/18 10:34 05/18/18 10:34 05/18/18 10:34 General: Oriented x3, Cooperative, Well developed HEENT: Atraumatic, PERRLA Oral: Moist Mucosa Neck: Supple, No JVD Lungs: Clear to auscultation, Normal air movement Cardiovascular: Regular rate, Regular Rhythm Abdomen: Bowel Sounds Present, Soft, Non Tender, No Hepato-splenomegaly Extremities: No clubbing, No edema Wound Measurements and Assessment WC - Nurse 1 - General Ulcer Measurement Start: 05/18/18 10:34 Freq: Status: Active Protocol: Activity Type Activity Date Activity User E-Sign Co-Sign Detail Recorded Client Recorded Date Recorded By Document 05/18/18 10:34 RB [id number] 05/18/18 10:39 RB 05/18/18 10:34 Wound Center Nurse 1 [Ulcer Assessment] #6- RT HIP -Combined with other wound No -Current Size (cm) - Length 5.5 -Current Size (cm) - Width 1.5 -Current Size (cm) - Depth 1.9 -Total Square Cm 8.25 -Photo Taken No -Tunneling No -Undermining/Tunneling No -Circular Undermining No -Exudate Amt Small (1-33%) -Exudate Type Serosanguineous -Wound Margin Distinct, Outline Attached -Granulation Amt Medium (34-66%) -Granulation Quality Pale [place] -Slough/Fibrin Yes -Necrosis Amt Small (1-33%) -Necrotic Tissue Type Adherent Slough -Structure Exposed N/A -Texture (Vidya-wound Skin Appearance) Assessed -Moisture (Vidya-wound Skin Appearance Maceration ) -Color (Vidya-wound Skin Appearance) Assessed -Temperature (Vidya-wound Skin No Abnormality Appearance) (Pt Warm) -Tenderness on Palpation (Vidya-wound No Skin Appearance) -Ulcer Cleansing Rinsed/ Irrigated with Saline -Foul Odor after Cleansing No -Anesthetic Used 4% Lidocaine Solution #5- LT HIP -Combined with other wound No -Current Size (cm) - Length 3.5 -Current Size (cm) - Width 0.2 -Current Size (cm) - Depth 0.3 -Total Square Cm 0.70 -Photo Taken No -Tunneling No -Undermining/Tunneling No -Circular Undermining No -Exudate Amt Small (1-33%) -Exudate Type Serosanguineous -Wound Margin Distinct, Outline Attached -Granulation Amt Large (67-100%) -Granulation Quality [place] -Slough/Fibrin Yes -Necrosis Amt Small (1-33%) -Necrotic Tissue Type Adherent Slough -Structure Exposed N/A -Texture (Vidya-wound Skin Appearance) Scarring -Moisture (Vidya-wound Skin Appearance Assessed ) -Color (Vidya-wound Skin Appearance) Assessed -Temperature (Vidya-wound Skin No Abnormality Appearance) (Pt Warm) -Tenderness on Palpation (Vidya-wound No Skin Appearance) -Ulcer Cleansing Rinsed/ Irrigated with Saline -Foul Odor after Cleansing No -Anesthetic Used 4% Lidocaine Solution WC - Nurse 2 - General Ulcer CM Notes Start: 05/18/18 10:34 Freq: Status: Active Protocol: Activity Type Activity Date Activity User E-Sign Co-Sign Detail Recorded Client Recorded Date Recorded By Document 05/18/18 10:46 MW [id number] 05/18/18 10:51 MW 05/18/18 10:46 Wound Center Nurse 2 [Procedure/Treatment] #6- RT HIP -Time 10:46 -Correct Patient Yes -Correct Side, Site, Position Yes -Correct Procedure Yes -Procedure Performed Yes -Type of Procedure Debridement -Clinical Debridement Subcutaneous -Post Debridement Size (cm) - Length 1.0 -Post Debridement Size (cm) - Width 0.3 -Post Debridement Size (cm) - Depth 2.0 -Total Square Cm 0.30 -Wound/Ulcer Outcome Not Healed -Ulcer Cleansing Rinsed/ Irrigated with Saline -Foul Odor after Cleansing No -Bioengineered Tissue No -Bleeding Controlled with Pressure -Offloading No -Treatment Response Procedure Tolerated Well #5- LT HIP -Time 10:47 -Correct Patient Yes -Correct Side, Site, Position Yes -Correct Procedure Yes -Procedure Performed Yes -Type of Procedure Debridement -Clinical Debridement Subcutaneous -Post Debridement Size (cm) - Length 0.1 -Post Debridement Size (cm) - Width 2.9 -Post Debridement Size (cm) - Depth 9.5 -Total Square Cm 0.29 -Wound/Ulcer Outcome Not Healed -Ulcer Cleansing Rinsed/ Irrigated with Saline -Foul Odor after Cleansing No -Bioengineered Tissue No -Bleeding Controlled with Pressure -Offloading No -Treatment Response Procedure Tolerated Well [See Physician Procedure note for Specifics] Pain Scale: 0-10 Numeric [Pain] -Is Patient Pain Free? Yes Musculoskeletal: No Tenderness to Palpation of Joints or Extremities Lymphatic: No Cervical, Supraclavicular, or Inguinal Adenopathy Neurological: Cranial nerves II-XII grossly intact, Neuro grossly intact Psych/Mental Status: Normal Affect, Appropriate, Alert and oriented to time, place, person, mood and affect Debridement Note Post-Debridement Measurements/Treatment WC - Nurse 2 - General Ulcer CM Notes Start: 05/18/18 10:34 Freq: Status: Active Protocol: Activity Type Activity Date Activity User E-Sign Co-Sign Detail Recorded Client Recorded Date Recorded By Document 05/18/18 10:46 MW [id number] 05/18/18 10:51 MW 05/18/18 10:46 Wound Center Nurse 2 #6- RT HIP -Time 10:46 -Correct Patient Yes -Correct Side, Site, Position Yes -Correct Procedure Yes -Procedure Performed Yes -Type of Procedure Debridement -Clinical Debridement Subcutaneous -Post Debridement Size (cm) - Length 1.0 -Post Debridement Size (cm) - Width 0.3 -Post Debridement Size (cm) - Depth 2.0 -Total Square Cm 0.30 -Wound/Ulcer Outcome Not Healed -Ulcer Cleansing Rinsed/ Irrigated with Saline -Foul Odor after Cleansing No -Bioengineered Tissue No -Bleeding Controlled with Pressure -Offloading No -Treatment Response Procedure Tolerated Well #5- LT HIP -Time 10:47 -Correct Patient Yes -Correct Side, Site, Position Yes -Correct Procedure Yes -Procedure Performed Yes -Type of Procedure Debridement -Clinical Debridement Subcutaneous -Post Debridement Size (cm) - Length 0.1 -Post Debridement Size (cm) - Width 2.9 -Post Debridement Size (cm) - Depth 9.5 -Total Square Cm 0.29 -Wound/Ulcer Outcome Not Healed -Ulcer Cleansing Rinsed/ Irrigated with Saline -Foul Odor after Cleansing No -Bioengineered Tissue No -Bleeding Controlled with Pressure -Offloading No -Treatment Response Procedure Tolerated Well Pain Scale: 0-10 Numeric Is Patient Pain Free? Yes Wound debrided: Right hip Type of Debridement: Excisional debridement Depth: Down to and including healthy tissue, in the subcutaneous layer, to mu scle, to bone Percentage of wound debrided: 100 Instrument Used: 7mm curette Tissue Removed: Fibrin Severity: Limited To Skin Breakdown Amount of bleeding with debridement: None Bleeding Controlled with: Pressure Patient tolerated procedure well - Additional Wound Wound debrided: Left hip Type of Debridement: Excisional debridement Anesthesia Used: 5% Lidocaine Gel Depth: Down to and including healthy tissue, in the subcutaneous layer, to muscle, to bone Percentage of wound debrided: 100 Instrument Used: 5mm curette Tissue Removed: Fibrin Severity: Limited To Skin Breakdown Amount of bleeding with debridement: None Bleeding Controlled with: Pressure Patient tolerated procedure: Patient tolerated procedure well Assessment/Plan Active Problems Open wound of left hip and thigh with complication (Chronic) Open wound of right hip and thigh with complication (Chronic) Status post total hip replacement, right (Chronic) Physical deconditioning (Chronic) Malnutrition compromising bodily function (Chronic) Open wound of right hip (Chronic) History of total hip replacement (Chronic) Delayed wound healing (Chronic) Right foot drop (Chronic) Status post total hip replacement, left (Chronic) 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 Malnutrition. Right and left hip ulcers healing Plan: Wash all areas with Hibiclens pack bilateral right hips with iodoform guaze 1/2 inch iodoform guaze to L hip and strips of Aquacel silver packing to the R hip gauze and tape. Patient is to increase iron to twice daily dosing. Patient is to increase 30 g protein intake with meat at least 1-2 times a day. Start physical therapy as suggested by pain management, continue pain management. Follow-up in 1 month. This note was generated with [employer] dictation software. It may contain incorrect words, spelling, and punctuation that were not noted in checking the note before signing.
== END 2018-06-14 23:59 ==
LOC: WC 10:27
PROVIDERS: Family Provider Family Medicine; PCP Family Medicine; Referring Provider Nurse Practitioner; Visit Provider Nurse Practitioner
DX: M87.052 Idiopathic aseptic necrosis of left femur (principal); I48.2 Chronic atrial fibrillation; D64.9 Anemia, unspecified; I50.9 Heart failure, unspecified; L98.491 Non-pressure chronic ulcer of skin of other sites limited to breakdown of skin; M21.371 Foot drop, right foot; G62.9 Polyneuropathy, unspecified
CPT/HCPCS: 11042; 84134